=== PATIENT | male | born 1960 | race Caucasian/White ===

== ENCOUNTER → 2017-08-27 13:50 | Outpatient (CLI) | payer BC, SELFPAY ==
[2017-08-27 15:34] LABS: Amphetamine Urine VISTA NEGATIVE (<1000 ng/mL); Barbiturate Urine VISTA NEGATIVE (< 200 ng/mL); Benzodiazepine Urine VISTA NEGATIVE (< 200 ng/mL); Cocaine Urine VISTA NEGATIVE (< 300 ng/mL); Ecstacy Urine VISTA NEGATIVE (< 500 ng/mL); Methadone Urine VISTA NEGATIVE (< 300 ng/mL); PCP Urine VISTA NEGATIVE (< 25 ng/mL); THC Urine VISTA NEGATIVE (< 50 ng/mL); Vista UDS pH Range 6
== END ==
PROVIDERS: Family Provider Family Medicine; PCP Family Medicine; Visit Provider Anesthesiology Pain Medicine
DX: F11.20 Opioid dependence, uncomplicated (principal)
CPT/HCPCS: 80307

== ENCOUNTER → 2018-01-26 14:42 | Outpatient (CLI) | payer BC, SELFPAY ==
[2018-01-26 15:19] LABS: Amphetamine Urine VISTA NEGATIVE (<1000 ng/mL); Barbiturate Urine VISTA NEGATIVE (< 200 ng/mL); Benzodiazepine Urine VISTA NEGATIVE (< 200 ng/mL); Cocaine Urine VISTA NEGATIVE (< 300 ng/mL); Ecstacy Urine VISTA NEGATIVE (< 500 ng/mL); Methadone Urine VISTA NEGATIVE (< 300 ng/mL); PCP Urine VISTA NEGATIVE (< 25 ng/mL); THC Urine VISTA NEGATIVE (< 50 ng/mL); Vista UDS pH Range 6
--- OUTSIDE RECORDS SUMMARY | 2018-03-24 06:33 | XMS RPT_ITS ---
:1960 Author Organization [facility] Care Team Providers Name Role Phone Yonatan Wray Attending Unavailable Yonatan Wray Referring Unavailable Ken Lowe Primary Care Unavailable Basalryley, Yonatan Attending Unavailable Basalryley, Yonatan Referring Unavailable Ken Lowe Primary Care Unavailable PROBLEMS PROBLEMS DATE TYPE CONDITION / CODE ATTENDING STATUS SOURCE 01/26/2018 Unknown F11.20 - Opioid Basalyrley, Rajniman Active [place] dependence, [facility] F11.20(ICD-10) Repository PROCEDURES PROCEDURES No Procedure Records FoundRESULTS RESULTS URINE DRUG SCREEN Collected: 01/26/2018 Status: F Source: [place] (VISTA) 2:53 PM [facility] REPOSITORY Order Comment: Comments: [id number];URINE TOX; RUN LOWEST TEST IN [facility] List of Drugs Taken or Suspected? U TYPE CODE TESTS RESULT OUT OF RANGE REFERENCE UNITS LAB L505.0075 TO BE Normal CONFIRMED Result Comment: CONFIRMATORY TESTING FOR ALL POSITIVE URINE DRUG SCREEN RESULTS WILL ONLY BE SENT OUT UPON PHYSICIAN ORDER. VISTA Urine Drug Screen methods provide only preliminary analytical test results. A more specific alternate chemical method must be used in order to obtain a confirmed analytical result. Gas chromatography/mass spectrometery (GC/MS) is the preferred confirmatory method. Clinical consideration and professional judgement should be applied to any drug of abuse test result, particularly when preliminary positive results are used. URINE TCA TESTING MUST BE ORDERED SEPARATELY. USE TEST MNEMONIC: [facility] LAB L505.5005 VISTA UDS PH 6 Normal LAB L505.5015 <1000 ng/mL AMPHETAMINES Normal NEGATIVE LAB L505.5025 < 200 ng/mL BARBITIURATES Normal NEGATIVE LAB L505.5035 < 200 ng/mL BENZODIAZIPINE Normal NEGATIVE LAB L505.5045 < 300 ng/mL COCAINE Normal NEGATIVE LAB L505.5055 < 500 ng/mL ECSTACY Normal NEGATIVE LAB L505.5065 < 300 ng/mL METHADONE Normal NEGATIVE LAB L505.5075 < 300 High ng/mL OPIATES POSITIVE LAB L505.5085 < 25 ng/mL PCP Normal NEGATIVE LAB L505.5095 < 50 ng/mL THC Normal NEGATIVE Performed By: #### L505.5000 #### [facility] [address] [place], [address] MISCELLANEOUS LAB Collected: 01/26/2018 Status: F Source: [place] PROCEDURE 2:53 PM [facility] REPOSITORY Order Comment: Comments: [id number];URINE TOX; RUN LOWEST TEST IN [facility] Test(s) Ordered: [id number];URINE TOX; RUN LOWEST TEST IN [facility] TYPE CODE TESTS RESULT OUT OF RANGE REFERENCE UNITS LAB L801.1541 Normal [facility] LAB TEST Result Comment: TEST RESULT UNITS REF INTERVAL [id number] 6+Oxycodone-Bund Amphetamines, Urine Negative ng/mL Avbwmu=1136 Amphetamine test includes Amphetamine and Methamphetamine. Barbiturate Negative ng/mL Cprlik=998 Benzodiazepines Negative ng/mL Lyoaea=769 Cannabinoids Negative ng/mL Cutoff=20 Cocaine (Metabolite) Negative ng/mL Euxfte=468 Opiates Positive ng/mL Irlirz=157 Opiate test includes Codeine, Morphine, Hydromorphone, Hydrocodone. Please Note: Confirmation performed by Mass Spectrometry Codeine Negative Whdhbp=722 Morphine Negative Dopvqy=171 Hydromorphone Positive Hydromorphone Confirm 453 ng/mL Xxksrh=380 Hydrocodone Positive Hydrocodone Confirm 522 ng/mL Bppvyt=817 Oxycodone/Oxymorphone, Urine Negative ng/mL Rnrbjd=836 Test includes Oxycodone and Oxymorphone TESTING PERFORMED AT [facility]. ORIGINAL REPORT ON FILE IN LAB CONTAINS ADDITIONAL TEST SITE INFORMATION. Performed By: #### L801.1541 #### [facility] [address] [place], [place], [address] URINE DRUG SCREEN Collected: 08/27/2017 Status: F Source: [place] ([place]) 1:59 PM [facility] REPOSITORY Order Comment: List of Drugs Taken or Suspected? UNK TYPE CODE TESTS RESULT OUT OF RANGE REFERENCE UNITS LAB L505.0075 TO BE Normal CONFIRMED Result Comment: CONFIRMATORY TESTING FOR ALL POSITIVE URINE DRUG SCREEN RESULTS WILL ONLY BE SENT OUT UPON PHYSICIAN ORDER. [facility] Urine Drug Screen methods provide only preliminary analytical test results. A more specific alternate chemical method must be used in order to obtain a confirmed analytical result. Gas chromatography/mass spectrometery (GC/MS) is the preferred confirmatory method. Clinical consideration and professional judgement should be applied to any drug of abuse test result, particularly when preliminary positive results are used. URINE TCA TESTING MUST BE ORDERED SEPARATELY. USE TEST MNEMONIC: [facility] L505.5005 VISTA UDS PH 6 Normal LAB L505.5015 <1000 ng/mL AMPHETAMINES Normal NEGATIVE LAB L505.5025 < 200 ng/mL BARBITIURATES Normal NEGATIVE LAB L505.5035 < 200 ng/mL BENZODIAZIPINE Normal NEGATIVE LAB L505.5045 < 300 ng/mL COCAINE Normal NEGATIVE LAB L505.5055 < 500 ng/mL ECSTACY Normal NEGATIVE LAB L505.5065 < 300 ng/mL METHADONE Normal NEGATIVE LAB L505.5075 < 300 High ng/mL OPIATES POSITIVE LAB L505.5085 < 25 ng/mL PCP Normal NEGATIVE LAB L505.5095 < 50 ng/mL THC Normal NEGATIVE Performed By: #### L505.5000 #### [facility] [address] [place], [address] MISCELLANEOUS LAB Collected: 08/27/2017 Status: F Source: [place] PROCEDURE 1:59 PM [facility] REPOSITORY Order Comment: Test(s) Ordered: [id number] URINE DRUG SCREEN RUN LOWEST TEST TYPE CODE TESTS RESULT OUT OF RANGE REFERENCE UNITS LAB L801.1541 Normal [facility] LAB TEST Result Comment: [id number] 6+OXYCODONE-BUND (ng/mL) DRUG RESULT SCREEN CUTOFF ____ Amphetamines,Urine Negative ng/mL 1000 Amphetamine test includes Amphetamine and Methamphetamine. Barbiturates Negative ng/mL 200 Benzodiazepines Negative ng/mL 200 Cannabinoid Negative ng/mL 20 Cocaine (Metab) Negative ng/mL 300 Opiates Positive ng/mL 300 Opiates test includes Codeine, Morphine, Hydromorphone, Hydrocodone. Please Note: Confirmation performed by Mass Spectrometry Codeine Negative 300 Morphine Negative 300 Hydromorphone Positive Hydromorphone Confirm 821 ng/mL 300 Hydrocodone Positive Hydrocodone Confirm 397 ng/mL 300 Oxycodone/Oxymorphone,Urine Negative ng/mL 300 Test includes Oxydodone and Oxymorphone. TESTING PERFORMED AT [facility]. ORIGINAL REPORT ON FILE IN LAB CONTAINS ADDITIONAL TEST SITE INFORMATION. Performed By: #### L801.1541 #### [facility] [place], [address] ALLERGIES ALLERGIES No Allergies Records FoundENCOUNTERS ENCOUNTERS ADMIT/DISCHARGE ACCOUNT ADMITTING ENCOUNTER LOCATION SOURCE NUMBER CLASS 01/26/2018 [id number] Ambulatory [facility] 3 [facility] ing:LAB Repository 08/27/2017 [id number] Ambulatory [address] ing:LAB Repository PAYERS PAYERS ENCOUNTER GUARANTOR PAYER SUBSCRIBER SOURCE 01/26/2018 JEAN Winston Primary JEAN Winston [place] [id number] [place] Insurance:ANTHEMPolic [place] Number: [id number] Hospital [address]Rqv: 330 [id number] Repository [phone] () Date:[id number] [address] [place] [id number]: 01/26/2018 Secondary NOT GIVENUNK [place] Insurance:SELF PAY [facility] Number: Effective Repository Date:2018-01-26 08/27/2017 JEAN Winston Primary JEAN Winston [place] [id number] [place] Insurance:ANTHEMPolic [place]DOB: [place] Number: [id number] Hospital [id number]: 330 [id number] Repository [phone] () Date:[id number] [address], [place] [address]LW: 08/27/2017 Secondary NOT GIVENUNK [place] Insurance:SELF PAY [facility] Number: Effective Repository Date:2017-08-27
== END ==
PROVIDERS: Family Provider Family Medicine; PCP Family Medicine; Referring Provider Anesthesiology Pain Medicine; Visit Provider Anesthesiology Pain Medicine
DX: F11.20 Opioid dependence, uncomplicated (principal)
CPT/HCPCS: 80307

== ENCOUNTER → 2018-04-15 14:58 | Outpatient (CLI) | payer BC, SELFPAY ==
--- NOTE | 2018-04-15 15:18 | RAD_ITS ---
STUDY: X-RAY - UNILATERAL RIBS ( LEFT ) WITH CHEST REASON FOR EXAM: Male, 57 years old. Left rib pain. Fall. Dyspnea. TECHNIQUE - RIBS: 4 view(s) of the ribs. TECHNIQUE - CHEST: Single frontal view of the chest. COMPARISON: None. FINDINGS - RIBS: Normal visualized ribs without a demonstrated fracture. FINDINGS - CHEST: The lungs are clear and expanded. There is no demonstrated pleural abnormality. Normal size heart. Normal mediastinum and juancarlos. Normal visualized pulmonary arteries. Normal visualized aortic arch and descending thoracic aorta. Normal visualized thoracic spine. Normal visualized ribs, clavicles, and shoulders. There is no demonstrated abnormality of the visualized soft tissue structures of the upper abdomen. RAD/Ribs Uni Min 3V w/PA Chest IMPRESSION: RIBS: Normal x-ray examination of the ribs. CHEST: Normal x-ray examination of the chest. Electronically Signed: Collin Cagle MD at 22:18 EST , Service support ,
== END ==
PROVIDERS: Family Provider Internal Medicine; PCP Internal Medicine; Referring Provider Anesthesiology Pain Medicine; Visit Provider Anesthesiology Pain Medicine
DX: R07.81 Pleurodynia (principal); W19.XXXA Unspecified fall, initial encounter; Y93.9 Activity, unspecified; Y92.9 Unspecified place or not applicable; Y99.9 Unspecified external cause status
CPT/HCPCS: 71101

== ENCOUNTER → 2018-06-15 09:49 | Outpatient (CLI) | payer BC, SELFPAY ==
[2018-04-19 09:25] VITALS: BMI 30.4
[2018-06-15 12:33] LABS: Absolute Lymphocyte Count 2.72 X10^3/ul (0.83-4.51); Absolute Neutrophil Count 3.2 X10^3/uL (2.0-7.7); Basophil# 0.03 X10^3/uL; Basophil% 0.4 % (0-1); Eosinophil# 0.37 X10^3/uL; Eosinophils% 5.4 % (0-5); Hematocrit 42.9 % (40-54); Hemoglobin 14.2 g/dl (13.0-16.5); Lymphocyte # 2.72 X10^3/ul (4.0); Lymphocyte % 39.9 % (19-41); Mean Corp Hgb Conc 33.1 g/gl (32-36); Mean Corpuscular Hgb 32.8 pg (27.0-32.0); Mean Corpuscular Volume 99.1 fL (80-94); Mean Platelet Vol. 10.3 fl (6.2-12.0); Monocyte# 0.45 X10^3/uL; Monocyte% 6.6 % (0-10); Neutrophil # 3.22 X10^3/uL (2.7-7.7); Neutrophil % 47.4 % (47-70); Platelet Count 247 K/mm3 (150-450); RBC Distribution Width CV 12.7 % (11.6-14.6); Red Blood Count 4.33 M/mm3 (4.6-6.2); White Blood Count 6.8 K/mm3 (4.4-11.0)
[2018-06-15 12:37] LABS: POSITIVE COUNT NO; POSITIVE DIFFERENTIAL NO; POSITIVE MORPHOLOGY NO
[2018-06-15 13:08] LABS: AST(SGOT) 28 U/L (15-37); Alanine Aminotransfer ALT/SGPT 29 U/L (16-61); Albumin, Serum 3.7 g/dL (3.2-5.0); Alkaline Phosphatase 60 U/L (45-117); Anion Gap 7 (5-15); BUN 16 mg/dL (7-18); BUN/Creat Ratio 15.8 RATIO (10-20); Calcium,Total 8.7 mg/dL (8.5-10.1); Chloride 103 mmol/L (98-107); Creatinine, Serum 1.01 mg/dL (0.70-1.30); EST Glomerular Filtration Rate 80 mL/min (>60); Est Glom Filt Rate - Afr Amer 97 mL/min (>60); Globulin 3.6 g/dL (2.2-4.2); Glucose 90 mg/dL (74-106); Potassium 3.7 mmol/L (3.5-5.1); Protein, Total 7.3 g/dL (6.4-8.2); Rheumatoid Factor < 10.0 IU/mL (<15); Sodium Level 140 mmol/L (136-145)
[2018-06-17 17:02] LABS: CCP IgG Antibodies 13 units (0-19); HEPATITIS B SURFACE AG Negative (Negative); Hep B Surface Antibodies Non Reactive (.); Hep C Antibodies <0.1 s/co ratio (0.0-0.9)
[2018-06-17 17:07] LABS: ANTINUCLEAR ANTIBODIES DIRECT Negative (Negative)
== END ==
PROVIDERS: Family Provider Internal Medicine; PCP Internal Medicine; Referring Provider Internal Medicine Rheumatology; Visit Provider Internal Medicine Rheumatology
DX: M05.79 Rheumatoid arthritis with rheumatoid factor of multiple sites without organ or systems involvement (principal); I10 Essential (primary) hypertension; E78.5 Hyperlipidemia, unspecified; F32.89 Other specified depressive episodes
CPT/HCPCS: 36415; 80053; 85025; 86038; 86200; 86431; 86706; 86803; 87340

== ENCOUNTER → 2018-06-24 10:14 | Outpatient (CLI) | payer BC, SELFPAY ==
[2018-04-19 09:25] VITALS: BMI 30.4
[2018-06-24 11:57] LABS: Amphetamine Urine VISTA NEGATIVE (<1000 ng/mL); Barbiturate Urine VISTA NEGATIVE (< 200 ng/mL); Benzodiazepine Urine VISTA NEGATIVE (< 200 ng/mL); Cocaine Urine VISTA NEGATIVE (< 300 ng/mL); Ecstacy Urine VISTA NEGATIVE (< 500 ng/mL); Methadone Urine VISTA NEGATIVE (< 300 ng/mL); PCP Urine VISTA NEGATIVE (< 25 ng/mL); THC Urine VISTA NEGATIVE (< 50 ng/mL); Vista UDS pH Range 7
== END ==
PROVIDERS: Family Provider Internal Medicine; PCP Internal Medicine; Referring Provider Anesthesiology Pain Medicine; Visit Provider Anesthesiology Pain Medicine
DX: F11.20 Opioid dependence, uncomplicated (principal)
CPT/HCPCS: 80307

== ENCOUNTER 2018-09-14 15:50 | Outpatient (RCR) | payer BC, SELFPAY ==
[2018-04-19 09:25] VITALS: BMI 30.4
[2018-07-19 08:42] VITALS: BMI 30.4
[2018-09-14 17:28] LABS: Absolute Lymphocyte Count 2.99 X10^3/uL (0.83-4.51); Absolute Neutrophil Count 3.9 X10^3/uL (2.0-7.7); Basophil# 0.08 X10^3/uL; Eosinophil# 0.56 X10^3/uL; Eosinophils% 6.8 % (0-5); Hematocrit 44.3 % (40-54); Hemoglobin 14.6 g/dL (13.0-16.5); Lymphocyte # 2.99 X10^3/ul (4.0); Lymphocyte % 36.3 % (19-41); Mean Corpuscular Hgb 33.1 pg (27.0-32.0); Mean Corpuscular Volume 100.5 fL (80-94); Mean Platelet Vol. 10.6 fl (6.2-12.0); Monocyte# 0.66 X10^3/uL; NRBC Flagged by Analyzer 0 % (0-5); Neutrophil % 47.4 % (47-70); Platelet Count 227 K/mm3 (150-450); RBC Distribution Width CV 13.2 % (11.6-14.6); Red Blood Count 4.41 M/mm3 (4.6-6.2); White Blood Count 8.2 K/mm3 (4.4-11.0)
[2018-09-14 18:07] LABS: ALB/GLOB Ratio 1.1 RATIO (0.9-2.4); AST(SGOT) 18 U/L (15-37); Alanine Aminotransfer ALT/SGPT 24 U/L (16-61); Albumin, Serum 3.8 g/dL (3.2-5.0); Alkaline Phosphatase 67 U/L (45-117); Anion Gap 8 (5-15); BUN 23 mg/dL (7-18); BUN/Creat Ratio 20.2 RATIO (10-20); Calcium,Total 8.9 mg/dL (8.5-10.1); Chloride 103 mmol/L (98-107); Creatinine, Serum 1.14 mg/dL (0.70-1.30); EST Glomerular Filtration Rate 70 mL/min (>60); Est Glom Filt Rate - Afr Amer 84 mL/min (>60); Globulin 3.4 g/dL (2.2-4.2); Glucose 102 mg/dL (74-106); Potassium 3.5 mmol/L (3.5-5.1); Protein, Total 7.2 g/dL (6.4-8.2); Sodium Level 140 mmol/L (136-145)
== END 2018-09-14 16:00 ==
LOC: MTLAB 15:50
PROVIDERS: Family Provider Internal Medicine; PCP Internal Medicine; Referring Provider Internal Medicine Rheumatology; Visit Provider Internal Medicine Rheumatology
DX: M06.09 Rheumatoid arthritis without rheumatoid factor, multiple sites (principal); Z79.899 Other long term (current) drug therapy; I10 Essential (primary) hypertension; E78.5 Hyperlipidemia, unspecified; F32.89 Other specified depressive episodes
CPT/HCPCS: 36415; 80053; 85025

== ENCOUNTER → 2018-09-21 16:40 | Outpatient (CLI) | payer BC, SELFPAY ==
[2018-07-19 08:42] VITALS: BMI 30.4
[2018-09-21 16:52] LABS: Pathologist Comment May follow
[2018-09-21 18:06] LABS: AUTO B FLUID DILUENT BKGD CT WBC <0.1 RBC <0.01 (W<.1,R<.01); Source- Body Fluid SYNOVIAL
[2018-09-21 18:07] LABS: Appearance /Synovial Fluid Hazy (CLEAR); Color / Synovial Fluid Pink (Pale Yellow); Source / Synovial Fluid LEFT KNEE; Viscosity / Synovial Fluid Sl. Viscous (HIGH)
[2018-09-21 18:22] LABS: Synovial Fld Polynuclear WBC # 0.027 10^3/uL
[2018-09-21 18:45] LABS: CRYSTALS, BODY FLUID See PATH REV
[2018-09-21 20:12] LABS: Lymph 32 %; Monocyte /Synovial Fluid 12 %; Neutrophil 40 % (0-25); Other Cell /Synovial Fluid 16 %
[2018-09-22 09:41] LABS: Pathologist Review Reviewed
[2018-09-22 15:19] LABS: RBC /Synovial Fluid 0.018 10^6/uL (0)
== END ==
PROVIDERS: Family Provider Internal Medicine; PCP Internal Medicine; Referring Provider Internal Medicine Rheumatology; Visit Provider Internal Medicine Rheumatology
DX: M06.09 Rheumatoid arthritis without rheumatoid factor, multiple sites (principal); M25.562 Pain in left knee; I10 Essential (primary) hypertension; E78.5 Hyperlipidemia, unspecified; F32.89 Other specified depressive episodes; Z79.899 Other long term (current) drug therapy
CPT/HCPCS: 87070; 87075; 87205; 89050; 89051; 89060

== ENCOUNTER → 2018-10-28 13:15 | Outpatient (CLI) | payer BC, SELFPAY ==
[2018-10-28 13:12] VITALS: BMI 30.4
--- NOTE | 2018-10-28 13:16 | RAD_ITS ---
STUDY: X-RAY - LEFT KNEE REASON FOR EXAM: Chronic knee pain. TECHNIQUE: 4 view(s) of the knee. COMPARISON: None. FINDINGS: Normal visualized distal femur. Normal visualized proximal tibia and fibula. There is a small bone island in the proximal tibial metaphysis. Normal proximal tibiofibular articulation. Normal medial femorotibial compartment. Normal lateral femorotibial compartment. Normal patellofemoral articulation. The soft tissue structures are unremarkable. RAD/Knee 4 or More Views IMPRESSION: Normal x-ray examination of the left knee. Electronically Signed: Harish Erickson MD at 13:54 EDT Tel , Service support ,
== END ==
PROVIDERS: Family Provider Internal Medicine; PCP Internal Medicine; Referring Provider Orthopaedic Surgery; Visit Provider Orthopaedic Surgery
DX: M06.9 Rheumatoid arthritis, unspecified (principal); M25.562 Pain in left knee
CPT/HCPCS: 73564

== ENCOUNTER 2018-11-08 06:57 | Outpatient (RCR) | payer BC, SELFPAY ==
[2018-10-28 13:12] VITALS: BMI 30.4
--- NOTE | 2018-11-08 08:20 | HP.PTEVAL_ITS ---
Patient's Visit Information JEAN SEARS is a 58 year old M referred to Physical Therapy by Rupal Wilson DO with a diagnosis of L knee pain. Date of Evaluation: 11/08/18 Physical Therapist: Lyla Cai DPT - Visit Plan Frequency: 1x/Week Duration: 1 Week Plan: 11/08/18 - Pt. prescribed HEP to focus on hip/core strengthening: SLR, Inchworms BTB, Side-Plank Clams BTB, SLS, Supine bridge w/ northern irish ball, Standing HS str- Will continue HEP Indep and call with questions or concerns. Appropriate to be d/c - Subjective Findings: [facility] started evaluating knee & shoulder 5 years ago - mod. osteoarthritis and gave brace. Pain specialist for RA referred here. Fell last feburary - standing up from chair onto knees, taking care of at home. Feels like something is slipping in & out of place. X-rays within the last couple of weeks. States pain varies & can be on the inside of the knee of on top of the knee. Reports not wearing brace as it gives him more issues, compression garment seems to help pain. Exercise at home tends to irritate him. Worst: 8- 9/10 sharp pain Aggravating factors: squatting, walking, prolonged standing. Pain free in L knee 40-50 ice times. Relief: Rest, heat pack, ice pack. Disrupts sleep when turning in bed. 6-8 sessions of PT for strengthening - 5 years ago. Retail Specialist drained 50 ccs of fluid from L knee - nergative for inflammation. Exercise program: 20-30 minutes aerobic 1-2x/week. 1.1 mile on gazelle at walking pace. Total gym 7 sets of UE/LE/core (squats, rowing, bruneian twists, etc.). Not a lot of heavy resistance training for LE. PMH/Meds: HTN Occupation: On the computer all day, knee gets stuff, tries to get up & move every day. Frequently does yard work around the house, pain is eased w/ compression garment. Has 3 dogs - walks them daily - knee feels ok while wearing sleeve. Compression garment for activites, knee brace if pain is really bad. - Objective Stairs: asc - slight toe-out, weight shifted to toes to propel self to next step. Desc - pt. reported instability. No use of handrails & reciprocal pattern throughout. Gait: no deviations noted. HR/TR walk: WFL. Posture: FH, RS - corrected w/ v/c, not maintained. SLS: R - 10 sec, L 10 seconds- increased sway & ankle muscle activation Left>Right. ROM: Knee WFL, Ankle WFL, Hip WFL - pain at end range with all motions. Strength: Ankle 5/5, Knee 5/5, Hip add. 5/5, flex 4-/5, abd. 4-/5 Core: fair minus. Flexibility: Gastroc mod., hamstring severe. Palpation: TTP at medial meniscus & quad tendon. Special Test: Song: positive - Goals Goal 1:: Patient will be I with HEP and progression - Rehabilitation Potential Physical Therapy Diagnosis: Presents w/ hypomobility, hip/core weakness, decreased flexibility, and pain leading to increased pain with ADL's, Rehabilitation Potential: Good - Anticipated Interventions Patient/Client Instruction: Educate patient on: Condition, Plan of Care, Benefits of Fitness Program For the Purpose of:: To decrease pain Therapeutic Exercise to Include: Strength training, Endurance training, Balance training, Agility training, Body mechanics, Postural training, Flexibilty training, Passive ROM, Active ROM, Dynamic Lumbar Stabilization Cryotherapy (ice pack, ice massage): Yes Thermo therapy (hot pack): Yes For the Purpose of:: To decrease pain Thank you for the opportunity to evaluate your patient. For Medicare and Medicare HMO plans, please review the plan of care and approve it. It will need to be FAXED BACK to us at [phone] for Medicare purposes. For Medicare only, by signing this I certify the plan of care. Please let me know if there are questions or concerns regarding this plan of care. Physician Signature: Date:
--- NOTE | 2018-12-10 09:47 | HP.PTDCSUM_ITS ---
HP - PT D/C Summary It has been my pleasure to treat JEAN SEARS under orders from Rupal Wilson DO, for the diagnosis of L knee pain for a total of 1 visit(s). Discharge Date: Please see the following information for a summary of their discharge status. - Goals Goal 1:: Patient will be I with HEP and progression - Plan Plan: 11/08/18 - Pt. prescribed HEP to focus on hip/core strengthening: SLR, Inchworms BTB, Side-Plank Clams BTB, SLS, Supine bridge w/ uruguayan ball, Standing HS str- Will continue HEP Indep and call with questions or concerns. Appropriate to be d/c - D/C Information If there are questions or concerns regarding this patient's physical therapy, please feel free to call me at [phone]. Thank you for the referral of this patient. Sincerely, JULIANA GarciaT
== END 2018-11-08 19:00 | disposition home or self-care (01) ==
LOC: PT 06:57
PROVIDERS: Family Provider Internal Medicine; PCP Internal Medicine; Referring Provider Orthopaedic Surgery; Visit Provider Orthopaedic Surgery
DX: M25.562 Pain in left knee (principal)
CPT/HCPCS: 97110; 97161

== ENCOUNTER → 2018-11-24 20:51 | Outpatient (CLI) | payer BC, SELFPAY ==
[2018-10-18 08:52] VITALS: BMI 30.4
== END ==
PROVIDERS: Family Provider Internal Medicine; PCP Internal Medicine; Referring Provider Internal Medicine; Visit Provider Internal Medicine
DX: G47.10 Hypersomnia, unspecified (principal)
CPT/HCPCS: 95811

== ENCOUNTER → 2018-12-02 07:02 | Outpatient (CLI) | payer BC, SELFPAY ==
[2018-10-28 13:12] VITALS: BMI 30.4
--- NOTE | 2018-12-02 07:03 | MRI_ITS ---
STUDY: MRI LEFT KNEE REASON FOR EXAM: Chronic pain, mostly lateral, instability, fall in April. TECHNIQUE: Standardized fat and water weighted pulse sequences were obtained in all 3 orthogonal planes. COMPARISON: Radiographs 10/28/2018. FINDINGS: Normal medial meniscus. Normal hyaline cartilage of the medial femorotibial compartment. Normal medial femoral condyle and tibial plateau. Normal medial collateral ligamentous complex (MCL). Normal distal semimembranosus, gracilis and semitendinosus tendons. Normal lateral meniscus. Normal hyaline cartilage of the lateral femorotibial compartment. Normal lateral femoral condyle and tibial plateau. Normal proximal tibiofibular articulation. Normal lateral collateral (fibular) ligament. Normal popliteus tendon. Normal biceps femoris tendon. Normal anterior cruciate ligament (ACL). Normal posterior cruciate ligament (PCL). Normal congruent patellofemoral articulation. There is intermediate grade chondromalacia patellae (T2 sagittal image 16). Normal medial and lateral patellar retinaculum. Normal visualized quadriceps tendon. Normal patellar tendon. Normal Hoffa's fat pad. There is a small joint effusion. There is mild edema in the subcutis adipose space. The otherwise visualized osseous structures are unremarkable. MRI/Lower Ext Joint Only (Routine) IMPRESSION: Chondromalacia patellae. Small joint effusion. No demonstrated meniscal tear. Electronically Signed: Harish Erickson MD at 9:20 EDT Tel , Service support ,
== END ==
PROVIDERS: Family Provider Internal Medicine; PCP Internal Medicine; Referring Provider Orthopaedic Surgery; Visit Provider Orthopaedic Surgery
DX: M23.307 Other meniscus derangements, unspecified meniscus, left knee (principal); G89.29 Other chronic pain
CPT/HCPCS: 73721

== ENCOUNTER 2018-12-10 15:49 | Outpatient (RCR) | payer BC, SELFPAY ==
[2018-07-19 08:42] VITALS: BMI 30.4
[2018-12-08 09:47] VITALS: BMI 30.1
[2018-12-10 17:32] LABS: Absolute Lymphocyte Count 2.49 X10^3/uL (0.83-4.51); Absolute Neutrophil Count 3.1 X10^3/uL (2.0-7.7); Basophil# 0.06 X10^3/uL; Basophil% 0.9 % (0-1); Eosinophil# 0.27 X10^3/uL; Eosinophils% 4.1 % (0-5); Hematocrit 40.6 % (40-54); Hemoglobin 13.5 g/dL (13.0-16.5); Lymphocyte # 2.49 X10^3/ul (4.0); Lymphocyte % 37.8 % (19-41); Mean Corp Hgb Conc 33.3 g/dL (32-36); Mean Corpuscular Hgb 34.4 pg (27.0-32.0); Mean Corpuscular Volume 103.6 fL (80-94); Mean Platelet Vol. 9.9 fl (6.2-12.0); Monocyte# 0.61 X10^3/uL; Monocyte% 9.3 % (0-10); NRBC Flagged by Analyzer 0 % (0-5); Neutrophil # 3.14 X10^3/uL (2.7-7.7); Neutrophil % 47.7 % (47-70); Platelet Count 264 K/mm3 (150-450); RBC Distribution Width CV 13.1 % (11.6-14.6); RBC Distribution Width SD 48.9 fl (35.1-43.9); Red Blood Count 3.92 M/mm3 (4.6-6.2); White Blood Count 6.6 K/mm3 (4.4-11.0)
[2018-12-10 18:08] LABS: ALB/GLOB Ratio 1.2 RATIO (0.9-2.4); AST(SGOT) 19 U/L (15-37); Alanine Aminotransfer ALT/SGPT 26 U/L (16-61); Albumin, Serum 3.9 g/dL (3.2-5.0); Alkaline Phosphatase 50 U/L (45-117); Anion Gap 5 (5-15); BUN 16 mg/dL (7-18); BUN/Creat Ratio 15.4 RATIO (10-20); Calcium,Total 8.6 mg/dL (8.5-10.1); Chloride 106 mmol/L (98-107); Creatinine, Serum 1.04 mg/dL (0.70-1.30); EST Glomerular Filtration Rate 78 mL/min (>60); Est Glom Filt Rate - Afr Amer 94 mL/min (>60); Globulin 3.2 g/dL (2.2-4.2); Glucose 89 mg/dL (74-106); Potassium 3.8 mmol/L (3.5-5.1); Protein, Total 7.1 g/dL (6.4-8.2); Sodium Level 140 mmol/L (136-145)
== END 2018-12-10 18:00 | disposition home or self-care (01) ==
LOC: MTLAB 15:49
PROVIDERS: Family Provider Internal Medicine; PCP Internal Medicine; Referring Provider Internal Medicine Rheumatology; Visit Provider Internal Medicine Rheumatology
DX: M06.09 Rheumatoid arthritis without rheumatoid factor, multiple sites (principal); Z79.899 Other long term (current) drug therapy; I10 Essential (primary) hypertension; E78.5 Hyperlipidemia, unspecified; F32.89 Other specified depressive episodes
CPT/HCPCS: 36415; 80053; 85025

== ENCOUNTER → 2018-12-21 09:00 | Outpatient (CLI) | payer BC, SELFPAY ==
[2018-12-08 09:47] VITALS: BMI 30.1
== END ==
PROVIDERS: Family Provider Internal Medicine; PCP Internal Medicine; Referring Provider Nurse Practitioner Acute Care; Visit Provider Nurse Practitioner Acute Care
DX: G47.10 Hypersomnia, unspecified (principal)

== ENCOUNTER → 2019-03-16 15:29 | Outpatient (CLI) | payer BC, SELFPAY ==
[2019-01-19 07:50] VITALS: BMI 29.9
[2019-03-16 17:30] LABS: Absolute Lymphocyte Count 3.02 X10^3/uL (0.83-4.51); Absolute Neutrophil Count 4.3 X10^3/uL (2.0-7.7); Basophil# 0.06 X10^3/uL; Basophil% 0.7 % (0-1); Eosinophil# 0.26 X10^3/uL; Eosinophils% 3.1 % (0-5); Hematocrit 46.8 % (40-54); Hemoglobin 15.2 g/dL (13.0-16.5); Lymphocyte # 3.02 X10^3/ul (4.0); Lymphocyte % 35.9 % (19-41); Mean Corp Hgb Conc 32.5 g/dL (32-36); Mean Corpuscular Hgb 32.1 pg (27.0-32.0); Mean Corpuscular Volume 98.9 fL (80-94); Mean Platelet Vol. 11.5 fl (6.2-12.0); Monocyte# 0.76 X10^3/uL; NRBC Flagged by Analyzer 0 % (0-5); Neutrophil # 4.29 X10^3/uL (2.7-7.7); Neutrophil % 50.9 % (47-70); Platelet Count 180 K/mm3 (150-450); RBC Distribution Width CV 12.7 % (11.6-14.6); RBC Distribution Width SD 46.3 fl (35.1-43.9); Red Blood Count 4.73 M/mm3 (4.6-6.2); White Blood Count 8.4 K/mm3 (4.4-11.0)
[2019-03-16 17:57] LABS: AST(SGOT) 20 U/L (15-37); Alanine Aminotransfer ALT/SGPT 29 U/L (16-61); Albumin, Serum 3.9 g/dL (3.2-5.0); Alkaline Phosphatase 49 U/L (45-117); Anion Gap 2 (5-15); BUN 17 mg/dL (7-18); BUN/Creat Ratio 15.2 RATIO (10-20); Calcium,Total 9.4 mg/dL (8.5-10.1); Chloride 104 mmol/L (98-107); Creatinine, Serum 1.12 mg/dL (0.70-1.30); EST Glomerular Filtration Rate 71 mL/min (>60); Est Glom Filt Rate - Afr Amer 86 mL/min (>60); Globulin 3.8 g/dL (2.2-4.2); Glucose 89 mg/dL (74-106); Potassium 4.1 mmol/L (3.5-5.1); Protein, Total 7.7 g/dL (6.4-8.2); Sodium Level 137 mmol/L (136-145)
== END ==
PROVIDERS: PCP Internal Medicine; Referring Provider Internal Medicine Rheumatology; Visit Provider Internal Medicine Rheumatology
DX: M06.09 Rheumatoid arthritis without rheumatoid factor, multiple sites (principal); M25.562 Pain in left knee; I10 Essential (primary) hypertension; E78.5 Hyperlipidemia, unspecified; F32.89 Other specified depressive episodes; G47.33 Obstructive sleep apnea (adult) (pediatric); Z79.899 Other long term (current) drug therapy
CPT/HCPCS: 36415; 80053; 85025

== ENCOUNTER → 2019-04-18 08:56 | Outpatient (CLI) | payer BC, SELFPAY ==
[2019-04-18 08:28] VITALS: BMI 29.6
[2019-04-18 12:44] LABS: Cholesterol 190 mg/dL (200); High Density Lipoprotein 60 mg/dL; Triglycerides 112 mg/dL; Very Low Density Lipoprotein 22 mg/dL (5-40)
== END ==
PROVIDERS: PCP Internal Medicine; Referring Provider Internal Medicine; Visit Provider Internal Medicine
DX: I10 Essential (primary) hypertension (principal); E78.5 Hyperlipidemia, unspecified
CPT/HCPCS: 36415; 80061

== ENCOUNTER → 2019-05-18 09:15 | Outpatient (CLI) | payer BC, SELFPAY ==
[2019-05-18 08:49] VITALS: BMI 30.1
[2019-05-18 12:30] LABS: Basophil# 0.09 X10^3/uL; Basophil% 0.6 % (0-1); Eosinophil# 0.45 X10^3/uL; Eosinophils% 3.2 % (0-5); Hemoglobin 14.8 g/dL (13.0-16.5); Lymphocyte % 14.8 % (19-41); Mean Corp Hgb Conc 32.2 g/dL (32-36); Mean Corpuscular Hgb 32.6 pg (27.0-32.0); Mean Corpuscular Volume 101.3 fL (80-94); Mean Platelet Vol. 12.2 fl (6.2-12.0); Monocyte# 1.52 X10^3/uL; Monocyte% 10.7 % (0-10); NRBC Flagged by Analyzer 0 % (0-5); Neutrophil # 9.96 X10^3/uL (2.7-7.7); Neutrophil % 69.9 % (47-70); POSITIVE DIFFERENTIAL YES; Platelet Count 141 K/mm3 (150-450); RBC Distribution Width CV 13.4 % (11.6-14.6); RBC Distribution Width SD 50.2 fl (35.1-43.9); Red Blood Count 4.54 M/mm3 (4.6-6.2); White Blood Count 14.2 K/mm3 (4.4-11.0)
[2019-05-18 12:31] LABS: Differential Indicated SCAN CRITERIA MET
[2019-05-18 12:46] LABS: ALB/GLOB Ratio 0.8 RATIO (0.9-2.4); AST(SGOT) 19 U/L (15-37); Alanine Aminotransfer ALT/SGPT 24 U/L (16-61); Albumin, Serum 3.6 g/dL (3.2-5.0); Alkaline Phosphatase 53 U/L (45-117); Anion Gap 5 (5-15); BUN 11 mg/dL (7-18); BUN/Creat Ratio 10.8 RATIO (10-20); Calcium,Total 9.3 mg/dL (8.5-10.1); Chloride 101 mmol/L (98-107); Creatinine, Serum 1.02 mg/dL (0.70-1.30); EST Glomerular Filtration Rate 79 mL/min (>60); Est Glom Filt Rate - Afr Amer 96 mL/min (>60); Globulin 4.3 g/dL (2.2-4.2); Glucose 88 mg/dL (74-106); Potassium 4.3 mmol/L (3.5-5.1); Protein, Total 7.9 g/dL (6.4-8.2); Sodium Level 135 mmol/L (136-145)
[2019-05-18 12:55] LABS: Platelet Estimate ADEQUATE (ADEQ); Red Cell Morphology NORM C+C NORMAL (NORM C&C)
[2019-05-19 09:30] LABS: Pathologist Review Reviewed
== END ==
PROVIDERS: PCP Internal Medicine; Referring Provider Internal Medicine Rheumatology; Visit Provider Internal Medicine Rheumatology
DX: M06.09 Rheumatoid arthritis without rheumatoid factor, multiple sites (principal); Z79.899 Other long term (current) drug therapy; M25.562 Pain in left knee; I10 Essential (primary) hypertension; E78.5 Hyperlipidemia, unspecified; F32.89 Other specified depressive episodes; G47.33 Obstructive sleep apnea (adult) (pediatric)
CPT/HCPCS: 36415; 80053; 85025

== ENCOUNTER → 2019-08-04 13:10 | Outpatient (CLI) | payer BC, SELFPAY ==
[2019-05-18 08:49] VITALS: BMI 30.1
[2019-07-18 09:00] VITALS: BMI 30.1
[2019-08-04 15:16] LABS: Absolute Lymphocyte Count 2.37 X10^3/uL (0.83-4.51); Absolute Neutrophil Count 4.8 X10^3/uL (2.0-7.7); Basophil# 0.06 X10^3/uL; Basophil% 0.7 % (0-1); Eosinophil# 0.33 X10^3/uL; Hemoglobin 14.9 g/dL (13.0-16.5); Lymphocyte # 2.37 X10^3/ul (4.0); Mean Corp Hgb Conc 32.4 g/dL (32-36); Mean Corpuscular Hgb 32.4 pg (27.0-32.0); Mean Platelet Vol. 11.1 fl (6.2-12.0); Monocyte# 0.62 X10^3/uL; Monocyte% 7.6 % (0-10); NRBC Flagged by Analyzer 0 % (0-5); Neutrophil # 4.76 X10^3/uL (2.7-7.7); Neutrophil % 58.2 % (47-70); Platelet Count 224 K/mm3 (150-450); RBC Distribution Width CV 13.3 % (11.6-14.6); RBC Distribution Width SD 48.1 fl (35.1-43.9); White Blood Count 8.2 K/mm3 (4.4-11.0)
[2019-08-04 15:28] LABS: ALB/GLOB Ratio 0.9 RATIO (0.9-2.4); AST(SGOT) 26 U/L (15-37); Alanine Aminotransfer ALT/SGPT 28 U/L (16-61); Albumin, Serum 3.8 g/dL (3.2-5.0); Alkaline Phosphatase 49 U/L (45-117); Anion Gap 6 (5-15); BUN 19 mg/dL (7-18); BUN/Creat Ratio 17.6 RATIO (10-20); Calcium,Total 9.4 mg/dL (8.5-10.1); Chloride 105 mmol/L (98-107); Creatinine, Serum 1.08 mg/dL (0.70-1.30); EST Glomerular Filtration Rate 74 mL/min (>60); Est Glom Filt Rate - Afr Amer 90 mL/min (>60); Globulin 4.1 g/dL (2.2-4.2); Glucose 93 mg/dL (74-106); Potassium 4.2 mmol/L (3.5-5.1); Protein, Total 7.9 g/dL (6.4-8.2); Sodium Level 140 mmol/L (136-145)
[2019-08-04 15:36] LABS: T4 Free Direct 0.95 ng/dL (0.76-1.46); Thyroid Stim Hormone (TSH) 1.63 uIU/mL (0.358-3.74)
[2019-08-10 12:08] LABS: Testosterone, Free 9.19 ng/dL (5.00-21.00)
[2019-08-10 12:19] LABS: Testosterone, % Free 2.06 % (1.50-4.20); Testosterone, Total 446 ng/dL (264-916)
== END ==
PROVIDERS: PCP Internal Medicine; Referring Provider Internal Medicine Rheumatology; Visit Provider Internal Medicine Rheumatology
DX: M06.00 Rheumatoid arthritis without rheumatoid factor, unspecified site (principal); I10 Essential (primary) hypertension; E78.5 Hyperlipidemia, unspecified; F32.89 Other specified depressive episodes; G47.33 Obstructive sleep apnea (adult) (pediatric); Z79.899 Other long term (current) drug therapy
CPT/HCPCS: 36415; 80053; 84402; 84403; 84439; 84443; 85025

== ENCOUNTER → 2019-11-14 | Outpatient (CLI) | payer BC, SELFPAY ==
[2019-10-24 08:16] VITALS: BMI 30.1
[2019-11-14 12:20] LABS: Absolute Lymphocyte Count 2.52 X10^3/uL (0.83-4.51); Absolute Neutrophil Count 4.5 X10^3/uL (2.0-7.7); Basophil# 0.08 X10^3/uL; Eosinophil# 0.28 X10^3/uL; Eosinophils% 3.5 % (0-5); Hematocrit 44.5 % (40-54); Hemoglobin 14.5 g/dL (13.0-16.5); Lymphocyte # 2.52 X10^3/ul (4.0); Lymphocyte % 31.3 % (19-41); Mean Corp Hgb Conc 32.6 g/dL (32-36); Mean Corpuscular Hgb 33.6 pg (27.0-32.0); Mean Platelet Vol. 11.7 fl (6.2-12.0); Monocyte# 0.62 X10^3/uL; Monocyte% 7.7 % (0-10); NRBC Flagged by Analyzer 0 % (0-5); Neutrophil # 4.52 X10^3/uL (2.7-7.7); Neutrophil % 56.1 % (47-70); Platelet Count 170 K/mm3 (150-450); RBC Distribution Width CV 12.6 % (11.6-14.6); RBC Distribution Width SD 48.2 fl (35.1-43.9); Red Blood Count 4.32 M/mm3 (4.6-6.2); White Blood Count 8.1 K/mm3 (4.4-11.0)
[2019-11-14 12:48] LABS: ALB/GLOB Ratio 0.9 RATIO (0.9-2.4); AST(SGOT) 22 U/L (15-37); Alanine Aminotransfer ALT/SGPT 25 U/L (16-61); Albumin, Serum 3.7 g/dL (3.2-5.0); Alkaline Phosphatase 60 U/L (45-117); Anion Gap 2 (5-15); BUN 18 mg/dL (7-18); BUN/Creat Ratio 19.3 RATIO (10-20); Calcium,Total 9.2 mg/dL (8.5-10.1); Chloride 104 mmol/L (98-107); Creatinine, Serum 0.93 mg/dL (0.70-1.30); EST Glomerular Filtration Rate 88 mL/min (>60); Est Glom Filt Rate - Afr Amer 106 mL/min (>60); Glucose 92 mg/dL (74-106); Potassium 3.9 mmol/L (3.5-5.1); Protein, Total 7.7 g/dL (6.4-8.2); Sodium Level 138 mmol/L (136-145)
== END | disposition home or self-care (01) ==
LOC: LABSPEC 11:20
PROVIDERS: PCP Internal Medicine; Visit Provider Internal Medicine Rheumatology
DX: M06.00 Rheumatoid arthritis without rheumatoid factor, unspecified site (principal); I10 Essential (primary) hypertension; E78.5 Hyperlipidemia, unspecified; F32.89 Other specified depressive episodes; G47.33 Obstructive sleep apnea (adult) (pediatric); Z79.899 Other long term (current) drug therapy
CPT/HCPCS: 36415; 80053; 85025

== ENCOUNTER → 2020-01-19 15:34 | Outpatient (CLI) | payer BC, SELFPAY ==
[2019-10-24 08:16] VITALS: BMI 30.1
--- NOTE | 2020-01-19 15:47 | RAD_ITS ---
STUDY: X-RAY CHEST REASON FOR EXAM: Male, 59 years old. 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 HX OF HBP. TECHNIQUE: PA and lateral views of the chest. COMPARISON: FINDINGS: The lungs are clear and expanded. Slight elevation left hemidiaphragm which is unchanged. Normal size heart. Normal mediastinum and juancarlos. Normal visualized pulmonary arteries. Normal visualized aortic arch and descending thoracic aorta. Normal visualized thoracic spine. Normal visualized ribs, clavicles, and shoulders. There is no demonstrated abnormality of the visualized soft tissue structures of the upper abdomen. RAD/Chest PA and Lateral IMPRESSION: Normal x-ray examination of the chest. Electronically Signed: Dean Cespedes MD at 16:15 EST Tel , Service support ,
[2020-01-23 20:08] LABS: QNTFERON TB Mitogen Value > 10.00 IU/mL (.); QNTFERON TB Nil Value 0.02 IU/mL (.); QNTFERON TB1+ Ag Value 0.03 IU/mL (.); QNTFERON TB2+ Ag Value 0.03 IU/mL (.)
[2020-01-24 01:19] LABS: QNTIFERON TB Positive Criteria Negative (Negative)
== END ==
PROVIDERS: PCP Internal Medicine; Referring Provider Internal Medicine Rheumatology; Visit Provider Internal Medicine Rheumatology
DX: M06.09 Rheumatoid arthritis without rheumatoid factor, multiple sites (principal); I10 Essential (primary) hypertension; E78.5 Hyperlipidemia, unspecified; F32.89 Other specified depressive episodes; G47.33 Obstructive sleep apnea (adult) (pediatric); Z79.899 Other long term (current) drug therapy
CPT/HCPCS: 36415; 71046; 86480

== ENCOUNTER → 2020-02-04 07:14 | Outpatient (CLI) | payer BC, SELFPAY ==
[2019-10-24 08:16] VITALS: BMI 30.1
[2020-01-23 08:06] VITALS: BMI 33.7
[2020-02-04 07:48] LABS: Absolute Lymphocyte Count 4.12 X10^3/uL (0.83-4.51); Absolute Neutrophil Count 4.2 X10^3/uL (2.0-7.7); Basophil# 0.08 X10^3/uL; Basophil% 0.8 % (0-1); Eosinophil# 0.47 X10^3/uL; Eosinophils% 4.9 % (0-5); Hematocrit 44.4 % (40-54); Hemoglobin 14.6 g/dL (13.0-16.5); Lymphocyte # 4.12 X10^3/ul (4.0); Lymphocyte % 42.8 % (19-41); Mean Corp Hgb Conc 32.9 g/dL (32-36); Mean Corpuscular Hgb 33.3 pg (27.0-32.0); Mean Corpuscular Volume 101.4 fL (80-94); Mean Platelet Vol. 10.2 fl (6.2-12.0); Monocyte# 0.72 X10^3/uL; Monocyte% 7.5 % (0-10); NRBC Flagged by Analyzer 0 % (0-5); Neutrophil # 4.16 X10^3/uL (2.7-7.7); Neutrophil % 43.2 % (47-70); Platelet Count 281 K/mm3 (150-450); RBC Distribution Width CV 12.4 % (11.6-14.6); RBC Distribution Width SD 46.5 fl (35.1-43.9); Red Blood Count 4.38 M/mm3 (4.6-6.2); White Blood Count 9.6 K/mm3 (4.4-11.0)
[2020-02-04 08:11] LABS: ALB/GLOB Ratio 0.9 RATIO (0.9-2.4); AST(SGOT) 22 U/L (15-37); Alanine Aminotransfer ALT/SGPT 29 U/L (16-61); Albumin, Serum 3.7 g/dL (3.2-5.0); Alkaline Phosphatase 58 U/L (45-117); Anion Gap 6 (5-15); BUN 18 mg/dL (7-18); BUN/Creat Ratio 18.2 RATIO (10-20); Chloride 101 mmol/L (98-107); Cholesterol 188 mg/dL (200); Creatinine, Serum 0.99 mg/dL (0.70-1.30); EST Glomerular Filtration Rate 82 mL/min (>60); Est Glom Filt Rate - Afr Amer 99 mL/min (>60); Globulin 4.1 g/dL (2.2-4.2); Glucose 99 mg/dL (74-106); High Density Lipoprotein 57 mg/dL; Potassium 3.6 mmol/L (3.5-5.1); Protein, Total 7.8 g/dL (6.4-8.2); Sodium Level 139 mmol/L (136-145); Triglycerides 190 mg/dL; Very Low Density Lipoprotein 38 mg/dL (5-40)
== END ==
PROVIDERS: PCP Internal Medicine; Referring Provider Internal Medicine Rheumatology; Visit Provider Internal Medicine Rheumatology
DX: M06.09 Rheumatoid arthritis without rheumatoid factor, multiple sites (principal); I10 Essential (primary) hypertension; E78.5 Hyperlipidemia, unspecified; F32.89 Other specified depressive episodes; G47.33 Obstructive sleep apnea (adult) (pediatric); Z79.899 Other long term (current) drug therapy
CPT/HCPCS: 36415; 80053; 80061; 85025

== ENCOUNTER → 2020-03-27 07:35 | Outpatient (CLI) | payer BC, SELFPAY ==
[2020-03-08 08:56] VITALS: BMI 34.2
[2020-03-27 10:37] LABS: Absolute Lymphocyte Count 3.75 X10^3/uL (0.83-4.51); Absolute Neutrophil Count 3.9 X10^3/uL (2.0-7.7); Basophil# 0.06 X10^3/uL; Basophil% 0.7 % (0-1); Eosinophil# 0.23 X10^3/uL; Eosinophils% 2.7 % (0-5); Hematocrit 43.1 % (40-54); Lymphocyte # 3.75 X10^3/ul (4.0); Lymphocyte % 43.4 % (19-41); Mean Corp Hgb Conc 32.5 g/dL (32-36); Mean Corpuscular Hgb 33.1 pg (27.0-32.0); Mean Corpuscular Volume 101.9 fL (80-94); Monocyte# 0.62 X10^3/uL; Monocyte% 7.2 % (0-10); NRBC Flagged by Analyzer 0 % (0-5); Neutrophil # 3.94 X10^3/uL (2.7-7.7); Neutrophil % 45.5 % (47-70); Platelet Count 189 K/mm3 (150-450); RBC Distribution Width CV 13.2 % (11.6-14.6); RBC Distribution Width SD 49.7 fl (35.1-43.9); Red Blood Count 4.23 M/mm3 (4.6-6.2); White Blood Count 8.6 K/mm3 (4.4-11.0)
[2020-03-27 10:52] LABS: ALB/GLOB Ratio 1.1 RATIO (0.9-2.4); AST(SGOT) 33 U/L (15-37); Alanine Aminotransfer ALT/SGPT 45 U/L (16-61); Albumin, Serum 3.8 g/dL (3.2-5.0); Alkaline Phosphatase 43 U/L (45-117); Anion Gap 7 (5-15); BUN 16 mg/dL (7-18); BUN/Creat Ratio 14.3 RATIO (10-20); Calcium,Total 8.8 mg/dL (8.5-10.1); Chloride 100 mmol/L (98-107); Cholesterol 217 mg/dL (200); Creatinine, Serum 1.12 mg/dL (0.70-1.30); EST Glomerular Filtration Rate 71 mL/min (>60); Est Glom Filt Rate - Afr Amer 86 mL/min (>60); Globulin 3.6 g/dL (2.2-4.2); Glucose 100 mg/dL (74-106); High Density Lipoprotein 52 mg/dL; Potassium 3.4 mmol/L (3.5-5.1); Protein, Total 7.4 g/dL (6.4-8.2); Sodium Level 135 mmol/L (136-145); Triglycerides 263 mg/dL; Very Low Density Lipoprotein 53 mg/dL (5-40)
== END ==
PROVIDERS: PCP Internal Medicine; Referring Provider Internal Medicine Rheumatology; Visit Provider Internal Medicine Rheumatology
DX: M06.09 Rheumatoid arthritis without rheumatoid factor, multiple sites (principal); I10 Essential (primary) hypertension; E78.5 Hyperlipidemia, unspecified; F32.89 Other specified depressive episodes; G47.33 Obstructive sleep apnea (adult) (pediatric); Z79.899 Other long term (current) drug therapy
CPT/HCPCS: 36415; 80053; 80061; 85025

== ENCOUNTER → 2020-04-23 08:39 | Outpatient (CLI) | payer BC, SELFPAY ==
[2020-03-08 08:56] VITALS: BMI 34.2
[2020-04-23 13:31] LABS: Anion Gap 5 (5-15); BUN 18 mg/dL (7-18); BUN/Creat Ratio 15.5 RATIO (10-20); Calcium,Total 9.3 mg/dL (8.5-10.1); Chloride 103 mmol/L (98-107); Creatinine, Serum 1.16 mg/dL (0.70-1.30); EST Glomerular Filtration Rate 68 mL/min (>60); Est Glom Filt Rate - Afr Amer 82 mL/min (>60); Glucose 102 mg/dL (74-106); PSA,Total - Annual Screen 2.88 ng/mL (0.00-4.00); Sodium Level 138 mmol/L (136-145)
== END ==
PROVIDERS: PCP Internal Medicine; Visit Provider Internal Medicine
DX: Z00.00 Encounter for general adult medical examination without abnormal findings (principal); I10 Essential (primary) hypertension
CPT/HCPCS: 36415; 80048; 84153; G0103

== ENCOUNTER → 2020-06-06 08:25 | Outpatient (CLI) | payer BC, SELFPAY ==
[2020-06-06 08:09] VITALS: BMI 34.9
[2020-06-06 12:21] LABS: Anion Gap 4 (5-15); BUN 18 mg/dL (7-18); BUN/Creat Ratio 15.5 RATIO (10-20); Calcium,Total 9.5 mg/dL (8.5-10.1); Chloride 102 mmol/L (98-107); Creatinine, Serum 1.16 mg/dL (0.70-1.30); EST Glomerular Filtration Rate 68 mL/min (>60); Est Glom Filt Rate - Afr Amer 82 mL/min (>60); Glucose 96 mg/dL (74-106); Potassium 4.4 mmol/L (3.5-5.1); Sodium Level 137 mmol/L (136-145)
== END ==
PROVIDERS: PCP Internal Medicine; Referring Provider Internal Medicine; Visit Provider Internal Medicine
DX: I10 Essential (primary) hypertension (principal)
CPT/HCPCS: 36415; 80048

== ENCOUNTER → 2020-07-02 15:25 | Outpatient (CLI) | payer BC, SELFPAY ==
[2020-06-06 08:09] VITALS: BMI 34.9
[2020-07-02 17:37] LABS: Absolute Lymphocyte Count 2.12 X10^3/uL (0.83-4.51); Absolute Neutrophil Count 3.3 X10^3/uL (2.0-7.7); Basophil# 0.04 X10^3/uL; Basophil% 0.6 % (0-1); Eosinophil# 0.21 X10^3/uL; Eosinophils% 3.4 % (0-5); Hemoglobin 13.8 g/dL (13.0-16.5); Lymphocyte # 2.12 X10^3/ul (0.83-4.51); Lymphocyte % 34.4 % (19-41); Mean Corp Hgb Conc 32.9 g/dL (32-36); Mean Corpuscular Hgb 34.6 pg (27.0-32.0); Mean Corpuscular Volume 105.3 fL (80-94); Mean Platelet Vol. 11.4 fl (6.2-12.0); Monocyte# 0.48 X10^3/uL; Monocyte% 7.8 % (0-10); NRBC Flagged by Analyzer 0 % (0-5); Neutrophil # 3.28 X10^3/uL (2.7-7.7); Neutrophil % 53.3 % (47-70); Platelet Count 187 K/mm3 (150-450); Red Blood Count 3.99 M/mm3 (4.6-6.2); White Blood Count 6.2 K/mm3 (4.4-11.0)
[2020-07-02 18:11] LABS: ALB/GLOB Ratio 1.2 RATIO (0.9-2.4); AST(SGOT) 29 U/L (15-37); Alanine Aminotransfer ALT/SGPT 36 U/L (16-61); Albumin, Serum 4.1 g/dL (3.2-5.0); Alkaline Phosphatase 45 U/L (45-117); Anion Gap 7 (5-15); BUN 23 mg/dL (7-18); BUN/Creat Ratio 19.8 RATIO (10-20); Calcium,Total 8.9 mg/dL (8.5-10.1); Chloride 102 mmol/L (98-107); Creatinine, Serum 1.16 mg/dL (0.70-1.30); EST Glomerular Filtration Rate 68 mL/min (>60); Est Glom Filt Rate - Afr Amer 82 mL/min (>60); Globulin 3.5 g/dL (2.2-4.2); Glucose 89 mg/dL (74-106); Potassium 3.9 mmol/L (3.5-5.1); Protein, Total 7.6 g/dL (6.4-8.2); Sodium Level 138 mmol/L (136-145)
== END ==
PROVIDERS: PCP Internal Medicine; Referring Provider Internal Medicine Rheumatology; Visit Provider Internal Medicine Rheumatology
DX: M06.052 Rheumatoid arthritis without rheumatoid factor, left hip (principal); I10 Essential (primary) hypertension; E78.5 Hyperlipidemia, unspecified; F32.89 Other specified depressive episodes; G47.33 Obstructive sleep apnea (adult) (pediatric); Z79.899 Other long term (current) drug therapy
CPT/HCPCS: 36415; 80053; 85025

== ENCOUNTER → 2020-10-01 13:41 | Outpatient (CLI) | payer BC, SELFPAY ==
[2020-09-12 08:21] VITALS: BMI 34.9
[2020-10-01 15:02] LABS: Absolute Lymphocyte Count 2.22 X10^3/uL (0.83-4.51); Absolute Neutrophil Count 4.1 X10^3/uL (2.0-7.7); Basophil# 0.06 X10^3/uL; Basophil% 0.9 % (0-1); Eosinophil# 0.26 X10^3/uL; Eosinophils% 3.7 % (0-5); Hematocrit 42.5 % (40-54); Hemoglobin 13.9 g/dL (13.0-16.5); Lymphocyte # 2.22 X10^3/ul (0.83-4.51); Lymphocyte % 31.6 % (19-41); Mean Corp Hgb Conc 32.7 g/dL (32-36); Mean Corpuscular Hgb 33.2 pg (27.0-32.0); Mean Corpuscular Volume 101.4 fL (80-94); Mean Platelet Vol. 12.7 fl (6.2-12.0); Monocyte# 0.35 X10^3/uL; NRBC Flagged by Analyzer 0 % (0-5); Neutrophil # 4.09 X10^3/uL (2.7-7.7); Neutrophil % 58.1 % (47-70); Platelet Count 162 K/mm3 (150-450); RBC Distribution Width CV 12.4 % (11.6-14.6); RBC Distribution Width SD 46.5 fl (35.1-43.9); Red Blood Count 4.19 M/mm3 (4.6-6.2)
[2020-10-01 15:41] LABS: ALB/GLOB Ratio 1.1 RATIO (0.9-2.4); AST(SGOT) 24 U/L (15-37); Alanine Aminotransfer ALT/SGPT 36 U/L (16-61); Albumin, Serum 3.9 g/dL (3.2-5.0); Alkaline Phosphatase 59 U/L (45-117); Anion Gap 5 (5-15); BUN 23 mg/dL (7-18); BUN/Creat Ratio 18.1 RATIO (10-20); Calcium,Total 8.8 mg/dL (8.5-10.1); Chloride 104 mmol/L (98-107); Creatinine, Serum 1.27 mg/dL (0.70-1.30); EST Glomerular Filtration Rate 61 mL/min (>60); Est Glom Filt Rate - Afr Amer 74 mL/min (>60); Globulin 3.5 g/dL (2.2-4.2); Glucose 156 mg/dL (74-106); Potassium 3.8 mmol/L (3.5-5.1); Protein, Total 7.4 g/dL (6.4-8.2); Sodium Level 138 mmol/L (136-145)
== END ==
PROVIDERS: PCP Internal Medicine; Referring Provider Internal Medicine Rheumatology; Visit Provider Internal Medicine Rheumatology
DX: M06.00 Rheumatoid arthritis without rheumatoid factor, unspecified site (principal); I10 Essential (primary) hypertension; E78.5 Hyperlipidemia, unspecified; F32.89 Other specified depressive episodes; G47.33 Obstructive sleep apnea (adult) (pediatric); Z79.899 Other long term (current) drug therapy
CPT/HCPCS: 36415; 80053; 85025

== ENCOUNTER → 2020-12-19 08:34 | Outpatient (CLI) | payer BC, SELFPAY ==
[2020-12-19 10:12] LABS: Absolute Lymphocyte Count 2.68 X10^3/uL (0.83-4.51); Absolute Neutrophil Count 4.2 X10^3/uL (2.0-7.7); Basophil# 0.05 X10^3/uL; Basophil% 0.6 % (0-1); Eosinophils% 3.8 % (0-5); Hematocrit 44.8 % (40-54); Hemoglobin 14.6 g/dL (13.0-16.5); Lymphocyte # 2.68 X10^3/ul (0.83-4.51); Lymphocyte % 34.3 % (19-41); Mean Corp Hgb Conc 32.6 g/dL (32-36); Mean Corpuscular Hgb 33.5 pg (27.0-32.0); Mean Corpuscular Volume 102.8 fL (80-94); Mean Platelet Vol. 12.8 fl (6.2-12.0); Monocyte# 0.52 X10^3/uL; Monocyte% 6.7 % (0-10); NRBC Flagged by Analyzer 0 % (0-5); Neutrophil # 4.22 X10^3/uL (2.7-7.7); Neutrophil % 54.1 % (47-70); POSITIVE COUNT YES; Platelet Count 202 K/mm3 (150-450); RBC Distribution Width CV 12.2 % (11.6-14.6); RBC Distribution Width SD 46.5 fl (35.1-43.9); Red Blood Count 4.36 M/mm3 (4.6-6.2); White Blood Count 7.8 K/mm3 (4.4-11.0)
[2020-12-19 10:14] LABS: Differential Indicated SCAN CRITERIA MET
[2020-12-19 10:33] LABS: ALB/GLOB Ratio 0.9 RATIO (0.9-2.4); AST(SGOT) 21 U/L (15-37); Alanine Aminotransfer ALT/SGPT 30 U/L (16-61); Albumin, Serum 3.7 g/dL (3.2-5.0); Alkaline Phosphatase 42 U/L (45-117); Anion Gap 2 (5-15); BUN 20 mg/dL (7-18); BUN/Creat Ratio 17.5 RATIO (10-20); Calcium,Total 9.3 mg/dL (8.5-10.1); Chloride 104 mmol/L (98-107); Creatinine, Serum 1.14 mg/dL (0.70-1.30); EST Glomerular Filtration Rate 69 mL/min (>60); Est Glom Filt Rate - Afr Amer 84 mL/min (>60); Glucose 102 mg/dL (74-106); Potassium 3.7 mmol/L (3.5-5.1); Protein, Total 7.7 g/dL (6.4-8.2); Sodium Level 137 mmol/L (136-145)
== END ==
PROVIDERS: PCP Internal Medicine; Referring Provider Internal Medicine Rheumatology; Visit Provider Internal Medicine Rheumatology
DX: M06.00 Rheumatoid arthritis without rheumatoid factor, unspecified site (principal); I10 Essential (primary) hypertension; E78.5 Hyperlipidemia, unspecified; F32.89 Other specified depressive episodes; G47.33 Obstructive sleep apnea (adult) (pediatric); Z79.899 Other long term (current) drug therapy
CPT/HCPCS: 36415; 80053; 85025

== ENCOUNTER → 2021-02-15 15:10 | Outpatient (CLI) | payer BC, SELFPAY ==
[2021-02-19 16:09] LABS: QNTFERON TB Mitogen Value > 10.00 IU/mL (.); QNTFERON TB Nil Value 0 IU/mL (.); QNTFERON TB1+ Ag Value 0.01 IU/mL (.); QNTFERON TB2+ Ag Value 0 IU/mL (.)
[2021-02-19 16:16] LABS: QNTIFERON TB Positive Criteria Negative (Negative)
== END ==
PROVIDERS: PCP Internal Medicine; Referring Provider Internal Medicine Rheumatology; Visit Provider Internal Medicine Rheumatology
DX: M06.00 Rheumatoid arthritis without rheumatoid factor, unspecified site (principal); I10 Essential (primary) hypertension; E78.5 Hyperlipidemia, unspecified; F32.89 Other specified depressive episodes; G47.33 Obstructive sleep apnea (adult) (pediatric); Z79.899 Other long term (current) drug therapy
CPT/HCPCS: 36415; 86480

== ENCOUNTER 2021-03-21 14:23 | Outpatient (CLI) | payer BC, SELFPAY ==
[2021-03-21 17:58] LABS: Absolute Lymphocyte Count 2.29 X10^3/uL (0.83-4.51); Absolute Neutrophil Count 5.7 X10^3/uL (2.0-7.7); Basophil# 0.06 X10^3/uL; Basophil% 0.7 % (0-1); Eosinophil# 0.16 X10^3/uL; Eosinophils% 1.8 % (0-5); Hematocrit 45.2 % (40-54); Lymphocyte # 2.29 X10^3/ul (0.83-4.51); Lymphocyte % 25.6 % (19-41); Mean Corp Hgb Conc 33.2 g/dL (32-36); Mean Corpuscular Hgb 32.5 pg (27.0-32.0); Mean Corpuscular Volume 97.8 fL (80-94); Monocyte% 7.8 % (0-10); NRBC Flagged by Analyzer 0 % (0-5); Neutrophil % 63.7 % (47-70); Platelet Count 158 K/mm3 (150-450); RBC Distribution Width CV 12.9 % (11.6-14.6); RBC Distribution Width SD 46.1 fl (35.1-43.9); Red Blood Count 4.62 M/mm3 (4.6-6.2)
[2021-03-21 18:17] LABS: AST(SGOT) 25 U/L (15-37); Alanine Aminotransfer ALT/SGPT 36 U/L (16-61); Albumin, Serum 4.1 g/dL (3.2-5.0); Alkaline Phosphatase 48 U/L (45-117); Anion Gap 7 (5-15); BUN 20 mg/dL (7-18); BUN/Creat Ratio 19.4 RATIO (10-20); Calcium,Total 9.3 mg/dL (8.5-10.1); Chloride 104 mmol/L (98-107); Creatinine, Serum 1.03 mg/dL (0.70-1.30); EST Glomerular Filtration Rate 78 mL/min (>60); Est Glom Filt Rate - Afr Amer 94 mL/min (>60); Globulin 4.1 g/dL (2.2-4.2); Glucose 97 mg/dL (74-106); Potassium 3.7 mmol/L (3.5-5.1); Protein, Total 8.2 g/dL (6.4-8.2); Sodium Level 137 mmol/L (136-145)
== END 2021-03-21 23:59 | disposition short-term general hospital (02) ==
LOC: MTLAB 14:24
PROVIDERS: PCP Internal Medicine; Referring Provider Internal Medicine Rheumatology; Visit Provider Internal Medicine Rheumatology
DX: M06.00 Rheumatoid arthritis without rheumatoid factor, unspecified site (principal); I10 Essential (primary) hypertension; E78.5 Hyperlipidemia, unspecified; F32.89 Other specified depressive episodes; G47.33 Obstructive sleep apnea (adult) (pediatric); Z79.899 Other long term (current) drug therapy
CPT/HCPCS: 36415; 80053; 85025

== ENCOUNTER 2021-04-22 08:33 | Outpatient (CLI) | payer BC, SELFPAY ==
[2021-04-22 11:57] LABS: Bacteria 0 SEEN /hpf (None Seen); Mucous, Urine 0 SEEN /hpf (<or=2+); Red Blood Cells-Urine 0 SEEN /hpf (0-5); Squamous Epithelial Cells - UA 0 SEEN /hpf (0-5)
[2021-04-22 12:17] LABS: Color, Urine Yellow (Yellow); Glucose, Dipstick Normal (Normal); Ketone-Dipstick Negative (Negative); Leukocyte Esterase-Dipstick 25 /ul (Negative); Nitrite-Dipstick Negative (Negative); Occult Blood-Urine Negative /ul (Negative); Protein-Dipstick 30 mg/dl (Negative); Specific Gravity, Urine 1.015 (1.002-1.030); Urine Bilirubin Dipstick Negative (Negative); Urine Clarity Clear (Clear); Urine Urobilinogen Normal (Normal); Urine pH 6.5 (5.0 - 8.0)
[2021-04-22 12:22] LABS: White Blood Cells 0-5 SEEN /hpf (0-5)
[2021-04-22 12:30] LABS: Cholesterol 188 mg/dL (200); High Density Lipoprotein 60 mg/dL; Triglycerides 126 mg/dL; Very Low Density Lipoprotein 25 mg/dL (5-40)
== END 2021-04-22 23:59 | disposition home or self-care (01) ==
LOC: BIMLAB 08:34
PROVIDERS: PCP Internal Medicine; Visit Provider Internal Medicine
DX: I10 Essential (primary) hypertension (principal)
CPT/HCPCS: 36415; 80061; 81001

== ENCOUNTER 2021-06-14 14:30 | Outpatient (CLI) | payer BC, SELFPAY ==
[2021-06-14 17:54] LABS: Absolute Lymphocyte Count 2.39 X10^3/uL (0.83-4.51); Basophil# 0.05 X10^3/uL; Basophil% 0.6 % (0-1); Eosinophil# 0.22 X10^3/uL; Eosinophils% 2.5 % (0-5); Hematocrit 41.5 % (40-54); Hemoglobin 13.9 g/dL (13.0-16.5); Lymphocyte # 2.39 X10^3/ul (0.83-4.51); Lymphocyte % 27.6 % (19-41); Mean Corp Hgb Conc 33.5 g/dL (32-36); Mean Corpuscular Hgb 33.9 pg (27.0-32.0); Mean Corpuscular Volume 101.2 fL (80-94); Mean Platelet Vol. 13.4 fl (6.2-12.0); Monocyte# 0.99 X10^3/uL; Monocyte% 11.4 % (0-10); NRBC Flagged by Analyzer 0 % (0-5); Neutrophil # 4.97 X10^3/uL (2.7-7.7); Neutrophil % 57.3 % (47-70); POSITIVE COUNT YES; Platelet Count 231 K/mm3 (150-450); RBC Distribution Width CV 13.1 % (11.6-14.6); RBC Distribution Width SD 48.8 fl (35.1-43.9); White Blood Count 8.7 K/mm3 (4.4-11.0)
[2021-06-14 17:57] LABS: ALB/GLOB Ratio 1.1 RATIO (0.9-2.4); AST(SGOT) 28 U/L (15-37); Alanine Aminotransfer ALT/SGPT 39 U/L (16-61); Albumin, Serum 4.1 g/dL (3.2-5.0); Alkaline Phosphatase 46 U/L (45-117); Anion Gap 7 (5-15); BUN 16 mg/dL (7-18); BUN/Creat Ratio 14.2 RATIO (10-20); Calcium,Total 9.1 mg/dL (8.5-10.1); Chloride 102 mmol/L (98-107); Creatinine, Serum 1.13 mg/dL (0.70-1.30); EST Glomerular Filtration Rate 70 mL/min (>60); Est Glom Filt Rate - Afr Amer 85 mL/min (>60); Globulin 3.6 g/dL (2.2-4.2); Glucose 97 mg/dL (74-106); Potassium 3.8 mmol/L (3.5-5.1); Protein, Total 7.7 g/dL (6.4-8.2); Sodium Level 136 mmol/L (136-145)
[2021-06-14 18:00] LABS: Differential Indicated SCAN CRITERIA MET
[2021-06-14 18:41] LABS: Platelet Estimate ADEQUATE (ADEQ); Red Cell Morphology NORM C+C NORMAL (NORM C&C)
== END 2021-06-14 23:59 | disposition home or self-care (01) ==
LOC: MTLAB 14:31
PROVIDERS: PCP Internal Medicine; Referring Provider Internal Medicine Rheumatology; Visit Provider Internal Medicine Rheumatology
DX: M06.00 Rheumatoid arthritis without rheumatoid factor, unspecified site (principal); I10 Essential (primary) hypertension; E78.5 Hyperlipidemia, unspecified; F32.89 Other specified depressive episodes; G47.33 Obstructive sleep apnea (adult) (pediatric); Z79.899 Other long term (current) drug therapy
CPT/HCPCS: 36415; 80053; 85025

== ENCOUNTER 2021-06-19 09:13 | Outpatient (CLI) | payer BC, SELFPAY | END 2021-06-19 23:59 | disposition home or self-care (01) | LOC: LABSPEC 09:14 | PROVIDERS: PCP Internal Medicine; Referring Provider Physician Assistant; Visit Provider Physician Assistant | DX: R05.9 Cough, unspecified (principal); R50.9 Fever, unspecified; M79.10 Myalgia, unspecified site; Z20.822 Contact with and (suspected) exposure to COVID-19 | CPT/HCPCS: 87635; 87804; U0003; U0005 ==

== ENCOUNTER → 2021-07-22 | Outpatient (CLI) | payer BC, SELFPAY ==
[2021-07-22 12:57] LABS: Vitamin B12 509 pg/mL (211-911)
== END | disposition home or self-care (01) ==
LOC: BIMLAB 08:28
PROVIDERS: PCP Internal Medicine; Referring Provider Internal Medicine; Visit Provider Internal Medicine
DX: G62.9 Polyneuropathy, unspecified (principal)
CPT/HCPCS: 36415; 82607

== ENCOUNTER → 2021-09-20 | Outpatient (CLI) | payer BC, SELFPAY ==
[2021-09-20 14:50] LABS: Absolute Lymphocyte Count 1.78 X10^3/uL (0.83-4.51); Absolute Neutrophil Count 4.1 X10^3/uL (2.0-7.7); Basophil# 0.05 X10^3/uL; Basophil% 0.7 % (0-1); Eosinophil# 0.15 X10^3/uL; Eosinophils% 2.2 % (0-5); Hematocrit 41.8 % (40-54); Hemoglobin 13.5 g/dL (13.0-16.5); Lymphocyte # 1.78 X10^3/ul (0.83-4.51); Lymphocyte % 26.6 % (19-41); Mean Corp Hgb Conc 32.3 g/dL (32-36); Mean Corpuscular Hgb 34.1 pg (27.0-32.0); Mean Corpuscular Volume 105.6 fL (80-94); Mean Platelet Vol. 11.7 fl (6.2-12.0); Monocyte# 0.58 X10^3/uL; Monocyte% 8.7 % (0-10); NRBC Flagged by Analyzer 0 % (0-5); Neutrophil # 4.08 X10^3/uL (2.7-7.7); Neutrophil % 61.1 % (47-70); Platelet Count 185 K/mm3 (150-450); RBC Distribution Width CV 13.4 % (11.6-14.6); RBC Distribution Width SD 51.8 fl (35.1-43.9); Red Blood Count 3.96 M/mm3 (4.6-6.2); White Blood Count 6.7 K/mm3 (4.4-11.0)
[2021-09-20 15:09] LABS: ALB/GLOB Ratio 1.1 RATIO (0.9-2.4); AST(SGOT) 25 U/L (15-37); Alanine Aminotransfer ALT/SGPT 35 U/L (16-61); Albumin, Serum 3.9 g/dL (3.2-5.0); Alkaline Phosphatase 43 U/L (45-117); Anion Gap 2 (5-15); BUN 15 mg/dL (7-18); Calcium,Total 9.4 mg/dL (8.5-10.1); Chloride 105 mmol/L (98-107); Creatinine, Serum 1.15 mg/dL (0.70-1.30); EST Glomerular Filtration Rate 68 mL/min (>60); Est Glom Filt Rate - Afr Amer 83 mL/min (>60); Globulin 3.5 g/dL (2.2-4.2); Glucose 109 mg/dL (74-106); Potassium 4.1 mmol/L (3.5-5.1); Protein, Total 7.4 g/dL (6.4-8.2); Sodium Level 138 mmol/L (136-145)
== END | disposition home or self-care (01) ==
LOC: MTLAB 13:40
PROVIDERS: PCP Internal Medicine; Referring Provider Internal Medicine Rheumatology; Visit Provider Internal Medicine Rheumatology
DX: M06.00 Rheumatoid arthritis without rheumatoid factor, unspecified site (principal); I10 Essential (primary) hypertension; E78.5 Hyperlipidemia, unspecified; F32.89 Other specified depressive episodes; G47.33 Obstructive sleep apnea (adult) (pediatric); Z79.899 Other long term (current) drug therapy
CPT/HCPCS: 36415; 80053; 85025

== ENCOUNTER → 2021-10-23 | Outpatient (CLI) | payer BC, SELFPAY ==
[2021-10-23 15:50] LABS: Troponin-I HS 8 pg/mL (3.0-78.0)
== END | disposition home or self-care (01) ==
LOC: BIMLAB 14:52
PROVIDERS: PCP Internal Medicine; Referring Provider Physician Assistant; Visit Provider Physician Assistant
DX: R07.9 Chest pain, unspecified (principal)
CPT/HCPCS: 36415; 84484

== ENCOUNTER → 2021-12-17 | Outpatient (CLI) | payer BC, SELFPAY ==
[2021-12-17 18:15] LABS: Absolute Lymphocyte Count 1.16 X10^3/uL (0.83-4.51); Basophil# 0.05 X10^3/uL; Basophil% 0.6 % (0-1); Eosinophil# 0.13 X10^3/uL; Eosinophils% 1.6 % (0-5); Hematocrit 43.2 % (40-54); Hemoglobin 14.4 g/dL (13.0-16.5); Lymphocyte # 1.16 X10^3/ul (0.83-4.51); Lymphocyte % 14.7 % (19-41); Mean Corp Hgb Conc 33.3 g/dL (32-36); Mean Corpuscular Hgb 34.5 pg (27.0-32.0); Mean Corpuscular Volume 103.6 fL (80-94); Mean Platelet Vol. 12.8 fl (6.2-12.0); Monocyte% 6.3 % (0-10); NRBC Flagged by Analyzer 0 % (0-5); Neutrophil % 76.2 % (47-70); POSITIVE COUNT YES; Platelet Count 250 K/mm3 (150-450); RBC Distribution Width CV 12.6 % (11.6-14.6); RBC Distribution Width SD 48.1 fl (35.1-43.9); Red Blood Count 4.17 M/mm3 (4.6-6.2); White Blood Count 7.9 K/mm3 (4.4-11.0)
[2021-12-17 18:26] LABS: Differential Indicated SCAN CRITERIA MET
[2021-12-17 18:30] LABS: ALB/GLOB Ratio 1.1 RATIO (0.9-2.4); AST(SGOT) 26 U/L (15-37); Alanine Aminotransfer ALT/SGPT 39 U/L (16-61); Albumin, Serum 4.1 g/dL (3.2-5.0); Alkaline Phosphatase 45 U/L (45-117); Anion Gap 8 (5-15); BUN 17 mg/dL (7-18); BUN/Creat Ratio 14.7 RATIO (10-20); Calcium,Total 9.7 mg/dL (8.5-10.1); Chloride 104 mmol/L (98-107); Creatinine, Serum 1.16 mg/dL (0.70-1.30); EST Glomerular Filtration Rate 68 mL/min (>60); Est Glom Filt Rate - Afr Amer 82 mL/min (>60); Globulin 3.6 g/dL (2.2-4.2); Glucose 128 mg/dL (74-106); Potassium 3.8 mmol/L (3.5-5.1); Protein, Total 7.7 g/dL (6.4-8.2); Sodium Level 138 mmol/L (136-145)
[2021-12-17 18:50] LABS: Anisocytosis 1+; Macrocytosis 1+; Platelet Estimate ADEQUATE (ADEQ); Red Cell Morphology N CHROM NORMAL (NORM C&C)
== END | disposition home or self-care (01) ==
LOC: MTLAB 14:45
PROVIDERS: PCP Internal Medicine; Referring Provider Internal Medicine Rheumatology; Visit Provider Internal Medicine Rheumatology
DX: M06.00 Rheumatoid arthritis without rheumatoid factor, unspecified site (principal); I10 Essential (primary) hypertension; E78.5 Hyperlipidemia, unspecified; F32.89 Other specified depressive episodes; G47.33 Obstructive sleep apnea (adult) (pediatric); Z79.899 Other long term (current) drug therapy
CPT/HCPCS: 36415; 80053; 85025

== ENCOUNTER → 2022-02-07 | Outpatient (CLI) | payer BC, SELFPAY ==
--- NOTE | 2022-02-07 15:16 | RAD_ITS ---
STUDY: X-RAY - LEFT KNEE REASON FOR EXAM: Male, 61 years old. Left Knee Pain TECHNIQUE: 3 view(s) of the knee. COMPARISON: 10/28/2018 FINDINGS: There is demineralization of the visualized distal femur. There is demineralization of the tibia and fibula. Normal proximal tibiofibular articulation. There is mild degenerative arthrosis of the medial femorotibial compartment. There is mild degenerative arthrosis of the lateral femorotibial compartment. There is mild degenerative arthrosis of the patellofemoral articulation. There is a soft tissue prominence in the suprapatellar region suggesting a small volume joint effusion. The soft tissue structures are unremarkable. RAD/Knee 3 Views IMPRESSION: Mild tricompartmental DJD and small suprapatellar knee joint effusion, similar to 10/28/2018. Electronically Signed: Ebenezer Prescott MD at 18:08 EST ,
== END | disposition home or self-care (01) ==
LOC: MTRAD 15:16
PROVIDERS: PCP Internal Medicine; Referring Provider Internal Medicine; Visit Provider Internal Medicine
DX: M25.562 Pain in left knee (principal)
CPT/HCPCS: 73562

== ENCOUNTER → 2022-03-07 | Outpatient (CLI) | payer BC, SELFPAY ==
[2022-03-07 12:27] LABS: Absolute Lymphocyte Count 1.58 X10^3/uL (0.83-4.51); Absolute Neutrophil Count 4.2 X10^3/uL (2.0-7.7); Basophil# 0.06 X10^3/uL; Basophil% 0.9 % (0-1); Eosinophil# 0.13 X10^3/uL; Eosinophils% 1.9 % (0-5); Hematocrit 42.1 % (40-54); Hemoglobin 14.1 g/dL (13.0-16.5); Lymphocyte # 1.58 X10^3/ul (0.83-4.51); Lymphocyte % 23.3 % (19-41); Mean Corp Hgb Conc 33.5 g/dL (32-36); Mean Corpuscular Hgb 35.8 pg (27.0-32.0); Mean Corpuscular Volume 106.9 fL (80-94); Mean Platelet Vol. 11.4 fl (6.2-12.0); Monocyte# 0.74 X10^3/uL; Monocyte% 10.9 % (0-10); NRBC Flagged by Analyzer 0 % (0-5); Platelet Count 187 K/mm3 (150-450); RBC Distribution Width CV 13.1 % (11.6-14.6); RBC Distribution Width SD 51.6 fl (35.1-43.9); Red Blood Count 3.94 M/mm3 (4.6-6.2); White Blood Count 6.8 K/mm3 (4.4-11.0)
[2022-03-07 12:39] LABS: ALB/GLOB Ratio 1.4 RATIO (0.9-2.4); AST(SGOT) 26 U/L (15-37); Alanine Aminotransfer ALT/SGPT 37 U/L (16-61); Albumin, Serum 4.1 g/dL (3.2-5.0); Alkaline Phosphatase 40 U/L (45-117); Anion Gap 5 (5-15); BUN 20 mg/dL (7-18); BUN/Creat Ratio 17.7 RATIO (10-20); Calcium,Total 9.4 mg/dL (8.5-10.1); Chloride 104 mmol/L (98-107); Creatinine, Serum 1.13 mg/dL (0.70-1.30); EST Glomerular Filtration Rate 70 mL/min (>60); Est Glom Filt Rate - Afr Amer 84 mL/min (>60); Glucose 103 mg/dL (74-106); Potassium 4.5 mmol/L (3.5-5.1); Protein, Total 7.1 g/dL (6.4-8.2); Sodium Level 138 mmol/L (136-145)
== END | disposition home or self-care (01) ==
PROVIDERS: PCP Internal Medicine; Referring Provider Internal Medicine Rheumatology; Visit Provider Internal Medicine Rheumatology
DX: M06.00 Rheumatoid arthritis without rheumatoid factor, unspecified site (principal); I10 Essential (primary) hypertension; E78.5 Hyperlipidemia, unspecified; F32.89 Other specified depressive episodes; G47.33 Obstructive sleep apnea (adult) (pediatric); Z79.899 Other long term (current) drug therapy
CPT/HCPCS: 36415; 80053; 85025

== ENCOUNTER → 2022-06-04 | Outpatient (CLI) | payer BC, SELFPAY ==
[2022-06-04 10:29] LABS: Absolute Neutrophil Count 6.7 X10^3/uL (2.0-7.7); Basophil# 0.05 X10^3/uL; Basophil% 0.6 % (0-1); Eosinophil# 0.15 X10^3/uL; Eosinophils% 1.7 % (0-5); Hematocrit 43.2 % (40-54); Hemoglobin 14.6 g/dL (13.0-16.5); Lymphocyte % 13.2 % (19-41); Mean Corp Hgb Conc 33.8 g/dL (32-36); Mean Corpuscular Hgb 34.9 pg (27.0-32.0); Mean Corpuscular Volume 103.3 fL (80-94); Mean Platelet Vol. 12.4 fl (6.2-12.0); Monocyte# 0.81 X10^3/uL; Monocyte% 8.9 % (0-10); NRBC Flagged by Analyzer 0 % (0-5); Neutrophil # 6.73 X10^3/uL (2.7-7.7); Neutrophil % 74.3 % (47-70); Platelet Count 219 K/mm3 (150-450); RBC Distribution Width CV 12.9 % (11.6-14.6); RBC Distribution Width SD 48.5 fl (35.1-43.9); Red Blood Count 4.18 M/mm3 (4.6-6.2); White Blood Count 9.1 K/mm3 (4.4-11.0)
[2022-06-04 10:49] LABS: AST(SGOT) 32 U/L (15-37); Alanine Aminotransfer ALT/SGPT 45 U/L (16-61); Albumin, Serum 3.8 g/dL (3.2-5.0); Alkaline Phosphatase 50 U/L (45-117); Anion Gap 7 (5-15); BUN 20 mg/dL (7-18); BUN/Creat Ratio 20.1 RATIO (10-20); Calcium,Total 9.7 mg/dL (8.5-10.1); Chloride 104 mmol/L (98-107); EST Glomerular Filtration Rate 81 mL/min (>60); Est Glom Filt Rate - Afr Amer 97 mL/min (>60); Globulin 3.9 g/dL (2.2-4.2); Glucose 107 mg/dL (74-106); Potassium 3.9 mmol/L (3.5-5.1); Protein, Total 7.7 g/dL (6.4-8.2); Sodium Level 137 mmol/L (136-145)
== END | disposition home or self-care (01) ==
PROVIDERS: PCP Internal Medicine; Visit Provider Internal Medicine Rheumatology
DX: M06.00 Rheumatoid arthritis without rheumatoid factor, unspecified site (principal); I10 Essential (primary) hypertension; E78.5 Hyperlipidemia, unspecified; Z79.899 Other long term (current) drug therapy
CPT/HCPCS: 36415; 80053; 85025

== ENCOUNTER → 2022-08-26 | Outpatient (CLI) | payer BC, SELFPAY ==
[2022-08-26 10:32] LABS: Absolute Lymphocyte Count 1.76 X10^3/uL (0.83-4.51); Basophil# 0.09 X10^3/uL; Basophil% 0.8 % (0-1); Eosinophil# 0.31 X10^3/uL; Eosinophils% 2.6 % (0-5); Hematocrit 42.9 % (40-54); Hemoglobin 14.8 g/dL (13.0-16.5); Lymphocyte # 1.76 X10^3/ul (0.83-4.51); Lymphocyte % 14.7 % (19-41); Mean Corp Hgb Conc 34.5 g/dL (32-36); Mean Corpuscular Hgb 35.2 pg (27.0-32.0); Mean Corpuscular Volume 101.9 fL (80-94); Mean Platelet Vol. 12.9 fl (6.2-12.0); Monocyte# 0.78 X10^3/uL; Monocyte% 6.5 % (0-10); NRBC Flagged by Analyzer 0 % (0-5); Neutrophil # 8.96 X10^3/uL (2.7-7.7); Neutrophil % 75.1 % (47-70); Platelet Count 291 K/mm3 (150-450); RBC Distribution Width CV 12.6 % (11.6-14.6); RBC Distribution Width SD 47.2 fl (35.1-43.9); Red Blood Count 4.21 M/mm3 (4.6-6.2); White Blood Count 11.9 K/mm3 (4.4-11.0)
[2022-08-26 11:07] LABS: ALB/GLOB Ratio 0.9 RATIO (0.9-2.4); AST(SGOT) 20 U/L (15-37); Alanine Aminotransfer ALT/SGPT 29 U/L (16-61); Albumin, Serum 3.7 g/dL (3.2-5.0); Alkaline Phosphatase 45 U/L (45-117); Anion Gap 6 (5-15); BUN 18 mg/dL (7-18); BUN/Creat Ratio 16.8 RATIO (10-20); Calcium,Total 9.3 mg/dL (8.5-10.1); Chloride 102 mmol/L (98-107); Creatinine, Serum 1.07 mg/dL (0.70-1.30); EST Glomerular Filtration Rate 74 mL/min (>60); Est Glom Filt Rate - Afr Amer 90 mL/min (>60); Glucose 95 mg/dL (74-106); Potassium 3.8 mmol/L (3.5-5.1); Protein, Total 7.7 g/dL (6.4-8.2); Sodium Level 135 mmol/L (136-145)
== END | disposition home or self-care (01) ==
LOC: MTLAB 07:52
PROVIDERS: PCP Internal Medicine; Referring Provider Internal Medicine Rheumatology; Visit Provider Internal Medicine Rheumatology
DX: M06.00 Rheumatoid arthritis without rheumatoid factor, unspecified site (principal); Z79.899 Other long term (current) drug therapy
CPT/HCPCS: 36415; 80053; 85025

== ENCOUNTER → 2022-11-17 | Outpatient (CLI) | payer BC, SELFPAY ==
[2022-11-17 16:00] LABS: Absolute Lymphocyte Count 1.99 X10^3/uL (0.83-4.51); Absolute Neutrophil Count 4.7 X10^3/uL (2.0-7.7); Basophil# 0.05 X10^3/uL; Basophil% 0.7 % (0-1); Eosinophils% 2.6 % (0-5); Hematocrit 42.9 % (40-54); Hemoglobin 14.1 g/dL (13.0-16.5); Lymphocyte # 1.99 X10^3/ul (0.83-4.51); Lymphocyte % 25.9 % (19-41); Mean Corp Hgb Conc 32.9 g/dL (32-36); Mean Corpuscular Hgb 34.5 pg (27.0-32.0); Mean Corpuscular Volume 104.9 fL (80-94); Mean Platelet Vol. 13.4 fl (6.2-12.0); Monocyte# 0.66 X10^3/uL; Monocyte% 8.6 % (0-10); NRBC Flagged by Analyzer 0 % (0-5); Neutrophil # 4.74 X10^3/uL (2.7-7.7); Neutrophil % 61.8 % (47-70); Platelet Count 240 K/mm3 (150-450); RBC Distribution Width CV 13.4 % (11.6-14.6); RBC Distribution Width SD 52.7 fl (35.1-43.9); Red Blood Count 4.09 M/mm3 (4.6-6.2); White Blood Count 7.7 K/mm3 (4.4-11.0)
[2022-11-17 16:14] LABS: ALB/GLOB Ratio 1.1 RATIO (0.9-2.4); AST(SGOT) 28 U/L (15-37); Alanine Aminotransfer ALT/SGPT 43 U/L (16-61); Albumin, Serum 3.9 g/dL (3.2-5.0); Alkaline Phosphatase 67 U/L (45-117); Anion Gap 7 (5-15); BUN 19 mg/dL (7-18); BUN/Creat Ratio 16.2 RATIO (10-20); Calcium,Total 9.6 mg/dL (8.5-10.1); Chloride 104 mmol/L (98-107); Creatinine, Serum 1.17 mg/dL (0.70-1.30); EST Glomerular Filtration Rate 67 mL/min (>60); Est Glom Filt Rate - Afr Amer 81 mL/min (>60); Globulin 3.7 g/dL (2.2-4.2); Glucose 109 mg/dL (74-106); Potassium 3.9 mmol/L (3.5-5.1); Protein, Total 7.6 g/dL (6.4-8.2); Sodium Level 138 mmol/L (136-145)
== END | disposition home or self-care (01) ==
LOC: MTLAB 14:36
PROVIDERS: PCP Internal Medicine; Referring Provider Internal Medicine Rheumatology; Visit Provider Internal Medicine Rheumatology
DX: M06.00 Rheumatoid arthritis without rheumatoid factor, unspecified site (principal); Z79.899 Other long term (current) drug therapy
CPT/HCPCS: 36415; 80053; 85025

== ENCOUNTER → 2022-11-18 | Outpatient (CLI) | payer BC, SELFPAY ==
[2022-11-18 10:50] LABS: Cholesterol 251 mg/dL (200); High Density Lipoprotein 64 mg/dL; Triglycerides 240 mg/dL; Very Low Density Lipoprotein 48 mg/dL (5-40)
== END | disposition home or self-care (01) ==
LOC: MTLAB 07:40
PROVIDERS: PCP Internal Medicine; Referring Provider Internal Medicine; Visit Provider Internal Medicine
DX: E78.5 Hyperlipidemia, unspecified (principal)
CPT/HCPCS: 36415; 80061

== ENCOUNTER → 2023-01-31 | Outpatient (CLI) | payer BC, SELFPAY ==
[2023-01-31 11:41] LABS: Absolute Lymphocyte Count 1.57 X10^3/uL (0.83-4.51); Absolute Neutrophil Count 4.6 X10^3/uL (2.0-7.7); Basophil# 0.05 X10^3/uL; Basophil% 0.7 % (0-1); Eosinophil# 0.16 X10^3/uL; Eosinophils% 2.2 % (0-5); Hematocrit 41.5 % (40-54); Hemoglobin 13.6 g/dL (13.0-16.5); Lymphocyte # 1.57 X10^3/ul (0.83-4.51); Mean Corp Hgb Conc 32.8 g/dL (32-36); Mean Corpuscular Hgb 34.5 pg (27.0-32.0); Mean Corpuscular Volume 105.3 fL (80-94); Mean Platelet Vol. 12.3 fl (6.2-12.0); Monocyte# 0.72 X10^3/uL; Monocyte% 10.1 % (0-10); NRBC Flagged by Analyzer 0 % (0-5); Neutrophil # 4.58 X10^3/uL (2.7-7.7); Platelet Count 198 K/mm3 (150-450); RBC Distribution Width CV 12.9 % (11.6-14.6); RBC Distribution Width SD 50.1 fl (35.1-43.9); Red Blood Count 3.94 M/mm3 (4.6-6.2); White Blood Count 7.2 K/mm3 (4.4-11.0)
[2023-01-31 12:08] LABS: ALB/GLOB Ratio 1.1 RATIO (0.9-2.4); AST(SGOT) 27 U/L (15-37); Alanine Aminotransfer ALT/SGPT 38 U/L (16-61); Albumin, Serum 3.9 g/dL (3.2-5.0); Alkaline Phosphatase 45 U/L (45-117); Anion Gap 7 (5-15); BUN 21 mg/dL (7-18); BUN/Creat Ratio 20.4 RATIO (10-20); Calcium,Total 8.8 mg/dL (8.5-10.1); Chloride 105 mmol/L (98-107); Creatinine, Serum 1.03 mg/dL (0.70-1.30); EST Glomerular Filtration Rate 77 mL/min (>60); Est Glom Filt Rate - Afr Amer 94 mL/min (>60); Globulin 3.7 g/dL (2.2-4.2); Glucose 105 mg/dL (74-106); Potassium 3.8 mmol/L (3.5-5.1); Protein, Total 7.6 g/dL (6.4-8.2); Sodium Level 139 mmol/L (136-145)
== END | disposition home or self-care (01) ==
LOC: LAB 10:11
PROVIDERS: PCP Internal Medicine; Referring Provider Internal Medicine Rheumatology; Visit Provider Internal Medicine Rheumatology
DX: M06.00 Rheumatoid arthritis without rheumatoid factor, unspecified site (principal); Z79.899 Other long term (current) drug therapy
CPT/HCPCS: 36415; 80053; 85025

== ENCOUNTER → 2023-03-06 | Outpatient (CLI) | payer BC, SELFPAY ==
[2023-03-06 08:52] LABS: Bacteria 0 SEEN /hpf (None Seen); Mucous, Urine 0 SEEN /hpf (<or=2+); Red Blood Cells-Urine 0 SEEN /hpf (0-5); White Blood Cells 0 SEEN /hpf (0-5)
[2023-03-06 12:49] LABS: Color, Urine Yellow (Yellow); Glucose, Dipstick Normal (Normal); Ketone-Dipstick Negative (Negative); Leukocyte Esterase-Dipstick Negative /ul (Negative); Nitrite-Dipstick Negative (Negative); Occult Blood-Urine Negative /ul (Negative); Protein-Dipstick 30 mg/dl (Negative); Specific Gravity, Urine 1.015 (1.002-1.030); Urine Bilirubin Dipstick Negative (Negative); Urine Clarity Clear (Clear); Urine Urobilinogen Normal (Normal); Urine pH 6.5 (5.0 - 8.0)
[2023-03-06 13:02] LABS: Squamous Epithelial Cells - UA 0-5 SEEN /hpf (0-5)
[2023-03-06 13:17] LABS: PSA,Total - Annual Screen 3.97 ng/mL (0.00-4.00)
== END | disposition home or self-care (01) ==
LOC: BIMLAB 08:52
PROVIDERS: PCP Internal Medicine; Visit Provider Internal Medicine
DX: N40.0 Benign prostatic hyperplasia without lower urinary tract symptoms (principal)
CPT/HCPCS: 36415; 81001; 84153; G0103

== ENCOUNTER → 2023-03-13 | Outpatient (CLI) | payer BC, SELFPAY ==
--- OUTSIDE RECORDS SUMMARY | 2023-03-16 06:30 | XMS RPT_ITS | CCD ---
Author Name Unknown Address [address] [place] [address] Organization [facility] Care Team Providers Care Educational Manager Name Role Phone Ken Lowe Unavailable Unavailable Problems Active Problems Problem Classification Problem Date Documented Da te Episodic/Chronic Unclassified (1 source) Unknown / UNK(Unknown) Onset: 11-12-2016 Past or Other Problems Problem Classification Problem Date Documented Da te Episodic/Chronic Unclassified (1 source) Z00.00,E78.5,I10 ,D50.9 Onset: 11-12-2016 Results Test Name Value Interpretation Reference Range Facil ity Encounters Encounter Date Encounter Type Care Provider Facility Start: 11-12-2016 Ambulatory Ken Lowe Facilit y:[facility] Payers Date Payer Category Payer Unknown [id number] Summary Purpose Family History No Family History Records Found Advance Directives No Advanced Directives Records Found Additional Source Comments (unrecognized sect ion and content) No Status Records Found INFORMATION SOURCE (unrecogn ized section and content) FOR RECORDS PERTAINING TO PATIENTS WHO ARE OR HAVE BEEN ENROLLED IN A CHEMICAL DEPENDENCY/SUBSTANCEABUSE PROGRAM, SOME INFORMATION MAY BE OMITTED. This clinical summary was aggregated from multiple sources. Caution should be exercised in using it in the provision of clinical care. This summary normalizes information from multiple sources, and as a consequence, information in this document may materially change the coding, format and clinical context of patient data. In addition, data may be omitted in some cases. CLINICAL DECISIONS SHOULD BE BASED ON THE PRIMARY CLINICAL RECORDS. [employer] provides no warranty or guarantee of the accuracy or completeness of information in this document.
== END | disposition home or self-care (01) ==
LOC: SL 03-16 06:28
PROVIDERS: PCP Internal Medicine; Visit Provider Internal Medicine
DX: Z00.00 Encounter for general adult medical examination without abnormal findings (principal)

== ENCOUNTER → 2023-04-27 | Outpatient (CLI) | payer BC, SELFPAY ==
--- OUTSIDE RECORDS SUMMARY | 2023-04-27 08:15 | XMS RPT_ITS | CCD ---
Author Name Unknown Address [address] [place] [address] Organization [facility] Care Team Providers Care Buyer Intern Name Role Phone Ken Lowe Unavailable Unavailable [...] Facility Start: 11-12-2016 Ambulatory Ken Lowe Facilit y:[facility] Payers Date Payer Category Payer Unknown [id number] Summary Purpose Family History No Family History [...] BE BASED ON THE PRIMARY CLINICAL RECORDS. [employer] provides no warranty or guarantee of the accuracy or completeness of information in this document.
[2023-04-27 10:10] LABS: Absolute Lymphocyte Count 2.21 X10^3/uL (0.83-4.51); Absolute Neutrophil Count 3.3 X10^3/uL (2.0-7.7); Basophil# 0.04 X10^3/uL; Basophil% 0.6 % (0-1); Eosinophil# 0.19 X10^3/uL; Eosinophils% 3.1 % (0-5); Hematocrit 41.5 % (40-54); Hemoglobin 13.6 g/dL (13.0-16.5); Lymphocyte # 2.21 X10^3/ul (0.83-4.51); Lymphocyte % 35.6 % (19-41); Mean Corp Hgb Conc 32.8 g/dL (32-36); Mean Corpuscular Hgb 34.3 pg (27.0-32.0); Mean Corpuscular Volume 104.8 fL (80-94); Mean Platelet Vol. 13.6 fl (6.2-12.0); Monocyte# 0.47 X10^3/uL; Monocyte% 7.6 % (0-10); NRBC Flagged by Analyzer 0 % (0-5); Neutrophil # 3.26 X10^3/uL (2.7-7.7); Neutrophil % 52.6 % (47-70); Platelet Count 231 K/mm3 (150-450); RBC Distribution Width CV 13.1 % (11.6-14.6); RBC Distribution Width SD 50.4 fl (35.1-43.9); Red Blood Count 3.96 M/mm3 (4.6-6.2); White Blood Count 6.2 K/mm3 (4.4-11.0)
[2023-04-27 10:31] LABS: ALB/GLOB Ratio 1.1 RATIO (0.9-2.4); AST(SGOT) 33 U/L (15-37); Alanine Aminotransfer ALT/SGPT 42 U/L (16-61); Albumin, Serum 3.8 g/dL (3.2-5.0); Alkaline Phosphatase 47 U/L (45-117); Anion Gap 6 (5-15); BUN 18 mg/dL (7-18); BUN/Creat Ratio 16.4 RATIO (10-20); Calcium,Total 9.1 mg/dL (8.5-10.1); Chloride 104 mmol/L (98-107); EST Glomerular Filtration Rate 72 mL/min (>60); Est Glom Filt Rate - Afr Amer 87 mL/min (>60); Globulin 3.5 g/dL (2.2-4.2); Glucose 112 mg/dL (74-106); Potassium 4.1 mmol/L (3.5-5.1); Protein, Total 7.3 g/dL (6.4-8.2); Sodium Level 138 mmol/L (136-145)
== END | disposition home or self-care (01) ==
PROVIDERS: PCP Internal Medicine; Referring Provider Internal Medicine Rheumatology; Visit Provider Internal Medicine Rheumatology
DX: M06.00 Rheumatoid arthritis without rheumatoid factor, unspecified site (principal); Z79.899 Other long term (current) drug therapy
CPT/HCPCS: 36415; 80053; 85025

== ENCOUNTER → 2023-07-07 | Outpatient (CLI) | payer BC, SELFPAY ==
[2023-07-07 17:24] LABS: Absolute Lymphocyte Count 1.83 X10^3/uL (0.83-4.51); Absolute Neutrophil Count 4.1 X10^3/uL (2.0-7.7); Basophil# 0.04 X10^3/uL; Basophil% 0.6 % (0-1); Eosinophil# 0.19 X10^3/uL; Eosinophils% 2.8 % (0-5); Hematocrit 37.7 % (40-54); Hemoglobin 12.7 g/dL (13.0-16.5); Lymphocyte # 1.83 X10^3/ul (0.83-4.51); Lymphocyte % 26.7 % (19-41); Mean Corp Hgb Conc 33.7 g/dL (32-36); Mean Corpuscular Hgb 34.7 pg (27.0-32.0); Mean Platelet Vol. 11.6 fl (6.2-12.0); Monocyte# 0.68 X10^3/uL; Monocyte% 9.9 % (0-10); NRBC Flagged by Analyzer 0 % (0-5); Neutrophil # 4.07 X10^3/uL (2.7-7.7); Neutrophil % 59.3 % (47-70); Platelet Count 246 K/mm3 (150-450); RBC Distribution Width CV 12.7 % (11.6-14.6); RBC Distribution Width SD 47.5 fl (35.1-43.9); Red Blood Count 3.66 M/mm3 (4.6-6.2); White Blood Count 6.9 K/mm3 (4.4-11.0)
[2023-07-07 17:49] LABS: AST(SGOT) 27 U/L (15-37); Alanine Aminotransfer ALT/SGPT 32 U/L (16-61); Albumin, Serum 3.8 g/dL (3.2-5.0); Alkaline Phosphatase 51 U/L (45-117); Anion Gap 6 (5-15); BUN 20 mg/dL (7-18); BUN/Creat Ratio 15.9 RATIO (10-20); Calcium,Total 9.5 mg/dL (8.5-10.1); Chloride 106 mmol/L (98-107); Creatinine, Serum 1.26 mg/dL (0.70-1.30); EST Glomerular Filtration Rate 61 mL/min (>60); Est Glom Filt Rate - Afr Amer 74 mL/min (>60); Globulin 3.7 g/dL (2.2-4.2); Glucose 119 mg/dL (74-106); Potassium 3.8 mmol/L (3.5-5.1); Protein, Total 7.5 g/dL (6.4-8.2); Sodium Level 139 mmol/L (136-145)
== END | disposition home or self-care (01) ==
LOC: MTLAB 16:30
PROVIDERS: PCP Internal Medicine; Referring Provider Internal Medicine Rheumatology; Visit Provider Internal Medicine Rheumatology
DX: M06.00 Rheumatoid arthritis without rheumatoid factor, unspecified site (principal); Z79.899 Other long term (current) drug therapy
CPT/HCPCS: 36415; 80053; 85025

== ENCOUNTER → 2023-09-02 | Outpatient (CLI) | payer BC, SELFPAY ==
[2023-09-02 13:27] LABS: Cholesterol 195 mg/dL (200); High Density Lipoprotein 67 mg/dL; Triglycerides 221 mg/dL; Very Low Density Lipoprotein 44 mg/dL (5-40)
== END | disposition home or self-care (01) ==
LOC: BIMLAB 08:14
PROVIDERS: PCP Internal Medicine; Referring Provider Internal Medicine; Visit Provider Internal Medicine
DX: E78.5 Hyperlipidemia, unspecified (principal); I10 Essential (primary) hypertension
CPT/HCPCS: 36415; 80061

== ENCOUNTER → 2023-10-01 | Outpatient (CLI) | payer BC, SELFPAY ==
[2023-10-01 17:49] LABS: Absolute Lymphocyte Count 1.86 X10^3/uL (0.83-4.51); Absolute Neutrophil Count 4.5 X10^3/uL (2.0-7.7); Basophil# 0.04 X10^3/uL; Basophil% 0.5 % (0-1); Eosinophil# 0.16 X10^3/uL; Eosinophils% 2.1 % (0-5); Hematocrit 39.2 % (40-54); Hemoglobin 12.9 g/dL (13.0-16.5); Lymphocyte # 1.86 X10^3/ul (0.83-4.51); Lymphocyte % 24.9 % (19-41); Mean Corp Hgb Conc 32.9 g/dL (32-36); Mean Corpuscular Hgb 34.1 pg (27.0-32.0); Mean Corpuscular Volume 103.7 fL (80-94); Mean Platelet Vol. 12.3 fl (6.2-12.0); Monocyte# 0.82 X10^3/uL; NRBC Flagged by Analyzer 0 % (0-5); Neutrophil # 4.52 X10^3/uL (2.7-7.7); Neutrophil % 60.6 % (47-70); Platelet Count 191 K/mm3 (150-450); RBC Distribution Width CV 13.6 % (11.6-14.6); RBC Distribution Width SD 51.6 fl (35.1-43.9); Red Blood Count 3.78 M/mm3 (4.6-6.2); White Blood Count 7.5 K/mm3 (4.4-11.0)
[2023-10-01 18:02] LABS: AST(SGOT) 28 U/L (15-37); Alanine Aminotransfer ALT/SGPT 36 U/L (16-61); Albumin, Serum 3.8 g/dL (3.2-5.0); Alkaline Phosphatase 56 U/L (45-117); Anion Gap 7 (5-15); BUN 34 mg/dL (7-18); BUN/Creat Ratio 19.9 RATIO (10-20); Calcium,Total 9.7 mg/dL (8.5-10.1); Chloride 106 mmol/L (98-107); Creatinine, Serum 1.71 mg/dL (0.70-1.30); EST Glomerular Filtration Rate 43 mL/min (>60); Est Glom Filt Rate - Afr Amer 52 mL/min (>60); Globulin 3.9 g/dL (2.2-4.2); Glucose 121 mg/dL (74-106); Potassium 3.7 mmol/L (3.5-5.1); Protein, Total 7.7 g/dL (6.4-8.2); Sodium Level 140 mmol/L (136-145)
== END | disposition home or self-care (01) ==
LOC: MTLAB 15:55
PROVIDERS: PCP Internal Medicine; Referring Provider Internal Medicine Rheumatology; Visit Provider Internal Medicine Rheumatology
DX: M06.00 Rheumatoid arthritis without rheumatoid factor, unspecified site (principal); Z79.899 Other long term (current) drug therapy
CPT/HCPCS: 36415; 80053; 85025

== ENCOUNTER → 2023-10-13 | Outpatient (CLI) | payer BC, SELFPAY ==
[2023-10-13 17:36] LABS: Anion Gap 5 (5-15); BUN 26 mg/dL (7-18); BUN/Creat Ratio 18.2 RATIO (10-20); Calcium,Total 9.9 mg/dL (8.5-10.1); Chloride 102 mmol/L (98-107); Creatinine, Serum 1.43 mg/dL (0.70-1.30); EST Glomerular Filtration Rate 53 mL/min (>60); Est Glom Filt Rate - Afr Amer 64 mL/min (>60); Glucose 130 mg/dL (74-106); Potassium 4.1 mmol/L (3.5-5.1); Sodium Level 136 mmol/L (136-145)
== END | disposition home or self-care (01) ==
LOC: MTLAB 16:22
PROVIDERS: PCP Internal Medicine; Referring Provider Internal Medicine; Visit Provider Internal Medicine
DX: I10 Essential (primary) hypertension (principal)
CPT/HCPCS: 36415; 80048

== ENCOUNTER → 2023-10-16 | Outpatient (CLI) | payer BC, SELFPAY ==
[2023-10-16 17:54] LABS: ALB/GLOB Ratio 0.9 RATIO (0.9-2.4); AST(SGOT) 29 U/L (15-37); Alanine Aminotransfer ALT/SGPT 27 U/L (16-61); Albumin, Serum 3.7 g/dL (3.2-5.0); Alkaline Phosphatase 47 U/L (45-117); Anion Gap 7 (5-15); BUN 28 mg/dL (7-18); BUN/Creat Ratio 21.1 RATIO (10-20); Calcium,Total 9.5 mg/dL (8.5-10.1); Chloride 101 mmol/L (98-107); Creatinine, Serum 1.33 mg/dL (0.70-1.30); EST Glomerular Filtration Rate 57 mL/min (>60); Est Glom Filt Rate - Afr Amer 70 mL/min (>60); Globulin 4.1 g/dL (2.2-4.2); Glucose 100 mg/dL (74-106); Potassium 3.9 mmol/L (3.5-5.1); Protein, Total 7.8 g/dL (6.4-8.2); Sodium Level 137 mmol/L (136-145)
== END | disposition home or self-care (01) ==
LOC: MTLAB 14:35
PROVIDERS: PCP Internal Medicine; Referring Provider Internal Medicine Rheumatology; Visit Provider Internal Medicine Rheumatology
DX: M06.00 Rheumatoid arthritis without rheumatoid factor, unspecified site (principal); Z79.899 Other long term (current) drug therapy
CPT/HCPCS: 36415; 80053

== ENCOUNTER → 2023-12-02 | Outpatient (CLI) | payer BC, SELFPAY ==
[2023-12-02 12:33] LABS: Anion Gap 6 (5-15); BUN 21 mg/dL (7-18); BUN/Creat Ratio 14.6 RATIO (10-20); Calcium,Total 9.9 mg/dL (8.5-10.1); Chloride 104 mmol/L (98-107); Creatinine, Serum 1.44 mg/dL (0.70-1.30); EST Glomerular Filtration Rate 52 mL/min (>60); Est Glom Filt Rate - Afr Amer 63 mL/min (>60); Glucose 109 mg/dL (74-106); Potassium 4.4 mmol/L (3.5-5.1); Sodium Level 140 mmol/L (136-145)
== END | disposition home or self-care (01) ==
LOC: BIMLAB 09:34
PROVIDERS: PCP Internal Medicine; Referring Provider Internal Medicine; Visit Provider Internal Medicine
DX: I10 Essential (primary) hypertension (principal)
CPT/HCPCS: 36415; 80048

== ENCOUNTER → 2023-12-08 | Outpatient (CLI) | payer BC, SELFPAY | END | disposition home or self-care (01) | LOC: LABSPEC 13:47 | PROVIDERS: PCP Internal Medicine; Referring Provider Internal Medicine; Visit Provider Internal Medicine | DX: R19.7 Diarrhea, unspecified (principal) | CPT/HCPCS: 83630; 87506 ==

== ENCOUNTER → 2023-12-29 | Outpatient (CLI) | payer BC, SELFPAY ==
[2023-12-29 10:19] LABS: Absolute Lymphocyte Count 1.77 X10^3/uL (0.83-4.51); Absolute Neutrophil Count 3.7 X10^3/uL (2.0-7.7); Basophil# 0.03 X10^3/uL; Basophil% 0.5 % (0-1); Eosinophil# 0.23 X10^3/uL; Eosinophils% 3.7 % (0-5); Hematocrit 40.8 % (40-54); Hemoglobin 13.3 g/dL (13.0-16.5); Lymphocyte # 1.77 X10^3/ul (0.83-4.51); Lymphocyte % 28.2 % (19-41); Mean Corp Hgb Conc 32.6 g/dL (32-36); Mean Corpuscular Hgb 33.6 pg (27.0-32.0); Mean Platelet Vol. 12.9 fl (6.2-12.0); Monocyte# 0.52 X10^3/uL; Monocyte% 8.3 % (0-10); NRBC Flagged by Analyzer 0 % (0-5); Neutrophil % 58.8 % (47-70); Platelet Count 184 K/mm3 (150-450); RBC Distribution Width CV 12.9 % (11.6-14.6); RBC Distribution Width SD 49.1 fl (35.1-43.9); Red Blood Count 3.96 M/mm3 (4.6-6.2); White Blood Count 6.3 K/mm3 (4.4-11.0)
[2023-12-29 10:42] LABS: ALB/GLOB Ratio 1.1 RATIO (0.9-2.4); AST(SGOT) 24 U/L (15-37); Alanine Aminotransfer ALT/SGPT 29 U/L (16-61); Albumin, Serum 3.9 g/dL (3.2-5.0); Alkaline Phosphatase 36 U/L (45-117); Anion Gap 5 (5-15); BUN 19 mg/dL (7-18); BUN/Creat Ratio 14.1 RATIO (10-20); Calcium,Total 9.4 mg/dL (8.5-10.1); Chloride 104 mmol/L (98-107); Creatinine, Serum 1.35 mg/dL (0.70-1.30); EST Glomerular Filtration Rate 56 mL/min (>60); Est Glom Filt Rate - Afr Amer 68 mL/min (>60); Globulin 3.6 g/dL (2.2-4.2); Glucose 105 mg/dL (74-106); Potassium 3.9 mmol/L (3.5-5.1); Protein, Total 7.5 g/dL (6.4-8.2); Sodium Level 138 mmol/L (136-145)
== END | disposition home or self-care (01) ==
LOC: MTLAB 07:46
PROVIDERS: PCP Internal Medicine; Referring Provider Internal Medicine Rheumatology; Visit Provider Internal Medicine Rheumatology
DX: M06.00 Rheumatoid arthritis without rheumatoid factor, unspecified site (principal); Z79.899 Other long term (current) drug therapy
CPT/HCPCS: 36415; 80053; 85025

== ENCOUNTER 2024-01-26 08:06 | Day surgery (SDC) | payer BC, SELFPAY ==
[2024-01-26] VITALS (7 sets, daily range): BP systolic 101–137; BP diastolic 68–98; PULSE 67–75; RESP 16; TEMP 36.3–36.6; O2SAT 95–97; BMI 33.3
--- NOTE | 2024-01-26 09:06 | PCM.PRE.AN2 ---
ASA Classification* ASA Classification ASA Classification: 3 Assessment & Plan Anesthesia* Anesthesia Assessment Anesthesia Assessment: Discussed sedation and/or anesthesia options, risks, benefits, and alternatives with patient/parents/legal guardian/POA. Questions invited. The patient/parents/legal guardian/POA seems to understand and agrees to proceed with anesthesia plan. Reviewed the physical assessment, medical history, allergy history and patient home medications list prior to surgery/procedure/anesthetic and documented any changes. Performed airway and anesthesia risk assessments. Anesthesia Type Anesthesia Type: MAC Anesthesia Focused Assessment* Temperature: 97.6 F Pulse Rate: 75 Blood Pressure: 137/98 Respiratory Rate: 16 Pulse Ox: 97 Airway Assessment Mouth opens: >3 cm Mallampati Score: II Focused Labs Anesthesia Preop lab: CBC WBC 6.3 K/mm3 (4.4-11.0) 12/29/23 07:47 RBC 3.96 M/mm3 (4.6-6.2) L 12/29/23 07:47 Hgb 13.3 g/dL (13.0-16.5) 12/29/23 07:47 Hct 40.8 % (40-54) 12/29/23 07:47 Plt Count 184 K/mm3 (150-450) 12/29/23 07:47 CHEMISTRY Potassium 3.9 mmol/L (3.5-5.1) 12/29/23 07:47 Sodium 138 mmol/L (136-145) 12/29/23 07:47 BUN 19 mg/dL (7-18) H 12/29/23 07:47 Creatinine 1.35 mg/dL (0.70-1.30) H 12/29/23 07:47 Glucose 105 mg/dL (74-106) 12/29/23 07:47 TSH 1.63 uIU/mL (0.358-3.74) 08/04/19 13:12 COAG Pre-Assessment Diagnosis/Proposed Procedure Planned Operative Procedure(s): cscope Anesthesia History 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 When Was Last Pacemaker Check QUESTION #4 FULL TEXT: You/Your Family Experience fever (hyperthermia) with Anesthesia Last Oral Intake Last Oral intake: Last Oral Intake NPO since 05:00 01/26/24 08:34 Meds taken in AM with sips of water? Meds patient instructed to take am of surgery PONV PONV - service bar cashier: PONV - service bar cashier Female No 01/22/24 09:17 HX of Motion Sickness No 01/22/24 09:17 HX of N/V After Surgery No 01/22/24 09:17 Non-Smoker Yes 01/22/24 09:17 Duration of Surgery greater No 01/22/24 09:17 than 60 minutes Number of Risk Factors 1 01/22/24 09:17 PONV Score Low Risk 01/22/24 09:17 Height & Weight Height & Weight: Anesthesia: Height & Weight Height 6 ft 01/26/24 08:34 Weight: 111.4 kg 01/26/24 08:34 Body Mass Index (BMI) 33.3 01/26/24 08:34 Respiratory Assessment Respiratory Assessment - service bar cashier: Respiratory Tract Infection Hx - service bar cashier Hx Respiratory Tract Infection No 01/22/24 09:17 STOP Sleep Apnea STOP Sleep Apnea - service bar cashier: STOP Sleep Apnea - service bar cashier Hx Hypertension Yes: WORKING ON CONTROLLING 01/22/24 09:17 WITH MEDS Hx Sleep Apnea Yes 01/22/24 09:17 CPAP Yes 01/22/24 09:17 BIPAP No 01/22/24 09:17 Do you snore loudly (louder than talking or can be heard Do you often feel tired/ fatigued/ sleepy during daytime? Has anyone observed you stop breathing during sleep? STOP Results Positive 01/22/24 09:17 QUESTION #5 FULL TEXT : Do you snore loudly (louder than talking or can be heard through closed doors)? 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 Specify any problems Hx of Preganancy in last 3 N/A 01/22/24 09:17 Months Nurse Filling Out Transfusion NBUCHER 01/22/24 09:17 & Questions: Date: 01/22/24 01/22/24 09:17 Time: 09:18 01/22/24 09:17 Patient unable to answer at this time (ie. confused, unrespo /Reproduction History /Reproductive History - service bar cashier: /Reproductive Hx- service bar cashier Hx Now No 01/22/24 09:17 Gestational Age (in weeks): EDC: Hx Hx Para Hx Section SAB No 01/22/24 09:17 PFSH Medical History Wears glasses Marijuana use History of steroid therapy Prostate disease High cholesterol History of edema CPAP (continuous positive airway pressure) dependence Former smoker Diarrhea Gastroenteritis Colon cancer screening BPH (benign prostatic hyperplasia) Flu vaccine need Wound of left lower extremity Bilateral foot pain Left knee pain Neuropathy Preventative health care Acute bronchitis Obesity (BMI 30-39.9) Sleep apnea Depression Rheumatoid arthritis Myalgia Sicca syndrome Arthritis Hypertension Hyperlipemia Home Medications ?Medication ?Instructions ?Recorded ?Last Taken ?Type gqsdtvae-rvg-gjies acid 0.4 1 tab PO DAILY 04/19/18 01/25/24 History mg-lycopene 300 mcg-lutein 250 mcg tablet (Centrum Silver) leucovorin calcium 5 mg tablet 15 mg PO QWEEK 07/19/18 01/23/24 History methotrexate sodium 2.5 mg tablet 20 mg PO QWEEK 10/18/18 01/16/24 History acetaminophen 500 mg tablet 500 mg PO Q6H PRN pain 01/23/20 Unknown History (Tylenol Extra Strength) medical marijuanas OTHER 12/12/20 Unknown History hydroxychloroquine 200 mg tablet 200 mg PO BID 05/23/21 01/25/24 History tofacitinib 11 mg tablet,extended 11 mg PO DAILY 05/23/21 01/25/24 History release 24 hr folic acid 800 mcg tablet 0.8 mg PO DAILY 10/22/21 01/25/24 History Handicap Placard #1 ea 11/27/21 Unknown Rx foam bandage 5 X 5 (Aquacel Foam) #10 ea 09/17/22 Unknown Rx amlodipine 5 mg tablet 5 mg PO BID 3 months #180 tabs 06/03/23 01/25/24 Rx benazepril 40 mg tablet See Rx Instructions .Route 06/03/23 01/25/24 Rx .COMPLEX #90 tabs duloxetine 60 mg capsule,delayed 60 mg PO DAILY #90 caps 06/03/23 01/25/24 Rx release rosuvastatin 20 mg tablet 20 mg PO DAILY #90 tabs 06/03/23 01/24/24 Rx fenofibric acid (choline) 135 mg See Rx Instructions .Route 09/02/23 01/25/24 Rx capsule,delayed release .COMPLEX #90 caps pregabalin 75 mg capsule 75 mg PO BID #180 caps 12/22/23 01/25/24 Rx Allergy/AdvReac Type Severity Reaction Status Date / Time No Known Allergies Allergy Verified 01/22/24 09:15 Family History Mother Fibromyalgia Brother Lymphoma Father Alzheimer disease Surgical History Hx of colonoscopy history of left shoulder surgery Social History household members: spouse current occupational status: employed current occupation: [employer] Smoking Status: Former smoker quit date: 03/02/87 Tobacco: How many years used: 10 alcohol intake: current alcohol intake frequency: holidays/special occasions only substance use type: does not use what type of physical activity do you participate in: none Review of Systems (Anesthesia) ROS Narrative System reviewed and no additional complaints, except as documented.
--- NOTE | 2024-01-26 09:15 | COLBX_PTH ---
PATIENT: JEAN SEARS LOC: EN U#:[id number] AGE/SX: 63/M ROOM: RE01/26/[address]: Dr. Go Cortes MD : 1960 BED: DIS: 01/26/2024 SPEC #: [id number] RECD: 01/26/24 12:22 STATUS: EVELYN VANNA #: [id number] MAURICE: 01/26/24 09:[address]: Go Cortes DEPT: SURGICAL PATHOLOGY RECD BY: Debora Govea ENTERED: 01/26/24 13:22 SP TYPE: COLON BX OTHR DR: Dr. Rohan Varela MD Tissues: Descending colon Procedures: Surgery Specimen Level IV HEADER OPERATION: Colonoscopy with polypectomy PRE-OP DIAGNOSIS: Colon cancer screening TISSUE SUBMITTED: Descending colon polyp x2 MICROSCOPIC DIAGNOSIS Descending colon polyp, biopsy: Fragments of tubular adenoma. AM.mr 01/27/2024 MICROSCOPIC DESCRIPTION Slides are reviewed. GROSS DESCRIPTION Received in fixative is one container labeled with the patient's name and designated Descending colon polyp x2. The specimen consists of two irregular fragments of light jimeenz soft tissue that in aggregate measure 1.0 x 0.6 x 0.1 cm. The specimen is totally submitted in one cassette. 01/26/2024 TC:5 CPT:07079
--- NOTE | 2024-01-26 09:18 | H&P.OPEN ---
HPI - General HPI Narrative JEAN SEARS, is a 63 M who presents for screening colonoscopy. His last colonoscopy was at age 49. He denies abdominal pain or blood in stool. He has no family history of colon cancer. [facility] Medical History Wears glasses Marijuana use History of steroid therapy Prostate disease High cholesterol History of edema CPAP (continuous positive airway pressure) dependence Former smoker Diarrhea Gastroenteritis Colon cancer screening BPH (benign prostatic hyperplasia) Flu vaccine need Wound of left lower extremity Bilateral foot pain Left knee pain Neuropathy Preventative health care Acute bronchitis Obesity (BMI 30-39.9) Sleep apnea Depression Rheumatoid arthritis Myalgia Sicca syndrome Arthritis Hypertension Hyperlipemia Home Medications ?Medication ?Instructions ?Recorded ?Last Taken ?Type tyrvtfjc-wyy-foksv acid 0.4 1 tab PO DAILY 04/19/18 01/25/24 History mg-lycopene 300 mcg-lutein 250 mcg tablet (Centrum Silver) leucovorin calcium 5 mg tablet 15 mg PO QWEEK 07/19/18 01/23/24 History methotrexate sodium 2.5 mg tablet 20 mg PO QWEEK 10/18/18 01/16/24 History acetaminophen 500 mg tablet 500 mg PO Q6H PRN pain 01/23/20 Unknown History (Tylenol Extra Strength) medical marijuanas OTHER 12/12/20 Unknown History hydroxychloroquine 200 mg tablet 200 mg PO BID 05/23/21 01/25/24 History tofacitinib 11 mg tablet,extended 11 mg PO DAILY 05/23/21 01/25/24 History release 24 hr folic acid 800 mcg tablet 0.8 mg PO DAILY 10/22/21 01/25/24 History Handicap Placard #1 ea 11/27/21 Unknown Rx foam bandage 5 X 5 (Aquacel Foam) #10 ea 09/17/22 Unknown Rx amlodipine 5 mg tablet 5 mg PO BID 3 months #180 tabs 06/03/23 01/25/24 Rx benazepril 40 mg tablet See Rx Instructions .Route 06/03/23 01/25/24 Rx .COMPLEX #90 tabs duloxetine 60 mg capsule,delayed 60 mg PO DAILY #90 caps 06/03/23 01/25/24 Rx release rosuvastatin 20 mg tablet 20 mg PO DAILY #90 tabs 06/03/23 01/24/24 Rx fenofibric acid (choline) 135 mg See Rx Instructions .Route 09/02/23 01/25/24 Rx capsule,delayed release .COMPLEX #90 caps pregabalin 75 mg capsule 75 mg PO BID #180 caps 12/22/23 01/25/24 Rx Allergy/AdvReac Type Severity Reaction Status Date / Time No Known Allergies Allergy Verified 01/22/24 09:15 Family History Mother Fibromyalgia Brother Lymphoma Father Alzheimer disease Surgical History Hx of colonoscopy history of left shoulder surgery Social History household members: spouse current occupational status: employed current occupation: [employer] Smoking Status: Former smoker quit date: 03/02/87 Tobacco: How many years used: 10 alcohol intake: current alcohol intake frequency: holidays/special occasions only substance use type: does not use what type of physical activity do you participate in: none Past Medical/Surgical History Planned Operation Planned Operative Procedure(s): cscope Previous Hospitalizations/Surgeries HX Hospitalizations: No Any Problems With Anesthesia: No You/Your Family Experience Fever (Hyperthermia) With Anes: No Cholinesterase deficiency: No Cardiovascular Hx Hypertension: Yes (WORKING ON CONTROLLING WITH MEDS) Respiratory Hx Sleep Apnea: Yes CPAP: Yes BIPAP: No Hx Respiratory Tract Infection/Cold (presently): No Result (for STOP score): Positive Smoking Status: Former smoker Neurological Does patient have nerve stimulator: No Reproduction : No Miscellaneous Recent Exposure to Contagious Disease: No Allergies No Known Allergies Allergy (Verified 01/22/24 09:15) Discharge Is Pt Admitted From a Residential, or a Snf: No After D/C, Where Do you Plan to Go: Return Home Vital Signs Vital Signs Vital Signs: 01/26/24 08:32 01/26/24 08:34 01/26/24 09:06 Temperature 97.6 F L 97.6 F L Temperature Source Temporal Pulse Rate 75 75 Respiratory Rate 16 16 Respiratory Pattern Normal Blood Pressure 137/98 H 137/98 H Blood Pressure Mean 111 Blood Pressure Source Monitor Blood Pressure Position Semi-Fowlers Blood Pressure Location Left Arm Pulse Ox 97 97 Oxygen Delivery Method Room Air Weight Weight: 245 lb 9.519 oz Body Mass Index (BMI) 33.3 Physical Exam Const alert and oriented x3 HEENT normocephalic Eyes PERRL Resp normal respiratory effort and normal air movement Cardio regular rate and regular rhythm GI soft to palpation, non-tender and non-distended Extremity normal to inspection Assessment & Plan Assessment/Plan (1) Colon cancer screening: PLAN: I explained endoscopy in detail to the patient. I explained the risks including but not limited to stroke or heart attack with anesthesia, perforation of the GI tract, bleeding, infection. I explained that any of these could necessitate further emergency surgery. The patient understands and all questions were answered sufficiently. The patient wishes to proceed with procedure. Go Cortes MD Pager: [facility] [address] [place] [address], [address] [place] [address] Office: Surgery Risks - Colonoscopy Risks Include but are not Limited To: Risks include but are not limited to: Bleeding, perforation requiring further surgery, inability to complete colonoscopy requiring barium enema.
--- NOTE | 2024-01-26 09:57 | OP.CCLET_ITS ---
01/26/2024 Rohan Varela MD [address] [place] [address] [place] [address] Re : Colonoscopy procedure for Ebenezer Jensen Dear Dr. Varela This procedure was performed on Friday, January 26, 2024. My impressions and recommendations are as follows: Impressions : - Two medium polyps in the descending colon, removed with a hot snare. Resected and retrieved. - The examination was otherwise normal on direct and retroflexion views. Recommendations : - Discharge patient to home. - Resume previous diet. - Continue present medications. - Await pathology results. - Repeat colonoscopy in 5 years for surveillance. My findings are described in the full procedure note, which is enclosed. If I can be of further assistance, please feel free to contact me at Doctor phone number(s): , Work: . Sincerely, Go Cortes MD 01/26/2024 9:57:21 AM This report has been signed electronically.
--- NOTE | 2024-01-26 09:57 | OP.COLON_ITS ---
Patient Name: Ebenezer Jensen Procedure Date: 01/26/2024 9:14 AM Date of : 1960 Age: 63 Procedure: Colonoscopy Indications: Screening for colorectal malignant neoplasm Providers: Go Cortes MD Referring MD: Rohan Varela MD Medicines: Propofol per Anesthesia Patient Profile: This is a 63 year old male. Refer to note in patient chart for documentation of history and physical. Last Colonoscopy: 10 years ago. Complications: No immediate complications. Estimated blood loss: Minimal. Procedure: Pre-Anesthesia Assessment: - Prior to the procedure, a History and Physical was performed, and patient medications and allergies were reviewed. The patient's tolerance of previous anesthesia was also reviewed. The risks and benefits of the procedure and the sedation options and risks were discussed with the patient. All questions were answered, and informed consent was obtained. Prior Anticoagulants: The patient has taken no anticoagulant or antiplatelet agents. After reviewing the risks and benefits, the patient was deemed in satisfactory condition to undergo the procedure. After I obtained informed consent, the scope was passed under direct vision. Throughout the procedure, the patient's blood pressure, pulse, and oxygen saturations were monitored continuously. The Colonoscope was introduced through the anus and advanced to the cecum, identified by appendiceal orifice and ileocecal valve. The colonoscopy was performed without difficulty. The patient tolerated the procedure well. The quality of the bowel preparation was good. The ileocecal valve, appendiceal orifice, and rectum were photographed. Scope In: 9:28:46 AM Scope Withdrawal Time 0 hours 6 minutes 30 seconds Scope Out: 9:49:39 AM Total Procedure Duration Time 0 hours 20 minutes 53 seconds Findings: Two pedunculated polyps were found in the descending colon. The polyps were medium in size. These polyps were removed with a hot snare. Resection and retrieval were complete. The exam was otherwise without abnormality on direct and retroflexion views. Impression: - Two medium polyps in the descending colon, removed with a hot snare. Resected and retrieved. - The examination was otherwise normal on direct and retroflexion views. Recommendation: - Discharge patient to home. - Resume previous diet. - Continue present medications. - Await pathology results. - Repeat colonoscopy in 5 years for surveillance. Procedure Code(s): --- Professional --- 06092, 33, Colonoscopy, flexible; with removal of tumor(s), polyp(s), or other lesion(s) by snare technique Diagnosis Code(s): --- Professional --- Z12.11, Encounter for screening for malignant neoplasm of colon D12.4, Benign neoplasm of descending colon CPT copyright 2021 [employer]. All rights reserved. The codes documented in this report are preliminary and upon commercial property manager review may be revised to meet current compliance requirements. Go Cortes MD 01/26/2024 9:57:21 AM This report has been signed electronically. Number of Addenda: 0 Note Initiated On: 01/26/2024 9:14 AM
--- NOTE | 2024-01-26 09:57 | PCM.POST.ANE ---
Anesthesia: Postop Eval I Current Vital Signs Temperature: 97.4 F Pulse Rate: 74 Blood Pressure: 101/70 Respiratory Rate: 16 Pulse Ox: 96 Oxygen Delivery Method: Room Air Assessment Airway patent: Yes Spontaneous unlabored respirations: Yes Mental status: Asleep nausea: No Vomiting: No Anesthesia Complication: No Fluid Hydration Crystalloid volume administer (ml): 40 Total IV fluid infused: 40 Progress Note Anesthesia document: Postop Eval 1 completed: Yes
--- NOTE | 2024-01-26 10:50 | PCM.POSTANE2 ---
Anesthesia Postop Eval I Sum Postop Eval Completion status Anesthesia document: Postop Eval 1 completed: Yes Anesthesia Postop Eval I Summary Anesthesia Postop Eval I Summary: Anesthesia Postop Eval I: Assessment Summary Airway patent Yes 01/26/24 09:58 [email or web address] Spontaneous unlabored Yes 01/26/24 09:58 [email or web address] respirations Mental status Asleep 01/26/24 09:58 [email or web address] nausea No 01/26/24 09:58 [email or web address] Vomiting No 01/26/24 09:58 [email or web address] Anesthesia Postop Eval I: Fluid Summary Crystalloid volume administer 40 01/26/24 09:58 [email or web address] (ml) Colloids volume administered ( ml) Blood Product volume administered (ml) Total IV fluid infused 40 01/26/24 09:58 [email or web address] Anesthesia Postop Eval I: Summary Notes Anesthesia Complication No 01/26/24 09:58 [email or web address] Anesthesia Complication Comment: Post-operative progress note Anesthesia: Postop Eval II Evaluation Mental status: Awake Pain Level: 0 nausea: No Vomiting: No
== END 2024-01-26 10:36 | disposition home or self-care (01) ==
LOC: EN 08:06 → AC 08:07
PROVIDERS: PCP Internal Medicine; Referring Provider Internal Medicine; Visit Provider Surgery
PROC: 0DJD8ZZ Inspection of Lower Intestinal Tract, Via Natural or Artificial Opening Endoscopic (ICD-10-PCS; CPT 45378; principal; 2024-01-26 09:10)
DX: Z12.11 Encounter for screening for malignant neoplasm of colon (principal); D12.4 Benign neoplasm of descending colon; I10 Essential (primary) hypertension; Z87.891 Personal history of nicotine dependence; E78.00 Pure hypercholesterolemia, unspecified; Z79.899 Other long term (current) drug therapy
CPT/HCPCS: 45385; 88305; A4216; J2405

== ENCOUNTER → 2024-03-09 | Outpatient (CLI) | payer BC, SELFPAY ==
[2024-03-09 12:42] LABS: Anion Gap 4 (5-15); BUN 16 mg/dL (7-18); BUN/Creat Ratio 13.2 RATIO (10-20); Calcium,Total 9.5 mg/dL (8.5-10.1); Chloride 105 mmol/L (98-107); Creatinine, Serum 1.21 mg/dL (0.70-1.30); EST Glomerular Filtration Rate 64 mL/min (>60); Est Glom Filt Rate - Afr Amer 77 mL/min (>60); Glucose 107 mg/dL (74-106); PSA,Total - Annual Screen 3.89 ng/mL (0.00-4.00); Sodium Level 139 mmol/L (136-145)
== END | disposition home or self-care (01) ==
LOC: BIMLAB 08:40
PROVIDERS: PCP Internal Medicine; Referring Provider Internal Medicine; Visit Provider Internal Medicine
DX: I10 Essential (primary) hypertension (principal)
CPT/HCPCS: 36415; 80048; 84153; G0103

== ENCOUNTER → 2024-03-22 | Outpatient (CLI) | payer BC, SELFPAY ==
[2024-03-22 17:38] LABS: Absolute Lymphocyte Count 2.28 X10^3/uL (0.83-4.51); Absolute Neutrophil Count 5.7 X10^3/uL (2.0-7.7); Basophil# 0.06 X10^3/uL; Basophil% 0.7 % (0-1); Eosinophils% 3.3 % (0-5); Hematocrit 43.8 % (40-54); Hemoglobin 14.6 g/dL (13.0-16.5); Lymphocyte # 2.28 X10^3/ul (0.83-4.51); Lymphocyte % 25.1 % (19-41); Mean Corp Hgb Conc 33.3 g/dL (32-36); Mean Corpuscular Hgb 33.9 pg (27.0-32.0); Mean Corpuscular Volume 101.6 fL (80-94); Mean Platelet Vol. 11.6 fl (6.2-12.0); Monocyte% 7.7 % (0-10); NRBC Flagged by Analyzer 0 % (0-5); Neutrophil % 62.6 % (47-70); Platelet Count 254 K/mm3 (150-450); RBC Distribution Width CV 13.2 % (11.6-14.6); RBC Distribution Width SD 49.1 fl (35.1-43.9); Red Blood Count 4.31 M/mm3 (4.6-6.2); White Blood Count 9.1 K/mm3 (4.4-11.0)
[2024-03-22 18:59] LABS: ALB/GLOB Ratio 1.1 RATIO (0.9-2.4); AST(SGOT) 24 U/L (15-37); Alanine Aminotransfer ALT/SGPT 38 U/L (16-61); Alkaline Phosphatase 56 U/L (45-117); Anion Gap 6 (5-15); BUN 19 mg/dL (7-18); BUN/Creat Ratio 13.7 RATIO (10-20); Calcium,Total 9.9 mg/dL (8.5-10.1); Chloride 104 mmol/L (98-107); Creatinine, Serum 1.39 mg/dL (0.70-1.30); EST Glomerular Filtration Rate 55 mL/min (>60); Est Glom Filt Rate - Afr Amer 66 mL/min (>60); Globulin 3.6 g/dL (2.2-4.2); Glucose 144 mg/dL (74-106); Potassium 4.1 mmol/L (3.5-5.1); Protein, Total 7.6 g/dL (6.4-8.2); Sodium Level 137 mmol/L (136-145)
== END | disposition home or self-care (01) ==
LOC: MTLAB 15:18
PROVIDERS: PCP Internal Medicine; Referring Provider Internal Medicine Rheumatology; Visit Provider Internal Medicine Rheumatology
DX: M06.00 Rheumatoid arthritis without rheumatoid factor, unspecified site (principal); Z79.899 Other long term (current) drug therapy
CPT/HCPCS: 36415; 80053; 85025

== ENCOUNTER → 2024-05-09 | Outpatient (CLI) | payer MEDICARE, SELFPAY ==
[2024-05-09 13:13] LABS: ALB/GLOB Ratio 1.4 RATIO (0.9-2.4); AST(SGOT) 23 U/L (<=37); Alanine Aminotransfer ALT/SGPT 14 U/L (<=46); Albumin, Serum 4.2 g/dL (3.4-4.8); Alkaline Phosphatase 41 U/L (40-129); Anion Gap 13 (5-15); BUN 20 mg/dL (4-19); BUN/Creat Ratio 17.1 RATIO (10-20); Calcium,Total 9.4 mg/dL (7.6-11.0); Carbon Dioxide 22.8 mmol/L (21.0-32.0); Chloride 102 mmol/L (98-108); Creatinine, Serum 1.19 mg/dL (0.70-1.20); EST Glomerular Filtration Rate 68 (>60); Glucose 101 mg/dL (70-99); Potassium 3.9 mmol/L (3.3-5.1); Protein, Total 7.2 g/dL (5.9-8.4); Sodium Level 139 mmol/L (133-145); Total Bilirubin 0.34 mg/dL (0.00-1.30)
== END | disposition home or self-care (01) ==
PROVIDERS: PCP Internal Medicine; Referring Provider Internal Medicine Rheumatology; Visit Provider Internal Medicine Rheumatology
DX: M06.00 Rheumatoid arthritis without rheumatoid factor, unspecified site (principal); M25.562 Pain in left knee; Z79.899 Other long term (current) drug therapy
CPT/HCPCS: 36415; 80053

== ENCOUNTER → 2024-05-13 | Outpatient (CLI) | payer MEDICARE, SELFPAY ==
[2024-05-16 14:08] LABS: QNTFERON TB Mitogen Value > 10.00 IU/mL (.); QNTFERON TB Nil Value 0.01 IU/mL (.); QNTFERON TB1+ Ag Value 0.01 IU/mL (.); QNTFERON TB2+ Ag Value 0.01 IU/mL (.); QNTIFERON TB Positive Criteria Negative (Negative)
== END | disposition home or self-care (01) ==
PROVIDERS: PCP Internal Medicine; Referring Provider Internal Medicine Rheumatology; Visit Provider Internal Medicine Rheumatology
DX: M06.00 Rheumatoid arthritis without rheumatoid factor, unspecified site (principal); M25.562 Pain in left knee; Z79.899 Other long term (current) drug therapy
CPT/HCPCS: 36415; 86480

== ENCOUNTER → 2024-08-01 | Outpatient (CLI) | payer MEDICARE, SELFPAY ==
[2024-08-01 15:34] LABS: ALB/GLOB Ratio 1.6 RATIO (0.9-2.4); AST(SGOT) 30 U/L (<=37); Alanine Aminotransfer ALT/SGPT 17 U/L (<=46); Albumin, Serum 4.4 g/dL (3.4-4.8); Alkaline Phosphatase 39 U/L (40-129); Anion Gap 13 (5-15); BUN 20 mg/dL (4-19); BUN/Creat Ratio 15.6 RATIO (10-20); Calcium,Total 9.8 mg/dL (7.6-11.0); Carbon Dioxide 23.9 mmol/L (21.0-32.0); Chloride 103 mmol/L (98-108); Creatinine, Serum 1.26 mg/dL (0.70-1.20); EST Glomerular Filtration Rate 63 (>60); Globulin 2.7 g/dL (2.2-4.2); Glucose 99 mg/dL (70-99); Protein, Total 7.1 g/dL (5.9-8.4); Sodium Level 139 mmol/L (133-145); Total Bilirubin 0.41 mg/dL (0.00-1.30)
[2024-08-01 15:35] LABS: Absolute Lymphocyte Count 1.08 X10^3/uL (0.83-4.51); Absolute Neutrophil Count 5.5 X10^3/uL (2.0-7.7); Basophil# 0.02 X10^3/uL; Basophil% 0.3 % (0-1); Eosinophil# 0.03 X10^3/uL; Eosinophils% 0.4 % (0-5); Hematocrit 40.9 % (40-54); Hemoglobin 13.7 g/dL (13.0-16.5); Lymphocyte # 1.08 X10^3/ul (0.83-4.51); Mean Corp Hgb Conc 33.5 g/dL (32-36); Mean Corpuscular Hgb 33.3 pg (27.0-32.0); Mean Corpuscular Volume 99.5 fL (80-94); Mean Platelet Vol. 13.6 fl (6.2-12.0); Monocyte# 0.54 X10^3/uL; Monocyte% 7.5 % (0-10); NRBC Flagged by Analyzer 0 % (0-5); Neutrophil # 5.51 X10^3/uL (2.7-7.7); Neutrophil % 76.5 % (47-70); POSITIVE COUNT YES; Platelet Count 230 K/mm3 (150-450); RBC Distribution Width CV 13.6 % (11.6-14.6); RBC Distribution Width SD 49.2 fl (35.1-43.9); Red Blood Count 4.11 M/mm3 (4.6-6.2); White Blood Count 7.2 K/mm3 (4.4-11.0)
[2024-08-01 15:48] LABS: Differential Indicated SCAN CRITERIA MET
[2024-08-01 19:50] LABS: Platelet Estimate A (ADEQ)
== END | disposition home or self-care (01) ==
LOC: MTLAB 11:41
PROVIDERS: PCP Internal Medicine; Referring Provider Internal Medicine Rheumatology; Visit Provider Internal Medicine Rheumatology
DX: M06.00 Rheumatoid arthritis without rheumatoid factor, unspecified site (principal); M25.562 Pain in left knee; Z79.899 Other long term (current) drug therapy
CPT/HCPCS: 36415; 80053; 85025

== ENCOUNTER → 2024-08-04 | Outpatient (CLI) | payer MEDICARE, SELFPAY | END | disposition home or self-care (01) | LOC: SL 09:24 | PROVIDERS: PCP Internal Medicine; Referring Provider Nurse Practitioner Family; Visit Provider Nurse Practitioner Family | DX: G47.33 Obstructive sleep apnea (adult) (pediatric) (principal) | CPT/HCPCS: 98960; G0463 ==

== ENCOUNTER → 2024-08-18 | Outpatient (CLI) | payer MEDICARE, SELFPAY ==
--- NOTE | 2024-08-18 14:43 | RAD_ITS ---
PROCEDURE: FINGER(S) MIN 2 VIEWS 08/18/2024 REASON FOR EXAM: NAIL ABNORMALITY TECHNIQUE: FINGER(S) MIN 2 VIEWS COMPARISON: None. FINDINGS: Mildly prominent soft tissues overlying the dorsal aspect of the distal interphalangeal joint/distal phalanx. Well-defined benign chronic degenerative in the distal aspect of the middle phalanx. Normal metacarpal head. Normal metacarpophalangeal joint. Normal proximal phalanx. Normal distal phalanx. Normal proximal interphalangeal joint. Normal distal interphalangeal joint. RAD/Finger(s) Min 2 Views IMPRESSION: Mildly prominent soft tissues overlying the dorsal aspect of the distal interph alangeal joint/distal phalanx. No associated bone abnormality is noted. Well-defined benign chronic degenerative in the distal aspect of the middle pha lanx. Reading Location[facility]
== END | disposition home or self-care (01) ==
LOC: SL 14:42
PROVIDERS: PCP Internal Medicine; Referring Provider Nurse Practitioner Family; Visit Provider Nurse Practitioner Family
DX: L60.9 Nail disorder, unspecified (principal)
CPT/HCPCS: 73140

== ENCOUNTER 2024-08-20 08:30 | Emergency (ER) | payer MEDICARE, SELFPAY ==
[2024-08-20] VITALS (8 sets, daily range): BP systolic 140–154; BP diastolic 70–98; PULSE 72–91; RESP 13–18; TEMP 36.6–36.8; O2SAT 96–100; BMI 30.4
--- OUTSIDE RECORDS SUMMARY | 2024-08-20 08:51 | XMS RPT_ITS | CCD ---
Author Organization [facility] Care Team Providers Care Wet Wheeler Name Role Phone MynoreKn Unavailable Dr. Rohan Arteaga Primary Care Provider [phone] Dr. Rohan Varela Attending Provider [phone] Dr. Rohan Varela Referring Provider [phone] Dr. Gage Adams Attending Provider OBED Nguyen Attending Provider UnavailDr. Rohan Armstrong Primary Care Provider [phone]) Dr. Rohan Varela Referring Provider [phone] Dr. Rohan Varela Attending Provider [phone] Dr. Rohan Varela Primary Care Provider 1(33 0) Dr. Rohan Varela Referring Provider [phone] OBED Nguyen Attending Provider Dr. Rohan Cole Primary Care Provider [phone] 0) Dr. Rohan Varela Attending Provider [phone] Dr. Rohan Varela Referring Provider [phone])2 Dr. Rohan Varela Primary Care Provider 1(33 0) Dr. Rohan Varela Attending Provider [phone] Dr. Rohan Varela Referring Provider [phone] OBED Nguyen Attending Provider Dr. Rohan Cole Primary Care Provider 1(33 0) Dr. Rohan Varela Attending Provider [phone] Dr. Rohan Varela Referring Provider [phone] Dr. Sanchez Oconnor Attending Provider [phone]) Chele, Dr. Morgan Attending Provider [phone] Dr. Rohan Varela Primary Care Provider 1(33 0) Dr. Rohan Varela Referring Provider [phone] Dr. Sanchez Oconnor Attending Provider [phone] Dr. Eddie Elaine Attending Provider [phone] Dr. Rohan Varela Attending Provider [phone] OBED Guerra Attending Provider Cheli ARCHIVIST MILITARY HISTORY, ARCHIVIST MILITARY HISTORY-C Lyla Attending Provider Dr. Rohan Varela Primary Care Provider [phone]) Nichole, Dr. Madrigal Referring Provider [phone] Dr. Rohan Varela Primary Care Provider 1(33 0) Nichole, Dr. Madrigal Referring Provider [phone] Cheli ARCHIVIST MILITARY HISTORY, ARCHIVIST MILITARY HISTORY-C Lyla Attending Provider OBED Guerra Attending Provider Dr. Rohan Varela Attending Provider [phone] Dr. Gage Adams Attending Provider Dr. Rohan Varela Primary Care Provider [phone] 0) Dr. Rohan Varela Referring Provider [phone] Dr. Gage Adams Attending Provider Dr. Rohan Varela Attending Provider [phone])2 Dr. Rohan Varela Primary Care Provider 1(33 0) Dr. Rohan Varela Referring Provider [phone])2 Dr. Rohan Varela Primary Care Provider [phone] Dr. Rohan Varela Attending Provider [phone] Dr. Rohan Varela Referring Provider [phone] OBED Guerra Attending Provider Aakash ARCHIVIST MILITARY HISTORY, ARCHIVIST MILITARY HISTORY-C Marianna Attending Provider Nichole ALVAREZ, Dr. Madrigal Primary Care Provider Nichole ALVAREZ, Dr. Madrigal Referring Provider [phone] Sophia ALVAREZ, Dr. Stiles Attending Provider Sophia ALVAREZ, Dr. Stiles Other Provider Nichole ALVAREZ, Dr. Madrigal Attending Provider [phone] Ana ALVAREZ, Dr. Kat Attending Provider Ana ALVAREZ, Dr. Kat Referring Provider Nichole ALVAREZ, Dr. Madrigal Primary Care Provider Ana ALVAREZ, Dr. Kat Attending Provider Ana ALVAREZ, Dr. Kat Referring Provider Nichole ALVAREZ, Dr. Madrigal Attending Provider [phone] Nichole ALVAREZ, Dr. Madrigal Referring Provider [phone] Edith LAIRD-Mary Velasquez Attending Provider Edith LAIRD-CMary Referring Provider Oleghe, Efewongbe Referring Unavailable Oleghe, Efewongbe Attending Unavailable Oleghe, Efewongbe Primary Care Unavailable Shey Perez Referring Unavailable Oleghe, Efewongbe Primary Care Unavailable Shey Perez Attending Unavailable Oleghe, Efewongbe Referring Unavailable Oleghe, Efewongbe Primary Care Unavailable Go Cortes Attending Unavailable Go Cortes Consulting Unavailable Oleghe, Efewongbe Referring Unavailable Oleghe, Efewongbe Primary Care Unavailable Go Cortes Attending Unavailable Vellanki, Shey Referring Unavailable Oleghe, Efewongbe Primary Care Unavailable Vellanki, Shey Attending Unavailable Oleghe, Efewongbe Attending Unavailable Oleghe, Efewongbe Referring Unavailable Oleghe, Efewongbe Primary Care Unavailable Vellanki, Shey Referring Unavailable Oleghe, Efewongbe Primary Care Unavailable Vellanki, Shey Attending Unavailable Vellanki, Shey Referring Unavailable Oleghe, Efewongbe Primary Care Unavailable Vellanki, Shey Attending Unavailable Oleghe, Efewongbe Referring Unavailable Oleghe, Efewongbe Attending Unavailable Oleghe, Efewongbe Primary Care Unavailable Mary Sharma Attending Unavailable Oleghe, Efewongbe Primary Care Unavailable Oleghe, Efewongbe Referring Unavailable Oleghe, Efewongbe Attending Unavailable Oleghe, Efewongbe Referring Unavailable Oleghe, Efewongbe Primary Care Unavailable Oleghe, Efewongbe Attending Unavailable Oleghe, Efewongbe Referring Unavailable Oleghe, Efewongbe Primary Care Unavailable Oleghe, Efewongbe Referring Unavailable Oleghe, Efewongbe Attending Unavailable Oleghe, Efewongbe Primary Care Unavailable Oleghe, Efewongbe Attending Unavailable Oleghe, Efewongbe Referring Unavailable Oleghe, Efewongbe Primary Care Unavailable Oleghe, Efewongbe Attending Unavailable Oleghe, Efewongbe Referring Unavailable Oleghe, Efewongbe Primary Care Unavailable Chantel Amor Attending Unavailable Oleghe, Efewongbe Primary Care Unavailable Oleghe, Efewongbe Referring Unavailable Oleghe, Efewongbe Attending Unavailable Oleghe, Efewongbe Primary Care Unavailable Mary Sharma Referring Unavailable Mary Sharma Attending Unavailable Oleghe, Efewongbe Primary Care Unavailable Vellanki, Shey Attending Unavailable Vellanki, Shey Referring Unavailable Oleghe, Efewongbe Primary Care Unavailable Vellanki, Shey Referring Unavailable Oleghe, Efewongbe Primary Care Unavailable Vellanki, Shey Attending Unavailable Vellanki, Shey Referring Unavailable Vellanki, Shey Attending Unavailable Oleghe, Efewongbe Primary Care Unavailable Care Physician, No Primary Referring Provider Un available Pat ALVAREZ, Dr. Zamora Attending Provider [phone] Medications Current Medications Medication Drug Class(es) Dates Sig (Normalized) Sig (Original) acetaminophen 500 mg oral tablet (20 sources) Start: 01-23-2020 take 1 tablet by mouth every six hours as needed for pain Acetaminophen (Tylenol Extra Strength) 500 mg tablet Active 500 mg PO EVERY 6 HOURS as needed for pain January 23, 2020 1:00am Foam Bandage (Aquacel Foam) 5 X 5 bandage (11 sources) Start: 09-17-2022 Foam Bandage (Aquacel Foam) 5 X 5 bandage Active 0 .Route September 16, 2022 11:00pm As directed Start: 09-17-2022 Foam Bandage ( Aquacel Foam) 5 X 5 bandage Active 0 .Route September 17, 2022 12:00am As directed Handicap Placard (20 sources) Start: 11-27-[address] Active 0 .ROUTE .MEDSUPPLY November 27, 2021 9:26am As directed, length of time 3 years Start: 11-27-[address] Active 0 .ROUTE .MEDSUPPLY 1 November 27, 2021 10:26am As directed, length of time 3 years Start: 11-27-2021 End: 11-27-2021 Handicap Placard Discontinue d 0 .ROUTE .MEDSUPPLY November 26, 2021 11:00pm November 27, 2021 9:26am As directed, length of time 3 years Start: 11-27-2021 End: 11-27-2021 Handicap Placard Discontinue d 0 .ROUTE .MEDSUPPLY November 27, 2021 12:00am November 27, 2021 10:26am As directed, length of time 3 years hydroxychloroquine sulfate 200 mg oral tablet (20 sources) Antimalarial, Antirheumatic Agent Start: 05-23-2021 take 1 tablet by mouth twice daily Hydroxychloroquine 200 mg tablet Active 200 mg PO TWICE A DAY May 23, 2021 12:00am leucovorin 5 mg oral tablet (20 sources) Folate Analog Start: 07-19-2018 take 3 tablets by mouth every week Leucovorin Calcium 5 mg tablet Active 15 mg PO EVERY WEEK July 19, 2018 8:39am Start: 07-19-2018 take 15 mg by mouth every week Leucovorin Calcium Active 15 MG PO EVERY WEEK July 19, 2018 7:39am Start: 04-19-2018 End: 07-19-2018 take 1 tablet by mouth every week Leucovorin Calcium 5 mg tablet Discontinued 5 mg PO EVERY WEEK April 19, 2018 1:00am July 19, 2018 8:41am medical marijuanas (20 sources) Start: 12-12-2020 medical mariju anas Active OTHER December 12, 2020 9:21am Start: 12-12-2020 medical mariju anas Active OTHER December 11, 2020 11:00pm Start: 12-12-2020 medical mariju anas Active OTHER December 12, 2020 12:00am methotrexate 2.5 mg oral tablet (20 sources) Folate Analog Metabolic Inhibitor Start: 10-18-2018 Methotrexate Sodium 2.5 mg tablet Active 20 mg PO EVERY WEEK October 18, 2018 8:23am Start: 10-18-2018 take 20 mg by mouth every week Methotrexate Sodium Active 20 MG PO EVERY WEEK October 18, 2018 7:23am Start: 07-19-2018 End: 10-18-2018 Methotrexate Sodium 2.5 mg t ablet Discontinued 17.5 mg PO EVERY WEEK July 19, 2018 8:38am October 18, 2018 8:24am Start: 07-19-2018 End: 10-18-2018 take 17.5 mg by mouth every week Methotrexate Sodium Discontinued 17.5 MG PO EVERY WEEK July 19, 2018 7:38am October 18, 2018 7:24am Start: 04-19-2018 End: 07-19-2018 Methotrexate Sodium 2.5 mg t ablet Discontinued 13.5 mg PO EVERY WEEK April 19, 2018 1:00am July 19, 2018 8:41am Start: 04-19-2018 End: 07-19-2018 take 13.5 mg by mouth every week Methotrexate Sodium Discontinued 13.5 MG PO EVERY WEEK April 19, 2018 12:00am July 19, 2018 7:41am Cgbnxxur-Ydq-Hx-Lycopen-Lute in (Centrum Silver) 0.4-300-250 mg-mcg-mcg tablet (20 sources) Start: 04-19-2018 take 1 tablet by mouth once daily Kmezcomf-Tnu-Vn-Lycopen-Lutein (Centrum Silver) 0.4-300-250 mg-mcg-mcg tablet Active 1 TABLET PO DAILY April 19, 2018 10:31am Start: 04-19-2018 Igfvqzju-Tpu-O j-Usgvkbe-Uvpbsv (Centrum Silver) 0.4-300-250 mg-mcg-mcg tablet Active 1 {tbl} PO DAILY April 19, 2018 1:00am Start: 04-19-2018 take 1 tablet by susy th once daily Tqtcrxir-Bgi-Gj-Lycopen-Lutein (Centrum Silver) 0.4-300-250 mg-mcg-mcg tablet Active 1 TABLET PO DAILY April 19, 2018 12:00am Start: 04-19-2018 take 1 tablet by susy th once daily Nveyhylo-Ceh-Lj-Lycopen-Lutein (Centrum Silver) 0.4-300-250 mg-mcg-mcg tablet Active 1 TABLET PO DAILY April 19, 2018 1:00am 24 hr tofacitinib 11 mg extended release oral tablet (20 sources) Start: 05-23-2021 take 1 tablet by mouth once daily Tofacitinib 11 mg tablet extended release 24 hr Active 11 mg PO DAILY May 23, 2021 7:07am Start: 01-03-2021 End: 05-23-2021 Tofacitinib (Xeljanz Xr) 11 mg tablet extended release 24 hr Discontinued NMA PO January 03, 2021 12:00am May 23, 2021 7:08am Completed/Discontinued Medications Medication Drug Class(es) Dates Sig (Normalized) Sig (Original) 0.8 ml adalimumab 50 mg/ml prefilled syringe (20 sources) Tumor Necrosis Factor Tobias Start: 04-19-2018 End: 01-23-2020 Adalimumab (Humira) 40 mg/0.8 mL syringe kit Discontinued 40 mg SC every 2 weeks April 19, 2018 1:00am January 23, 2020 9:11am amLODIPine 10 mg oral tablet (20 sources) Dihydropyridine Calcium Channel Tobias Start: 02-17-2024 End: 06-09-2024 take 1 tablet by mouth once daily Amlodipine 10 mg tablet Discontinued 10 mg PO daily April 08, 2024 5:14pm June 08, 2024 10:44am Start: 12-01-2022 End: 02-17-2024 take 1 tablet by mouth twice daily Amlodipine 5 mg tablet Discontinued 5 mg PO TWICE A DAY 180 June 03, 2023 12:30pm February 17, 2024 1:37pm Start: 12-12-2020 End: 12-01-2022 take 1 tablet by mouth once daily Amlodipine 5 mg tablet Discontinued 5 mg PO DAILY August 21, 2022 1:47pm December 01, 2022 8:38am avanafil 100 mg oral tablet (20 sources) Phosphodiesterase 5 Inhibitor Start: 08-03-2019 End: 08-04-2019 take 1 tablet by mouth every twenty-four hours Avanafil 100 mg tablet Discontinued 100 mg PO DAILY as needed for sexual activity August 03, 2019 12:00am August 04, 2019 2:59pm administer approximately 30min before sexual activity; do not use more than 1 dose per 24hrs azithromycin 250 mg oral tablet (20 sources) Macrolide Antimicrobial Start: 05-18-2019 End: 10-24-2019 Azithromycin 250 mg tablet Discontinued 0 PO .COMPLEX May 18, 2019 12:00am October 24, 2019 8:12am Take two tablets by mouth on day one then one tablet by mouth on days 2-5 benazepril hydrochloride 40 mg oral tablet (20 sources) Angiotensin Converting Enzyme Inhibitor Start: 04-23-2020 End: 06-09-2024 take 1 tablet by mouth once daily Benazepril 40 mg tablet Discontinued 0 .ROUTE .COMPLEX March 07, 2024 2:58pm June 08, 2024 10:44am TAKE 1 TABLET BY MOUTH EVERY DAY benazepril hydrochloride 20 mg / hydroCHLOROthiazide 25 mg oral tablet (20 sources) Thiazide Diuretic, Angiotensin Converting Enzyme Inhibitor Start: 03-08-2020 End: 04-23-2020 Benazepril-[place] chlorothiazide 20-25 mg tablet Discontinued 1 {tbl} PO DAILY March 08, 2020 1:00am April 23, 2020 1:17pm Start: 03-08-2020 End: 04-23-2020 take 1 tablet by mouth once daily Benazepril-Hydrochlorothiazide Discontin ued 1 TABLET PO DAILY March 08, 2020 12:00am April 23, 2020 12:17pm Start: 04-19-2018 End: 03-08-2020 take 1 tablet by mouth once daily Benazepril-Hydrochlorothiazide 10-12.5 m g tablet Discontinued 0 .ROUTE .COMPLEX 90 July 08, 2019 11:50am March 08, 2020 10:26am TAKE 1 TABLET BY MOUTH EVERY DAY Start: 04-19-2018 End: 03-08-2020 take 1 tablet by mouth once daily Benazepril-Hydrochlorothiazide Discontin ued 0 .ROUTE .COMPLEX 90 July 08, 2019 10:50am March 08, 2020 9:26am TAKE 1 TABLET BY MOUTH EVERY DAY benzonatate 100 mg oral capsule (20 sources) Non-narcotic Antitussive Start: 08-07-2022 End: 09-17-2022 take 2 capsules by mouth three times daily as needed for cough Benzonatate 100 mg capsule Discontinued 200 mg PO THREE TIMES A DAY as needed for cough August 07, 2022 12:00am September 17, 2022 5:43pm Start: 08-07-2022 End: 09-17-2022 take 200 mg by mouth three times daily Benzonatate Discontinued 200 MG PO THREE TIMES A DAY August 06, 2022 11:00pm September 17, 2022 4:43pm Start: 06-08-2022 End: 08-02-2022 take 1 capsule by mouth three times daily as needed for cough Benzonatate 200 mg capsule Discontinued 200 mg PO THREE TIMES A DAY as needed for cough June 08, 2022 12:00am August 02, 2022 1:50pm Start: 06-19-2021 End: 07-22-2021 take 1 capsule by mouth three times daily as needed for cough Benzonatate 200 mg capsule Discontinued 200 mg PO THREE TIMES A DAY as needed for cough June 19, 2021 12:00am July 22, 2021 8:07am Start: 01-03-2021 End: 01-15-2021 take 1 capsule by mouth three times daily as needed for cough Benzonatate 100 mg capsule Discontinued 100 mg PO THREE TIMES A DAY as needed for cough January 03, 2021 12:00am January 15, 2021 9:18am chlorthalidone 25 mg oral tablet (6 sources) Thiazide-like Diuretic Start: 09-02-2023 End: 12-02-2023 take 1 tablet by mouth once daily Chlorthalidone 25 mg tablet Discontinued 25 mg PO DAILY September 02, 2023 12:00am December 02, 2023 9:07am codeine phosphate 2 mg/ml / guaiFENesin 20 mg/ml oral solution (20 sources) Opioid Agonist Start: 06-19-2021 End: 07-22-2021 take 1 mL by mouth every six hours as needed for cough Codeine-Guaifenesin 10-100 mg/5 mL liquid Discontinued 5 mL PO EVERY 6 HOURS as needed for cough 120 June 19, 2021 12:00am July 22, 2021 8:07am Start: 06-19-2021 End: 07-22-2021 take 1 mL by mouth every six hours Codeine-Guaifenesin Discontinued 5 ML PO EVERY 6 HOURS 120 June 18, 2021 11:00pm July 22, 2021 7:07am dexamethasone 6 mg oral tablet (13 sources) Corticosteroid Start: 05-21-2022 End: 08-02-2022 take 1 tablet by mouth once daily Dexamethasone 6 mg tablet Discontinued 6 mg PO DAILY May 21, 2022 12:00am August 02, 2022 1:50pm DULoxetine 60 mg delayed release oral capsule (20 sources) Serotonin and Norepinephrine Reuptake Inhibitor Start: 04-13-2023 End: 03-07-2024 take 1 capsule by mouth once daily Duloxetine 60 mg capsule,delayed release(DR/EC) Discontinued 60 mg PO DAILY June 03, 2023 12:30pm March 07, 2024 2:58pm Start: 04-13-2023 take 1 mg by mouth once daily Duloxetine Active MG PO DAILY April 13, 2023 12:00am Start: 01-17-2019 End: 12-12-2020 take 1 capsule by mouth once daily Duloxetine (Cymbalta) 60 mg capsule,delayed release(DR/EC) Discontinued 60 mg PO DAILY January 17, 2019 1:00am December 12, 2020 9:22am Start: 10-18-2018 End: 12-08-2018 take 1 capsule by mouth once daily Duloxetine (Cymbalta) 60 mg capsule,delayed release(DR/EC) Discontinued 60 mg PO DAILY October 18, 2018 8:52am December 08, 2018 10:36am Start: 04-19-2018 End: 10-18-2018 take 1 capsule by mouth twice daily Duloxetine (Cymbalta) 60 mg capsule,delayed release(DR/EC) Discontinued 60 mg PO TWICE A DAY April 19, 2018 1:00am October 18, 2018 8:52am fenofibric acid 135 mg delayed release oral capsule (20 sources) Peroxisome Proliferator Receptor alpha Agonist Start: 04-19-2018 End: 06-09-2024 take 1 capsule by mouth once daily Fenofibric Acid (Choline) 135 mg capsule,delayed release(DR/EC) Discontinued 0 .ROUTE .COMPLEX 90 March 07, 2024 2:58pm June 08, 2024 10:44am TAKE 1 CAPSULE BY MOUTH EVERY DAY ferrous sulfate 325 mg oral tablet (20 sources) Start: 04-19-2018 End: 01-17-2019 take 1 tablet by mouth once daily Ferrous Sulfate (Feosol) 325 mg (65 mg iron) tablet Discontinued 325 mg PO DAILY April 19, 2018 1:00am January 17, 2019 9:09am Flucelvax Quad (PF) (flu vac qs 2020(2 yr up)CD(PF)) 60 mcg (15 mcg x (3 sources) Start: 11-21-2020 End: 11-21-2020 inject 15 ug by intramuscular injection once Flucelvax Quad (PF) (flu vac qs 2020(2 yr up)CD(PF)) 60 mcg (15 mcg x Discontinued 0.5 ML IM ONCE 0.5 November 21, 2020 7:32am November 21, 2020 8:42am folic acid 0.8 mg oral tablet (17 sources) Start: 10-22-2021 End: 08-18-2024 take 0.8 mg by mouth once daily Folic Acid 800 mcg tablet Discontinued 0.8 mg PO DAILY October 22, 2021 12:00am August 18, 2024 2:06pm Start: 10-22-2021 take 0.8 mg by mouth once cliff y Folic Acid Active 0.8 MG PO DAILY October 21, 2021 11:00pm gabapentin 100 mg oral capsule (20 sources) Anti-epileptic Agent Start: 03-08-2020 End: 12-12-2020 take 1 capsule by mouth twice daily Gabapentin 100 mg capsule Discontinued 100 mg PO TWICE A DAY 180 September 17, 2020 10:21am December 12, 2020 9:22am hydroCHLOROthiazide 25 mg oral tablet (20 sources) Thiazide Diuretic Start: 04-23-2020 End: 09-17-2022 take 1 tablet by mouth once daily Hydrochlorothiazide 25 mg tablet Discontinued 25 mg PO DAILY 90 April 23, 2020 1:00am September 17, 2022 5:45pm Hydrocodone Bitartrate (20 sources) Opioid Agonist Start: 04-19-2018 End: 12-08-2018 take 1 capsule by mouth every twelve hours, then take 1 capsule by mouth every twelve hours Hydrocodone Bitartrate (Zohydro Er) 10 mg capsule, oral only, ER 12hr Discontinued 10 MG PO Q12H April 19, 2018 10:37am December 08, 2018 10:37am Start: 04-19-2018 End: 12-08-2018 take 1 capsule by mouth every twelve hours, then take 1 capsule by mouth every twelve hours Hydrocodone Bitartrate (Zohydro Er) 10 mg capsule, oral only, ER 12hr Discontinued 10 mg PO Q12H April 19, 2018 1:00am December 08, 2018 10:37am Start: 04-19-2018 End: 12-08-2018 take 1 capsule by mouth every twelve hours, then take 1 capsule by mouth every twelve hours Hydrocodone Bitartrate (Zohydro Er) 10 mg capsule, oral only, ER 12hr Discontinued 10 MG PO Q12H April 19, 2018 12:00am December 08, 2018 9:37am Start: 04-19-2018 End: 12-08-2018 take 1 capsule by mouth every twelve hours, then take 1 capsule by mouth every twelve hours Hydrocodone Bitartrate (Zohydro Er) 10 mg capsule, oral only, ER 12hr Discontinued 10 MG PO Q12H April 19, 2018 1:00am December 08, 2018 10:37am meloxicam 7.5 mg oral tablet (20 sources) Nonsteroidal Anti-inflammatory Drug Start: 04-19-2018 End: 01-17-2019 take 1 tablet by mouth once daily Meloxicam 7.5 mg tablet Discontinued 7.5 mg PO DAILY April 19, 2018 1:00am January 17, 2019 9:10am methylPREDNISolone 4 mg oral tablet (20 sources) Corticosteroid Start: 06-21-2021 End: 07-22-2021 take 1 tablet by mouth once Methylprednisolone (Medrol (Jay)) 4 mg tablets,dose pack Discontinued 0 PO per package directions June 21, 2021 12:00am July 22, 2021 8:07am PO PER PKG DIR Start: 01-03-2021 End: 01-15-2021 take 1 tablet by mouth once Methylprednisolone (Medrol (Jay)) 4 mg tablets,dose pack Discontinued 0 PO per package directions January 03, 2021 12:00am January 15, 2021 9:19am PO PER PKG DIR [place]-3 Fatty Acids (Fish Oil Concentrate) 1,000 mg capsule (20 sources) Start: 04-19-2018 End: 05-18-2019 take 1 capsule by mouth once daily [place]-3 Fatty Acids (Fish Oil Concentrate) 1,000 mg capsule Discontinued 1000 MG PO DAILY April 19, 2018 10:32am May 18, 2019 8:49am Start: 04-19-2018 End: 05-18-2019 take 1 capsule by mouth once daily [place]-3 Fatty Acids (Fish Oil Concentrate) 1,000 mg capsule Discontinued 1000 mg PO DAILY April 19, 2018 1:00am May 18, 2019 8:49am Start: 04-19-2018 End: 05-18-2019 take 1 capsule by mouth once daily [place]-3 Fatty Acids (Fish Oil Concentrate) 1,000 mg capsule Discontinued 1000 MG PO DAILY April 19, 2018 12:00am May 18, 2019 7:49am Start: 04-19-2018 End: 05-18-2019 take 1 capsule by mouth once daily [place]-3 Fatty Acids (Fish Oil Concentrate) 1,000 mg capsule Discontinued 1000 MG PO DAILY April 19, 2018 1:00am May 18, 2019 8:49am pregabalin 75 mg oral capsule (20 sources) Start: 05-23-2022 End: 05-09-2024 take 1 capsule by mouth twice daily Pregabalin 75 mg capsule Discontinued 75 mg PO TWICE A DAY 180 May 09, 2024 12:23pm May 09, 2024 1:09pm Start: 04-30-2022 End: 05-23-2022 take 1 capsule by mouth once daily Pregabalin (Lyrica) 75 mg capsule Discontinued 75 mg PO DAILY April 30, 2022 9:59am May 23, 2022 7:59am Start: 07-22-2021 End: 04-30-2022 take 1 capsule by mouth twice daily Pregabalin (Lyrica) 75 mg capsule Discontinued 75 mg PO TWICE A DAY October 22, 2021 8:30am April 30, 2022 9:59am rosuvastatin calcium 20 mg oral tablet (20 sources) HMG-CoA Reductase Inhibitor Start: 12-01-2022 End: 05-24-2024 take 1 tablet by mouth once daily Rosuvastatin 20 mg tablet Discontinued 20 mg PO DAILY May 24, 2024 2:00pm May 24, 2024 2:00pm saccharomyces boulardii 250 mg oral capsule (20 sources) Start: 10-24-2019 End: 01-23-2020 take 1 capsule by mouth twice daily Saccharomyces Boulardii (Daily Probiotic (S. Boulardii)) 250 mg capsule Discontinued 250 mg PO TWICE A DAY October 24, 2019 12:00am January 23, 2020 9:12am swallow whole sildenafil 100 mg oral tablet (20 sources) Phosphodiesterase 5 Inhibitor Start: 06-30-2019 End: 10-24-2019 Sildenafil 100 mg tablet Discontinued 50 mg PO DAILY as needed for sexual activity June 30, 2019 12:00am October 24, 2019 8:13am administer 1/2 tablet 30 minutes to 4 hours before activity Start: 06-30-2019 End: 10-24-2019 Sildenafil Discontinued 50 M G PO DAILY June 29, 2019 11:00pm October 24, 2019 7:13am administer 1/2 tablet 30 minutes to 4 hours before activity Start: 06-16-2019 End: 08-03-2019 Sildenafil (Pulm.Hypertensio n) 20 mg tablet Discontinued 20 mg PO .COMPLEX as needed for sexual activity June 16, 2019 12:00am August 03, 2019 9:22am 20 mg PO PRN; administer 30 - 60 minutes prior to sexual intercourse simvastatin 20 mg oral tablet (20 sources) HMG-CoA Reductase Inhibitor Start: 07-08-2019 End: 08-07-2020 take 1 tablet by mouth at bedtime Simvastatin Discontinued 0 .ROUTE .COMPLEX July 08, 2019 10:50am August 07, 2020 7:45am TAKE 1 TABLET BY MOUTH AT BEDTIME Start: 04-19-2018 End: 03-06-2023 take 1 tablet by mouth at bedtime Simvastatin 20 mg tablet Discontinued 20 mg PO AT BEDTIME August 07, 2020 8:45am October 22, 2021 8:31am tadalafil 20 mg oral tablet (20 sources) Phosphodiesterase 5 Inhibitor Start: 08-04-2019 End: 10-24-2019 take 1 tablet by mouth every twenty-four hours Tadalafil 20 mg tablet Discontinued 20 mg PO DAILY as needed for sexual activity August 04, 2019 12:00am October 24, 2019 8:13am administer approximately 30min before sexual activity; do not use more than 1 dose per 24hrs Vitamin B Complex (8 sources) Start: 03-07-2022 End: 12-01-2022 take 1 tablet by mouth once daily Vitamin B Complex Discontinued 1 TABLET PO DAILY March 07, 2022 12:00am December 01, 2022 7:15am Start: 03-07-2022 take 1 tablet by mouth once da sravani Vitamin B Complex Active 1 TABLET PO DAILY March 07, 2022 1:00am Start: 03-07-2022 take 1 tablet by mouth once da sravani Vitamin B Complex Active 1 TABLET PO DAILY March 07, 2022 12:00am Vitamin B Complex tablet (6 sources) Start: 03-07-2022 End: 12-01-2022 Vitamin B Complex tablet Dis continued 1 {tbl} PO DAILY March 07, 2022 1:00am December 01, 2022 8:15am Problems Active Problems Problem Classification Problem Date Documented Da te Episodic/Chronic Acute bronchitis (20 sources) Acute bronchitis; Translations: [Acute bronchitis, unspecified] Episodic Disorders of lipid metabolism (20 sources) Hyperlipidemia; Translations: [Hyperlipidemia, unspecified] Onset: 06-08-2024 Chronic Essential hypertension (20 sources) Hypertensive disorder; Translations: [Essential (primary) hypertension] Onset: 03-29-2024 Chronic Hyperplasia of prostate (13 sources) Benign prostatic hyperplasia; Translations: [Benign prostatic hyperplasia without lower urinary tract symptoms] Onset: 12-02-2023 03-06-2023 Chronic Immunizations and screening for infectious disease (20 sources) Needs influenza immunization; Translations: [Encounter for immunization] Onset: 12-02-2023 12-01-2022 Episodic Mood disorders (20 sources) Depressive disorder; Translations: [Depression] 12-08-2018 Chronic Noninfectious gastroenteritis (7 sources) Gastroenteritis; Translations: [Noninfective gastroenteritis and colitis, unspecified] Onset: 12-02-2023 12-02-2023 Episodic Nonspecific chest pain (3 sources) Chest pain, unspecified; Translations: [Chest pain, unspecified] Episodic Open wounds of extremities (12 sources) Disorder of lower extremity; Translations: [Unspecified open wound, left lower leg, initial encounter] 09-17-2022 Episodic Osteoarthritis (20 sources) Arthritis; Translations: [Unspecified osteoarthritis, unspecified site] 04-19-2018 Chronic Other connective tissue disease (20 sources) Muscle pain; Translations: [Myalgia, unspecified site] 04-19-2018 Episodic Other connective tissue disease (15 sources) Foot pain; Translations: [Pain in right foot] 01-22-2022 Episodic Other connective tissue disease (2 sources) Pain in right foot; Translations: [Pain in limb] Episodic Other gastrointestinal disorders (6 sources) Diarrhea; Translations: [Diarrhea, unspecified] 12-07-2023 Episodic Other lower respiratory disease (20 sources) Cough; Translations: [Cough] 12-28-2020 Episodic Other lower respiratory disease (15 sources) Postviral cough; Translations: [Post-viral cough syndrome] 06-08-2022 Episodic Other nervous system disorders (20 sources) Neuropathy; Translations: [Polyneuropathy, unspecified] 07-22-2021 Chronic Other nervous system disorders (8 sources) Polyneuropathy, unspecified; Translations: [Mononeuritis of unspecified site] Chronic Other non-traumatic joint disorders (20 sources) Pain in left knee; Translations: [Left knee pain] Episodic Other nutritional; endocrine; and metabolic disorders (20 sources) Body mass index 30+ - obesity; Translations: [Body mass index (BMI) 30.0-30.9, adult] 12-08-2018 Chronic Other nutritional; endocrine; and metabolic disorders (14 sources) Obesity, unspecified; Translations: [Obesity, unspecified] Onset: 07-26-2024 Chronic Other screening for suspected conditions (not mental disorders or infectious disease) (13 sources) Patient encounter status; Translations: [Encounter for screening for malignant neoplasm of colon] Onset: 02-08-2024 03-06-2023 Episodic Other skin disorders (4 sources) Disorder of nail; Translations: [Nail disorder, unspecified] 07-12-2024 Episodic Other upper respiratory infections (20 sources) Acute upper respiratory infection; Translations: [Acute upper respiratory infection, unspecified] 12-28-2020 Episodic Residual codes; unclassified (20 sources) Obstructive sleep apnea syndrome; Translations: [Obstructive sleep apnea (adult) (pediatric)] 04-22-2021 Chronic Residual codes; unclassified (20 sources) Sleep apnea; Translations: [Sleep apnea, unspecified] 05-23-2021 Chronic Residual codes; unclassified (6 sources) Obstructive sleep apnea (adult) (pediatric); Translations: [Obstructive sleep apnea (adult)(pediatric)] Onset: 08-11-2024 Chronic Residual codes; unclassified (9 sources) Sleep apnea, unspecified; Translations: [Unspecified sleep apnea] Chronic Rheumatoid arthritis and related disease (20 sources) Rheumatoid arthritis; Translations: [Rheumatoid arthritis, unspecified] Onset: 08-05-2024 Chronic Systemic lupus erythematosus and connective tissue disorders (20 sources) Mucous membrane dryness; Translations: [Sicca syndrome, unspecified] 04-19-2018 Chronic Unclassified (1 source) Unknown / UNK(Unknown) Onset: 11-12-2016 Viral infection (15 sources) Disease caused by 2019-nCoV; Translations: [COVID-19] 05-21-2022 Episodic Past or Other Problems Problem Classification Problem Date Documented Da te Episodic/Chronic Other gastrointestinal disorders (1 source) Diarrhea, unspecified; Translations: [Diarrhea, unspecified] Onset: 01-04-2024 Episodic Unclassified (1 source) Z00.00,E78.5,I10 ,D50.9 Onset: 11-12-2016 Unclassified (20 sources) history of left shoulder surgery 05-12-2019 Results Test Name Value Interpretation Reference Range Facility Absolute lymphocyte countOrd ered By: Shey Perez on 08-01-2024 Lymphocytes Auto (Unsp spec) [#/Vol] 1.08 10*3/uL 0.83-4.51 [facility] Absolute neutrophil countOrd ered By: Shey Perez on 08-01-2024 Neutrophils (Bld) [#/Vol] 5.5 10*3/uL 2.0-7.7 [facility] Anion gap in Serum or Plasma Ordered By: Shey Perez on 08-01-2024 Anion gap [Moles/Vol] 13 mmol/L 5-15 [facility] Automated lymphocyte count a s percentage of total leukocytesOrdered By: Shey Perez on 08-01-2024 Lymphocytes/100 WBC Auto (Unsp spec) 15.0 % Low 19-41 [facility] BUN/creatinine ratioOrdered By: Shey Perez on 08-01-2024 Urea nitrogen/Creatinine [Mass ratio] 15.6 mg/mg 10-20 [facility] Basophil percentageOrdered B y: Shey Perez on 08-01-2024 Basophils/100 WBC (Bld) 0.3 % 0-1 [facility] Bilirubin, totalOrdered By: Shey Perez on 08-01-2024 Bilirubin [Mass/Vol] 0.41 mg/dL 0.00-1.30 [facility] CBC W/Diff, Automatedon PLT EST A Normal ADEQ [facility] Comment on above: Performed By: #### L 100.0100, L500.4050 #### [facility] [address] [place], [address] Carbon dioxide, total [Moles /volume] in Central venous bloodOrdered By: Shey Perez on 08-01-2024 CO2 [Moles/Vol] 23.9 mmol/L 21.0-32.0 [facility] Chloride assayOrdered By: Obed Perez on 08-01-2024 Chloride [Moles/Vol] 103 mmol/L 98-108 [facility] Comprehensive Metabolic Prof ilon 08-01-2024 Albumin [Mass/Vol] 4.4 g/dL Normal 3.4-4.8 [facility] Comment on above: Performed By: #### L 100.0100, L500.4050 #### [facility] [address] [place], [address] Albumin/Globulin [Mass ratio] 1.6 {ratio} Normal 0.9-2.4 [facility] Comment on above: Performed By: #### L 100.0100, [id number] #### [facility] [address] [place], [address] ALK PHOS 39 U/L Low 40-129 [facility] Comment on above: Performed By: #### L 100.0100, [id number] #### [facility] [address] [place], [address] ALT [Catalytic activity/Vol] 17 U/L Normal <=46 [facility] Comment on above: Performed By: #### L 100.0100, [id number] #### [facility] [address] [place], [address] AST [Catalytic activity/Vol] 30 U/L Normal <=37 [facility] Comment on above: Performed By: #### L 100.0100, [id number] #### [facility] [address] [place], [address] Bilirubin [Mass/Vol] 0.41 mg/dL Normal 0.00-1.30 [facility] Comment on above: Performed By: #### L 100.0100, [id number] #### [facility] [address] [place], [address] BUN/CRE 15.6 RATIO Normal 10-20 [facility] Comment on above: Performed By: #### L 100.0100, [id number] #### [facility] [address] [place], [address] Calcium [Mass/Vol] 9.8 mg/dL Normal 7.6-11.0 [facility] Comment on above: Performed By: #### L 100.0100, [id number] #### [facility] [address] [place], [address] Chloride [Moles/Vol] 103 mmol/L Normal 98-108 [facility] Comment on above: Performed By: #### L 100.0100, [id number] #### [facility] [address] [place], [address] CO2 [Moles/Vol] 23.9 mmol/L Normal 21.0-32.0 [facility] Comment on above: Performed By: #### L 100.0100, [id number] #### [facility] [address] [place], [address] Creatinine [Mass/Vol] 1.26 mg/dL High 0.70-1.20 [facility] Comment on above: Performed By: #### L 100.0100, [id number] #### [facility] [address] [place], [address] GAP 13 Normal 5-15 [facility] Comment on above: Performed By: #### L 100.0100, L500.4050 #### [facility] [address] [place], [address] GFR/1.73 sq M.predicted among non-blacks MDRD (S/P/Bld) [Vol rate/Area] 63 mL/min/{1.73_m2} Normal >60 [facility] Comment on above: Result Comment: mL/m in/1.73m2 CKD-EPI Creatinine Equation (2020) Performed By: #### L 100.0100, L500.4050 #### [facility] [address] [place], [address] Globulin (S) [Mass/Vol] 2.7 g/dL Normal 2.2-4.2 [facility] Comment on above: Performed By: #### L 100.0100, [id number] #### [facility] [address] [place], [address] Glucose [Mass/Vol] 99 mg/dL Normal 70-99 [facility] Comment on above: Performed By: #### L 100.0100, [id number] #### [facility] [address] [place], [address] Potassium [Moles/Vol] 4.0 mmol/L Normal 3.3-5.1 [facility] Comment on above: Performed By: #### L 100.0100, [id number] #### [facility] [address] [place], [address] Sodium [Moles/Vol] 139 mmol/L Normal 133-145 [facility] Comment on above: Performed By: #### L 100.0100, [id number] #### [facility] [address] [place], [address] T PROT 7.1 g/dL Normal 5.9-8.4 [facility] Comment on above: Performed By: #### L 100.0100, [id number] #### [facility] [address] [place], [address] Urea nitrogen [Mass/Vol] 20 mg/dL High 4-19 [facility] Comment on above: Performed By: #### L 100.0100, [id number] #### [facility] [address] [place], [address] Eosinophil percentageOrdered By: Shey Perez on 08-01-2024 Eosinophils/100 WBC (Bld) 0.4 % 0-5 [facility] Erythrocyte distribution wid th ratioOrdered By: Shey Perez on 08-01-2024 Erythrocyte distribution width (RBC) [Ratio] 13.6 % 11.6-14.6 [facility] Erythrocyte distribution wid th standard deviationOrdered By: Shey Perez on 08-01-2024 Erythrocyte distribution width (RBC) [Ratio] 49.2 fl High 35.1-43.9 [facility] Glomerular filtration rate ( GFR) estimation/1.73 sq m using serum, plasma, or whole bOrdered By: Shey Perez on 08-01-2024 GFR/1.73 sq M.predicted among non-blacks MDRD (S/P/Bld) [Vol rate/Area] 63 mL/min/{1.73_m2} >60 [facility] Comment on above: mL/min/1.73m2 CKD-EP I Creatinine Equation (2020) Hematocrit Auto (Bld) [Volum e fraction]Ordered By: Shey Perez on 08-01-2024 Hematocrit (Bld) [Volume fraction] 40.9 % 40-54 [facility] Hemoglobin measurementOrdere d By: Shey Perez on 08-01-2024 Hemoglobin (Bld) [Mass/Vol] 13.7 g/dL 13.0-16.5 [facility] Immature granulocytes/100 WB C Auto (Bld)Ordered By: Shey Perez on 08-01-2024 Immature granulocytes/100 WBC (Bld) 0.300 % 0.0-0.9 [facility] Comment on above: IG% - Immature Granu locytes (promyelocytes, myelocytes and metamyelocytes) > 1% indicates that a LEFT SHIFT is Present. Laboratory - Chemistry and C hemistry - challengeOrdered By: Shey Perez on 08-01-2024 AST [Catalytic activity/Vol] 30 U/L <38 [facility] MCV (mean corpuscular volume ) determinationOrdered By: Shey Perez on 08-01-2024 MCV (RBC) [Entitic vol] 99.5 fL High 80-94 [facility] Mean corpuscular hemoglobin (MCH) determinationOrdered By: Shey Perez on 08-01-2024 MCH (RBC) [Entitic mass] 33.3 pg High 27.0-32.0 [facility] Mean corpuscular hemoglobin concentration (MCHC) determinationOrdered By: Shey Perez on 08-01-2024 MCHC (RBC) [Mass/Vol] 33.5 g/dL 32-36 [facility] Mean platelet volume determi nationOrdered By: Shey Perez on 08-01-2024 Platelet mean volume (Bld) [Entitic vol] 13.6 fL High 6.2-12.0 [facility] Monocyte percentageOrdered B y: Shey Perez on 08-01-2024 Monocytes/100 WBC (Bld) 7.5 % 0-10 [facility] Neutrophil percentageOrdered By: Shey Perez on 08-01-2024 Neutrophils/100 WBC (Bld) 76.5 % High 47-70 [facility] Nucleated red blood cell per centageOrdered By: Shey Perez on 08-01-2024 Nucleated RBC/100 WBC (Bld) [Ratio] 0 % 0-5 [facility] Platelet countOrdered By: Obed Perez on 08-01-2024 Platelets (Bld) [#/Vol] 230 10*3/uL 150-450 [facility] Platelet estimateOrdered By: Shey Perez on 08-01-2024 Platelets LM Ql (Bld) A ADEQ [facility] Potassium measurement (mass/ volume)Ordered By: Shey Perez on 08-01-2024 Potassium (Unsp spec) [Mass/Vol] 4.0 mmol/L 3.3-5.1 [facility] RBC Auto (Bld) [#/Vol]Ordere d By: Shey Perez on 08-01-2024 RBC (Bld) [#/Vol] 4.11 10*6/uL Low 4.6-6.2 [facility] Serum creatinine measurement (mass/volume)Ordered By: Shey Perez on 08-01-2024 Creatinine [Mass/Vol] 1.26 mg/dL High 0.70-1.20 [facility] Serum globulin measurementOr dered By: Shey Perez on 08-01-2024 Globulin (S) [Mass/Vol] 2.7 g/dL 2.2-4.2 [facility] Serum glucose measurement (m ass/volume)Ordered By: Shey Perez on 08-01-2024 Glucose [Mass/Vol] 99 mg/dL 70-99 [facility] Serum or plasma alanine sena otransferase (ALT) measurementOrdered By: Shey Perez on 08-01-2024 ALT [Catalytic activity/Vol] 17 U/L <47 [facility] Serum or plasma albumin carlyn urement (mass/volume)Ordered By: Shey Perez on 08-01-2024 Albumin [Mass/Vol] 4.4 g/dL 3.4-4.8 [facility] Serum or plasma albumin/glob ulin mass ratioOrdered By: Shey Perez on 08-01-2024 Albumin/Globulin [Mass ratio] 1.6 {ratio} 0.9-2.4 [facility] Serum or plasma alkaline elmira sphatase measurementOrdered By: Shey Perez on 08-01-2024 ALP [Catalytic activity/Vol] 39 U/L Low 40-129 [facility] Serum or plasma calcium carlyn urement (mass/volume)Ordered By: Shey Perez on 08-01-2024 Calcium [Mass/Vol] 9.8 mg/dL 7.6-11.0 [facility] Serum or plasma urea nitroge n measurement (mass/volume)Ordered By: Shey Perez on 08-01-2024 Urea nitrogen [Mass/Vol] 20 mg/dL High 4-19 [facility] Sodium levelOrdered By: Marta Perez on 08-01-2024 Sodium [Moles/Vol] 139 mmol/L 133-145 [facility] Total proteinOrdered By: Sue Perez on 08-01-2024 Protein [Mass/Vol] 7.1 g/dL 5.9-8.4 [facility] White blood cell (WBC) count Ordered By: Shey Perez on 08-01-2024 WBC (Bld) [#/Vol] 7.2 10*3/uL 4.4-11.0 [facility] Pulmonary Visit Reporton Pulmonary Visit Report [facility] [place] [address] [place] [address] [address] [place] [address] OFFICE VISIT Date of Service: 07/26/24 MR#: [id number] Acct: [id number] Name: JEAN JENSEN Rep #: [id number] : 1960 Provider: Mary Sharma NP Age/Sex: 64/M Location: [facility] Status: Signed Assessment and Plan Assessment and Plan (1) Sleep apnea: Status: Chronic Qualifiers: Sleep apnea type: obstructive Qualified Code(s): G47.33 - Obstructive sleep apnea (adult) (pediatric) Plan: Patient is struggling with mask fit. Despite the mask fitting poorly his apnea is still controlled. I have recommended however that he work with RT for PAP education and mask fit. I have discussed the importance of cleaning his face prior to placing mask on for the night. I have also discussed the importance of regularly changing out supplies and washing mask each morning. Follow up in 6 months with compliance download. Contact the office with any new or worsening symptoms in the meantime. (2) Obesity (BMI 30-39.9): Status: Chronic Plan: I have asked him to increase his cardiovascular exercise from 2 twice weekly to 4 times weekly for exercise. Prudent diet is also warranted. Orders: Orders Self Mgmnt Educ Training 08/04/24 G47.33 - Obstructive sleep apnea (adult) (pediatric) Plan Details Follow Up: 6 Months (LMR) HPI HPI Comments Details: Patient is a 64-year-old male who presents to the office today for follow-up of his obstructive sleep apnea. He is ambulatory and currently on room air. He has not recently been seen in the ED or urgent care for any respiratory illness. He has not required any antibiotics or prednisone for any breathing problems. He denies shortness of breath. He denies cough, sputum production or hemoptysis. He denies wheezing, chest tightness, chest pain or palpitations. He is also denying any fever, chills or body aches. He has had difficulty with the mask leaking. He denies morning headache. He reports some dry mouth is present. He does feel rested. He naps on occasion without the machine. He reports that he has started to exercise now. The patient reports that if he is able to sleep with his PAP device on all night he is waking up feeling rested. He does report occasional mask leak and dry mouth. He is not having excessive nocturia. He does not typically require naps or find himself nodding off to sleep unintentionally. His original mask was leaking and then he tried a different mask and made his nose raw. He was going to switch back. He is using gazelle for cardio work up. ESS 2. He naps due to pain. Compliance report for the past 30 days shows 67% compliance, using the device 5 hours and 45 minutes nightly average. AHI is 4.7 and there is a large air leak. The patient is using CPAP 13 cm. This is reviewed with patient today. 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: [employer] Accompanied by: Self Is patient in pain?: No Allergies No Known Allergies Allergy (Verified 07/26/24 08:44) Medications ???Medication ???Instructions ???Recorded ???Confirmed ???Type duqujvqa-wxj-gxzqv acid 0.4 1 tab PO DAILY 04/19/18 07/26/24 H istory mg-lycopene 300 mcg-lutein 250 mcg tablet (Centrum Silver) leucovorin calcium 5 mg tablet 15 mg PO QWEEK 07/19/18 07/26/24 H istory methotrexate sodium 2.5 mg tablet 20 mg PO QWEEK 10/18/18 07/26/24 History acetaminophen 500 mg tablet 500 mg PO Q6H PRN pain 01/23/20 History (Tylenol Extra Strength) medical marijuanas OTHER 12/12/20 07/26/24 History hydroxychloroquine 200 mg tablet 200 mg PO BID 05/23/21 07/26/24 Hi story tofacitinib 11 mg tablet,extended 11 mg PO DAILY 05/23/21 07/26/24 History release 24 hr folic acid 800 mcg tablet 0.8 mg PO DAILY 10/22/21 07/26/24 History Handicap Placard #1 ea 11/27/21 07/26/24 Rx foam bandage 5 X 5 (Aquacel Foam) #10 ea 09/17/22 07/26/24 Rx duloxetine 60 mg capsule,delayed 60 mg PO DAILY #90 caps 03/07/24 0 07/26/24 Rx release pregabalin 75 mg capsule 75 mg PO BID #180 caps 05/09/24 Rx rosuvastatin 20 mg tablet 20 mg PO DAILY #90 tabs 05/24/24 0 07/26/24 Rx amlodipine 10 mg tablet 10 mg PO QDAY #90 tabs 06/09/24 Rx benazepril 40 mg tablet See Rx Instructions .Route 5 07/26/24 Rx .COMPLEX #90 tabs fenofibric acid (choline) 135 mg See Rx Instructions .Route 5 07/26/24 Rx capsul (more content not included)... Normal [facility] Internal Medicine Office Vis ivan 06-08-2024 Internal Medicine Office Visit [facility] [address] [place], [place] [address] OFFICE VISIT Date of Service: 06/08/24 MR#: [id number] Acct: [id number] Name: JEAN JENSEN Rep #: [id number] : 1960 Provider: Dr. 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 Accompanied by: Self Is patient in pain?: No Allergies No Known Allergies Allergy (Verified 06/08/24 10:00) Medications ???Medication ???Instructions ???Recorded ???Confirmed ???Type yyfmhszt-scf-cqwbt acid 0.4 1 tab PO DAILY 04/19/18 06/08/24 H istory mg-lycopene 300 mcg-lutein 250 mcg tablet (Centrum Silver) leucovorin calcium 5 mg tablet 15 mg PO QWEEK 07/19/18 06/08/24 H istory methotrexate sodium 2.5 mg tablet 20 mg PO QWEEK 10/18/18 06/08/24 History acetaminophen 500 mg tablet 500 mg PO Q6H PRN pain 01/23/20 History (Tylenol Extra Strength) medical marijuanas OTHER 12/12/20 06/08/24 History hydroxychloroquine 200 mg tablet 200 mg PO BID 05/23/21 06/08/24 Hi story tofacitinib 11 mg tablet,extended 11 mg PO DAILY 05/23/21 06/08/24 History release 24 hr folic acid 800 mcg tablet 0.8 mg PO DAILY 10/22/21 06/08/24 History Handicap Placard #1 ea 11/27/21 06/08/24 Rx foam bandage 5 X 5 (Aquacel Foam) #10 ea 09/17/22 06/08/24 Rx duloxetine 60 mg capsule,delayed 60 mg PO DAILY #90 caps 03/07/24 0 06/08/24 Rx release pregabalin 75 mg capsule 75 mg PO BID #180 caps 05/09/24 Rx rosuvastatin 20 mg tablet 20 mg PO DAILY #90 tabs 05/24/24 0 06/08/24 Rx amlodipine 10 mg tablet 10 mg PO QDAY #90 tabs 06/08/24 Rx benazepril 40 mg tablet See Rx Instructions .Route 5 06/08/24 Rx .COMPLEX #90 tabs fenofibric acid (choline) 135 mg See Rx Instructions .Route 5 06/08/24 Rx capsule,delayed release .COMPLEX #90 caps Have you fallen in the past year?: No PFSH Medical History Wears glasses Marijuana use History of steroid therapy Prostate disease High cholesterol History of edema CPAP (continuous positive airway pressure) dependence Former smoker Diarrhea Gastroenteritis Colon cancer screening BPH (benign prostatic hyperplasia) Flu vaccine need Wound of left lower extremity Bilateral foot pain Left knee pain Neuropathy Preventative health care Acute bronchitis Obesity (BMI 30-39.9) Sleep apnea Depression Rheumatoid arthritis Myalgia Sicca syndrome Arthritis Hypertension Hyperlipemia Surgical History Hx of colonoscopy history of left shoulder surgery Family History Mother Fibromyalgia Brother Lymphoma Father Alzheimer disease Social History household members: spouse current occupational status: employed current occupation: [employer] Smoking Status: Former smoker quit date: 03/02/87 Tobacco: How many years used: 10 alcohol intake: current alcohol intake frequency: holidays/special occasions only substance use type: does not use what type of physical activity do you participate in: none HPI HPI Chief Complaint: 3m f/u Details: JEAN JENSEN, is a 64 M who presents to the office today for follow-up of his chronic conditions. Chronic history of neuropathy. On initial diagnosis, was started on duloxetine which he found helpful and then subsequently, Lyrica was added on. Lately, does not find these medications as helpful. Has been evaluated by podiatry for bilateral foot pain and measures were not helpful either. Pain is present all the time but worse after activity. He describes a prickly pain in both feet, does not extend above the ankle. History of hypertension, blood pressure today at 120/80 mmHg. No chest pain, palpitation or shortness of breath. Continues to follow-up closely with rheumatology. No new concerns reported in that regard. Other chronic medical conditions are stable. ROS Const Constitutional: No body ache, excessive sweating, fatigue, fever(s), frequent falls, headache(s), snoring, weakness, weight change, sleep problems or change in appetite Eyes Eyes: No blurry vision, change in vision, bulging eyes, floaters, visual disturbances, eye pain or Light sensitivity ENT ENT: No abnormal hearing, ear (more content not included)... Normal [facility] Quantiferon TB-Gold+on 05-16 QFT MITOGEN RAUL > 10.00 Normal . [facility] Comment on above: Performed By: #### L 500.2500 #### [facility] [address] [place], [place], [address] QFT NIL VALUE 0.01 IU/mL Normal . [facility] Comment on above: Performed By: #### L 500.2500 #### [facility] [address] [place], [place], [address] QFT TB GOLD+ Comment Normal . [facility] Comment on above: Result Comment: Diaz tiFERON-TB Gold Plus is a qualitative indirect test for M tuberculosis infection (including disease) and is intended for use in conjunction with risk assessment, radiography, and other medical and diagnostic evaluations. The QuantiFERON-TB Gold Plus result is determined by subtracting the Nil value from either TB antigen (Ag) value. The Mitogen tube serves as a control for the test. Performed By: #### L 500.2500 #### [facility] [address] [place], [place], [id number] QFT TB POS CRIT Negative Normal Negative [facility] Comment on above: Result Comment: No r esponse to M tuberculosis antigens detected. Infection with M tuberculosis is unlikely, but high risk individuals should be considered for additional testing (ATS/IDSA/CDC Clinical Practice Guidelines, 2017). The reference range is an Antigen minus Nil result of <0.35 IU/mL. The specimen received for QuantiFERON testing was incubated by the ordering institution. Specific procedures outlined in our Directory of Services and in the package insert for the QuantiFERON Gold (In Tube) test must be followed to enable for proper stimulation of cells for the production of interferon gamma. Chemiluminescence immunoassay methodology Performed at: [facility] [id number] Deputy Register Of Deeds: Masood Arshad PhD, Phone: [phone] Performed By: #### L 500.2500 #### [facility] [address] [place], [place], [id number] QFT TB1+ AG RAUL 0.01 IU/mL Normal . [facility] Comment on above: Performed By: #### L 500.2500 #### [facility] [address] [place], [place], [id number] QFT TB2+ AG RAUL 0.01 IU/mL Normal . [facility] Comment on above: Performed By: #### L 500.2500 #### [facility] [address] [place], [place], [id number] M. tuberculosis tuberculin s becca IFN-g Ql (Bld)Ordered By: Shey Perez on 05-13-2024 TB Test (QFT) Antigen 1 0.01 IU/mL . [facility] Qualitative QuantiFERON-TB g old in tube testOrdered By: Shey Perez on 05-13-2024 M. tuberculosis tuberculin stim IFN-g Ql (Bld) 0.01 IU/mL . [facility] Quantiferon-TB Gold Plus courtney tOrdered By: Shey Perez on 05-13-2024 TB Test (QFT) Comment . [facility] Comment on above: QuantiFERON-TB Gold Plus is a qualitative indirect test forM tuberculosis infection (including disease) and isintended for use in conjunction with risk assessment,radiography, and other medical and diagnostic evaluations.The QuantiFERON-TB Gold Plus result is determined bysubtracting the Nil value from either TB antigen (Ag)value. The Mitogen tube serves as a control for the test. TB Test (QFT) Antigen 2 0.01 IU/mL . [facility] TB Test (QFT) Mitogen > 10.00 IU/mL . [facility] TB Test (QFT) Nil 0.01 IU/mL . [facility] TB Test (QFT) Positive Criteria Negative Negative [facility] Comment on above: No response to M tub erculosis antigens detected.Infection with M tuberculosis is unlikely, but high riskindividuals should be considered for additional testing(ATS/IDSA/CDC Clinical Practice Guidelines, 2017). Thereference range is an Antigen minus Nil result of <0.35IU/mL.The specimen received for QuantiFERON testing was incubatedby the ordering institution. Specific procedures outlinedin our Directory of Services and in the package insert forthe QuantiFERON Gold (In Tube) test must be followed toenable for proper stimulation of cells for the productionof interferon gamma. Chemiluminescence immunoassaymethodologyPerformed at: [facility] [id number] Director: Masood Arshad PhD, Phone: [phone] Anion gap in Serum or Plasma Ordered By: Shey Perez on 05-09-2024 Anion gap [Moles/Vol] 13 mmol/L 07-14 [facility] BUN/creatinine ratioOrdered By: Shey Perez on 05-09-2024 Urea nitrogen/Creatinine [Mass ratio] 17.1 mg/mg 12-19 [facility] Bilirubin, totalOrdered By: Shey Perez on 05-09-2024 Bilirubin [Mass/Vol] 0.34 mg/dL 0.00-1.30 [facility] Carbon dioxide, total [Moles /volume] in Central venous bloodOrdered By: Shey Perez on 05-09-2024 CO2 [Moles/Vol] 22.8 mmol/L 21.0-32.0 [facility] Chloride assayOrdered By: Obed Perez on 05-09-2024 Chloride [Moles/Vol] 102 mmol/L 98-108 [facility] Comprehensive Metabolic Prof ilon 05-09-2024 Albumin [Mass/Vol] 4.2 g/dL Normal 3.4-4.8 [facility] Comment on above: Performed By: #### L 500.4050 #### [facility] [address] [place], [address] Albumin/Globulin [Mass ratio] 1.4 {ratio} Normal 0.9-2.4 [facility] Comment on above: Performed By: #### L 500.4050 #### [facility] [address] [place], [address] ALK PHOS 41 U/L Normal 40-129 [facility] Comment on above: Performed By: #### L 500.4050 #### [facility] [address] [place], [address] ALT [Catalytic activity/Vol] 14 U/L Normal <=46 [facility] Comment on above: Performed By: #### L 500.4050 #### [facility] [address] [place], [address] AST [Catalytic activity/Vol] 23 U/L Normal <=37 [facility] Comment on above: Performed By: #### L 500.4050 #### [facility] [address] [place], [address] Bilirubin [Mass/Vol] 0.34 mg/dL Normal 0.00-1.30 [facility] Comment on above: Performed By: #### L 500.4050 #### [facility] [address] [place], [address] BUN/CRE 17.1 RATIO Normal 10-20 [facility] Comment on above: Performed By: #### L 500.4050 #### [facility] [address] [place], [address] Calcium [Mass/Vol] 9.4 mg/dL Normal 7.6-11.0 [facility] Comment on above: Performed By: #### L 500.4050 #### [facility] [address] [place], [address] Chloride [Moles/Vol] 102 mmol/L Normal 98-108 [facility] Comment on above: Performed By: #### L 500.4050 #### [facility] [address] [place], [address] CO2 [Moles/Vol] 22.8 mmol/L Normal 21.0-32.0 [facility] Comment on above: Performed By: #### L 500.4050 #### [facility] [address] [place], [address] Creatinine [Mass/Vol] 1.19 mg/dL Normal 0.70-1.20 [facility] Comment on above: Performed By: #### L 500.4050 #### [facility] [address] [place], [address] GAP 13 Normal 5-15 [facility] Comment on above: Performed By: #### L 500.4050 #### [facility] [address] [place], [address] GFR/1.73 sq M.predicted among non-blacks MDRD (S/P/Bld) [Vol rate/Area] 68 mL/min/{1.73_m2} Normal >60 [facility] Comment on above: Result Comment: mL/m in/1.73m2 CKD-EPI Creatinine Equation (2020) Performed By: #### L 500.4050 #### [facility] [address] [place], [address] Globulin (S) [Mass/Vol] 3.0 g/dL Normal 2.2-4.2 [facility] Comment on above: Performed By: #### L 500.4050 #### [facility] [address] [place], [address] Glucose [Mass/Vol] 101 mg/dL High 70-99 [facility] Comment on above: Performed By: #### L 500.4050 #### [facility] [address] [place], [address] Potassium [Moles/Vol] 3.9 mmol/L Normal 3.3-5.1 [facility] Comment on above: Performed By: #### L 500.4050 #### [facility] [address] [place], [address] Sodium [Moles/Vol] 139 mmol/L Normal 133-145 [facility] Comment on above: Performed By: #### L 500.4050 #### [facility] [address] [place], [address] T PROT 7.2 g/dL Normal 5.9-8.4 [facility] Comment on above: Performed By: #### L 500.4050 #### [facility] [address] [place], [address] Urea nitrogen [Mass/Vol] 20 mg/dL High 4-19 [facility] Comment on above: Performed By: #### L 500.4050 #### [facility] [address] [place], [address] GFR/1.73 sq M.predicted yuko g non-blacks MDRD (S/P/Bld) [Vol rate/Area]Ordered By: Shey Perez on 05-09-2024 Estimated GFR (MDRD) Non-Af Amer 68 >60 [facility] Comment on above: mL/min/1.73m2 CKD-EP I Creatinine Equation (2020) Glomerular filtration rate ( GFR) estimation/1.73 sq m using serum, plasma, or whole bOrdered By: Shey Perez on 05-09-2024 GFR/1.73 sq M.predicted among non-blacks MDRD (S/P/Bld) [Vol rate/Area] 68 mL/min/{1.73_m2} >60 [facility] Comment on above: mL/min/1.73m2 CKD-EP I Creatinine Equation (2020) Laboratory - Chemistry and C hemistry - challengeOrdered By: Shey Perez on 05-09-2024 AST [Catalytic activity/Vol] 23 U/L <38 [facility] Potassium (Unsp spec) [Mass/ Vol]Ordered By: Shey Perez on 05-09-2024 Potassium [Moles/Vol] 3.9 mmol/L 3.3-5.1 [facility] Potassium measurement (mass/ volume)Ordered By: Shey Perez on 05-09-2024 Potassium (Unsp spec) [Mass/Vol] 3.9 mmol/L 3.3-5.1 [facility] Serum creatinine measurement (mass/volume)Ordered By: Shey Perez on 05-09-2024 Creatinine [Mass/Vol] 1.19 mg/dL 0.70-1.20 [facility] Serum globulin measurementOr dered By: Shey Perez on 05-09-2024 Globulin (S) [Mass/Vol] 3.0 g/dL 2.2-4.2 [facility] Serum glucose measurement (m ass/volume)Ordered By: Shey Perez on 05-09-2024 Glucose [Mass/Vol] 101 mg/dL High 70-99 [facility] Serum or plasma alanine sena otransferase (ALT) measurementOrdered By: Shey Perez on 05-09-2024 ALT [Catalytic activity/Vol] 14 U/L <47 [facility] Serum or plasma albumin carlyn urement (mass/volume)Ordered By: Shey Perez on 05-09-2024 Albumin [Mass/Vol] 4.2 g/dL 3.4-4.8 [facility] Serum or plasma albumin/glob ulin mass ratioOrdered By: Shey Perez on 05-09-2024 Albumin/Globulin [Mass ratio] 1.4 {ratio} 0.9-2.4 [facility] Serum or plasma alkaline elmira sphatase measurementOrdered By: Shey Perez on 05-09-2024 ALP [Catalytic activity/Vol] 41 U/L 40-129 [facility] Serum or plasma calcium carlyn urement (mass/volume)Ordered By: Shey Perez on 05-09-2024 Calcium [Mass/Vol] 9.4 mg/dL 7.6-11.0 [facility] Serum or plasma urea nitroge n measurement (mass/volume)Ordered By: Shey Perez on 05-09-2024 Urea nitrogen [Mass/Vol] 20 mg/dL High 4-19 [facility] Sodium levelOrdered By: Marta Perez on 05-09-2024 Sodium [Moles/Vol] 139 mmol/L 133-145 [facility] Total proteinOrdered By: Sue Perez on 05-09-2024 Protein [Mass/Vol] 7.2 g/dL 5.9-8.4 [facility] Absolute neutrophil countOrd ered By: Shey Perez on 03-22-2024 Neutrophils (Bld) [#/Vol] 5.7 10*3/uL 2.0-7.7 [facility] Albumin to globulin ratioOrd ered By: Shey Perez on 03-22-2024 Albumin/Globulin [Mass ratio] 1.1 {ratio} 0.9-2.4 [facility] Basophil percentageOrdered B y: Shey Perez on 03-22-2024 Basophils/100 WBC (Bld) 0.7 % 0-1 [facility] Bilirubin, totalOrdered By: Shey Perez on 03-22-2024 Bilirubin [Mass/Vol] 0.30 mg/dL 0.20-1.00 [facility] Comment on above: For patients on eltr ombopag therapy, use of Dimension [place] TBIL is not recommended. Blood urea nitrogen (BUN)/cr eatinine ratioOrdered By: Shey Perez on 03-22-2024 Urea nitrogen/Creatinine [Mass ratio] 13.7 mg/mg 10-20 [facility] CBC W/Diff, Automatedon 01-2 Absolute Lymph 2.28 X10 3/uL Normal 0.83-4.51 [facility] Comment on above: Performed By: #### L 100.0100, L500.4050 #### [facility] [address] [place], [address] Absolute Neut 5.7 X10 3/uL Normal 2.0-7.7 [facility] Comment on above: Performed By: #### L 100.0100, L500.4050 #### [facility] [address] [place], [address] Basophils/100 WBC (Bld) 0.7 % Normal 0-1 [facility] Comment on above: Performed By: #### L 100.0100, L500.4050 #### [facility] [address] [place], [address] Eosinophils/100 WBC (Bld) 3.3 % Normal 0-5 [facility] Comment on above: Performed By: #### L 100.0100, L500.4050 #### [facility] [address] [place], [address] Erythrocyte distribution width (RBC) [Ratio] 13.2 % Normal 11.6-14.6 [facility] Comment on above: Performed By: #### L 100.0100, L500.4050 #### [facility] [address] [place], [address] Hematocrit (Bld) [Volume fraction] 43.8 % Normal 40-54 [facility] Comment on above: Performed By: #### L 100.0100, L500.4050 #### [facility] [address] [place], [address] Hemoglobin (Bld) [Mass/Vol] 14.6 g/dL Normal 13.0-16.5 [facility] Comment on above: Performed By: #### L 100.0100, L500.4050 #### [facility] [address] [place], [address] IG% 0.600 Normal 0.0-0.9 [facility] Comment on above: Result Comment: IG% - Immature Granulocytes (promyelocytes, myelocytes and metamyelocytes) > 1% indicates that a LEFT SHIFT is Present. Performed By: #### L 100.0100, L500.4050 #### [facility] [address] [place], [address] Lymphocytes/100 WBC (Bld) 25.1 % Normal 19-41 [facility] Comment on above: Performed By: #### L 100.0100, L500.4050 #### [facility] [address] [place], [address] MCH (RBC) [Entitic mass] 33.9 pg High 27.0-32.0 [facility] Comment on above: Performed By: #### L 100.0100, L500.4050 #### [facility] [address] [place], [address] MCHC (RBC) [Mass/Vol] 33.3 g/dL Normal 32-36 [facility] Comment on above: Performed By: #### L 100.0100, L500.4050 #### [facility] [address] [place], [address] MCV (RBC) [Entitic vol] 101.6 fL High 80-94 [facility] Comment on above: Performed By: #### L 100.0100, L500.4050 #### [facility] [address] [place], [address] Monocytes/100 WBC (Bld) 7.7 % Normal 0-10 [facility] Comment on above: Performed By: #### L 100.0100, L500.4050 #### [facility] [address] [place], [address] Neutrophils/100 WBC (Bld) 62.6 % Normal 47-70 [facility] Comment on above: Performed By: #### L 100.0100, L500.4050 #### [facility] [address] [place], [address] Nucleated RBC (Bld) [#/Vol] 0 10*3/uL Normal 0-5 [facility] Comment on above: Performed By: #### L 100.0100, L500.4050 #### [facility] [address] [place], [address] Platelet mean volume (Bld) [Entitic vol] 11.6 fL Normal 6.2-12.0 [facility] Comment on above: Performed By: #### L 100.0100, L500.4050 #### [facility] [address] [place], [address] Platelets (Bld) [#/Vol] 254 10*3/uL Normal 150-450 [facility] Comment on above: Performed By: #### L 100.0100, L500.4050 #### [facility] [address] [place], [address] RBC (Bld) [#/Vol] 4.31 10*6/uL Low 4.6-6.2 [facility] Comment on above: Performed By: #### L 100.0100, L500.4050 #### [facility] [address] [place], [address] RDW SD 49.1 fl High 35.1-43.9 [facility] Comment on above: Performed By: #### L 100.0100, L500.4050 #### [facility] [address] [place], [address] WBC (Bld) [#/Vol] 9.1 10*3/uL Normal 4.4-11.0 [facility] Comment on above: Performed By: #### L 100.0100, L500.4050 #### [facility] [address] [place], [address] Carbon dioxide measurementOr dered By: Shey Perez on 03-22-2024 CO2 [Moles/Vol] 27.0 mmol/L 21.0-32.0 [facility] Chloride measurementOrdered By: Shey Perez on 03-22-2024 Chloride [Moles/Vol] 104 mmol/L 98-107 [facility] Comprehensive Metabolic Prof ilon 03-22-2024 Albumin [Mass/Vol] 4.0 g/dL Normal 3.2-5.0 [facility] Comment on above: Performed By: #### L 100.0100, L500.4050 #### [facility] [address] [place], [address] Albumin/Globulin [Mass ratio] 1.1 {ratio} Normal 0.9-2.4 [facility] Comment on above: Performed By: #### L 100.0100, L500.4050 #### [facility] [address] [place], [address] ALK P 56 U/L Normal 45-117 [facility] Comment on above: Performed By: #### L 100.0100, L500.4050 #### [facility] [address] [place], [address] ALT [Catalytic activity/Vol] 38 U/L Normal 16-61 [facility] Comment on above: Performed By: #### L 100.0100, L500.4050 #### [facility] [address] [place], [address] AST [Catalytic activity/Vol] 24 U/L Normal 15-37 [facility] Comment on above: Performed By: #### L 100.0100, L500.4050 #### [facility] [address] [place], [address] Bilirubin [Mass/Vol] 0.30 mg/dL Normal 0.20-1.00 [facility] Comment on above: Result Comment: For patients on eltrombopag therapy, use of Dimension [place] TBIL is not recommended. Performed By: #### L 100.0100, L500.4050 #### [facility] [address] [place], [address] BUN/CRE 13.7 RATIO Normal 10-20 [facility] Comment on above: Performed By: #### L 100.0100, L500.4050 #### [facility] [address] [place], [address] CA,Total 9.9 mg/dL Normal 8.5-10.1 [facility] Comment on above: Performed By: #### L 100.0100, L500.4050 #### [facility] [address] [place], [address] Chloride [Moles/Vol] 104 mmol/L Normal 98-107 [facility] Comment on above: Performed By: #### L 100.0100, L500.4050 #### [facility] [address] [place], [address] CO2 [Moles/Vol] 27.0 mmol/L Normal 21.0-32.0 [facility] Comment on above: Performed By: #### L 100.0100, L500.4050 #### [facility] [address] [place], [address] Creatinine [Mass/Vol] 1.39 mg/dL High 0.70-1.30 [facility] Comment on above: Result Comment: The validity of the calculated GFR GFRAA in patients over 70 years has not been determined. Clinical correlation is essential. Performed By: #### L 100.0100, L500.4050 #### [facility] [address] [place], [address] EST GFR - AA 66 mL/min Normal >60 [facility] Comment on above: Result Comment: Afri can Thai GFR Calc Performed By: #### L 100.0100, L500.4050 #### [facility] [address] [place], [address] GAP 6 Normal 5-15 [facility] Comment on above: Performed By: #### L 100.0100, L500.4050 #### [facility] [address] [place], [address] GFR/1.73 sq M.predicted among non-blacks MDRD (S/P/Bld) [Vol rate/Area] 55 mL/min/{1.73_m2} Low >60 [facility] Comment on above: Result Comment: Non- GFR Calc Performed By: #### L 100.0100, L500.4050 #### [facility] [address] [place], [address] Globulin (S) [Mass/Vol] 3.6 g/dL Normal 2.2-4.2 [facility] Comment on above: Performed By: #### L 100.0100, L500.4050 #### [facility] [address] [place], [address] Glucose [Mass/Vol] 144 mg/dL High 74-106 [facility] Comment on above: Result Comment: Fast ing Glucose result greater than or equal to 126 mg/dL suggests DIABETES MELLITUS per A.D.A. criteria. Performed By: #### L 100.0100, L500.4050 #### [facility] [address] [place], [address] Potassium [Moles/Vol] 4.1 mmol/L Normal 3.5-5.1 [facility] Comment on above: Performed By: #### L 100.0100, L500.4050 #### [facility] [address] [place], [address] Sodium [Moles/Vol] 137 mmol/L Normal 136-145 [facility] Comment on above: Performed By: #### L 100.0100, L500.4050 #### [facility] [address] [place], [address] T PROT 7.6 g/dL Normal 6.4-8.2 [facility] Comment on above: Performed By: #### L 100.0100, L500.4050 #### [facility] [address] [place], [address] Urea nitrogen [Mass/Vol] 19 mg/dL High 7-18 [facility] Comment on above: Performed By: #### L 100.0100, L500.4050 #### [facility] [address] [place], [address] Eosinophil percentageOrdered By: Shey Perez on 03-22-2024 Eosinophils/100 WBC (Bld) 3.3 % 0-5 [facility] Erythrocyte distribution wid th ratioOrdered By: Shey Perez on 03-22-2024 Erythrocyte distribution width (RBC) [Ratio] 13.2 % 11.6-14.6 [facility] Erythrocyte distribution wid th standard deviationOrdered By: Shey Perez on 03-22-2024 Erythrocyte distribution width (RBC) [Entitic vol] 49.1 fL High 35.1-43.9 [facility] Estimated glomerular filtrat ion rate (GFR) AmericanOrdered By: Shey Perez on 03-22-2024 Estimated GFR (MDRD) Amer 66 mL/min >60 [facility] Comment on above: GFR Calc Glomerular filtration rate ( GFR) estimationOrdered By: Shey Perez on 03-22-2024 Estimated GFR (MDRD) Non-Af Amer 55 mL/min Low >60 [facility] Comment on above: Non- GFR Calc Glucose measurementOrdered B y: Shey Perez on 03-22-2024 Glucose [Mass/Vol] 144 mg/dL High 74-106 [facility] Comment on above: Fasting Glucose resu lt greater than or equal to 126 mg/dL suggests DIABETES MELLITUS per A.D.A. criteria. Hematocrit Auto (Bld) [Volum e fraction]Ordered By: Shey Perez on 03-22-2024 Hematocrit (Bld) [Volume fraction] 43.8 % 40-54 [facility] Hemoglobin measurementOrdere d By: Shey Perez on 03-22-2024 Hemoglobin (Bld) [Mass/Vol] 14.6 g/dL 13.0-16.5 [facility] Immature granulocytes/100 WB C Auto (Bld)Ordered By: Shey Perez on 03-22-2024 Immature granulocytes/100 WBC (Bld) 0.600 % 0.0-0.9 [facility] Comment on above: IG% - Immature Granu locytes (promyelocytes, myelocytes and metamyelocytes) > 1% indicates that a LEFT SHIFT is Present. Laboratory - Chemistry and C hemistry - challengeOrdered By: Shey Perez on 03-22-2024 AST [Catalytic activity/Vol] 24 U/L 15-37 [facility] Lymphocytes Auto (Unsp spec) [#/Vol]Ordered By: Shey Perez on 03-22-2024 Lymphocytes (Bld) [#/Vol] 2.28 10*3/uL 0.83-4.51 [facility] Lymphocytes/100 WBC Auto (Un sp spec)Ordered By: Shey Perez on 03-22-2024 Lymphocytes/100 WBC (Bld) 25.1 % 19-41 [facility] MCV (mean corpuscular volume ) determinationOrdered By: Shey Perez on 03-22-2024 MCV (RBC) [Entitic vol] 101.6 fL High 80-94 [facility] Mean corpuscular hemoglobin (MCH) determinationOrdered By: Shey Perez on 03-22-2024 MCH (RBC) [Entitic mass] 33.9 pg High 27.0-32.0 [facility] Mean corpuscular hemoglobin concentration (MCHC) determinationOrdered By: Shey Perez on 03-22-2024 MCHC (RBC) [Mass/Vol] 33.3 g/dL 32-36 [facility] Mean platelet volume determi nationOrdered By: Shey Perez on 03-22-2024 Platelet mean volume (Bld) [Entitic vol] 11.6 fL 6.2-12.0 [facility] Monocyte percentageOrdered B y: Shey Perez on 03-22-2024 Monocytes/100 WBC (Bld) 7.7 % 0-10 [facility] Neutrophil percentageOrdered By: Shey Perez on 03-22-2024 Neutrophils/100 WBC (Bld) 62.6 % 47-70 [facility] Nucleated red blood cell per centageOrdered By: Shey Perez on 03-22-2024 Nucleated RBC/100 WBC (Bld) [Ratio] 0 % 0-5 [facility] Platelet countOrdered By: Obed Perez on 03-22-2024 Platelets (Bld) [#/Vol] 254 10*3/uL 150-450 [facility] Potassium measurementOrdered By: Shey Perez on 03-22-2024 Potassium [Moles/Vol] 4.1 mmol/L 3.5-5.1 [facility] RBC Auto (Bld) [#/Vol]Ordere d By: Shey Perez on 03-22-2024 RBC (Bld) [#/Vol] 4.31 10*6/uL Low 4.6-6.2 [facility] Serum anion gap measurementO rdered By: Shey Perez on 03-22-2024 Anion gap [Moles/Vol] 6 mmol/L 5-15 [facility] Serum globulin measurementOr dered By: Shey Perez on 03-22-2024 Globulin (S) [Mass/Vol] 3.6 g/dL 2.2-4.2 [facility] Serum or plasma alanine sena otransferase (ALT) measurementOrdered By: Shey Perez on 03-22-2024 ALT [Catalytic activity/Vol] 38 U/L 16-61 [facility] Serum or plasma albumin carlyn urement (mass/volume)Ordered By: Shey Perez on 03-22-2024 Albumin [Mass/Vol] 4.0 g/dL 3.2-5.0 [facility] Serum or plasma alkaline elmira sphatase measurementOrdered By: Shey Perez on 03-22-2024 ALP [Catalytic activity/Vol] 56 U/L 45-117 [facility] Serum or plasma calcium carlyn urement (mass/volume)Ordered By: Shey Perez on 03-22-2024 Calcium [Mass/Vol] 9.9 mg/dL 8.5-10.1 [facility] Serum or plasma creatinine m easurement (mass/volume)Ordered By: Shey Perez on 03-22-2024 Creatinine [Mass/Vol] 1.39 mg/dL High 0.70-1.30 [facility] Comment on above: The validity of the calculated GFR & GFRAA in patients over 70 years has not been determined. Clinical correlation is essential. Serum or plasma urea nitroge n measurement (mass/volume)Ordered By: Shey Perez on 03-22-2024 Urea nitrogen [Mass/Vol] 19 mg/dL High 7-18 [facility] Sodium levelOrdered By: Marta Perez on 03-22-2024 Sodium [Moles/Vol] 137 mmol/L 136-145 [facility] Total proteinOrdered By: Sue Perez on 03-22-2024 Protein [Mass/Vol] 7.6 g/dL 6.4-8.2 [facility] White blood cell (WBC) count Ordered By: Shey Perez on 03-22-2024 WBC (Bld) [#/Vol] 9.1 10*3/uL 4.4-11.0 [facility] Basic Metabolic Profile (BMP )on 03-09-2024 BUN/CRE 13.2 RATIO Normal 10-20 [facility] Comment on above: Performed By: #### L 501.9910, L500.2500 #### [facility] [address] [place], [address] CA,Total 9.5 mg/dL Normal 8.5-10.1 [facility] Comment on above: Performed By: #### L 501.9910, L500.2500 #### [facility] [address] [place], [address] Chloride [Moles/Vol] 105 mmol/L Normal 98-107 [facility] Comment on above: Performed By: #### L 501.9910, L500.2500 #### [facility] [address] [place], [address] CO2 [Moles/Vol] 31.0 mmol/L Normal 21.0-32.0 [facility] Comment on above: Performed By: #### L 501.9910, L500.2500 #### [facility] [address] [place], [address] Creatinine [Mass/Vol] 1.21 mg/dL Normal 0.70-1.30 [facility] Comment on above: Result Comment: The validity of the calculated GFR GFRAA in patients over 70 years has not been determined. Clinical correlation is essential. Performed By: #### L 501.9910, L500.2500 #### [facility] [address] [place], [address] EST GFR - AA 77 mL/min Normal >60 [facility] Comment on above: Result Comment: Afri can Thai GFR Calc Performed By: #### L 501.9910, L500.2500 #### [facility] [address] [place], [address] GAP 4 Low 5-15 [facility] Comment on above: Performed By: #### L 501.9910, L500.2500 #### [facility] [address] [place], [address] GFR/1.73 sq M.predicted among non-blacks MDRD (S/P/Bld) [Vol rate/Area] 64 mL/min/{1.73_m2} Normal >60 [facility] Comment on above: Result Comment: Non- GFR Calc Performed By: #### L 501.9910, L500.2500 #### [facility] [address] [place], [address] Glucose [Mass/Vol] 107 mg/dL High 74-106 [facility] Comment on above: Result Comment: Fast ing Glucose result from 100 to 125 mg/dL suggests IMPAIRED HOMEOSTASIS per A.D.A. criteria. Performed By: #### L 501.9910, L500.2500 #### [facility] [address] [place], [address] Potassium [Moles/Vol] 4.0 mmol/L Normal 3.5-5.1 [facility] Comment on above: Performed By: #### L 501.9910, L500.2500 #### [facility] [address] [place], [address] Sodium [Moles/Vol] 139 mmol/L Normal 136-145 [facility] Comment on above: Performed By: #### L 501.9910, L500.2500 #### [facility] [address] [place], [address] Urea nitrogen [Mass/Vol] 16 mg/dL Normal 7-18 [facility] Comment on above: Performed By: #### L 501.9910, L500.2500 #### [facility] [address] [place], [address] Blood urea nitrogen (BUN)/cr eatinine ratioOrdered By: Rohan Varela on 03-09-2024 Urea nitrogen/Creatinine [Mass ratio] 13.2 mg/mg 10-20 [facility] Carbon dioxide measurementOr dered By: Rohan Varela on 03-09-2024 CO2 [Moles/Vol] 31.0 mmol/L 21.0-32.0 [facility] Chloride measurementOrdered By: Rhoan Varela on 03-09-2024 Chloride [Moles/Vol] 105 mmol/L 98-107 [facility] Estimated glomerular filtrat ion rate (GFR) AmericanOrdered By: Rohan Varela on 03-09-2024 Estimated GFR (MDRD) Amer 77 mL/min >60 [facility] Comment on above: GFR Calc Glomerular filtration rate ( GFR) estimationOrdered By: Rohan Varela on 03-09-2024 Estimated GFR (MDRD) Non-Af Amer 64 mL/min >60 [facility] Comment on above: Non- GFR Calc Glucose measurementOrdered B y: Rohan Varela on 03-09-2024 Glucose [Mass/Vol] 107 mg/dL High 74-106 [facility] Comment on above: Fasting Glucose resu lt from 100 to 125 mg/dL suggests IMPAIRED HOMEOSTASIS per A.D.A. criteria. Internal Medicine Office Vis iton 03-09-2024 Internal Medicine Office Visit [facility] [address] [place] [address] [place] [address] OFFICE VISIT Date of Service: 03/09/24 MR#: [id number] Acct: [id number] Name: JEAN JENSEN A Rep #: [id number] : 1960 Provider: Dr. 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: No Accompanied by: Self Is patient in pain?: No Allergies No Known Allergies Allergy (Verified 03/09/24 08:14) Medications ???Medication ???Instructions ???Recorded ???Confirmed ???Type rejpdywb-guy-uyvgc acid 0.4 1 tab PO DAILY 04/19/18 03/09/24 History mg-lycopene 300 mcg-lutein 250 mcg tablet (Centrum Silver) leucovorin calcium 5 mg tablet 15 mg PO QWEEK 07/19/18 03/09/24 History methotrexate sodium 2.5 mg tablet 20 mg PO QWEEK 10/18/18 03/09/24 History acetaminophen 500 mg tablet 500 mg PO Q6H PRN pain 01/23/20 03/09/24 History (Tylenol Extra Strength) medical marijuanas OTHER 12/12/20 03/09/24 History hydroxychloroquine 200 mg tablet 200 mg PO BID 05/23/21 03/09/24 History tofacitinib 11 mg tablet,extended 11 mg PO DAILY 05/23/21 03/09/24 History release 24 hr folic acid 800 mcg tablet 0.8 mg PO DAILY 10/22/21 03/09/24 History Handicap Placard #1 ea 11/27/21 03/09/24 Rx foam bandage 5 X 5 (Aquacel Foam) #10 ea 09/17/22 03/09/24 Rx pregabalin 75 mg capsule 75 mg PO BID #180 caps 12/22/23 03/09/24 Rx rosuvastatin 20 mg tablet 20 mg PO DAILY #90 tabs 01/26/24 03/09/24 Rx amlodipine 10 mg tablet 10 mg PO QDAY 3 months #90 tabs 02/17/24 03/09/24 Rx benazepril 40 mg tablet See Rx Instructions .Route 03/07/24 03/09/24 Rx .COMPLEX #90 tabs duloxetine 60 mg capsule,delayed 60 mg PO DAILY #90 caps 03/07/24 03/09/24 Rx release fenofibric acid (choline) 135 mg See Rx Instructions .Route 03/07/24 03/09/24 Rx capsule,delayed release .COMPLEX #90 caps Have you fallen in the past year?: No PFSH Medical History Wears glasses Marijuana use History of steroid therapy Prostate disease High cholesterol History of edema CPAP (continuous positive airway pressure) dependence Former smoker Diarrhea Gastroenteritis Colon cancer screening BPH (benign prostatic hyperplasia) Flu vaccine need Wound of left lower extremity Bilateral foot pain Left knee pain Neuropathy Preventative health care Acute bronchitis Obesity (BMI 30-39.9) Sleep apnea Depression Rheumatoid arthritis Myalgia Sicca syndrome Arthritis Hypertension Hyperlipemia Surgical History Hx of colonoscopy history of left shoulder surgery Family History Mother Fibromyalgia Brother Lymphoma Father Alzheimer disease Social History household members: spouse current occupational status: employed current occupation: [employer] Smoking Status: Former smoker quit date: 03/02/87 Tobacco: How many years used: 10 alcohol intake: current alcohol intake frequency: holidays/special occasions only substance use type: does not use what type of physical activity do you participate in: none HPI HPI Chief Complaint: 3m f/u Details: JEAN JENSEN, is a 63 M who presents to the office today for follow-up of his chronic medical conditions. No acute concerns at this time. History of hypertension, blood pressure today is at 122/68 mmHg. He states that his readings at home have been better as well. Has made some dietary changes but still not as active. Retires on the 02 of April, he is hoping that he is more active. Other chronic medical conditions are largely stable. Continues to follow-up with rheumatology for his history of rheumatoid arthritis. Also history of neuropathy on Lyrica. Still has some neuropathic pain even on Lyrica but is hoping that this should improve. ROS Const Constitutional: No body ache, excessive sweating, fatigue, fever(s), frequent falls, headache(s), snoring, weakness, weight change, sleep problems or change in appetite Eyes Eyes: No blurry vision, change in vision, floaters, visual disturbances, eye pain or Light sensitivity ENT ENT: No abnormal hearing, ear or mastoid pain, tinnitus, balance problems, nosebleed/epistaxis, nasal congestion, headache(s), neck pain or sore throat Resp Respirat (more content not included)... Normal [facility] PSA,Total - Annual Screenon 03-09-2024 PSA,TOT SCREEN 3.89 ng/mL Normal 0.00-4.00 [facility] Comment on above: Result Comment: This test was performed using the TPSA assay method for the [employer] chemistry system. Values obtained with different assay methods cannot be used interchangably. When changing PSA assays in the course of monitoring a patient, additional sequential testing should be carried out to confirm baseline values. Performed By: #### L 501.9910, L500.2500 #### [facility] [address] [place], [address] Potassium measurementOrdered By: Riddhijcarlosarabellatram Beachpriscillajanessa on 03-09-2024 Potassium [Moles/Vol] 4.0 mmol/L 3.5-5.1 [facility] Screening prostate specific antigen (PSA) measurementOrdered By: natashatram Beachaimee on 03-09-2024 Prostate Specific Antigen Screen 3.89 ng/mL 0.00-4.00 [facility] Comment on above: This test was perfor med using the TPSA assay method for [employer] chemistry system. Values obtained with differentassay methods cannot be used interchangably.When changing PSA assays in the course of monitoring apatient, additional sequential testing should be carriedout to confirm baseline values. Serum anion gap measurementO rdered By: Viviennetram Beachpriscillajanessa on 03-09-2024 Anion gap [Moles/Vol] 4 mmol/L Low 5-15 [facility] Serum or plasma calcium carlyn urement (mass/volume)Ordered By: Riddhijcarlosarabellatram Beachpriscillajanessa on 03-09-2024 Calcium [Mass/Vol] 9.5 mg/dL 8.5-10.1 [facility] Serum or plasma creatinine m easurement (mass/volume)Ordered By: natashatram Beachpriscillajanessa on 03-09-2024 Creatinine [Mass/Vol] 1.21 mg/dL 0.70-1.30 [facility] Comment on above: The validity of the calculated GFR & GFRAA in patients over 70 years has not been determined. Clinical correlation is essential. Serum or plasma urea nitroge n measurement (mass/volume)Ordered By: torsten Varela on 03-09-2024 Urea nitrogen [Mass/Vol] 16 mg/dL 7-18 [facility] Sodium levelOrdered By: [facility] karl Yongaimee on 03-09-2024 Sodium [Moles/Vol] 139 mmol/L 136-145 [facility] Colonoscopy Reporton 024 Colonoscopy Report [facility] Medical Records Department [address] [place] [address] Colonoscopy Report MR#: [id number] Acct: [id number] Name: JEAN JENSEN Rep #: [id number] : 1960 63 From: Go Cortes MD PCP: Dr. Rohan Varela MD [place] [facility] [place] Name: Jean Jensen Procedure Date: 01/26/2024 9:14 AM Date of : 1960 Age: 63 Procedure: Colonoscopy Indications: Screening for colorectal malignant neoplasm Providers: Go Cortes MD Referring MD: Rohan Varela MD Medicines: Propofol per Anesthesia Patient Profile: This is a 63 year old male. Refer to note in patient chart for documentation of history and physical. Last Colonoscopy: 10 years ago. Complications: No immediate complications. Estimated blood loss: Minimal. Procedure: Pre-Anesthesia Assessment: - Prior to the procedure, a History and Physical was performed, and patient medications and allergies were reviewed. The patient's tolerance of previous anesthesia was also reviewed. The risks and benefits of the procedure and the sedation options and risks were discussed with the patient. All questions were answered, and informed consent was obtained. Prior Anticoagulants: The patient has taken no anticoagulant or antiplatelet agents. After reviewing the risks and benefits, the patient was deemed in satisfactory condition to undergo the procedure. After I obtained informed consent, the scope was passed under direct vision. Throughout the procedure, the patient's blood pressure, pulse, and oxygen saturations were monitored continuously. The Colonoscope was introduced through the anus and advanced to the cecum, identified by appendiceal orifice and ileocecal valve. The colonoscopy was performed without difficulty. The patient tolerated the procedure well. The quality of the bowel preparation was good. The ileocecal valve, appendiceal orifice, and rectum were photographed. Scope In: 9:28:46 AM Scope Withdrawal Time 0 hours 6 minutes 30 seconds Scope Out: 9:49:39 AM Total Procedure Duration Time 0 hours 20 minutes 53 seconds Findings: Two pedunculated polyps were found in the descending colon. The polyps were medium in size. These polyps were removed with a hot snare. Resection and retrieval were complete. The exam was otherwise without abnormality on direct and retroflexion views. Impression: - Two medium polyps in the descending colon, removed with a hot snare. Resected and retrieved. - The examination was otherwise normal on direct and retroflexion views. Recommendation: - Discharge patient to home. - Resume previous diet. - Continue present medications. - Await pathology results. - Repeat colonoscopy in 5 years for surveillance. Procedure Code(s): --- Professional --- 56662, 33, Colonoscopy, flexible; with removal of tumor(s), polyp(s), or other lesion(s) by snare technique Diagnosis Code(s): --- Professional --- Z12.11, Encounter for screening for malignant neoplasm of colon D12.4, Benign neoplasm of descending colon CPT copyright 2021 [employer]. All rights reserved. The codes documented in this report are preliminary and upon cable dispatcher review may be revised to meet current compliance requirements. Go Cortes MD 01/26/2024 9:57:21 AM This report has been signed electronically. Number of Addenda: 0 Note Initiated On: 01/26/2024 9:14 AM 01/26/24956 Date Go Cortes MD Cosigner Signature: Date (if indicated) CC: Dr. Go Cortes MD; Dr. Rohan Varela MD Date Dictated: 01/26/24913 Date Transcribed: Watch Crystal Edge Grinder: KVNG Signed [facility] MR/POSTOP.[facility] 01-26-2024 MR/POSTOP.[facility] Medical Records Department [address] [place] [address] Anesthesia Postop Eval I 01/26/24956 MR#: [id number] Acct: [id number] Name: RENUTETO Rep #: [id number] : 1960 63 From: Navi Crespo PCP: Dr. Rohan Varela MD Status:REG SDC Y Race: C Location: [place] [address]- Anesthesia: Postop Eval I Current Vital Signs Temperature: 97.4 F Pulse Rate: 74 Blood Pressure: 101/70 Respiratory Rate: 16 Pulse Ox: 96 Oxygen Delivery Method: Room Air Assessment Airway patent: Yes Spontaneous unlabored respirations: Yes Mental status: Asleep nausea: No Vomiting: No Anesthesia Complication: No Fluid Hydration Crystalloid volume administer (ml): 40 Total IV fluid infused: 40 Progress Note Anesthesia document: Postop Eval 1 completed: Yes 01/26/24 0958 Date Navi Babinyarelyyudi Signature: Date CC: Signed Normal [facility] MR/[id number] 01-26-2024 [facility] Medical Records Department [address] [place] [address] Anesthesia Postop Eval II 01/26/24 1050 MR#: [id number] Acct: [id number] Name: JEAN JENSEN Rep #: [id number] : 1960 63 From: Lester Carson MD PCP: Dr. Rohan Varela MD Status:[facility] Y Race: C Location: [place] Anesthesia Postop Eval I Sum Postop Eval Completion status Anesthesia document: Postop Eval 1 completed: Yes Anesthesia Postop Eval I Summary Anesthesia Postop Eval I Summary: Anesthesia Postop Eval I: Assessment Summary Airway patent Yes 01/26/24 09:58 [email or web address] Spontaneous unlabored Yes 01/26/24 09:58 [email or web address] respirations Mental status Asleep 01/26/24 09:58 [email or web address] nausea No 01/26/24 09:58 [email or web address] Vomiting No 01/26/24 09:58 [email or web address] Anesthesia Postop Eval I: Fluid Summary Crystalloid volume administer 40 01/26/24 09:58 [email or web address] (ml) Colloids volume administered ( ml) Blood Product volume administered (ml) Total IV fluid infused 40 01/26/24 09:58 [email or web address] Anesthesia Postop Eval I: Summary Notes Anesthesia Complication No 01/26/24 09:58 [email or web address] Anesthesia Complication Comment: Post-operative progress note Anesthesia: Postop Eval II Evaluation Mental status: Awake Pain Level: 0 nausea: No Vomiting: No 01/26/24 1050 Date Lester Burton Signature: Date CC: Signed Normal [facility] Surgery Specimen Level Mis 01-26-2024 Surgery Specimen Level IV ----- Patient Age/Sex Location Account Attending Physician ----- JEAN JENSEN 63/M EN [id number] Dr. Go Cortes MD ----- Specimen: [id number] Received: 01/26/24 Status: EVELYN Gupta Num: [id number] Spec Type: COLON BX Subm Dr: Dr. Go Cortes MD HEADER OPERATION: Colonoscopy with polypectomy PRE-OP DIAGNOSIS: Colon cancer screening TISSUE SUBMITTED: Descending colon polyp x2 ----- MICROSCOPIC DIAGNOSIS Descending colon polyp, biopsy: Fragments of tubular adenoma. AM. 01/27/2024 MICROSCOPIC DESCRIPTION Slides are reviewed. GROSS DESCRIPTION Received in fixative is one container labeled with the patient's name and designated Descending colon polyp x2. The specimen consists of two irregular fragments of light jimenez soft tissue that in aggregate measure 1.0 x 0.6 x 0.1 cm. The specimen is totally submitted in one cassette. AM. 01/26/2024 TC:5 CPT:95885 ----- Patient Age/Sex Location Account Attending Physician ----- JEAN JENSEN 63/M EN [id number] Dr. Go Cortes MD ----- Signed (signature on file) Dr. Deshawn Guzman DO 01/27/24 1435 ----- Normal [facility] Comment on above: Performed By: #### L 500.2500 #### [facility] [address] [place], [address] CBC W/Diff, Automatedon 10-2 Absolute Lymph 1.77 X10 3/uL Normal 0.83-4.51 [facility] Comment on above: Performed By: #### L 100.0100, L500.4050 #### [facility] [address] [place], [address] Absolute Neut 3.7 X10 3/uL Normal 2.0-7.7 [facility] Comment on above: Performed By: #### L 100.0100, L500.4050 #### [facility] [address] [place], [address] Basophils/100 WBC (Bld) 0.5 % Normal 0-1 [facility] Comment on above: Performed By: #### L 100.0100, L500.4050 #### [facility] [address] [place], [address] Eosinophils/100 WBC (Bld) 3.7 % Normal 0-5 [facility] Comment on above: Performed By: #### L 100.0100, L500.4050 #### [facility] [address] [place], [address] Erythrocyte distribution width (RBC) [Ratio] 12.9 % Normal 11.6-14.6 [facility] Comment on above: Performed By: #### L 100.0100, L500.4050 #### [facility] [address] [place], [address] Hematocrit (Bld) [Volume fraction] 40.8 % Normal 40-54 [facility] Comment on above: Performed By: #### L 100.0100, L500.4050 #### [facility] [address] [place], [address] Hemoglobin (Bld) [Mass/Vol] 13.3 g/dL Normal 13.0-16.5 [facility] Comment on above: Performed By: #### L 100.0100, L500.4050 #### [facility] [address] [place], [address] IG% 0.500 Normal 0.0-0.9 [facility] Comment on above: Result Comment: IG% - Immature Granulocytes (promyelocytes, myelocytes and metamyelocytes) > 1% indicates that a LEFT SHIFT is Present. Performed By: #### L 100.0100, L500.4050 #### [facility] [address] [place], [address] Lymphocytes/100 WBC (Bld) 28.2 % Normal 19-41 [facility] Comment on above: Performed By: #### L 100.0100, L500.4050 #### [facility] [address] [place], [address] MCH (RBC) [Entitic mass] 33.6 pg High 27.0-32.0 [facility] Comment on above: Performed By: #### L 100.0100, L500.4050 #### [facility] [address] [place], [address] MCHC (RBC) [Mass/Vol] 32.6 g/dL Normal 32-36 [facility] Comment on above: Performed By: #### L 100.0100, L500.4050 #### [facility] [address] [place], [address] MCV (RBC) [Entitic vol] 103.0 fL High 80-94 [facility] Comment on above: Performed By: #### L 100.0100, L500.4050 #### [facility] [address] [place], [address] Monocytes/100 WBC (Bld) 8.3 % Normal 0-10 [facility] Comment on above: Performed By: #### L 100.0100, L500.4050 #### [facility] [address] [place], [address] Neutrophils/100 WBC (Bld) 58.8 % Normal 47-70 [facility] Comment on above: Performed By: #### L 100.0100, L500.4050 #### [facility] [address] [place], [address] Nucleated RBC (Bld) [#/Vol] 0 10*3/uL Normal 0-5 [facility] Comment on above: Performed By: #### L 100.0100, L500.4050 #### [facility] [address] [place], [address] Platelet mean volume (Bld) [Entitic vol] 12.9 fL High 6.2-12.0 [facility] Comment on above: Performed By: #### L 100.0100, L500.4050 #### [facility] [address] [place], [address] Platelets (Bld) [#/Vol] 184 10*3/uL Normal 150-450 [facility] Comment on above: Performed By: #### L 100.0100, L500.4050 #### [facility] [address] [place], [address] RBC (Bld) [#/Vol] 3.96 10*6/uL Low 4.6-6.2 [facility] Comment on above: Performed By: #### L 100.0100, L500.4050 #### [facility] [address] [place], [address] RDW SD 49.1 fl High 35.1-43.9 [facility] Comment on above: Performed By: #### L 100.0100, L500.4050 #### [facility] [address] [place], [address] WBC (Bld) [#/Vol] 6.3 10*3/uL Normal 4.4-11.0 [facility] Comment on above: Performed By: #### L 100.0100, L500.4050 #### [facility] [address] [place], [address] Comprehensive Metabolic Prof ilon 12-29-2023 Albumin [Mass/Vol] 3.9 g/dL Normal 3.2-5.0 [facility] Comment on above: Performed By: #### L 500.2500 #### [facility] [address] [place], [address] Albumin/Globulin [Mass ratio] 1.1 {ratio} Normal 0.9-2.4 [facility] Comment on above: Performed By: #### L 500.2500 #### [facility] [address] [place], [address] ALK P 36 U/L Low 45-117 [facility] Comment on above: Performed By: #### L 500.2500 #### [facility] [address] [place], [address] ALT [Catalytic activity/Vol] 29 U/L Normal 16-61 [facility] Comment on above: Performed By: #### L 500.2500 #### [facility] [address] [place], [address] AST [Catalytic activity/Vol] 24 U/L Normal 15-37 [facility] Comment on above: Performed By: #### L 500.2500 #### [facility] [address] [place], [address] Bilirubin [Mass/Vol] 0.50 mg/dL Normal 0.20-1.00 [facility] Comment on above: Result Comment: For patients on eltrombopag therapy, use of Dimension [place] TBIL is not recommended. Performed By: #### L 500.2500 #### [facility] [address] [place], [address] BUN/CRE 14.1 RATIO Normal 10-20 [facility] Comment on above: Performed By: #### L 500.2500 #### [facility] [address] [place], [address] CA,Total 9.4 mg/dL Normal 8.5-10.1 [facility] Comment on above: Performed By: #### L 500.2500 #### [facility] [address] [place], [address] Chloride [Moles/Vol] 104 mmol/L Normal 98-107 [facility] Comment on above: Performed By: #### L 500.2500 #### [facility] [address] [place], [address] CO2 [Moles/Vol] 29.0 mmol/L Normal 21.0-32.0 [facility] Comment on above: Performed By: #### L 500.2500 #### [facility] [address] [place], [address] Creatinine [Mass/Vol] 1.35 mg/dL High 0.70-1.30 [facility] Comment on above: Result Comment: The validity of the calculated GFR GFRAA in patients over 70 years has not been determined. Clinical correlation is essential. Performed By: #### L 500.2500 #### [facility] [address] [place], [address] EST GFR - AA 68 mL/min Normal >60 [facility] Comment on above: Result Comment: Afri can Thai GFR Calc Performed By: #### L 500.2500 #### [facility] [address] [place], [address] GAP 5 Normal 5-15 [facility] Comment on above: Performed By: #### L 500.2500 #### [facility] [address] [place], [address] GFR/1.73 sq M.predicted among non-blacks MDRD (S/P/Bld) [Vol rate/Area] 56 mL/min/{1.73_m2} Low >60 [facility] Comment on above: Result Comment: Non- GFR Calc Performed By: #### L 500.2500 #### [facility] [address] [place], [address] Globulin (S) [Mass/Vol] 3.6 g/dL Normal 2.2-4.2 [facility] Comment on above: Performed By: #### L 500.2500 #### [facility] [address] [place], [address] Glucose [Mass/Vol] 105 mg/dL Normal 74-106 [facility] Comment on above: Result Comment: Fast ing Glucose result from 100 to 125 mg/dL suggests IMPAIRED HOMEOSTASIS per A.D.A. criteria. Performed By: #### L 500.2500 #### [facility] [address] [place], [address] Potassium [Moles/Vol] 3.9 mmol/L Normal 3.5-5.1 [facility] Comment on above: Performed By: #### L 500.2500 #### [facility] [address] [place], [address] Sodium [Moles/Vol] 138 mmol/L Normal 136-145 [facility] Comment on above: Performed By: #### L 500.2500 #### [facility] [address] [place], [address] T PROT 7.5 g/dL Normal 6.4-8.2 [facility] Comment on above: Performed By: #### L 500.2500 #### [facility] [address] [place], [address] Urea nitrogen [Mass/Vol] 19 mg/dL High 7-18 [facility] Comment on above: Performed By: #### L 500.2500 #### [facility] [address] [place], [address] ENTERIC PATHOGEN PANEL STOOL on 12-08-2023 EP PANEL CAMPYLOBACTER Not Detected Norovirus Not Detected Rotavirus Not Detected Salmonella Not Detected Shiga Toxin Not Detected Shigella sp. Not Detected VIBRIO Not Detected Yersinia Not Detected Normal [facility] Comment on above: Performed By: #### L 500.2500 #### [facility] [address] [place], [address] Stool Lactoferrin/WBCon 10-0 WBCST Normal Reference Ran ge = Negative Fecal WBC Lactoferrin A Positive: Fecal WBC Lactoferrin present A Normal [facility] Comment on above: Performed By: #### L 500.2500 #### [facility] [address] [place], [address] Basic Metabolic Profile (BMP )on 12-02-2023 BUN/CRE 14.6 RATIO Normal 10-20 [facility] Comment on above: Performed By: #### L 500.2500 #### [facility] [address] [place], [address] CA,Total 9.9 mg/dL Normal 8.5-10.1 [facility] Comment on above: Performed By: #### L 500.2500 #### [facility] [address] [place], [address] Chloride [Moles/Vol] 104 mmol/L Normal 98-107 [facility] Comment on above: Performed By: #### L 500.2500 #### [facility] [address] [place], [address] CO2 [Moles/Vol] 29.0 mmol/L Normal 21.0-32.0 [facility] Comment on above: Performed By: #### L 500.2500 #### [facility] [address] [place], [address] Creatinine [Mass/Vol] 1.44 mg/dL High 0.70-1.30 [facility] Comment on above: Result Comment: The validity of the calculated GFR GFRAA in patients over 70 years has not been determined. Clinical correlation is essential. Performed By: #### L 500.2500 #### [facility] [address] [place], [address] EST GFR - AA 63 mL/min Normal >60 [facility] Comment on above: Result Comment: Afri can Thai GFR Calc Performed By: #### L 500.2500 #### [facility] [address] [place], [address] GAP 6 Normal 5-15 [facility] Comment on above: Performed By: #### L 500.2500 #### [facility] [address] [place], [address] GFR/1.73 sq M.predicted among non-blacks MDRD (S/P/Bld) [Vol rate/Area] 52 mL/min/{1.73_m2} Low >60 [facility] Comment on above: Result Comment: Non- GFR Calc Performed By: #### L 500.2500 #### [facility] [address] [place], [address] Glucose [Mass/Vol] 109 mg/dL High 74-106 [facility] Comment on above: Result Comment: Fast ing Glucose result from 100 to 125 mg/dL suggests IMPAIRED HOMEOSTASIS per A.D.A. criteria. Performed By: #### L 500.2500 #### [facility] [address] [place], [address] Potassium [Moles/Vol] 4.4 mmol/L Normal 3.5-5.1 [facility] Comment on above: Performed By: #### L 500.2500 #### [facility] [address] [place], [address] Sodium [Moles/Vol] 140 mmol/L Normal 136-145 [facility] Comment on above: Performed By: #### L 500.2500 #### [facility] [address] [place], [address] Urea nitrogen [Mass/Vol] 21 mg/dL High 7-18 [facility] Comment on above: Performed By: #### L 500.2500 #### [facility] [address] [place], [address] Internal Medicine Office Vis itosilas 12-02-2023 Internal Medicine Office Visit [facility] [address] [place] [address] OFFICE VISIT Date of Service: 12/02/23 MR#: [id number] Acct: [id number] Name: JEAN JENSEN A Rep #: [id number] : 1960 Provider: Dr. Rohan byers MD Age/Sex: 63/M Location: [facility] Status: Signed Intake Vital Signs 09/02/23 08:45 12/01/23 13:22 12/02/23 09:08 Height 6 ft 6 ft 6 ft Weight: 258 lb BMI 34.9 BP 130/82 H Blood Pressure Location Lt brachial Position Sitting Respiration 18 Pulse 111 H Pulse Source Monitor Temp 98.8 F Temp Source Temporal Pulse Oximetry (%) 96 Oxygen Delivery Method room air Intake Visit Reasons: 3 M FU Chief Complaint: 3m f/u Circuit Design Engineer Required: No Is patient in pain?: No Allergies No Known Allergies Allergy (Verified 12/02/23 09:02) Medications ???Medication ???Instructions ???Recorded ???Confirmed ???Type ryayxuut-qmf-jatgf acid 0.4 1 tab PO DAILY 04/19/18 12/02/23 History mg-lycopene 300 mcg-lutein 250 mcg tablet (Centrum Silver) leucovorin calcium 5 mg tablet 15 mg PO QWEEK 07/19/18 12/02/23 History methotrexate sodium 2.5 mg tablet 20 mg PO QWEEK 10/18/18 12/02/23 History acetaminophen 500 mg tablet 500 mg PO Q6H PRN 01/23/20 12/02/23 History (Tylenol Extra Strength) medical marijuanas OTHER 12/12/20 12/02/23 History hydroxychloroquine 200 mg tablet 200 mg PO BID 05/23/21 12/02/23 History tofacitinib 11 mg tablet,extended 11 mg PO DAILY 05/23/21 12/02/23 History release 24 hr folic acid 800 mcg tablet 0.8 mg PO DAILY 10/22/21 12/02/23 History Handicap Placard #1 ea 11/27/21 12/02/23 Rx foam bandage 5 X 5 (Aquacel Foam) #10 ea 09/17/22 12/02/23 Rx amlodipine 5 mg tablet 5 mg PO BID 3 months #180 tabs 06/03/23 12/02/23 Rx benazepril 40 mg tablet See Rx Instructions .Route 06/03/23 12/02/23 Rx .COMPLEX #90 tabs duloxetine 60 mg capsule,delayed 60 mg PO DAILY #90 caps 06/03/23 12/02/23 Rx release pregabalin 75 mg capsule 75 mg PO BID #180 caps 06/03/23 12/02/23 Rx rosuvastatin 20 mg tablet 20 mg PO DAILY #90 tabs 06/03/23 12/02/23 Rx fenofibric acid (choline) 135 mg See Rx Instructions .Route 09/02/23 12/02/23 Rx capsule,delayed release .COMPLEX #90 caps [facility] Medical History (Updated 12/02/23 @ 09:[address] Rohan Varela MD) Gastroenteritis Colon cancer screening BPH (benign prostatic hyperplasia) Flu vaccine need Wound of left lower extremity Bilateral foot pain Left knee pain Neuropathy Preventative health care Acute bronchitis Obesity (BMI 30-39.9) Sleep apnea Depression Rheumatoid arthritis Myalgia Sicca syndrome Arthritis Hypertension Hyperlipemia Surgical History Hx of colonoscopy history of left shoulder surgery Family History Mother Fibromyalgia Brother Lymphoma Father Alzheimer disease Social History household members: spouse current occupational status: employed current occupation: [employer] Smoking Status: Former smoker quit date: 03/02/87 Tobacco: How many years used: 10 alcohol intake: current alcohol intake frequency: holidays/special occasions only substance use type: marijuana what type of physical activity do you participate in: none HPI HPI Chief Complaint: 3m f/u Details: JEAN JENSEN, is a 63 M who presents to the office today for follow-up of his chronic medical conditions. Last night, had 4-5 watery bowel movements. Started after a meal of oatmeal prior. No chills, fever or otherwise feeling of unwell. No other sick contacts. Blood pressure today at 130/82 mmHg. At his last visit, he was started on chlorthalidone due to suboptimal control however, had significant worsening of his renal function so this was discontinued. Renal function has improved for the most part. Home log reviewed and he states that he has continued to make dietary and lifestyle changes. Looking into retiring in April and hopes that he can be more active, his job is sedentary. Other chronic medical conditions are stable. ROS Const Constitutional: No body ache, chills, excessive sweating, fatigue, fever(s), frequent falls, headache(s), snoring, weakness, sleep problems or change in appetite Eyes Eyes: No blurry vision, change in vision, bulging eyes, floaters, visual disturbances, eye pain or Light sensitivity ENT ENT: No abnormal hearing, ear or mastoid pain, tinnitus, balance problems, nosebleed/epistaxis, nasal congestion, headache(s), neck pain or sore throat Resp Respiratory: No cough, excessive phlegm production, pain on inspiration, shortness of breath, snoring or wheezing Cardio Cardiology: No chest p (more content not included)... Normal [facility] Comprehensive Metabolic Prof ilon 10-16-2023 Albumin [Mass/Vol] 3.7 g/dL Normal 3.2-5.0 [facility] Comment on above: Performed By: #### L 500.4050 #### [facility] [address] [place], [address] Albumin/Globulin [Mass ratio] 0.9 {ratio} Normal 0.9-2.4 [facility] Comment on above: Performed By: #### L 500.4050 #### [facility] [address] [place], [address] ALK P 47 U/L Normal 45-117 [facility] Comment on above: Performed By: #### L 500.4050 #### [facility] [address] [place], [address] ALT [Catalytic activity/Vol] 27 U/L Normal 16-61 [facility] Comment on above: Performed By: #### L 500.4050 #### [facility] [address] [place], [address] AST [Catalytic activity/Vol] 29 U/L Normal 15-37 [facility] Comment on above: Performed By: #### L 500.4050 #### [facility] [address] [place], [address] Bilirubin [Mass/Vol] 0.30 mg/dL Normal 0.20-1.00 [facility] Comment on above: Result Comment: For patients on eltrombopag therapy, use of Dimension [place] TBIL is not recommended. Performed By: #### L 500.4050 #### [facility] [address] [place], [address] BUN/CRE 21.1 RATIO High 10-20 [facility] Comment on above: Performed By: #### L 500.4050 #### [facility] [address] [place], [address] CA,Total 9.5 mg/dL Normal 8.5-10.1 [facility] Comment on above: Performed By: #### L 500.4050 #### [facility] [address] [place], [address] Chloride [Moles/Vol] 101 mmol/L Normal 98-107 [facility] Comment on above: Performed By: #### L 500.4050 #### [facility] [address] [place], [address] CO2 [Moles/Vol] 29.0 mmol/L Normal 21.0-32.0 [facility] Comment on above: Performed By: #### L 500.4050 #### [facility] [address] [place], [address] Creatinine [Mass/Vol] 1.33 mg/dL High 0.70-1.30 [facility] Comment on above: Result Comment: The validity of the calculated GFR GFRAA in patients over 70 years has not been determined. Clinical correlation is essential. Performed By: #### L 500.4050 #### [facility] [address] [place], [address] EST GFR - AA 70 mL/min Normal >60 [facility] Comment on above: Result Comment: Afri can Thai GFR Calc Performed By: #### L 500.4050 #### [facility] [address] [place], [address] GAP 7 Normal 5-15 [facility] Comment on above: Performed By: #### L 500.4050 #### [facility] [address] [place], [address] GFR/1.73 sq M.predicted among non-blacks MDRD (S/P/Bld) [Vol rate/Area] 57 mL/min/{1.73_m2} Low >60 [facility] Comment on above: Result Comment: Non- GFR Calc Performed By: #### L 500.4050 #### [facility] [address] [place], [address] Globulin (S) [Mass/Vol] 4.1 g/dL Normal 2.2-4.2 [facility] Comment on above: Performed By: #### L 500.4050 #### [facility] [address] [place], [address] Glucose [Mass/Vol] 100 mg/dL Normal 74-106 [facility] Comment on above: Result Comment: Fast ing Glucose result from 100 to 125 mg/dL suggests IMPAIRED HOMEOSTASIS per A.D.A. criteria. Performed By: #### L 500.4050 #### [facility] [address] [place], [address] Potassium [Moles/Vol] 3.9 mmol/L Normal 3.5-5.1 [facility] Comment on above: Performed By: #### L 500.4050 #### [facility] [address] [place], [address] Sodium [Moles/Vol] 137 mmol/L Normal 136-145 [facility] Comment on above: Performed By: #### L 500.4050 #### [facility] [address] [place], [address] T PROT 7.8 g/dL Normal 6.4-8.2 [facility] Comment on above: Performed By: #### L 500.4050 #### [facility] [address] [place], [address] Urea nitrogen [Mass/Vol] 28 mg/dL High 7-18 [facility] Comment on above: Performed By: #### L 500.4050 #### [facility] [address] [place], [address] Basic Metabolic Profile (BMP )on 10-13-2023 BUN/CRE 18.2 RATIO Normal 10-20 [facility] Comment on above: Performed By: #### L 500.2500 #### [facility] [address] [place], [address] CA,Total 9.9 mg/dL Normal 8.5-10.1 [facility] Comment on above: Performed By: #### L 500.2500 #### [facility] [address] [place], [address] Chloride [Moles/Vol] 102 mmol/L Normal 98-107 [facility] Comment on above: Performed By: #### L 500.2500 #### [facility] [address] [place], [address] CO2 [Moles/Vol] 29.0 mmol/L Normal 21.0-32.0 [facility] Comment on above: Performed By: #### L 500.2500 #### [facility] [address] [place], [address] Creatinine [Mass/Vol] 1.43 mg/dL High 0.70-1.30 [facility] Comment on above: Result Comment: The validity of the calculated GFR GFRAA in patients over 70 years has not been determined. Clinical correlation is essential. Performed By: #### L 500.2500 #### [facility] [address] [place], [address] EST GFR - AA 64 mL/min Normal >60 [facility] Comment on above: Result Comment: Afri can Thai GFR Calc Performed By: #### L 500.2500 #### [facility] [address] [place], [address] GAP 5 Normal 5-15 [facility] Comment on above: Performed By: #### L 500.2500 #### [facility] [address] [place], [address] GFR/1.73 sq M.predicted among non-blacks MDRD (S/P/Bld) [Vol rate/Area] 53 mL/min/{1.73_m2} Low >60 [facility] Comment on above: Result Comment: Non- GFR Calc Performed By: #### L 500.2500 #### [facility] [address] [place], [address] Glucose [Mass/Vol] 130 mg/dL High 74-106 [facility] Comment on above: Result Comment: Fast ing Glucose result greater than or equal to 126 mg/dL suggests DIABETES MELLITUS per A.D.A. criteria. Performed By: #### L 500.2500 #### [facility] [address] [place], [address] Potassium [Moles/Vol] 4.1 mmol/L Normal 3.5-5.1 [facility] Comment on above: Performed By: #### L 500.2500 #### [facility] [address] [place], [address] Sodium [Moles/Vol] 136 mmol/L Normal 136-145 [facility] Comment on above: Performed By: #### L 500.2500 #### [facility] [address] [place], [address] Urea nitrogen [Mass/Vol] 26 mg/dL High 7-18 [facility] Comment on above: Performed By: #### L 500.2500 #### [facility] [address] [place], [address] CBC W/Diff, Automatedon 08-0 Absolute Lymph 1.86 X10 3/uL Normal 0.83-4.51 [facility] Comment on above: Performed By: #### L 500.2500 #### [facility] [address] [place], [address] Absolute Neut 4.5 X10 3/uL Normal 2.0-7.7 [facility] Comment on above: Performed By: #### L 500.2500 #### [facility] [address] [place], [address] Basophils/100 WBC (Bld) 0.5 % Normal 0-1 [facility] Comment on above: Performed By: #### L 500.2500 #### [facility] [place], [address] Eosinophils/100 WBC (Bld) 2.1 % Normal 0-5 [facility] Comment on above: Performed By: #### L 500.2500 #### [facility] [address] [place], [address] Erythrocyte distribution width (RBC) [Ratio] 13.6 % Normal 11.6-14.6 [facility] Comment on above: Performed By: #### L 500.2500 #### [facility] [address] [place], [address] Hematocrit (Bld) [Volume fraction] 39.2 % Low 40-54 [facility] Comment on above: Performed By: #### L 500.2500 #### [facility] [address] [place], [address] Hemoglobin (Bld) [Mass/Vol] 12.9 g/dL Low 13.0-16.5 [facility] Comment on above: Performed By: #### L 500.2500 #### [facility] [address] [place], [address] IG% 0.900 Normal 0.0-0.9 [facility] Comment on above: Result Comment: IG% - Immature Granulocytes (promyelocytes, myelocytes and metamyelocytes) > 1% indicates that a LEFT SHIFT is Present. Performed By: #### L 500.2500 #### [facility] [address] [place], [address] Lymphocytes/100 WBC (Bld) 24.9 % Normal 19-41 [facility] Comment on above: Performed By: #### L 500.2500 #### [facility] [address] [place], [address] MCH (RBC) [Entitic mass] 34.1 pg High 27.0-32.0 [facility] Comment on above: Performed By: #### L 500.2500 #### [facility] [address] [place], [address] MCHC (RBC) [Mass/Vol] 32.9 g/dL Normal 32-36 [facility] Comment on above: Performed By: #### L 500.2500 #### [facility] [address] [place], [address] MCV (RBC) [Entitic vol] 103.7 fL High 80-94 [facility] Comment on above: Performed By: #### L 500.2500 #### [facility] [address] [place], [address] Monocytes/100 WBC (Bld) 11.0 % High 0-10 [facility] Comment on above: Performed By: #### L 500.2500 #### [facility] [address] [place], [address] Neutrophils/100 WBC (Bld) 60.6 % Normal 47-70 [facility] Comment on above: Performed By: #### L 500.2500 #### [facility] [address] [place], [address] Nucleated RBC (Bld) [#/Vol] 0 10*3/uL Normal 0-5 [facility] Comment on above: Performed By: #### L 500.2500 #### [facility] [address] [place], [address] Platelet mean volume (Bld) [Entitic vol] 12.3 fL High 6.2-12.0 [facility] Comment on above: Performed By: #### L 500.2500 #### [facility] [address] [place], [address] Platelets (Bld) [#/Vol] 191 10*3/uL Normal 150-450 [facility] Comment on above: Performed By: #### L 500.2500 #### [facility] [address] [place], [address] RBC (Bld) [#/Vol] 3.78 10*6/uL Low 4.6-6.2 [facility] Comment on above: Performed By: #### L 500.2500 #### [facility] [address] [place], [address] RDW SD 51.6 fl High 35.1-43.9 [facility] Comment on above: Performed By: #### L 500.2500 #### [facility] [address] [place], [address] WBC (Bld) [#/Vol] 7.5 10*3/uL Normal 4.4-11.0 [facility] Comment on above: Performed By: #### L 500.2500 #### [facility] [address] [place], [address] Comprehensive Metabolic Prof [facility] 10-01-2023 Albumin [Mass/Vol] 3.8 g/dL Normal 3.2-5.0 [facility] Comment on above: Performed By: #### L 500.2500 #### [facility] [address] [place], [address] Albumin/Globulin [Mass ratio] 1.0 {ratio} Normal 0.9-2.4 [facility] Comment on above: Performed By: #### L 500.2500 #### [facility] [address] [place], [address] ALK P 56 U/L Normal 45-117 [facility] Comment on above: Performed By: #### L 500.2500 #### [facility] [address] [place], [address] ALT [Catalytic activity/Vol] 36 U/L Normal 16-61 [facility] Comment on above: Performed By: #### L 500.2500 #### [facility] [address] [place], [address] AST [Catalytic activity/Vol] 28 U/L Normal 15-37 [facility] Comment on above: Performed By: #### L 500.2500 #### [facility] [address] [place], [address] Bilirubin [Mass/Vol] 0.30 mg/dL Normal 0.20-1.00 [facility] Comment on above: Result Comment: For patients on eltrombopag therapy, use of Dimension [place] TBIL is not recommended. Performed By: #### L 500.2500 #### [facility] [address] [place], [address] BUN/CRE 19.9 RATIO Normal 10-20 [facility] Comment on above: Performed By: #### L 500.2500 #### [facility] [address] [place], [address] CA,Total 9.7 mg/dL Normal 8.5-10.1 [facility] Comment on above: Performed By: #### L 500.2500 #### [facility] [address] [place], [address] Chloride [Moles/Vol] 106 mmol/L Normal 98-107 [facility] Comment on above: Performed By: #### L 500.2500 #### [facility] [address] [place], [address] CO2 [Moles/Vol] 27.0 mmol/L Normal 21.0-32.0 [facility] Comment on above: Performed By: #### L 500.2500 #### [facility] [address] [place], [address] Creatinine [Mass/Vol] 1.71 mg/dL High 0.70-1.30 [facility] Comment on above: Result Comment: The validity of the calculated GFR GFRAA in patients over 70 years has not been determined. Clinical correlation is essential. Performed By: #### L 500.2500 #### [facility] [address] [place], [address] EST GFR - AA 52 mL/min Low >60 [facility] Comment on above: Result Comment: Afri can Thai GFR Calc Performed By: #### L 500.2500 #### [facility] [address] [place], [address] GAP 7 Normal 5-15 [facility] Comment on above: Performed By: #### L 500.2500 #### [facility] [address] [place], [address] GFR/1.73 sq M.predicted among non-blacks MDRD (S/P/Bld) [Vol rate/Area] 43 mL/min/{1.73_m2} Low >60 [facility] Comment on above: Result Comment: Non- GFR Calc Performed By: #### L 500.2500 #### [facility] [address] [place], [address] Globulin (S) [Mass/Vol] 3.9 g/dL Normal 2.2-4.2 [facility] Comment on above: Performed By: #### L 500.2500 #### [facility] [address] [place], [address] Glucose [Mass/Vol] 121 mg/dL High 74-106 [facility] Comment on above: Result Comment: Fast ing Glucose result from 100 to 125 mg/dL suggests IMPAIRED HOMEOSTASIS per A.D.A. criteria. Performed By: #### L 500.2500 #### [facility] [address] [place], [address] Potassium [Moles/Vol] 3.7 mmol/L Normal 3.5-5.1 [facility] Comment on above: Performed By: #### L 500.2500 #### [facility] [address] [place], [address] Sodium [Moles/Vol] 140 mmol/L Normal 136-145 [facility] Comment on above: Performed By: #### L 500.2500 #### [facility] [address] [place], [address] T PROT 7.7 g/dL Normal 6.4-8.2 [facility] Comment on above: Performed By: #### L 500.2500 #### [facility] [address] [place], [address] Urea nitrogen [Mass/Vol] 34 mg/dL High 7-18 [facility] Comment on above: Performed By: #### L 500.2500 #### [facility] [address] [place], [address] Internal Medicine Office Vis iton 09-02-2023 Internal Medicine Office Visit [facility] [address] [place], [place] [address] OFFICE VISIT Date of Service: 09/02/23 MR#: [id number] Acct: [id number] Name: JEAN JENSEN Rep #: [id number] : 1960 Provider: Dr. 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 Is patient in pain?: No Allergies No Known Allergies Allergy (Verified 09/02/23 08:40) Medications ???Medication ???Instructions ???Recorded ???Confirmed ???Type bbruzgbq-[id number] acid 0.4 1 tab PO DAILY 04/19/18 09/02/23 History mg-lycopene 300 mcg-lutein 250 mcg tablet (Centrum Silver) leucovorin calcium 5 mg tablet 15 mg PO QWEEK 07/19/18 09/02/23 History methotrexate sodium 2.5 mg tablet 20 mg PO QWEEK 10/18/18 09/02/23 History acetaminophen 500 mg tablet 500 mg PO Q6H PRN 01/23/20 09/02/23 History (Tylenol Extra Strength) medical marijuanas OTHER 12/12/20 09/02/23 History hydroxychloroquine 200 mg tablet 200 mg PO BID 05/23/21 09/02/23 History tofacitinib 11 mg tablet,extended 11 mg PO DAILY 05/23/21 09/02/23 History release 24 hr folic acid 800 mcg tablet 0.8 mg PO DAILY 10/22/21 09/02/23 History Handicap Placard #1 ea 11/27/21 09/02/23 Rx fenofibric acid (choline) 135 mg See Rx Instructions .Route 08/18/22 09/02/23 Rx capsule,delayed release .COMPLEX #90 caps foam bandage 5 X 5 (Aquacel Foam) #10 ea 09/17/22 09/02/23 Rx amlodipine 5 mg tablet 5 mg PO BID 3 months #180 tabs 06/03/23 09/02/23 Rx benazepril 40 mg tablet See Rx Instructions .Route 06/03/23 09/02/23 Rx .COMPLEX #90 tabs duloxetine 60 mg capsule,delayed 60 mg PO DAILY #90 caps 06/03/23 09/02/23 Rx release pregabalin 75 mg capsule 75 mg PO BID #180 caps 06/03/23 09/02/23 Rx rosuvastatin 20 mg tablet 20 mg PO DAILY #90 tabs 06/03/23 09/02/23 Rx chlorthalidone 25 mg tablet 25 mg PO DAILY #30 tabs 09/02/23 09/02/23 Rx PFSH Medical History Colon cancer screening BPH (benign prostatic hyperplasia) Flu vaccine need Wound of left lower extremity Bilateral foot pain Left knee pain Neuropathy Preventative health care Acute bronchitis Obesity (BMI 30-39.9) Sleep apnea Depression Rheumatoid arthritis Myalgia Sicca syndrome Arthritis Hypertension Hyperlipemia Surgical History history of left shoulder surgery Family History Mother Fibromyalgia Brother Lymphoma Father Alzheimer disease Social History Smoking Status: Former smoker quit date: 03/02/87 Tobacco: How many years used: 10 alcohol intake: current alcohol intake frequency: holidays/special occasions only substance use type: does not use what type of physical activity do you participate in: none HPI HPI Chief Complaint: 3m f/u Details: JEAN JENSEN, is a 63 M who presents to the office today for follow-up of his chronic medical conditions. No acute concerns at this time. History of hypertension, blood pressure today at 150/86 mmHg. Still largely sedentary. Also not using his CPAP consistently. Currently at a BMI of 35.6. On amlodipine and benazepril which he is taking as prescribed. Chronic history of rheumatoid arthritis, follows up with rheumatology. He states that overall his symptoms are not very well-controlled. Main concern is his feet. Was referred to general surgery for colon cancer screening however he states that he did not hear from them. Yet to get this done. ROS Const Constitutional: No body ache, chills, excessive sweating, fatigue, fever(s), frequent falls, headache(s), snoring, weakness, sleep problems or change in appetite Eyes Eyes: No blurry vision, change in vision, floaters, visual disturbances, eye pain or Light sensitivity ENT ENT: No abnormal hearing, ear or mastoid pain, tinnitus, balance problems, nosebleed/epistaxis, nasal congestion, headache(s), neck pain or sore throat Resp Respiratory: No cough, hemoptysis, pain on inspiration, shortness of breath, snoring or wheezing Cardio Cardiology: No chest pain at rest, chest pain with exertion, excessive sweating, shortness of breath, dyspnea on exertion, lightheadedness, orthopnea or palpitations Gastro GI: No abdominal pain (more content not included)... Normal [facility] Lipid Profileon 09-02-2023 Cholesterol [Mass/Vol] 195 mg/dL Normal 200 [facility] Comment on above: Result Comment: <200 mg/dL Desirable 200-240 mg/dL Borderline >240 mg/dL High Risk Performed By: #### L 500.2500 #### [facility] [address] [facility] [address] Cholesterol in HDL [Mass/Vol] 67 mg/dL Normal [facility] Comment on above: Result Comment: The drugs N-Acetylcysteine and Metamizole may falsely depress this assay. Reference Range HDL <40 mg/dL Low HDL Cholesterol HDL >or= 60 mg/dL High HDL Cholesterol Performed By: #### L 500.2500 #### [facility] [address] [facility] [address] Cholesterol in LDL [Mass/Vol] 84 mg/dL Normal 0-130 [facility] Comment on above: Performed By: #### L 500.2500 #### [facility] [address] [facility] [address] Cholesterol in VLDL [Mass/Vol] 44 mg/dL High 5-40 [facility] Comment on above: Performed By: #### L 500.2500 #### [facility] [address] [facility] [address] Triglyceride [Mass/Vol] 221 mg/dL High [facility] Comment on above: Result Comment: The drugs N-Acetylcysteine and Metamizole may falsely depress this assay. Serum Triglycerides Reference Interval Normal <150 mg/dL Borderline high 150 - 199 mg/dL High 200 - 499 mg/dL Very High > or = 500 mg/dL Performed By: #### L 500.2500 #### [facility] [address] [place], [address] Absolute lymphocyte countOrd ered By: Shey Perez on 04-27-2023 Lymphocytes Auto (Unsp spec) [#/Vol] 2.21 10*3/uL 0.83-4.51 [facility] Automated lymphocyte count a s percentage of total leukocytesOrdered By: Shey Perez on 04-27-2023 Lymphocytes/100 WBC Auto (Unsp spec) 35.6 % 19-41 [facility] Basophil percentageOrdered B y: Shey Perez on 04-27-2023 Basophils/100 WBC (Bld) 0.6 % 0-1 [facility] Bilirubin [Mass/Vol] 0.60 mg/dL 0.20-1.00 [facility] Comment on above: For patients on eltr ombopag therapy, use of Dimension [place] TBIL is not recommended. Chloride [Moles/Vol] 104 mmol/L 98-107 [facility] Eosinophils/100 WBC (Bld) 3.1 % 0-5 [facility] Glucose [Mass/Vol] 112 mg/dL 74-106 [facility] Comment on above: Fasting Glucose resu lt from 100 to 125 mg/dL suggests IMPAIRED HOMEOSTASIS per A.D.A. criteria. Hemoglobin (Bld) [Mass/Vol] 13.6 g/dL 13.0-16.5 [facility] Monocytes/100 WBC (Bld) 7.6 % 0-10 [facility] Neutrophils (Bld) [#/Vol] 3.3 10*3/uL 2.0-7.7 [facility] Neutrophils/100 WBC (Bld) 52.6 % 47-70 [facility] Potassium [Moles/Vol] 4.1 mmol/L 3.5-5.1 [facility] Protein [Mass/Vol] 7.3 g/dL 6.4-8.2 [facility] Sodium [Moles/Vol] 138 mmol/L 136-145 [facility] WBC (Bld) [#/Vol] 6.2 10*3/uL 4.4-11.0 [facility] Determination of erythrocyte mean corpuscular volume (MCV)Ordered By: Shey Perez on 04-27-2023 MCV (RBC) [Entitic vol] 104.8 fL 80-94 [facility] Erythrocyte distribution wid th ratioOrdered By: Shey Perez on 04-27-2023 Erythrocyte distribution width (RBC) [Ratio] 13.1 % 11.6-14.6 [facility] Erythrocyte distribution wid th standard deviationOrdered By: [facility] Ana on 04-27-2023 Erythrocyte distribution width (RBC) [Entitic vol] 50.4 fL 35.1-43.9 [facility] Hematocrit Auto (Bld) [Volum e fraction]Ordered By: Shey Perez on 04-27-2023 Hematocrit (Bld) [Volume fraction] 41.5 % 40-54 [facility] Immature granulocytes/100 WB C Auto (Bld)Ordered By: Shey Perez on 04-27-2023 Immature granulocytes/100 WBC (Bld) 0.500 % 0.0-0.9 [facility] Comment on above: IG% - Immature Granu locytes (promyelocytes, myelocytes and metamyelocytes) > 1% indicates that a LEFT SHIFT is Present. Laboratory - Chemistry and C hemistry - challengeOrdered By: Shey Perez on 04-27-2023 Albumin/Globulin [Mass ratio] 1.1 {ratio} 0.9-2.4 [facility] ALP [Catalytic activity/Vol] 47 U/L 45-117 [facility] ALT [Catalytic activity/Vol] 42 U/L 16-61 [facility] CO2 [Moles/Vol] 28.0 mmol/L 21.0-32.0 [facility] Globulin (S) [Mass/Vol] 3.5 g/dL 2.2-4.2 [facility] Urea nitrogen/Creatinine [Mass ratio] 16.4 mg/mg 10-20 [facility] - Hematology and Cell countsOrdered By: Shey Perez on 04-27-2023 MCH (RBC) [Entitic mass] 34.3 pg 27.0-32.0 [facility] MCHC (RBC) [Mass/Vol] 32.8 g/dL 32-36 [facility] Nucleated RBC/100 WBC (Bld) [Ratio] 0 % 0-5 [facility] Platelet mean volume (Bld) [Entitic vol] 13.6 fL 6.2-12.0 [facility] Platelets (Bld) [#/Vol] 231 10*3/uL 150-450 [facility] No Panel InformationOrdered By: Shey Perez on 04-27-2023 Estimated GFR (MDRD) Amer 87 mL/min >60 [facility] Comment on above: GFR Calc Estimated GFR (MDRD) Non-Af Amer 72 mL/min >60 [facility] Comment on above: Non- GFR Calc RBC Auto (Bld) [#/Vol]Ordere d By: Shey Perez on 04-27-2023 RBC (Bld) [#/Vol] 3.96 10*6/uL 4.6-6.2 [facility] Serum or plasma calcium carlyn urement (mass/volume)Ordered By: Shey Perez on 04-27-2023 Calcium [Mass/Vol] 9.1 mg/dL 8.5-10.1 [facility] Serum or plasma creatinine m easurement (mass/volume)Ordered By: Shey Perez on 04-27-2023 Creatinine [Mass/Vol] 1.10 mg/dL 0.70-1.30 [facility] Comment on above: The validity of the calculated GFR & GFRAA in patients over 70 years has not been determined. Clinical correlation is essential. Serum or plasma urea nitroge n measurement (mass/volume)Ordered By: Shey Perez on 04-27-2023 Urea nitrogen [Mass/Vol] 18 mg/dL 7-18 [facility] Thin prep Papanicolaou smear with manual screeningOrdered By: Shey Perez on 04-27-2023 Thin prep Papanicolaou smear with manual screening 3.8 g/dL 3.2-5.0 [facility] Thin prep Papanicolaou smear with manual screening 33 U/L 15-37 [facility] Thin prep Papanicolaou smear with manual screening 6 5-15 [facility] - Microbiology an d Antimicrobial susceptibilityon 04-03-2023 SARS-CoV-2 (COVID-19) RNA SEN+probe Ql (Unsp spec) Not detected [facility] No Panel Informationon 04-03 Influenza Types A,B Rapid (Clinic) Not detected [facility] Basophil percentageOrdered B y: Rohan Varela on 03-06-2023 Basophil percentage 0 SEEN /hpf 0-5 [facility] Bilirubin Test strip Ql (U)O rdered By: Rohan Varela on 03-06-2023 Bilirubin Ql (U) Negative Negative [facility] Ketones Test strip Ql (U)Ord ered By: Rohan Varela on 03-06-2023 Ketones Ql (U) Negative Negative [facility] Mucus LM Ql (Urine sed)Order ed By: Rohan Varela on 03-06-2023 Mucus Ql (Urine sed) 0 SEEN /hpf [facility] Nitrite Test strip Ql (U)Ord ered By: Rohan Varela on 03-06-2023 Nitrite Ql (U) Negative Negative [facility] No Panel InformationOrdered By: Rohan aVrela on 03-06-2023 Prostate Specific Antigen Screen 3.97 ng/mL 0.00-4.00 [facility] Comment on above: This test was perfor med using the TPSA assay method for the[facility] chemistry system. Values obtained with differentassay methods cannot be used interchangably.When changing PSA assays in the course of monitoring apatient, additional sequential testing should be carriedout to confirm baseline values. Protein Test strip Ql (U)Ord ered By: Rohan Varela on 03-06-2023 Protein Ql (U) 30 mg/dl Negative [facility] Squamous epithelial cells de tection in urine sediment by light microscopyOrdered By: Rohan Varela on 03-06-2023 Epithelial cells.squamous LM Ql (Urine sed) 0-5 SEEN /hpf 0-5 [facility] Urine blood detectionOrdered By: Rohan Varela on 03-06-2023 RBC Ql (U) Negative Negative [facility] RBC Ql (U) 0 SEEN /hpf 0-5 [facility] Urine clarityOrdered By: Red Varela on 03-06-2023 Clarity (U) Clear Clear [facility] Urine color determinationOrd ered By: Rohan Varela on 03-06-2023 Color (U) Yellow Yellow [facility] Urine glucose detectionOrder ed By: Rohan Varela on 03-06-2023 Glucose Ql (U) Normal mg/dl Normal [facility] Urine leukocyte esterase det ection by dipstickOrdered By: Rohan Varela on 03-06-2023 Leukocyte esterase Test strip Ql (U) Negative Negative [facility] Urine pHOrdered By: Glenn Varela on 03-06-2023 pH (U) 6.5 [pH] 5.0 - 8.0 [facility] Urine sediment bacteria coun t by microscopy (number/high power field)Ordered By: Rohan Varela on 03-06-2023 Bacteria LM.HPF (Urine sed) [#/Area] 0 /[HPF] None Seen [facility] Urine specific gravity measu rementOrdered By: Rohan Varela on 03-06-2023 Specific gravity (U) [Rel density] 1.015 1.002-1.03 0 [facility] Urobilinogen Auto test strip Ql (U)Ordered By: Rohan Varela on 03-06-2023 Urobilinogen Ql (U) Normal mg/dl Normal [facility] Absolute lymphocyte countOrd ered By: Shey Perez on 01-31-2023 Lymphocytes Auto (Unsp spec) [#/Vol] 1.57 10*3/uL 0.83-4.51 [facility] Basophil percentageOrdered B y: Shey Perez on 01-31-2023 Basophils/100 WBC (Bld) 0.7 % 0-1 [facility] Bilirubin [Mass/Vol] 0.40 mg/dL 0.20-1.00 [facility] Comment on above: For patients on eltr ombopag therapy, use of Dimension [place] TBIL is not recommended. Chloride [Moles/Vol] 105 mmol/L 98-107 [facility] Eosinophils/100 WBC (Bld) 2.2 % 0-5 [facility] Glucose [Mass/Vol] 105 mg/dL 74-106 [facility] Comment on above: Fasting Glucose resu lt from 100 to 125 mg/dL suggests IMPAIRED HOMEOSTASIS per A.D.A. criteria. Neutrophils (Bld) [#/Vol] 4.6 10*3/uL 2.0-7.7 [facility] Neutrophils/100 WBC (Bld) 64.0 % 47-70 [facility] [facility] Potassium [Moles/Vol] 3.8 mmol/L 3.5-5.1 [facility] Protein [Mass/Vol] 7.6 g/dL 6.4-8.2 [facility] Sodium [Moles/Vol] 139 mmol/L 136-145 [facility] WBC (Bld) [#/Vol] 7.2 10*3/uL 4.4-11.0 [facility] Blood erythrocytes count (nu mber/volume)Ordered By: Shey Perez on 01-31-2023 RBC (Bld) [#/Vol] 3.94 10*6/uL 4.6-6.2 [facility] Blood hemoglobin measurement (mass/volume)Ordered By: Shey Perez on 01-31-2023 Hemoglobin (Bld) [Mass/Vol] 13.6 g/dL 13.0-16.5 [facility] Blood lymphocytes/100 leukoc ytesOrdered By: Shey Perez on 01-31-2023 Lymphocytes/100 WBC (Bld) 22.0 % 19-41 [facility] Blood monocytes/100 leukocyt esOrdered By: Shey Perez on 01-31-2023 Monocytes/100 WBC (Bld) 10.1 % 0-10 [facility] Blood platelet mean volumeOr dered By: Shey Perez on 01-31-2023 Platelet mean volume (Bld) [Entitic vol] 12.3 fL 6.2-12.0 [facility] Determination of erythrocyte mean corpuscular volume (MCV)Ordered By: Shey Perez on 01-31-2023 MCV (RBC) [Entitic vol] 105.3 fL 80-94 [facility] Hematocrit Auto (Bld) [Volum e fraction]Ordered By: Shey Perez on 01-31-2023 Hematocrit (Bld) [Volume fraction] 41.5 % 40-54 [facility] Laboratory - Chemistry and C hemistry - challengeOrdered By: Shey Perez on 01-31-2023 ALP [Catalytic activity/Vol] 45 U/L 45-117 [facility] ALT [Catalytic activity/Vol] 38 U/L 16-61 [facility] CO2 [Moles/Vol] 27.0 mmol/L 21.0-32.0 [facility] Globulin (S) [Mass/Vol] 3.7 g/dL 2.2-4.2 [facility] Urea nitrogen/Creatinine [Mass ratio] 20.4 mg/mg 10-20 [facility] Laboratory - Hematology and Cell countsOrdered By: Shey Perez on 01-31-2023 Erythrocyte distribution width (RBC) [Entitic vol] 50.1 fL 35.1-43.9 [facility] Erythrocyte distribution width (RBC) [Ratio] 12.9 % 11.6-14.6 [facility] Immature granulocytes/100 WBC (Bld) 1.000 % 0.0-0.9 [facility] Comment on above: IG% - Immature Granu locytes (promyelocytes, myelocytes and metamyelocytes) > 1% indicates that a LEFT SHIFT is Present. MCH (RBC) [Entitic mass] 34.5 pg 27.0-32.0 [facility] Nucleated RBC/100 WBC (Bld) [Ratio] 0 % 0-5 [facility] MCHC Auto (RBC) [Mass/Vol]Or dered By: Shey Perez on 01-31-2023 MCHC (RBC) [Mass/Vol] 32.8 g/dL 32-36 [facility] No Panel InformationOrdered By: Shey Perez on 01-31-2023 Estimated GFR (MDRD) Amer 94 mL/min >60 [facility] Comment on above: GFR Calc Estimated GFR (MDRD) Non-Af Amer 77 mL/min >60 [facility] Comment on above: Non- GFR Calc Platelets bldOrdered By: Sue Perez on 01-31-2023 Platelets (Bld) [#/Vol] 198 10*3/uL 150-450 [facility] Serum or plasma albumin carlyn urement (mass/volume)Ordered By: Shey Perez on 01-31-2023 Albumin [Mass/Vol] 3.9 g/dL 3.2-5.0 [facility] Serum or plasma albumin/glob ulin mass ratioOrdered By: Shey Perez on 01-31-2023 Albumin/Globulin [Mass ratio] 1.1 {ratio} 0.9-2.4 [facility] Serum or plasma calcium carlyn urement (mass/volume)Ordered By: Shey Perez on 01-31-2023 Calcium [Mass/Vol] 8.8 mg/dL 8.5-10.1 [facility] Serum or plasma creatinine m easurement (mass/volume)Ordered By: Sheydayna Perez on 01-31-2023 Creatinine [Mass/Vol] 1.03 mg/dL 0.70-1.30 [facility] Comment on above: The validity of the calculated GFR & GFRAA in patients over 70 years has not been determined. Clinical correlation is essential. Serum or plasma urea nitroge n measurement (mass/volume)Ordered By: Shey Perez on 01-31-2023 Urea nitrogen [Mass/Vol] 21 mg/dL 7-18 [facility] Thin prep Papanicolaou smear with manual screeningOrdered By: Shey Perez on 01-31-2023 Thin prep Papanicolaou smear with manual screening 27 U/L 15-37 [facility] Thin prep Papanicolaou smear with manual screening 7 5-15 [facility] Basophil percentageOrdered B y: Rohan Varela on 11-18-2022 Cholesterol [Mass/Vol] 251 mg/dL <200 [facility] Comment on above: <200 mg/dL Desirable 200-240 mg/dL Borderline >240 mg/dL High Risk Triglyceride [Mass/Vol] 240 mg/dL <199 [facility] Comment on above: The drugs N-Acetylcy steine and Metamizole may falsely depress this assay.Serum Triglycerides Reference Interval Normal <150 mg/dL Borderline high 150 - 199 mg/dL High 200 - 499 mg/dL Very High > or = 500 mg/dL Serum or plasma cholesterol in HDL measurement (mass/volume)Ordered By: Rohan Varela on 11-18-2022 Cholesterol in HDL [Mass/Vol] 64 mg/dL >40 [facility] Comment on above: The drugs N-Acetylcy steine and Metamizole may falsely depress this assay. Reference Range HDL <40 mg/dL Low HDL Cholesterol HDL >or= 60 mg/dL High HDL Cholesterol Serum or plasma cholesterol in VLDL measurement (mass/volume)Ordered By: Rohan Varela on 11-18-2022 Cholesterol in VLDL [Mass/Vol] 48 mg/dL 5-40 [facility] Serum or plasma low density lipoprotein (LDL) cholesterol measurement (mass/volume)Ordered By: Rohan Varela on 11-18-2022 Cholesterol in LDL [Mass/Vol] 139 mg/dL 0-130 [facility] Absolute lymphocyte countOrd ered By: Shey Perez on 11-17-2022 Lymphocytes Auto (Unsp spec) [#/Vol] 1.99 10*3/uL 0.83-4.51 [facility] Basophil percentageOrdered B y: Shey Perez on 11-17-2022 Basophils/100 WBC (Bld) 0.7 % 0-1 [facility] Bilirubin [Mass/Vol] 0.40 mg/dL 0.20-1.00 [facility] Comment on above: For patients on eltr ombopag therapy, use of Dimension [place] TBIL is not recommended. Chloride [Moles/Vol] 104 mmol/L 98-107 [facility] Eosinophils/100 WBC (Bld) 2.6 % 0-5 [facility] Glucose [Mass/Vol] 109 mg/dL 74-106 [facility] Comment on above: Fasting Glucose resu lt from 100 to 125 mg/dL suggests IMPAIRED HOMEOSTASIS per A.D.A. criteria. Neutrophils (Bld) [#/Vol] 4.7 10*3/uL 2.0-7.7 [facility] Neutrophils/100 WBC (Bld) 61.8 % 47-70 [facility] Potassium [Moles/Vol] 3.9 mmol/L 3.5-5.1 [facility] Protein [Mass/Vol] 7.6 g/dL 6.4-8.2 [facility] Sodium [Moles/Vol] 138 mmol/L 136-145 [facility] WBC (Bld) [#/Vol] 7.7 10*3/uL 4.4-11.0 [facility] Blood erythrocytes count (nu mber/volume)Ordered By: Shey Perez on 11-17-2022 RBC (Bld) [#/Vol] 4.09 10*6/uL 4.6-6.2 [facility] Blood hemoglobin measurement (mass/volume)Ordered By: Shey Perez on 11-17-2022 Hemoglobin (Bld) [Mass/Vol] 14.1 g/dL 13.0-16.5 [facility] Blood lymphocytes/100 leukoc ytesOrdered By: Shey Perez on 11-17-2022 Lymphocytes/100 WBC (Bld) 25.9 % 19-41 [facility] Blood monocytes/100 leukocyt esOrdered By: [facility] Ana on 11-17-2022 Monocytes/100 WBC (Bld) 8.6 % 0-10 [facility] Blood platelet mean volumeOr dered By: Shey Perez on 11-17-2022 Platelet mean volume (Bld) [Entitic vol] 13.4 fL 6.2-12.0 [facility] Determination of erythrocyte mean corpuscular volume (MCV)Ordered By: Sheydayna Perez on 11-17-2022 MCV (RBC) [Entitic vol] 104.9 fL 80-94 [facility] Hematocrit Auto (Bld) [Volum e fraction]Ordered By: Shey Perez on 11-17-2022 Hematocrit (Bld) [Volume fraction] 42.9 % 40-54 [facility] Laboratory - Chemistry and C hemistry - challengeOrdered By: [facility] Ana on 11-17-2022 ALP [Catalytic activity/Vol] 67 U/L 45-117 [facility] ALT [Catalytic activity/Vol] 43 U/L 16-61 [facility] CO2 [Moles/Vol] 27.0 mmol/L 21.0-32.0 [facility] Globulin (S) [Mass/Vol] 3.7 g/dL 2.2-4.2 [facility] Urea nitrogen/Creatinine [Mass ratio] 16.2 mg/mg 10-20 [facility] Laboratory - Hematology and Cell countsOrdered By: Shey Perez on 11-17-2022 Erythrocyte distribution width (RBC) [Entitic vol] 52.7 fL 35.1-43.9 [facility] Erythrocyte distribution width (RBC) [Ratio] 13.4 % 11.6-14.6 [facility] Immature granulocytes/100 WBC (Bld) 0.400 % 0.0-0.9 [facility] Comment on above: IG% - Immature Granu locytes (promyelocytes, myelocytes and metamyelocytes) > 1% indicates that a LEFT SHIFT is Present. MCH (RBC) [Entitic mass] 34.5 pg 27.0-32.0 [facility] Nucleated RBC/100 WBC (Bld) [Ratio] 0 % 0-5 [facility] MCHC Auto (RBC) [Mass/Vol]Or dered By: Shey Perez on 11-17-2022 MCHC (RBC) [Mass/Vol] 32.9 g/dL 32-36 [facility] No Panel InformationOrdered By: Shey Perez on 11-17-2022 Estimated GFR (MDRD) Amer 81 mL/min >60 [facility] Comment on above: GFR Calc Estimated GFR (MDRD) Non-Af Amer 67 mL/min >60 [facility] Comment on above: Non- GFR Calc Platelets bldOrdered By: Sue Perez on 11-17-2022 Platelets (Bld) [#/Vol] 240 10*3/uL 150-450 [facility] Serum or plasma albumin carlyn urement (mass/volume)Ordered By: Shey Perez on 11-17-2022 Albumin [Mass/Vol] 3.9 g/dL 3.2-5.0 [facility] Serum or plasma albumin/glob ulin mass ratioOrdered By: Shey Perez on 11-17-2022 Albumin/Globulin [Mass ratio] 1.1 {ratio} 0.9-2.4 [facility] Serum or plasma calcium carlyn urement (mass/volume)Ordered By: Shey Perez on 11-17-2022 Calcium [Mass/Vol] 9.6 mg/dL 8.5-10.1 [facility] Serum or plasma creatinine m easurement (mass/volume)Ordered By: Shey Perez on 11-17-2022 Creatinine [Mass/Vol] 1.17 mg/dL 0.70-1.30 [facility] Comment on above: The validity of the calculated GFR & GFRAA in patients over 70 years has not been determined. Clinical correlation is essential. Serum or plasma urea nitroge n measurement (mass/volume)Ordered By: Shey Perez on 11-17-2022 Urea nitrogen [Mass/Vol] 19 mg/dL - [facility] Thin prep Papanicolaou smear with manual screeningOrdered By: Shey Perez on 11-17-2022 Thin prep Papanicolaou smear with manual screening 28 U/L 15-37 [facility] Thin prep Papanicolaou smear with manual screening 7 5-15 [facility] Absolute lymphocyte countOrd ered By: Shey Perez on 08-26-2022 Lymphocytes Auto (Unsp spec) [#/Vol] 1.76 10*3/uL 0.83-4.51 [facility] Basophil percentageOrdered B y: Shey Perez on 08-26-2022 Basophils/100 WBC (Bld) 0.8 % 0-1 [facility] Bilirubin [Mass/Vol] 0.70 mg/dL 0.20-1.00 [facility] Comment on above: For patients on eltr ombopag therapy, use of Dimension [place] TBIL is not recommended. Chloride [Moles/Vol] 102 mmol/L 98-107 [facility] Eosinophils/100 WBC (Bld) 2.6 % 0-5 [facility] Glucose [Mass/Vol] 95 mg/dL 74-106 [facility] Neutrophils (Bld) [#/Vol] 9.0 10*3/uL 2.0-7.7 [facility] Neutrophils/100 WBC (Bld) 75.1 % 47-70 [facility] Potassium [Moles/Vol] 3.8 mmol/L 3.5-5.1 [facility] Protein [Mass/Vol] 7.7 g/dL 6.4-8.2 [facility] Sodium [Moles/Vol] 135 mmol/L 136-145 [facility] WBC (Bld) [#/Vol] 11.9 10*3/uL 4.4-11.0 [facility] Blood erythrocytes count (nu mber/volume)Ordered By: Shey Perez on 08-26-2022 RBC (Bld) [#/Vol] 4.21 10*6/uL 4.6-6.2 [facility] Blood hemoglobin measurement (mass/volume)Ordered By: Shey Perez on 08-26-2022 Hemoglobin (Bld) [Mass/Vol] 14.8 g/dL 13.0-16.5 [facility] Blood lymphocytes/100 leukoc ytesOrdered By: Shey Perez on 08-26-2022 Lymphocytes/100 WBC (Bld) 14.7 % 19-41 [facility] Blood monocytes/100 leukocyt esOrdered By: Shey Perez on 08-26-2022 Monocytes/100 WBC (Bld) 6.5 % 0-10 [facility] Blood platelet mean volumeOr dered By: Shey Perez on 08-26-2022 Platelet mean volume (Bld) [Entitic vol] 12.9 fL 6.2-12.0 [facility] Determination of erythrocyte mean corpuscular volume (MCV)Ordered By: Shey Perez on 08-26-2022 MCV (RBC) [Entitic vol] 101.9 fL 80-94 [facility] Hematocrit Auto (Bld) [Volum e fraction]Ordered By: Shey Perez on 08-26-2022 Hematocrit (Bld) [Volume fraction] 42.9 % 40-54 [facility] Laboratory - Chemistry and C hemistry - challengeOrdered By: Shey Perez on 08-26-2022 ALP [Catalytic activity/Vol] 45 U/L 45-117 [facility] ALT [Catalytic activity/Vol] 29 U/L 16-61 [facility] CO2 [Moles/Vol] 27.0 mmol/L 21.0-32.0 [facility] Globulin (S) [Mass/Vol] 4.0 g/dL 2.2-4.2 [facility] Urea nitrogen/Creatinine [Mass ratio] 16.8 mg/mg 10-20 [facility] Laboratory - Hematology and Cell countsOrdered By: Shey Perez on 08-26-2022 Erythrocyte distribution width (RBC) [Entitic vol] 47.2 fL 35.1-43.9 [facility] Erythrocyte distribution width (RBC) [Ratio] 12.6 % 11.6-14.6 [facility] Immature granulocytes/100 WBC (Bld) 0.300 % 0.0-0.9 [facility] Comment on above: IG% - Immature Granu locytes (promyelocytes, myelocytes and metamyelocytes) > 1% indicates that a LEFT SHIFT is Present. MCH (RBC) [Entitic mass] 35.2 pg 27.0-32.0 [facility] Nucleated RBC/100 WBC (Bld) [Ratio] 0 % 0-5 [facility] MCHC Auto (RBC) [Mass/Vol]Or dered By: Shey Perez on 08-26-2022 MCHC (RBC) [Mass/Vol] 34.5 g/dL 32-36 [facility] No Panel InformationOrdered By: Shey Perez on 08-26-2022 Estimated GFR (MDRD) Amer 90 mL/min >60 [facility] Comment on above: GFR Calc Estimated GFR (MDRD) Non-Af Amer 74 mL/min >60 [facility] Comment on above: Non- GFR Calc Platelets bldOrdered By: Sue Perez on 08-26-2022 Platelets (Bld) [#/Vol] 291 10*3/uL 150-450 [facility] Serum or plasma albumin carlyn urement (mass/volume)Ordered By: Shey Perez on 08-26-2022 Albumin [Mass/Vol] 3.7 g/dL 3.2-5.0 [facility] Serum or plasma albumin/glob ulin mass ratioOrdered By: Shey Perez on 08-26-2022 Albumin/Globulin [Mass ratio] 0.9 {ratio} 0.9-2.4 [facility] Serum or plasma calcium carlyn urement (mass/volume)Ordered By: Shey Perez on 08-26-2022 Calcium [Mass/Vol] 9.3 mg/dL 8.5-10.1 [facility] Serum or plasma creatinine m easurement (mass/volume)Ordered By: Shey Perez on 08-26-2022 Creatinine [Mass/Vol] 1.07 mg/dL 0.70-1.30 [facility] Comment on above: The validity of the calculated GFR & GFRAA in patients over 70 years has not been determined. Clinical correlation is essential. Serum or plasma urea nitroge n measurement (mass/volume)Ordered By: Shey Perez on 08-26-2022 Urea nitrogen [Mass/Vol] 18 mg/dL 7-18 [facility] Thin prep Papanicolaou smear with manual screeningOrdered By: Shey Perez on 08-26-2022 Thin prep Papanicolaou smear with manual screening 20 U/L 15-37 [facility] Thin prep Papanicolaou smear with manual screening 6 5-15 [facility] Absolute lymphocyte countOrd ered By: Dr. Perez on 06-04-2022 Lymphocytes Auto (Unsp spec) [#/Vol] 1.20 10*3/uL 0.83-4.51 [facility] Basophil percentageOrdered B y: Dr. Perez on 06-04-2022 Basophils/100 WBC (Bld) 0.6 % 0-1 [facility] Bilirubin [Mass/Vol] 0.30 mg/dL 0.20-1.00 [facility] Comment on above: For patients on eltr ombopag therapy, use of Dimension [place] TBIL is not recommended. Chloride [Moles/Vol] 104 mmol/L 98-107 [facility] Eosinophils/100 WBC (Bld) 1.7 % 0-5 [facility] Glucose [Mass/Vol] 107 mg/dL 74-106 [facility] Comment on above: Fasting Glucose resu lt from 100 to 125 mg/dL suggests IMPAIRED HOMEOSTASIS per A.D.A. criteria. Neutrophils (Bld) [#/Vol] 6.7 10*3/uL 2.0-7.7 [facility] Neutrophils/100 WBC (Bld) 74.3 % 47-70 [facility] Potassium [Moles/Vol] 3.9 mmol/L 3.5-5.1 [facility] Protein [Mass/Vol] 7.7 g/dL 6.4-8.2 [facility] Sodium [Moles/Vol] 137 mmol/L 136-145 [facility] WBC (Bld) [#/Vol] 9.1 10*3/uL 4.4-11.0 [facility] Blood erythrocytes count (nu mber/volume)Ordered By: Dr. Perez on 06-04-2022 RBC (Bld) [#/Vol] 4.18 10*6/uL 4.6-6.2 [facility] Blood hemoglobin measurement (mass/volume)Ordered By: Dr. Perez on 06-04-2022 Hemoglobin (Bld) [Mass/Vol] 14.6 g/dL 13.0-16.5 [facility] Blood lymphocytes/100 leukoc ytesOrdered By: Dr. Perez on 06-04-2022 Lymphocytes/100 WBC (Bld) 13.2 % 19-41 [facility] Blood monocytes/100 leukocyt esOrdered By: Dr. Perez on 06-04-2022 Monocytes/100 WBC (Bld) 8.9 % 0-10 [facility] Blood platelet mean volumeOr dered By: Dr. Perez on 06-04-2022 Platelet mean volume (Bld) [Entitic vol] 12.4 fL 6.2-12.0 [facility] Determination of erythrocyte mean corpuscular volume (MCV)Ordered By: Dr. Perez on 06-04-2022 MCV (RBC) [Entitic vol] 103.3 fL 80-94 [facility] Hematocrit Auto (Bld) [Volum e fraction]Ordered By: Dr. Perez on 06-04-2022 Hematocrit (Bld) [Volume fraction] 43.2 % 40-54 [facility] Laboratory - Chemistry and C hemistry - challengeOrdered By: Dr. Perez on 06-04-2022 ALP [Catalytic activity/Vol] 50 U/L 45-117 [facility] ALT [Catalytic activity/Vol] 45 U/L 16-61 [facility] CO2 [Moles/Vol] 26.0 mmol/L 21.0-32.0 [facility] Globulin (S) [Mass/Vol] 3.9 g/dL 2.2-4.2 [facility] Urea nitrogen/Creatinine [Mass ratio] 20.1 mg/mg 10-20 [facility] Laboratory - Hematology and Cell countsOrdered By: Dr. Perez on 06-04-2022 Erythrocyte distribution width (RBC) [Entitic vol] 48.5 fL 35.1-43.9 [facility] Erythrocyte distribution width (RBC) [Ratio] 12.9 % 11.6-14.6 [facility] Immature granulocytes/100 WBC (Bld) 1.300 % 0.0-0.9 [facility] Comment on above: IG% - Immature Granu locytes (promyelocytes, myelocytes and metamyelocytes) > 1% indicates that a LEFT SHIFT is Present. MCH (RBC) [Entitic mass] 34.9 pg 27.0-32.0 [facility] Nucleated RBC/100 WBC (Bld) [Ratio] 0 % 0-5 [facility] MCHC Auto (RBC) [Mass/Vol]Or dered By: Dr. Perez on 06-04-2022 MCHC (RBC) [Mass/Vol] 33.8 g/dL 32-36 [facility] No Panel InformationOrdered By: Dr. Perez on 06-04-2022 Estimated GFR (MDRD) Amer 97 mL/min >60 [facility] Comment on above: GFR Calc Estimated GFR (MDRD) Non-Af Amer 81 mL/min >60 [facility] Comment on above: Non- GFR Calc Platelets bldOrdered By: Dr. Perez on 06-04-2022 Platelets (Bld) [#/Vol] 219 10*3/uL 150-450 [facility] Serum or plasma albumin carlyn urement (mass/volume)Ordered By: Dr. Perez on 06-04-2022 Albumin [Mass/Vol] 3.8 g/dL 3.2-5.0 [facility] Serum or plasma albumin/glob ulin mass ratioOrdered By: Dr. Perez on 06-04-2022 Albumin/Globulin [Mass ratio] 1.0 {ratio} 0.9-2.4 [facility] Serum or plasma calcium carlyn urement (mass/volume)Ordered By: Dr. Perez on 06-04-2022 Calcium [Mass/Vol] 9.7 mg/dL 8.5-10.1 [facility] Serum or plasma creatinine m easurement (mass/volume)Ordered By: Dr. Preez on 06-04-2022 Creatinine [Mass/Vol] 1.00 mg/dL 0.70-1.30 [facility] Comment on above: The validity of the calculated GFR & GFRAA in patients over 70 years has not been determined. Clinical correlation is essential. Serum or plasma urea nitroge n measurement (mass/volume)Ordered By: Dr. Perez on 06-04-2022 Urea nitrogen [Mass/Vol] 20 mg/dL 7-18 [facility] Thin prep Papanicolaou smear with manual screeningOrdered By: Dr. Perez on 06-04-2022 Thin prep Papanicolaou smear with manual screening 32 U/L 15-37 [facility] Thin prep Papanicolaou smear with manual screening 7 5-15 [facility] Laboratory - Microbiology an d Antimicrobial susceptibilityon 05-21-2022 SARS-CoV-2 (COVID-19) RNA SEN+probe Ql (Unsp spec) Detected [facility] No Panel Informationon 05-21 Influenza Types A,B Rapid (Clinic) Not detected [facility] Absolute lymphocyte countOrd ered By: Dr. Perez on 03-07-2022 Lymphocytes Auto (Unsp spec) [#/Vol] 1.58 10*3/uL 0.83-4.51 [facility] Basophil percentageOrdered B y: Dr. Perez on 03-07-2022 Basophils/100 WBC (Bld) 0.9 % 0-1 [facility] Bilirubin [Mass/Vol] 0.50 mg/dL 0.20-1.00 [facility] Comment on above: For patients on eltr ombopag therapy, use of Dimension [place] TBIL is not recommended. Chloride [Moles/Vol] 104 mmol/L 98-107 [facility] Eosinophils/100 WBC (Bld) 1.9 % 0-5 [facility] Glucose [Mass/Vol] 103 mg/dL 74-106 [facility] Comment on above: Fasting Glucose resu lt from 100 to 125 mg/dL suggests IMPAIRED HOMEOSTASIS per A.D.A. criteria. Neutrophils (Bld) [#/Vol] 4.2 10*3/uL 2.0-7.7 [facility] Neutrophils/100 WBC (Bld) 62.0 % 47-70 [facility] Potassium [Moles/Vol] 4.5 mmol/L 3.5-5.1 [facility] Protein [Mass/Vol] 7.1 g/dL 6.4-8.2 [facility] Sodium [Moles/Vol] 138 mmol/L 136-145 [facility] WBC (Bld) [#/Vol] 6.8 10*3/uL 4.4-11.0 [facility] Blood erythrocytes count (nu mber/volume)Ordered By: Dr. Perez on 03-07-2022 RBC (Bld) [#/Vol] 3.94 10*6/uL 4.6-6.2 [facility] Blood hemoglobin measurement (mass/volume)Ordered By: Dr. Perez on 03-07-2022 Hemoglobin (Bld) [Mass/Vol] 14.1 g/dL 13.0-16.5 [facility] Blood lymphocytes/100 leukoc ytesOrdered By: Dr. Perez on 03-07-2022 Lymphocytes/100 WBC (Bld) 23.3 % 19-41 [facility] Blood monocytes/100 leukocyt esOrdered By: Dr. Perez on 03-07-2022 Monocytes/100 WBC (Bld) 10.9 % 0-10 [facility] Blood platelet mean volumeOr dered By: Dr. Perez on 03-07-2022 Platelet mean volume (Bld) [Entitic vol] 11.4 fL 6.2-12.0 [facility] Determination of erythrocyte mean corpuscular volume (MCV)Ordered By: Dr. Perez on 03-07-2022 MCV (RBC) [Entitic vol] 106.9 fL 80-94 [facility] Hematocrit Auto (Bld) [Volum e fraction]Ordered By: Dr. Perez on 03-07-2022 Hematocrit (Bld) [Volume fraction] 42.1 % 40-54 [facility] Laboratory - Chemistry and C hemistry - challengeOrdered By: Dr. Perez on 03-07-2022 ALP [Catalytic activity/Vol] 40 U/L 45-117 [facility] ALT [Catalytic activity/Vol] 37 U/L 16-61 [facility] CO2 [Moles/Vol] 29.0 mmol/L 21.0-32.0 [facility] Globulin (S) [Mass/Vol] 3.0 g/dL 2.2-4.2 [facility] Urea nitrogen/Creatinine [Mass ratio] 17.7 mg/mg 10-20 [facility] - Hematology and Cell countsOrdered By: Dr. Perez on 03-07-2022 Erythrocyte distribution width (RBC) [Entitic vol] 51.6 fL 35.1-43.9 [facility] Erythrocyte distribution width (RBC) [Ratio] 13.1 % 11.6-14.6 [facility] [facility] Immature granulocytes/100 WBC (Bld) 1.000 % 0.0-0.9 [facility] Comment on above: IG% - Immature Granu locytes (promyelocytes, myelocytes and metamyelocytes) > 1% indicates that a LEFT SHIFT is Present. MCH (RBC) [Entitic mass] 35.8 pg 27.0-32.0 [facility] Nucleated RBC/100 WBC (Bld) [Ratio] 0 % 0-5 [facility] MCHC Auto (RBC) [Mass/Vol]Or dered By: Dr. Perez on 03-07-2022 MCHC (RBC) [Mass/Vol] 33.5 g/dL 32-36 [facility] No Panel InformationOrdered By: Dr. Perez on 03-07-2022 Estimated GFR (MDRD) Amer 84 mL/min >60 [facility] Comment on above: GFR Calc Estimated GFR (MDRD) Non-Af Amer 70 mL/min >60 [facility] Comment on above: Non- GFR Calc Platelets bldOrdered By: Dr. Perez on 03-07-2022 Platelets (Bld) [#/Vol] 187 10*3/uL 150-450 [facility] Serum or plasma albumin carlyn urement (mass/volume)Ordered By: Dr. Perez on 03-07-2022 Albumin [Mass/Vol] 4.1 g/dL 3.2-5.0 [facility] Serum or plasma albumin/glob ulin mass ratioOrdered By: Dr. Perez on 03-07-2022 Albumin/Globulin [Mass ratio] 1.4 {ratio} 0.9-2.4 [facility] Serum or plasma calcium carlyn urement (mass/volume)Ordered By: Dr. Perez on 03-07-2022 Calcium [Mass/Vol] 9.4 mg/dL 8.5-10.1 [facility] Serum or plasma creatinine m easurement (mass/volume)Ordered By: Dr. Perez on 03-07-2022 Creatinine [Mass/Vol] 1.13 mg/dL 0.70-1.30 [facility] Comment on above: The validity of the calculated GFR & GFRAA in patients over 70 years has not been determined. Clinical correlation is essential. Serum or plasma urea nitroge n measurement (mass/volume)Ordered By: Dr. Perez on 03-07-2022 Urea nitrogen [Mass/Vol] 20 mg/dL 7-18 [facility] Thin prep Papanicolaou smear with manual screeningOrdered By: Dr. Perez on 03-07-2022 Thin prep Papanicolaou smear with manual screening 26 U/L 15-37 [facility] Thin prep Papanicolaou smear with manual screening 5 5-15 [facility] Absolute lymphocyte countOrd ered By: Dr. Perez on 12-17-2021 Lymphocytes Auto (Unsp spec) [#/Vol] 1.16 10*3/uL 0.83-4.51 [facility] Basophil percentageOrdered B y: Dr. Perez on 12-17-2021 Basophils/100 WBC (Bld) 0.6 % 0-1 [facility] Bilirubin [Mass/Vol] 0.50 mg/dL 0.20-1.00 [facility] Comment on above: For patients on eltr ombopag therapy, use of Dimension [place] TBIL is not recommended. Chloride [Moles/Vol] 104 mmol/L 98-107 [facility] Eosinophils/100 WBC (Bld) 1.6 % 0-5 [facility] Glucose [Mass/Vol] 128 mg/dL 74-106 [facility] Comment on above: Fasting Glucose resu lt greater than or equal to 126 mg/dL suggests DIABETES MELLITUS per A.D.A. criteria. Neutrophils (Bld) [#/Vol] 6.0 10*3/uL 2.0-7.7 [facility] Neutrophils/100 WBC (Bld) 76.2 % 47-70 [facility] Potassium [Moles/Vol] 3.8 mmol/L 3.5-5.1 [facility] Protein [Mass/Vol] 7.7 g/dL 6.4-8.2 [facility] Sodium [Moles/Vol] 138 mmol/L 136-145 [facility] WBC (Bld) [#/Vol] 7.9 10*3/uL 4.4-11.0 [facility] Blood erythrocytes count (nu mber/volume)Ordered By: Dr. Perez on 12-17-2021 RBC (Bld) [#/Vol] 4.17 10*6/uL 4.6-6.2 [facility] Blood hemoglobin measurement (mass/volume)Ordered By: Dr. Perez on 12-17-2021 Hemoglobin (Bld) [Mass/Vol] 14.4 g/dL 13.0-16.5 [facility] Blood lymphocytes/100 leukoc ytesOrdered By: Dr. Perez on 12-17-2021 Lymphocytes/100 WBC (Bld) 14.7 % 19-41 [facility] Blood monocytes/100 leukocyt esOrdered By: Dr. Perez on 12-17-2021 Monocytes/100 WBC (Bld) 6.3 % 0-10 [facility] Blood platelet adequacy dete ction by light microscopyOrdered By: Dr. Perez on 12-17-2021 Platelets LM Ql (Bld) ADEQUATE ADEQ [facility] Blood platelet mean volumeOr dered By: Dr. Perez on 12-17-2021 Platelet mean volume (Bld) [Entitic vol] 12.8 fL 6.2-12.0 [facility] Determination of erythrocyte mean corpuscular volume (MCV)Ordered By: Dr. Perez on 12-17-2021 MCV (RBC) [Entitic vol] 103.6 fL 80-94 [facility] Hematocrit Auto (Bld) [Volum e fraction]Ordered By: Dr. Perez on 12-17-2021 Hematocrit (Bld) [Volume fraction] 43.2 % 40-54 [facility] Laboratory - Chemistry and C hemistry - challengeOrdered By: Dr. Perez on 12-17-2021 ALP [Catalytic activity/Vol] 45 U/L 45-117 [facility] ALT [Catalytic activity/Vol] 39 U/L 16-61 [facility] CO2 [Moles/Vol] 26.0 mmol/L 21.0-32.0 [facility] Globulin (S) [Mass/Vol] 3.6 g/dL 2.2-4.2 [facility] Urea nitrogen/Creatinine [Mass ratio] 14.7 mg/mg 10-20 [facility] Laboratory - Hematology and Cell countsOrdered By: Dr. Perez on 12-17-2021 Anisocytosis Ql (Bld) 1+ [facility] Erythrocyte distribution width (RBC) [Entitic vol] 48.1 fL 35.1-43.9 [facility] Erythrocyte distribution width (RBC) [Ratio] 12.6 % 11.6-14.6 [facility] Immature granulocytes/100 WBC (Bld) 0.600 % 0.0-0.9 [facility] Comment on above: IG% - Immature Granu locytes (promyelocytes, myelocytes and metamyelocytes) > 1% indicates that a LEFT SHIFT is Present. MCH (RBC) [Entitic mass] 34.5 pg 27.0-32.0 [facility] Nucleated RBC/100 WBC (Bld) [Ratio] 0 % 0-5 [facility] MCHC Auto (RBC) [Mass/Vol]Or dered By: Dr. Perez on 12-17-2021 MCHC (RBC) [Mass/Vol] 33.3 g/dL 32-36 [facility] Macrocytes detectionOrdered By: Dr. Perez on 12-17-2021 Macrocytes Ql (Bld) 1+ [facility] No Panel InformationOrdered By: Dr. Perez on 12-17-2021 Estimated GFR (MDRD) Amer 82 mL/min >60 [facility] Comment on above: GFR Calc Estimated GFR (MDRD) Non-Af Amer 68 mL/min >60 [facility] Comment on above: Non- GFR Calc Platelets bldOrdered By: Dr. Perez on 12-17-2021 Platelets (Bld) [#/Vol] 250 10*3/uL 150-450 [facility] RBC morphologyOrdered By: Dr Arvin Perez on 12-17-2021 RBC morphology finding Nom (Bld) N CHROM NORMAL NORM C&C [facility] Serum or plasma albumin carlyn urement (mass/volume)Ordered By: Dr. Perez on 12-17-2021 Albumin [Mass/Vol] 4.1 g/dL 3.2-5.0 [facility] Serum or plasma albumin/glob ulin mass ratioOrdered By: Dr. Perez on 12-17-2021 Albumin/Globulin [Mass ratio] 1.1 {ratio} 0.9-2.4 [facility] Serum or plasma calcium carlyn urement (mass/volume)Ordered By: Dr. Perez on 12-17-2021 Calcium [Mass/Vol] 9.7 mg/dL 8.5-10.1 [facility] Serum or plasma creatinine m easurement (mass/volume)Ordered By: Dr. Perez on 12-17-2021 Creatinine [Mass/Vol] 1.16 mg/dL 0.70-1.30 [facility] Comment on above: The validity of the calculated GFR & GFRAA in patients over 70 years has not been determined. Clinical correlation is essential. Serum or plasma urea nitroge n measurement (mass/volume)Ordered By: Dr. Perez on 12-17-2021 Urea nitrogen [Mass/Vol] 17 mg/dL -18 [facility] Thin prep Papanicolaou smear with manual screeningOrdered By: Dr. Perez on 12-17-2021 Thin prep Papanicolaou smear with manual screening 26 U/L 15-37 [facility] Thin prep Papanicolaou smear with manual screening 8 5-15 [facility] No Panel Informationon 10-23 Troponin I High Sensitivity 8 pg/mL 3.0-78.0 [facility] Work Phone: Comment on above: Please Note: New Courtney t Units and Gender Specific Reference Ranges. For more information see Policy Stat Procedure [place] High Sensitivity Troponin (TNIH) and attachments. Absolute lymphocyte counton 09-20-2021 Lymphocytes Auto (Unsp spec) [#/Vol] 1.78 10*3/uL 0.83-4.51 [facility] Work Phone: [phone] Basophil percentageon 2021 Basophils/100 WBC (Bld) 0.7 % 0-1 [facility] Work Phone: Bilirubin [Mass/Vol] 0.50 mg/dL 0.20-1.00 [facility] Work Phone: [phone] Comment on above: For patients on eltr ombopag therapy, use of Dimension [place] TBIL is not recommended. Chloride [Moles/Vol] 105 mmol/L 98-107 [facility] Work Phone: Eosinophils/100 WBC (Bld) 2.2 % 0-5 [facility] Work Phone: Glucose [Mass/Vol] 109 mg/dL 74-106 [facility] Work Phone: [phone] Comment on above: Fasting Glucose resu lt from 100 to 125 mg/dL suggests IMPAIRED HOMEOSTASIS per A.D.A. criteria. Neutrophils (Bld) [#/Vol] 4.1 10*3/uL 2.0-7.7 [facility] Work Phone: Neutrophils/100 WBC (Bld) 61.1 % 47-70 [facility] Work Phone: Potassium [Moles/Vol] 4.1 mmol/L 3.5-5.1 [facility] Work Phone: Protein [Mass/Vol] 7.4 g/dL 6.4-8.2 [facility] Work Phone: Sodium [Moles/Vol] 138 mmol/L 136-145 [facility] Work Phone: WBC (Bld) [#/Vol] 6.7 10*3/uL 4.4-11.0 [facility] Work Phone: Blood erythrocytes count (nu mber/volume)on 09-20-2021 RBC (Bld) [#/Vol] 3.96 10*6/uL 4.6-6.2 [facility] Work Phone: Blood hemoglobin measurement (mass/volume)on 09-20-2021 Hemoglobin (Bld) [Mass/Vol] 13.5 g/dL 13.0-16.5 [facility] Work Phone: Blood lymphocytes/100 leukoc yteson 09-20-2021 Lymphocytes/100 WBC (Bld) 26.6 % 19-41 [facility] Work Phone: Blood monocytes/100 leukocyt eson 09-20-2021 Monocytes/100 WBC (Bld) 8.7 % 0-10 [facility] Work Phone: Blood platelet mean volumeon 09-20-2021 Platelet mean volume (Bld) [Entitic vol] 11.7 fL 6.2-12.0 [facility] Work Phone: Determination of erythrocyte mean corpuscular volume (MCV)on 09-20-2021 MCV (RBC) [Entitic vol] 105.6 fL 80-94 [facility] Work Phone: Hematocrit Auto (Bld) [Volum e fraction]on 09-20-2021 Hematocrit (Bld) [Volume fraction] 41.8 % 40-54 [facility] Work Phone: [phone] Laboratory - Chemistry and C hemistry - challengeon 09-20-2021 ALP [Catalytic activity/Vol] 43 U/L 45-117 [facility] Work Phone: ALT [Catalytic activity/Vol] 35 U/L 16-61 [facility] Work Phone: CO2 [Moles/Vol] 31.0 mmol/L 21.0-32.0 [facility] Work Phone: [phone] Globulin (S) [Mass/Vol] 3.5 g/dL 2.2-4.2 [facility] Work Phone: Urea nitrogen/Creatinine [Mass ratio] 13.0 mg/mg 10-20 [facility] Work Phone: Laboratory - Hematology and Cell countson 09-20-2021 Erythrocyte distribution width (RBC) [Entitic vol] 51.8 fL 35.1-43.9 [facility] Work Phone: Erythrocyte distribution width (RBC) [Ratio] 13.4 % 11.6-14.6 [facility] Work Phone: Immature granulocytes/100 WBC (Bld) 0.700 % 0.0-0.9 [facility] Work Phone: Comment on above: IG% - Immature Granu locytes (promyelocytes, myelocytes and metamyelocytes) > 1% indicates that a LEFT SHIFT is Present. MCH (RBC) [Entitic mass] 34.1 pg 27.0-32.0 [facility] Work Phone: Nucleated RBC/100 WBC (Bld) [Ratio] 0 % 0-5 [facility] Work Phone: MCHC Auto (RBC) [Mass/Vol]on 09-20-2021 MCHC (RBC) [Mass/Vol] 32.3 g/dL 32-36 [facility] Work Phone: No Panel Informationon 09-20 Estimated GFR (MDRD) Amer 83 mL/min >60 [facility] Work Phone: Comment on above: GFR Calc Estimated GFR (MDRD) Non-Af Amer 68 mL/min >60 [facility] Work Phone: Comment on above: Non- GFR Calc Platelets bldon 09-20-2021 Platelets (Bld) [#/Vol] 185 10*3/uL 150-450 [facility] Work Phone: Serum or plasma albumin carlyn urement (mass/volume)on 09-20-2021 Albumin [Mass/Vol] 3.9 g/dL 3.2-5.0 [facility] Work Phone: Serum or plasma albumin/glob ulin mass ratioon 09-20-2021 Albumin/Globulin [Mass ratio] 1.1 {ratio} 0.9-2.4 [facility] Work Phone: Serum or plasma calcium carlyn urement (mass/volume)on 09-20-2021 Calcium [Mass/Vol] 9.4 mg/dL 8.5-10.1 [facility] Work Phone: Serum or plasma creatinine m easurement (mass/volume)on 09-20-2021 Creatinine [Mass/Vol] 1.15 mg/dL 0.70-1.30 [facility] Work Phone: Comment on above: The validity of the calculated GFR & GFRAA in patients over 70 years has not been determined. Clinical correlation is essential. Serum or plasma urea nitroge n measurement (mass/volume)on 09-20-2021 Urea nitrogen [Mass/Vol] 15 mg/dL 7-18 [facility] Work Phone: Thin prep Papanicolaou smear with manual screeningon 09-20-2021 Thin prep Papanicolaou smear with manual screening 25 U/L 15-37 [facility] Work Phone: Thin prep Papanicolaou smear with manual screening 2 5-15 [facility] Work Phone: Laboratory - Chemistry and C hemistry - challengeon 07-22-2021 Cobalamin (Vitamin B12) [Mass/Vol] 509 pg/mL 211-911 [facility] Work Phone: Laboratory - Microbiology an d Antimicrobial susceptibilityon 06-19-2021 SARS-CoV-2 (COVID-19) RNA SEN+probe Ql (Unsp spec) Not detected Not Detect [facility] Work Phone: Comment on above: Normal Reference Ran ge: Not DetectedMethod:(RT-PCR) real-time reverse transcriptase PCRLuminex AMIE Instrument*The Food and Drug Administration (FDA) has issued an Emergency Use Authorization (EAU) for the AMIE SARS-CoV-2 Assay for the rapid detection of the virus that causes COVID-19. This test has been validated, but the [facility] independent review of this validation is pending.*Negative results do not preclude infection and should not be used as the sole basis for treatment or patient management. Optimum specimen types and timing for peak viral levels during infections caused by SARS-CoV-2 have not been determined. Collection of multiple specimens from the same patient may be necessary to detect the virus. The possibility of a false negative result should be considered if the patient has clinical presentation or has had recent exposure. No Panel Informationon 06-19 Influenza Types A,B Rapid (Clinic) Negative [facility] Work Phone: [phone] Influenza Types A,B Direct FA ([facility]) [facility] Work Phone: [phone] Absolute lymphocyte counton 06-14-2021 Lymphocytes Auto (Unsp spec) [#/Vol] 2.39 10*3/uL 0.83-4.51 [facility] Work Phone: [phone] Basophil percentageon 2021 Basophils/100 WBC (Bld) 0.6 % 0-1 [facility] Work Phone: [phone] Bilirubin [Mass/Vol] 0.30 mg/dL 0.20-1.00 [facility] Work Phone: [phone] Comment on above: For patients on eltr ombopag therapy, use of Dimension [place] TBIL is not recommended. Chloride [Moles/Vol] 102 mmol/L 98-107 [facility] Work Phone: Eosinophils/100 WBC (Bld) 2.5 % 0-5 [facility] Work Phone: Glucose [Mass/Vol] 97 mg/dL 74-106 [facility] Work Phone: Neutrophils (Bld) [#/Vol] 5.0 10*3/uL 2.0-7.7 [facility] Work Phone: Neutrophils/100 WBC (Bld) 57.3 % 47-70 [facility] Work Phone: [phone] Potassium [Moles/Vol] 3.8 mmol/L 3.5-5.1 [facility] Work Phone: Protein [Mass/Vol] 7.7 g/dL 6.4-8.2 [facility] Work [facility]: Sodium [Moles/Vol] 136 mmol/L 136-145 [facility] Work Phone: WBC (Bld) [#/Vol] 8.7 10*3/uL 4.4-11.0 [facility] Work Phone: Blood erythrocytes count (nu mber/volume)on 06-14-2021 RBC (Bld) [#/Vol] 4.10 10*6/uL 4.6-6.2 [facility] Work Phone: [phone] Blood hemoglobin measurement (mass/volume)on 06-14-2021 Hemoglobin (Bld) [Mass/Vol] 13.9 g/dL 13.0-16.5 [facility] Work Phone: Blood lymphocytes/100 leukoc yteson 06-14-2021 Lymphocytes/100 WBC (Bld) 27.6 % 19-41 [facility] Work Phone: Blood monocytes/100 leukocyt eson 06-14-2021 Monocytes/100 WBC (Bld) 11.4 % 0-10 [facility] Work Phone: Blood platelet adequacy dete ction by light microscopyon 06-14-2021 Platelets LM Ql (Bld) [facility]Q [facility] Work Phone: Blood platelet mean volumeon 06-14-2021 Platelet mean volume (Bld) [Entitic vol] 13.4 fL 6.2-12.0 [facility] Work Phone: Determination of erythrocyte mean corpuscular volume (MCV)on 06-14-2021 MCV (RBC) [Entitic vol] 101.2 fL 80-94 [facility] Work Phone: Hematocrit Auto (Bld) [Volum e fraction]on 06-14-2021 Hematocrit (Bld) [Volume fraction] 41.5 % 40-54 [facility] Work Phone: Laboratory - Chemistry and C hemistry - challengeon 06-14-2021 ALP [Catalytic activity/Vol] 46 U/L 45-117 [facility] Work Phone: ALT [Catalytic activity/Vol] 39 U/L 16-61 [facility] Work Phone: CO2 [Moles/Vol] 27.0 mmol/L 21.0-32.0 [facility] Work Phone: Globulin (S) [Mass/Vol] 3.6 g/dL 2.2-4.2 [facility] Work Phone: Urea nitrogen/Creatinine [Mass ratio] 14.2 mg/mg 10-20 [facility] Work Phone: Laboratory - Hematology and Cell countson 06-14-2021 Erythrocyte distribution width (RBC) [Entitic vol] 48.8 fL 35.1-43.9 [facility] Work Phone: Erythrocyte distribution width (RBC) [Ratio] 13.1 % 11.6-14.6 [facility] Work Phone: Immature granulocytes/100 WBC (Bld) 0.600 % 0.0-0.9 [facility] Work Phone: Comment on above: IG% - Immature Granu locytes (promyelocytes, myelocytes and metamyelocytes) > 1% indicates that a LEFT SHIFT is Present. MCH (RBC) [Entitic mass] 33.9 pg 27.0-32.0 [facility] Work Phone: Nucleated RBC/100 WBC (Bld) [Ratio] 0 % 0-5 [facility] Work Phone: MCHC Auto (RBC) [Mass/Vol]on 06-14-2021 MCHC (RBC) [Mass/Vol] 33.5 g/dL 32-36 [facility] Work Phone: No Panel Informationon 06-14 Estimated GFR (MDRD) Amer 85 mL/min >60 [facility] Work Phone: Comment on above: GFR Calc Estimated GFR (MDRD) Non-Af Amer 70 mL/min >60 [facility] Work Phone: Comment on above: Non- GFR Calc Platelets bldon 06-14-2021 Platelets (Bld) [#/Vol] 231 10*3/uL 150-450 [facility] Work Phone: RBC morphologyon 06-14-2021 RBC morphology finding Nom (Bld) NORM C+C NORMAL NORM C&C [facility] Work Phone: Serum or plasma albumin carlyn urement (mass/volume)on 06-14-2021 Albumin [Mass/Vol] 4.1 g/dL 3.2-5.0 [facility] Work Phone: Serum or plasma albumin/glob ulin mass ratioon 06-14-2021 Albumin/Globulin [Mass ratio] 1.1 {ratio} 0.9-2.4 [facility] Work Phone: Serum or plasma calcium carlyn urement (mass/volume)on 06-14-2021 Calcium [Mass/Vol] 9.1 mg/dL 8.5-10.1 [facility] Work Phone: Serum or plasma creatinine m easurement (mass/volume)on 06-14-2021 Creatinine [Mass/Vol] 1.13 mg/dL 0.70-1.30 [facility] Work Phone: Comment on above: The validity of the calculated GFR & GFRAA in patients over 70 years has not been determined. Clinical correlation is essential. Serum or plasma urea nitroge n measurement (mass/volume)on 06-14-2021 Urea nitrogen [Mass/Vol] 16 mg/dL 7-18 [facility] Work Phone: Thin prep Papanicolaou smear with manual screeningon 06-14-2021 Thin prep Papanicolaou smear with manual screening 28 U/L 15-37 [facility] Work Phone: Thin prep Papanicolaou smear with manual screening 7 5-15 [facility] Work Phone: Basophil percentageon 2021 Basophil percentage 0-5 SEEN /hpf [facility] Work Phone: Cholesterol [Mass/Vol] 188 mg/dL <200 [facility] Work Phone: Comment on above: <200 mg/dL Desirable 200-240 mg/dL Borderline >240 mg/dL High Risk Triglyceride [Mass/Vol] 126 mg/dL [facility] Work Phone: Comment on above: The drugs N-Acetylcy steine and Metamizole may falsely depress this assay.Serum Triglycerides Reference Interval Normal <150 mg/dL Borderline high 150 - 199 mg/dL High 200 - 499 mg/dL Very High > or = 500 mg/dL Bilirubin Test strip Ql (U)o n 04-22-2021 Bilirubin Ql (U) Negative Negative [facility] Work Phone: Ketones Test strip Ql (U)on 04-22-2021 Ketones Ql (U) Negative Negative [facility] Work Phone: Mucus LM Ql (Urine sed)on Mucus Ql (Urine sed) 0 SEEN /hpf [facility] Work Phone: Nitrite Test strip Ql (U)on 04-22-2021 Nitrite Ql (U) Negative Negative [facility] Work Phone: Protein Test strip Ql (U)on 04-22-2021 Protein Ql (U) 30 mg/dl Negative [facility] Work Phone: Serum or plasma cholesterol in HDL measurement (mass/volume)on 04-22-2021 Cholesterol in HDL [Mass/Vol] 60 mg/dL [facility] Work Phone: Comment on above: The drugs N-Acetylcy steine and Metamizole may falsely depress this assay. Reference Range HDL <40 mg/dL Low HDL Cholesterol HDL >or= 60 mg/dL High HDL Cholesterol Serum or plasma cholesterol in VLDL measurement (mass/volume)on 04-22-2021 Cholesterol in VLDL [Mass/Vol] 25 mg/dL 5-40 [facility] Work Phone: Serum or plasma low density lipoprotein (LDL) cholesterol measurement (mass/volume)on 04-22-2021 Cholesterol in LDL [Mass/Vol] 103 mg/dL 0-130 [facility] Work Phone: Squamous epithelial cells de tection in urine sediment by light microscopyon 04-22-2021 Epithelial cells.squamous LM Ql (Urine sed) 0 SEEN /hpf [facility] Work Phone: [phone] Urine blood detectionon - RBC Ql (U) Negative Negative [facility] Work Phone: [phone] RBC Ql (U) 0 SEEN /hpf [facility] Work Phone: [phone] Urine clarityon 04-22-2021 Clarity (U) Clear Clear [facility] Work Phone: [phone] Urine color determinationon 04-22-2021 Color (U) Yellow Yellow [facility] Work Phone: Urine glucose detectionon Glucose Ql (U) Normal mg/dl Normal [facility] Work Phone: [phone] Urine leukocyte esterase det ection by dipstickon 04-22-2021 Leukocyte esterase Test strip Ql (U) 25 /ul Negative [facility] Work Phone: [phone] Urine pHon 04-22-2021 pH (U) 6.5 [pH] [facility] Work Phone: [phone] Urine sediment bacteria coun t by microscopy (number/high power field)on 04-22-2021 Bacteria LM.HPF (Urine sed) [#/Area] 0 /[HPF] None Seen [facility] Work Phone: [phone] Urine specific gravity measu rementon 04-22-2021 Specific gravity (U) [Rel density] 1.015 [facility] Work Phone: [phone] Urobilinogen Auto test strip Ql (U)on 04-22-2021 Urobilinogen Ql (U) Normal mg/dl Normal [facility] Work Phone: [phone] Absolute lymphocyte counton 03-21-2021 Lymphocytes Auto (Unsp spec) [#/Vol] 2.29 10*3/uL 0.83-4.51 [facility] Work Phone: Basophil percentageon 2021 Basophils/100 WBC (Bld) 0.7 % 0-1 [facility] Work Phone: Bilirubin [Mass/Vol] 0.40 mg/dL 0.20-1.00 [facility] Work Phone: Comment on above: For patients on eltr ombopag therapy, use of Dimension [place] TBIL is not recommended. Chloride [Moles/Vol] 104 mmol/L 98-107 [facility] Work Phone: Eosinophils/100 WBC (Bld) 1.8 % 0-5 [facility] Work Phone: Glucose [Mass/Vol] 97 mg/dL 74-106 [facility] Work Phone: Neutrophils (Bld) [#/Vol] 5.7 10*3/uL 2.0-7.7 [facility] Work Phone: Neutrophils/100 WBC (Bld) 63.7 % 47-70 [facility] Work Phone: Potassium [Moles/Vol] 3.7 mmol/L 3.5-5.1 [facility] Work Phone: Protein [Mass/Vol] 8.2 g/dL 6.4-8.2 [facility] Work Phone: Sodium [Moles/Vol] 137 mmol/L 136-145 [facility] Work Phone: WBC (Bld) [#/Vol] 9.0 10*3/uL 4.4-11.0 [facility] Work Phone: Blood erythrocytes count (nu mber/volume)on 03-21-2021 RBC (Bld) [#/Vol] 4.62 10*6/uL 4.6-6.2 [facility] Work Phone: Blood hemoglobin measurement (mass/volume)on 03-21-2021 Hemoglobin (Bld) [Mass/Vol] 15.0 g/dL 13.0-16.5 [facility] Work Phone: Blood lymphocytes/100 leukoc yteson 03-21-2021 Lymphocytes/100 WBC (Bld) 25.6 % 19-41 [facility] Work Phone: Blood monocytes/100 leukocyt eson 03-21-2021 Monocytes/100 WBC (Bld) 7.8 % 0-10 [facility] Work Phone: Blood platelet mean volumeon 03-21-2021 Platelet mean volume (Bld) [Entitic vol] 12.0 fL 6.2-12.0 [facility] Work Phone: Determination of erythrocyte mean corpuscular volume (MCV)on 03-21-2021 MCV (RBC) [Entitic vol] 97.8 fL 80-94 [facility] Work Phone: Hematocrit Auto (Bld) [Volum e fraction]on 03-21-2021 Hematocrit (Bld) [Volume fraction] 45.2 % 40-54 [facility] Work Phone: [phone] Laboratory - Chemistry and C hemistry - challengeon 03-21-2021 ALP [Catalytic activity/Vol] 48 U/L 45-117 [facility] Work Phone: ALT [Catalytic activity/Vol] 36 U/L 16-61 [facility] Work Phone: CO2 [Moles/Vol] 26.0 mmol/L 21.0-32.0 [facility] Work Phone: Globulin (S) [Mass/Vol] 4.1 g/dL 2.2-4.2 [facility] Work Phone: Urea nitrogen/Creatinine [Mass ratio] 19.4 mg/mg -20 [facility] Work Phone: Laboratory - Hematology and Cell countson 03-21-2021 Erythrocyte distribution width (RBC) [Entitic vol] 46.1 fL 35.1-43.9 [facility] Work Phone: Erythrocyte distribution width (RBC) [Ratio] 12.9 % 11.6-14.6 [facility] Work Phone: Immature granulocytes/100 WBC (Bld) 0.400 % 0.0-0.9 [facility] Work Phone: Comment on above: IG% - Immature Granu locytes (promyelocytes, myelocytes and metamyelocytes) > 1% indicates that a LEFT SHIFT is Present. MCH (RBC) [Entitic mass] 32.5 pg 27.0-32.0 [facility] Work Phone: Nucleated RBC/100 WBC (Bld) [Ratio] 0 % 0-5 [facility] Work Phone: MCHC Auto (RBC) [Mass/Vol]on 03-21-2021 MCHC (RBC) [Mass/Vol] 33.2 g/dL 32-36 [facility] Work Phone: No Panel Informationon 03-21 Estimated GFR (MDRD) Amer 94 mL/min >60 [facility] Work Phone: Comment on above: GFR Calc Estimated GFR (MDRD) Non-Af Amer 78 mL/min >60 [facility] Work Phone: Comment on above: Non- GFR Calc Platelets bldon 03-21-2021 Platelets (Bld) [#/Vol] 158 10*3/uL 150-450 [facility] Work Phone: Serum or plasma albumin carlyn urement (mass/volume)on 03-21-2021 Albumin [Mass/Vol] 4.1 g/dL 3.2-5.0 [facility] Work Phone: [phone] Serum or plasma albumin/glob ulin mass ratioon 03-21-2021 Albumin/Globulin [Mass ratio] 1.0 {ratio} 0.9-2.4 [facility] Work Phone: Serum or plasma calcium carlyn urement (mass/volume)on 03-21-2021 Calcium [Mass/Vol] 9.3 mg/dL 8.5-10.1 [facility] Work Phone: Serum or plasma creatinine m easurement (mass/volume)on 03-21-2021 Creatinine [Mass/Vol] 1.03 mg/dL 0.70-1.30 [facility] Work Phone: Comment on above: The validity of the calculated GFR & GFRAA in patients over 70 years has not been determined. Clinical correlation is essential. Serum or plasma urea nitroge n measurement (mass/volume)on 03-21-2021 Urea nitrogen [Mass/Vol] 20 mg/dL 7-18 [facility] Work Phone: Thin prep Papanicolaou smear with manual screeningon 03-21-2021 Thin prep Papanicolaou smear with manual screening 25 U/L 15-37 [facility] Work Phone: Thin prep Papanicolaou smear with manual screening 7 5-15 [facility] Work Phone: CBC W/DIFFon 11-12-2016 BASO ABS 0.10 K/CU MM Normal 0-0.2 [facility] Comment on above: Performed By: #### L 200.18344 ####[facility] [id number] [place], [place] [address]Fp# [phone] Basophils/100 WBC Auto (Bld) 1.3 % Normal 0-2 [facility] Comment on above: Performed By: #### L 200.18562 ####[facility] [id number] [place], [place] [address]Eo# [phone] EOS ABS 0.40 K/CU MM Normal 0-0.5 [facility] Comment on above: Performed By: #### L 200.86278 ####[facility] BPDPMTNPLY2552 [place], [place] [address]Fa# [phone] Eosinophils/100 leukocytes 5.0 % Normal 0-5 [facility] Comment on above: Performed By: #### L 200.94663 ####[facility] ITGPCJPKWU3211 [place], [place] [address]Hy# [phone] Erythrocyte distribution width Auto Ratio (RBC) 12.4 % Normal 11-14.5 [facility] Comment on above: Performed By: #### L 200.72675 ####[facility] [id number] [place], [place] [address]Fr# [phone] Erythrocytes (RBC) 4.36 M/CU MM Low 4.50-6.00 [facility] [place] Comment on above: Performed By: #### L 200.88710 ####[facility] [id number] [place] [address]Kr# [phone] Erythrocytes (RBC) 0.0 % Normal Less than 1 [facility] Comment on above: Performed By: #### L 200.98939 ####[facility] [id number] [place] [address]Mz# [phone] Hematocrit (HCT) 43.3 % Normal 41.0-53.0 [facility] Comment on above: Performed By: #### L 200.05909 ####[facility] [id number] [place] [address]Ih# [phone] Hemoglobin mass conc (Bld) 14.9 g/dL Normal 13.5-17.5 [facility] Comment on above: Performed By: #### L 200.82998 ####[facility] [id number] [place] [address]Gr# [phone] IMMATR GRAN ABS 0.10 K/CU MM Normal Less than 2 [facility] Comment on above: Performed By: #### L 200.30636 ####[facility] [id number] [place] [address]Qj# [phone] IMMATURE GRAN % 0.7 % Normal Less than 2 [facility] Comment on above: Performed By: #### L 200.11346 ####[facility] [id number] [place] [address]Rp# [phone] Lymphocytes 2.90 K/CU MM Normal 0.9-4.4 [facility] Comment on above: Performed By: #### L 200.52327 ####[facility] SDCDKIITJU8758 [place], [place] [address]Vi# [phone] Lymphocytes/100 leukocytes 35.6 % Normal 20-40 [facility] Comment on above: Performed By: #### L 200.77631 ####[facility] KYLBSXKPUP6452 [place], [place] [address]Ys# [phone] MCHC mass conc (RBC) 34.4 g/dL Normal 32.0-36.0 [facility] Comment on above: Performed By: #### L 200.61921 ####[facility] NHTBVDDVTF1945 [place], [place] [address]Cj# [phone] MCV 99.3 fL High 80.0-99.0 [facility] Comment on above: Performed By: #### L 200.84836 ####[facility] [id number] [place] [address]Uu# [phone] MONO ABS 0.70 K/CU MM Normal 0.1-1.1 [facility] Comment on above: Performed By: #### L 200.47702 ####[facility] PEPUMKLVAM2158 [place], [place] [address]Ce# [phone] Monocytes/100 leukocytes 8.6 % Normal 2-10 [facility] Comment on above: Performed By: #### L 200.37423 ####[facility] [id number] [place] [address]Iw# [phone] Neutrophils 4.00 K/CU MM Normal 2.0-8.3 [facility] Comment on above: Performed By: #### L 200.58940 ####[facility] RZSSJSEKUT8688 [place], [place] [address]Gx# [phone] Neutrophils/100 WBC Auto (Bld) 48.8 % Normal 45-75 [facility] Comment on above: Performed By: #### L 200.19925 ####[facility] UIDHVSPQHF8198 [place], [place] [address]Lb# [phone] Platelet mean volume (PMV) 11.6 fL Normal 9.4-12.4 [facility] Comment on above: Performed By: #### L 200.32103 ####[facility] VBLJCWNDBL2511 [place], [place] [address]Xy# [phone] Platelets 185 K/CU MM Normal 150-450 [facility] Comment on above: Performed By: #### L 200.66736 ####[facility] NRKOTLLKXQ8816 [place], [place] [address]Js# [phone] WBC (Leukocytes) 8.2 K/CU MM Normal 4.5-11.0 [facility] Comment on above: Performed By: #### L 200.59655 ####[facility] NNBLJIHKFK2836 [place], [place] [address]Zv# [phone] CMPon 11-12-2016 Alanine aminotransferase (ALT) 46 U/L Normal 13-61 [facility] Comment on above: Performed By: #### L 500.24312, L500.56778, L500.35062, L500.60373 ####[facility] VBFJTWTEFH3031 [place], [place] [address]Mj# [phone] Albumin 4.2 g/dL Normal 3.2-5.0 [facility] Comment on above: Performed By: #### L 500.32530, L500.67853, L500.51446, L500.84186 ####[facility] JAYZSNBAGT4352 [place], [place] [address]Pz# [phone] Albumin/Globulin Ratio 1.3 {ratio} Normal 0.8-2.0 [facility] Comment on above: Performed By: #### L 500.82914, L500.92458, L500.71157, L500.46579 ####[facility] MSDFWGWDAI8365 [place], [place] [address]Nc# [phone] ALK PHOS 56 U/L Normal 45-117 [facility] Comment on above: Performed By: #### L 500.42121, L500.82569, L500.43942, L500.00669 ####[facility] YRPTDHTMZL1508 [place] [address]Ph# [phone] Anion gap 8 mmol/L Normal 5-16 [facility] Comment on above: Performed By: #### L 500.60835, L500.19709, L500.35177, L500.83566 ####[facility] CLFKHSVTKX0466 [place] [address]Ph# [phone] BILI TOTAL 0.4 MG/DL Normal 0.2-1.0 [facility] Comment on above: Performed By: #### L 500.65938, L500.97006, L500.34536, L500.26673 ####[facility] ZSYQXIKJOJ1140 [place], [place] [address]Jx# [phone] BUN/Creatinine Ratio 18 mg/mg Normal 15-24 [facility] Comment on above: Performed By: #### L 500.36136, L500.07631, L500.64276, L500.91590 ####[facility] SZQFZSDVBC9297 [place] [address]Ph# [phone] Calcium 9.4 mg/dL Normal 8.5-10.1 [facility] Comment on above: Performed By: #### L 500.97076, L500.50972, L500.59159, L500.15847 ####[facility] NEOWAMCKEM7996 [place] [address]Ph# [phone] Chloride 102 mmol/L Normal 98-107 [facility] Comment on above: Performed By: #### L 500.15709, L500.46247, L500.77804, L500.98607 ####[facility] VYOGIJMTAC5966 [place], [place] [address]Da# [phone] CO2 29 mmol/L Normal 21-32 [facility] Comment on above: Performed By: #### L 500.56159, L500.89554, L500.60539, L500.54150 ####[facility] CRFZPFXAMZ4613 [place], [place] [address]Yq# [phone] Creatinine 0.933 mg/dL Normal 0.670-1.17 0 [facility] Comment on above: Result Comment: Yandy ents receiving either N-Acetylcysteine (NAC) orMetamizole prior to venipuncture, may have falsely depressedresults. Performed By: #### L 500.79923, L500.11069, L500.36049, L500.24092 ####[facility] EUSPJHQGVX5349 [place], [place] [address]Ex# [phone] Globulin 3.2 g/dL Normal 2.2-4.2 [facility] Comment on above: Performed By: #### L 500.44266, L500.73521, L500.17119, L500.37487 ####[facility] SEESEJMRGQ2468 [place], [place] [address]Ny# [phone] Glucose mass conc 92 mg/dL Normal 70-100 [facility] Comment on above: Result Comment: 70-1 00-Normal Fasting; 329-045-Sitrwtnm Fasting; greaterthan 126 on more than one result-Diabetes. ADA guidelines Performed By: #### L 500.58571, L500.26696, L500.46227, L500.31964 ####[facility] EFKHESKNJW6944 [place], [place] [address]Xo# [phone] Potassium molar conc 4.3 mmol/L Normal 3.5-5.1 [facility] [place] Comment on above: Performed By: #### L 500.68899, L500.55344, L500.64617, L500.95335 ####[facility] TKFSNWWUWQ8889 [place], [place] [address]Hm# [phone] Protein 7.4 g/dL Normal 6.0-8.5 [facility] Comment on above: Performed By: #### L 500.29167, L500.98770, L500.95292, L500.51080 ####[facility] UCZDHVHTXJ2071 [place], [place] [address]Hp# [phone] SGOT (AST) 29 U/L Normal 8-34 [facility] Comment on above: Performed By: #### L 500.72351, L500.63610, L500.85458, L500.25767 ####[facility] VRHZFSCISO3585 [place], [place] [address]Kj# [phone] Sodium 139 mmol/L Normal 136-145 [facility] Comment on above: Performed By: #### L 500.16294, L500.20504, L500.73801, L500.78101 ####[facility] SCWFZSEMUM8737 [place], [place] [address]Ue# [phone] Urea nitrogen 17 mg/dL Normal 7- [facility] Comment on above: Performed By: #### L 500.18028, L500.81275, L500.62745, L500.53266 ####[facility] GRSCWFMACN8215 [place], [place] [address]Zf# [phone] GFR ESTon 11-12-2016 IF AMER Greater than 60 Normal [facility] [place] Comment on above: Performed By: #### L 500.12143, L500.38833, L500.50943, L500.34511 ####[facility] GARVILWIBZ4556 [place], [place] [address]Ba# [phone] IF non-AFR AMER Greater than 60 Normal [facility] [place] Comment on above: Performed By: #### L 500.82952, L500.98062, L500.88275, L500.70055 ####[facility] PRFUKXBRRP4402 [place], [place] [address]Oe# [phone] LIPIDon 11-12-2016 Cholesterol 201 mg/dL High 0-199 [facility] Comment on above: Performed By: #### L 500.74499, L500.59363, L500.58698, L500.69317 ####[facility] SOELZYRGQO0324 [place], [place] [address]Oc# [phone] HDL Cholesterol 48 mg/dL Normal [place]ATER [place] 40 [facility] Comment on above: Result Comment: Yandy ents receiving Metamizole prior to venipuncture, mayhave falsely depressed results. Performed By: #### L 500.34605, L500.15124, L500.62534, L500.21697 ####[facility] KNSZLAVJLY7563 [place], [place] [address]It# [phone] LDL Cholesterol 109 MG/DL Normal 0-129 [facility] Comment on above: Result Comment: ___C HOLESTEROL/HDL RATIO RISK___ CHD RISK = Total CHOL LDL HDL (CHOL/HDL) ------Recommended <200 <130 >35 <3.4 Borderline 200-239 130-159 3.4-4.99 ----High >240 >160 >5.0 Performed By: #### L 500.16853, L500.81332, L500.05348, L500.88935 ####[facility] BMDJKRRQFQ7937 [place], [place] [address]Ql# [phone] Triglyceride 221 mg/dL High 30-149 [facility] Comment on above: Result Comment: Yandy ents receiving either N-Acetylcysteine (NAC) orMetamizole prior to venipuncture, may have falsely depressedresults. Performed By: #### L 500.39860, L500.05208, L500.55315, L500.33279 ####[facility] RRTBGGNFJZ6824 [place], [place] [address]Ll# [phone] PSAon 11-12-2016 PSA 2.36 NG/ML Normal 0.0-4.0 [facility] Comment on above: Performed By: #### L 500.58415, L500.97992, L500.78380, L500.16174 ####[facility] BNUPTVLNTN1167 [place], [place] [address]Kd# [phone] UA COMPLETEon 11-12-2016 UA APPEARANCE HAZY Normal CLEAR [facility] Comment on above: Performed By: #### L 600.66372 ####[facility] RDGYKCUWAL3543 [place], [place] [address]Rx# [phone] UA BILIRUBIN Negative Normal NEGATIVE [facility] Comment on above: Performed By: #### L 600.27321 ####[facility] LXAKNYCJZY4560 [place], [place] [address]Cp# [phone] UA BLOOD Negative Normal NEGATIVE [facility] Comment on above: Performed By: #### L 600.96948 ####[facility] JJUZZZWZUW7131 [place], [place] [address]Tu# [phone] UA COMMENT * Normal N [facility] Comment on above: Result Comment: *KRZYSZTOF ROSCOPIC NOT PERFORMED BASED ON CHEMICAL DETERMINATIONS. Performed By: #### L 600.41955 ####[facility] KRHOGOZKGK6752 [place], [place] [address]Ve# [phone] UA KETONE Negative Normal NEGATIVE [facility] Comment on above: Performed By: #### L 600.61379 ####[facility] MGUKVGTIQZ1489 [place], [place] [address]Kj# [phone] UA LK ESTERASE Negative Normal NEGATIVE [facility] Comment on above: Performed By: #### L 600.99214 ####[facility] FQVHEZSZVP[address] [place] [address]Ev# [phone] UA NITRITE Negative Normal NEGATIVE [facility] Comment on above: Performed By: #### L 600.04154 ####[facility] [id number] [place] [address]Dv# [phone] UA PH 6.5 Normal 5-6 [facility] Comment on above: Performed By: #### L 600.29966 ####[facility] [id number] [place] [address]Wu# [phone] UA PROTEIN Negative Normal NEGATIVE [facility] Comment on above: Performed By: #### L 600.48459 ####[facility] ZXZNBYMVFP[address] [place] [address]Ee# [phone] UA SPEC GRAV 1.020 Normal 1.005-1.03 0 [facility] Comment on above: Performed By: #### L 600.99815 ####[facility] [id number] [place] [address]Mh# [phone] UA UROBILINOGEN NORMAL Normal NORMAL [facility] Comment on above: Performed By: #### L 600.17313 ####[facility] [id number] [place] [address]Re# [phone] Urine, color YELLOW Normal [facility] [place] Comment on above: Performed By: #### L 600.48464 ####[facility] [id number] [place] [address]Dq# [phone] Urine, glucose NORMAL Normal NORMAL [facility] Comment on above: Performed By: #### L 600.09506 ####[facility] [id number] [place] [address]Dh# [phone] No Panel Information Influenza Types A,B Direct FA ([facility]) [facility] Work Phone: Vital Signs Date Time Vital Sign Value Performing Clinician Maverick uribe 08-18-2024 14:20-0400 Body weight 102.[address] Rohan Varela MD Work Phone: [facility] 08-18-2024 14:20-0400 Diastolic blood pressure 86 mm[Hg] Dr. Rohan Varela MD Work Phone: [facility] 08-18-2024 14:20-0400 Heart rate 87 /min Dr. Rohan Varela MD Work Phone: [facility] 08-18-2024 14:20-0400 Respiratory rate 18 /min Dr. Rohan Varela MD Work Phone: [facility] 08-18-2024 14:20-0400 SaO2% (BldA) [Mass fraction] 94 % Dr. Rohan Varela MD Work Phone: [facility] 08-18-2024 14:20-0400 Systolic blood pressure 144 mm[Hg] Dr. Rohan Varela MD Work Phone: [facility] 07-26-2024 07:23-0400 Body mass index (BMI) [Ratio] 31.6 kg/m2 Dr. Rohan Varela MD Work Phone: [facility] 07-26-2024 07:23-0400 Body temperature 97.5 [degF] Dr. Rohan Varela MD Work Phone: [facility] 07-26-2024 07:23-0400 Body weight 105.[address] Rohan Varela MD Work Phone: [facility] 07-26-2024 07:23-0400 Diastolic blood pressure 81 mm[Hg] Dr. Rohan Varela MD Work Phone: [facility] 07-26-2024 07:23-0400 Heart rate 71 /min Dr. Rohan Varela MD Work Phone: [facility] 07-26-2024 07:23-0400 Respiratory rate 20 /min Dr. Rohan Varela MD Work Phone: [facility] 07-26-2024 07:23-0400 SaO2% (BldA) [Mass fraction] 98 % Dr. Rohan Varela MD Work Phone: [facility] 07-26-2024 07:23-0400 Systolic blood pressure 137 mm[Hg] Dr. Rohan Varela MD Work Phone: [facility] 06-08-2024 10:01-0400 Body height 182.[address] Rohan Varela MD Work Phone: [facility] 06-08-2024 10:01-0400 Body mass index (BMI) [Ratio] 31.9 kg/m2 Dr. Rohan Varela MD Work Phone: [facility] 06-08-2024 10:01-0400 Body temperature 97.4 [degF] Dr. Rohan Varela MD Work Phone: [facility] 06-08-2024 10:01-0400 Body weight 106.[address] Rohan Varela MD Work Phone: [facility] 06-08-2024 10:01-0400 Diastolic blood pressure 80 mm[Hg] Dr. Rohan Varela MD Work Phone: [facility] 06-08-2024 10:01-0400 Heart rate 78 /min Dr. Rohan Varela MD Work Phone: [facility] 06-08-2024 10:01-0400 Respiratory rate 16 /min Dr. Rohan Varela MD Work Phone: [facility] 06-08-2024 10:01-0400 SaO2% (BldA) [Mass fraction] 96 % Dr. Rohan Varela MD Work Phone: [facility] 06-08-2024 10:01-0400 Systolic blood pressure 124 mm[Hg] Dr. Rohan Varela MD Work Phone: [facility] 03-09-2024 08:17-0500 Body height 182.[address] Rohan Varela MD Work Phone: 7(709)465-7127[address] [place] [address] 03-09-2024 08:17-0500 Body mass index (BMI) [Ratio] 33.9 kg/m2 Dr. Rohan Varela MD Work Phone: 4(358)909-890741 [place] [address] 03-09-2024 08:17-0500 Body temperature 97.8 [degF] Dr. Rohan Varela MD Work Phone: 3(017)147-160141 [place] [address] 03-09-2024 08:17-0500 Body weight 113.[address] Rohan Varela MD Work Phone: 1(040)158-135041 [place] [address] 03-09-2024 08:17-0500 Diastolic blood pressure 68 mm[Hg] Dr. Rohan Varela MD Work Phone: 4(465)427-763941 [place] [address] 03-09-2024 08:17-0500 Heart rate 86 /min Dr. Rohan Varela MD Work Phone: 0(396)918-872941 [place] [address] 03-09-2024 08:17-0500 Respiratory rate 16 /min Dr. Rohan Varela MD Work Phone: 5(420)510-465841 [place] [address] 03-09-2024 08:17-0500 SaO2% (BldA) [Mass fraction] 98 % Dr. Rohan Varela MD Work Phone: 8(268)053-637971 [place] [address] 03-09-2024 08:17-0500 Systolic blood pressure 122 mm[Hg] Dr. Rohan Varela MD Work Phone: 1(534)451-336441 [place] [address] 01-26-2024 10:05-0500 Body temperature 97.8 [degF] Dr. Rohan Varela MD Work Phone: [facility] 01-26-2024 10:05-0500 Diastolic blood pressure 74 mm[Hg] Dr. Rohan Varela MD Work Phone: [facility] 01-26-2024 10:05-0500 Heart rate 67 /min Dr. Rohan Varela MD Work Phone: [facility] 01-26-2024 10:05-0500 Respiratory rate 16 /min Dr. Rohan Varela MD Work Phone: [facility] 01-26-2024 10:05-0500 SaO2% (BldA) [Mass fraction] 96 % Dr. Rohan Varela MD Work Phone: [facility] 01-26-2024 10:05-0500 Systolic blood pressure 115 mm[Hg] Dr. Rohan Varela MD Work Phone: [facility] 01-26-2024 08:34-0500 Body mass index (BMI) [Ratio] 33.3 kg/m2 Dr. Rohan Varela MD Work Phone: [facility] [facility] 01-26-2024 08:34-0500 Body weight 111.[address] Rohan Varela MD Work Phone: [facility] 04-13-2023 07:39-0500 Body mass index (BMI) [Ratio] 35.4 kg/m2 Dr. Rohan Varela Work Phone: [facility] 04-13-2023 07:39-0500 Body temperature 98.4 [degF] Dr. Rohan Varela Work Phone: [facility] 04-13-2023 07:39-0500 Body weight 118.[address] Rohan Varela Work Phone: [facility] 04-13-2023 07:39-0500 Diastolic blood pressure 87 mm[Hg] Dr. Rohan Varela Work Phone: [facility] 04-13-2023 07:39-0500 Heart rate 91 /min Dr. Rohan Varela Work Phone: [facility] 04-13-2023 07:39-0500 Respiratory rate 18 /min Dr. Rohan Varela Work Phone: [facility] 04-13-2023 07:39-0500 SaO2% (BldA) [Mass fraction] 96 % Dr. Rohan Varela Work Phone: [facility] 04-13-2023 07:39-0500 Systolic blood pressure 147 mm[Hg] Dr. Rohan Varela Work Phone: [facility] 04-03-2023 11:43-0500 Body temperature 98.7 [degF] Dr. Rohan Varela Work Phone: [facility] 04-03-2023 11:43-0500 Diastolic blood pressure 88 mm[Hg] Dr. Rohan Varela Work Phone: [facility] 04-03-2023 11:43-0500 Heart rate 123 /min Dr. Rohan Varela Work Phone: [facility] 04-03-2023 11:43-0500 Respiratory rate 17 /min Dr. Rohan Varela Work Phone: [facility] 04-03-2023 11:43-0500 SaO2% (BldA) [Mass fraction] 95 % Dr. Rohan Varela Work Phone: [facility] 04-03-2023 11:43-0500 Systolic blood pressure 164 mm[Hg] Dr. Rohan Varela Work Phone: [facility] 03-06-2023 08:14-0500 Body height 182.[address] Rohan Varela Work Phone: [facility] 03-06-2023 08:14-0500 Body mass index (BMI) [Ratio] 35.9 kg/m2 Dr. Rohan Varela Work Phone: [facility] 03-06-2023 08:14-0500 Body temperature 97.4 [degF] Dr. Rohan Varela Work Phone: [facility] 03-06-2023 08:14-0500 Body weight 120.[address] Rohan Varela Work Phone: [facility] 03-06-2023 08:14-0500 Diastolic blood pressure 80 mm[Hg] Dr. Rohan Varela Work Phone: [facility] 03-06-2023 08:14-0500 Heart rate 83 /min Dr. Rohan Varela Work Phone: [facility] 03-06-2023 08:14-0500 Respiratory rate 16 /min Dr. Rohan Varela Work Phone: [facility] 03-06-2023 08:14-0500 SaO2% (BldA) [Mass fraction] 97 % Dr. Rohan Varela Work Phone: [facility] 03-06-2023 08:14-0500 Systolic blood pressure 130 mm[Hg] Dr. Rohan Varela Work Phone: [facility] 12-01-2022 08:15-0400 Body height 182.[address] Rohan Varela Work Phone: [facility] 12-01-2022 08:15-0400 Body mass index (BMI) [Ratio] 34.6 kg/m2 Dr. Rohan Varela Work Phone: [facility] 12-01-2022 08:15-0400 Body temperature 96.7 [degF] Dr. Rohan Varela Work Phone: [facility] 12-01-2022 08:15-0400 Body weight 115.[address] Rohan Varela Work Phone: [facility] 12-01-2022 08:15-0400 Diastolic blood pressure 104 mm[Hg] Dr. Rohan Varela Work Phone: [facility] 12-01-2022 08:15-0400 Heart rate 104 /min Dr. Rohan Varela Work Phone: [facility] 12-01-2022 08:15-0400 Respiratory rate 18 /min Dr. Rohan Varela Work Phone: [facility] 12-01-2022 08:15-0400 SaO2% (BldA) [Mass fraction] 97 % Dr. Rohan Varela Work Phone: [facility] 12-01-2022 08:15-0400 Systolic blood pressure 148 mm[Hg] Dr. Rohan Varela Work Phone: [facility] 10-08-2022 05:34-0400 Body height 182.[address] Rohan Varela Work Phone: [facility] 10-08-2022 05:34-0400 Body mass index (BMI) [Ratio] 33.9 kg/m2 Dr. Rohan Varela Work Phone: [facility] 10-08-2022 05:34-0400 Body temperature 96.8 [degF] Dr. Rohan Varela Work Phone: [facility] 10-08-2022 05:34-0400 Body weight 113.[address] Rohan Varela Work Phone: [facility] 10-08-2022 05:34-0400 Diastolic blood pressure 90 mm[Hg] Dr. Rohan Varela Work Phone: [facility] 10-08-2022 05:34-0400 Heart rate 90 /min Dr. Rohan Varela Work Phone: [facility] 10-08-2022 05:34-0400 Respiratory rate 16 /min Dr. Rohan Varela Work Phone: [facility] 10-08-2022 05:34-0400 SaO2% (BldA) [Mass fraction] 95 % Dr. Rohan Varela Work Phone: [facility] 10-08-2022 05:34-0400 Systolic blood pressure 130 mm[Hg] Dr. Rohan Varela Work Phone: [facility] 09-17-2022 17:48-0400 Body mass index (BMI) [Ratio] 34.2 kg/m2 Dr. Rohan Varela Work Phone: [facility] 09-17-2022 17:48-0400 Body temperature 98.1 [degF] Dr. Rohan Varela Work Phone: [facility] 09-17-2022 17:48-0400 Body weight 114.[address] Rohan Varela Work Phone: [facility] 09-17-2022 17:48-0400 Diastolic blood pressure 82 mm[Hg] Dr. Rohan Varela Work Phone: [facility] 09-17-2022 17:48-0400 Heart rate 81 /min Dr. Rohan Varela Work Phone: [facility] 09-17-2022 17:48-0400 Respiratory rate 14 /min Dr. Rohan Varela Work Phone: [facility] 09-17-2022 17:48-0400 SaO2% (BldA) [Mass fraction] 95 % Dr. Rohan Varela Work Phone: [facility] 09-17-2022 17:48-0400 Systolic blood pressure 124 mm[Hg] Dr. Rohan Varela Work Phone: [facility] 08-07-2022 10:29-0400 Body height 182.[address] Rohan Varela Work Phone: [facility] 08-07-2022 10:29-0400 Body mass index (BMI) [Ratio] 34.3 kg/m2 Dr. Rohan Varela Work Phone: [facility] 08-07-2022 10:29-0400 Body temperature 97.8 [degF] Dr. Rohan Varela Work Phone: [facility] 08-07-2022 10:29-0400 Body weight 114.[address] Rohan Varela Work Phone: [facility] 08-07-2022 10:29-0400 Diastolic blood pressure 82 mm[Hg] Dr. Rohan Varela Work Phone: [facility] 08-07-2022 10:29-0400 Heart rate 102 /min Dr. Rohan Varela Work Phone: [facility] 08-07-2022 10:29-0400 Respiratory rate 18 /min Dr. Rohan Varela Work Phone: [facility] 08-07-2022 10:29-0400 SaO2% (BldA) [Mass fraction] 96 % Dr. Rohan Varela Work Phone: [facility] 08-07-2022 10:29-0400 Systolic blood pressure 146 mm[Hg] Dr. Rohan Varela Work Phone: [facility] 08-02-2022 13:49-0400 Body temperature 97.4 [degF] Dr. Rohan Varela Work Phone: [facility] 08-02-2022 13:49-0400 Diastolic blood pressure 92 mm[Hg] Dr. Rohan Varela Work Phone: [facility] 08-02-2022 13:49-0400 Heart rate 96 /min Dr. Rohan Varela Work Phone: [facility] 08-02-2022 13:49-0400 Respiratory rate 15 /min Dr. Rohan Varela Work Phone: [facility] 08-02-2022 13:49-0400 SaO2% (BldA) [Mass fraction] 98 % Dr. Rohan Varela Work Phone: [facility] 08-02-2022 13:49-0400 Systolic blood pressure 182 mm[Hg] Dr. Rohan Varela Work Phone: [facility] 06-08-2022 12:06-0400 Body height 182.[address] Rohan Varela Work Phone: [facility] 06-08-2022 12:06-0400 Body mass index (BMI) [Ratio] 34.8 kg/m2 Dr. Rohan Varela Work Phone: [facility] 06-08-2022 12:06-0400 Body temperature 97.7 [degF] Dr. Rohan Varela Work Phone: [facility] 06-08-2022 12:06-0400 Body weight 116.[address] Rohan Varela Work Phone: [facility] 06-08-2022 12:06-0400 Diastolic blood pressure 98 mm[Hg] Dr. Rohan Varela Work Phone: [facility] 06-08-2022 12:06-0400 Heart rate 96 /min Dr. Rohan Varela Work Phone: [facility] 06-08-2022 12:06-0400 Respiratory rate 16 /min Dr. Rohan Varela Work Phone: [facility] 06-08-2022 12:06-0400 SaO2% (BldA) [Mass fraction] 95 % Dr. Rohan Varela Work Phone: [facility] 06-08-2022 12:06-0400 Systolic blood pressure 152 mm[Hg] Dr. Rohan Varela Work Phone: [facility] 05-21-2022 10:17-0400 Body temperature 102 [degF] Dr. Rohan Varela Work Phone: [facility] 05-21-2022 10:17-0400 Diastolic blood pressure 92 mm[Hg] Dr. Rohan Varela Work Phone: [facility] 05-21-2022 10:17-0400 Heart rate 110 /min Dr. Rohan Varela Work Phone: [facility] 05-21-2022 10:17-0400 Respiratory rate 20 /min Dr. Rohan Varela Work Phone: [facility] 05-21-2022 10:17-0400 SaO2% (BldA) [Mass fraction] 97 % Dr. Rohan Varela Work Phone: [facility] 05-21-2022 10:17-0400 Systolic blood pressure 166 mm[Hg] Dr. Rohan Varela Work Phone: [facility] 04-30-2022 09:02-0500 Body mass index (BMI) [Ratio] 34.6 kg/m2 Dr. Rohan Varela Work Phone: [facility] 04-30-2022 09:02-0500 Body temperature 95.3 [degF] Dr. Rohan Varela Work Phone: [facility] 04-30-2022 09:02-0500 Body weight 115.[address] Rohan Varela Work Phone: [facility] 04-30-2022 09:02-0500 Diastolic blood pressure 98 mm[Hg] Dr. Rohan Varela Work Phone: [facility] 04-30-2022 09:02-0500 Heart rate 84 /min Dr. Rohan Varela Work Phone: [facility] 04-30-2022 09:02-0500 Respiratory rate 18 /min Dr. Rohan Varela Work Phone: [facility] 04-30-2022 09:02-0500 SaO2% (BldA) [Mass fraction] 98 % Dr. Rohan Varela Work Phone: [facility] 04-30-2022 09:02-0500 Systolic blood pressure 136 mm[Hg] Dr. Rohan Varela Work Phone: [facility] 03-07-2022 08:26-0500 Body height 182.[address] Rohan Varela Work Phone: [facility] 03-07-2022 08:26-0500 Body mass index (BMI) [Ratio] 33.9 kg/m2 Dr. Rohan Varela Work Phone: [facility] 03-07-2022 08:26-0500 Body weight 113.[address] Rohan Varela Work Phone: [facility] 01-22-2022 09:16-0500 Body height 182.[address] Rohan Varela Work Phone: [facility] Work Phone: 01-22-2022 09:16-0500 Body mass index (BMI) [Ratio] 34.2 kg/m2 Dr. Rohan Varela Work Phone: [facility] 01-22-2022 09:16-0500 Body temperature 97.5 [degF] Dr. Rohan Varela Work Phone: [facility] 01-22-2022 09:16-0500 Body weight 114.[address] oRhan Varela Work Phone: [facility] 01-22-2022 09:16-0500 Diastolic blood pressure 76 mm[Hg] Dr. Rohan Varela Work Phone: [facility] 01-22-2022 09:16-0500 Heart rate 86 /min Dr. Rohan Varela Work Phone: [facility] 01-22-2022 09:16-0500 Respiratory rate 14 /min Dr. Rohan Varela Work Phone: [facility] 01-22-2022 09:16-0500 SaO2% (BldA) [Mass fraction] 97 % Dr. Rohan Varela Work Phone: [facility] 01-22-2022 09:16-0500 Systolic blood pressure 128 mm[Hg] Dr. Rohan Varela Work Phone: [facility] 10-23-2021 14:26-0400 Body height 182.[address] Rohan Varela Work Phone: [facility] Work Phone: 10-23-2021 14:26-0400 Body mass index (BMI) [Ratio] 33.9 kg/m2 Dr. Rohan Varela Work Phone: [facility] Work Phone: 10-23-2021 14:26-0400 Body temperature 98 [degF] Dr. Rohan Varela Work Phone: [facility] Work Phone: 10-23-2021 14:26-0400 Body weight 113.[address] Rohan Varela Work Phone: [facility] Work Phone: 10-23-2021 14:26-0400 Diastolic blood pressure 86 mm[Hg] Dr. Rohan Varela Work Phone: [facility] Work Phone: 10-23-2021 14:26-0400 Heart rate 98 /min Dr. Rohan Varela Work Phone: [facility] Work Phone: 10-23-2021 14:26-0400 Respiratory rate 14 /min Dr. Rohan Varela Work Phone: [facility] Work Phone: 10-23-2021 14:26-0400 SaO2% (BldA) [Mass fraction] 98 % Dr. Rohan Varela Work Phone: [facility] Work Phone: 10-23-2021 14:26-0400 Systolic blood pressure 148 mm[Hg] Dr. Rohan Varela Work Phone: [facility] Work Phone: 10-22-2021 08:05-0400 Body mass index (BMI) [Ratio] 34.3 kg/m2 Dr. Rohan Varela Work Phone: [facility] Work Phone: 10-22-2021 08:05-0400 Body temperature 98 [degF] Dr. Rohan Varela Work Phone: [facility] Work Phone: 10-22-2021 08:05-0400 Body weight 114.[address] Rohan Varela Work Phone: [facility] Work Phone: 10-22-2021 08:05-0400 Diastolic blood pressure 84 mm[Hg] Dr. Rohan Varela Work Phone: [facility] Work Phone: 10-22-2021 08:05-0400 Heart rate 87 /min Dr. Rohan Varela Work Phone: [facility] Work Phone: 10-22-2021 08:05-0400 Respiratory rate 14 /min Dr. Rohan Varela Work Phone: [facility] Work Phone: 10-22-2021 08:05-0400 SaO2% (BldA) [Mass fraction] 99 % Dr. Rohan Varela Work Phone: [facility] Work Phone: 10-22-2021 08:05-0400 Systolic blood pressure 142 mm[Hg] Dr. Rohan Varela Work Phone: [facility] Work Phone: 07-22-2021 08:09-0400 Body height 182.[address] Rohan Varela Work Phone: [facility] Work Phone: 07-22-2021 08:09-0400 Body mass index (BMI) [Ratio] 33.7 kg/m2 Dr. Rohan Varela Work Phone: [facility] Work Phone: 07-22-2021 08:09-0400 Body temperature 97.9 [degF] Dr. Rohan Varela Work Phone: [facility] Work Phone: 07-22-2021 08:09-0400 Body weight 112.[address] Rohan Varela Work Phone: [facility] Work Phone: 07-22-2021 08:09-0400 Diastolic blood pressure 84 mm[Hg] Dr. Rohan Varela Work Phone: [facility] Work Phone: 07-22-2021 08:09-0400 Heart rate 85 /min Dr. Rohan Varela Work Phone: [facility] Work Phone: 07-22-2021 08:09-0400 Respiratory rate 14 /min Dr. Rohan Varela Work Phone: [facility] Work Phone: 07-22-2021 08:09-0400 SaO2% (BldA) [Mass fraction] 98 % Dr. Rohan Varela Work Phone: [facility] Work Phone: 07-22-2021 08:09-0400 Systolic blood pressure 136 mm[Hg] Dr. Rohan Varela Work Phone: [facility] Work Phone: 07-22-2021 08:09-0400 Body height 182.[address] Rohan Varela Work Phone: [facility] Work Phone: 07-22-2021 08:09-0400 Body mass index (BMI) [Ratio] 33.7 kg/m2 Dr. Rohan Varela Work Phone: [facility] Work Phone: 07-22-2021 08:09-0400 Body temperature 97.9 [degF] Dr. Rohan Varela Work Phone: [facility] Work Phone: 07-22-2021 08:09-0400 Body weight 112.[address] Rohan Varela Work Phone: [facility] Work Phone: 07-22-2021 08:09-0400 Diastolic blood pressure 84 mm[Hg] Dr. Rohan Varela Work Phone: [facility] Work Phone: 07-22-2021 08:09-0400 Heart rate 85 /min Dr. Rohan Varela Work Phone: [facility] Work Phone: 07-22-2021 08:09-0400 Respiratory rate 14 /min Dr. Rohan Varela Work Phone: [facility] Work Phone: 07-22-2021 08:09-0400 SaO2% (BldA) [Mass fraction] 98 % Dr. Rohan Varela Work Phone: [facility] Work Phone: 07-22-2021 08:09-0400 Systolic blood pressure 136 mm[Hg] Dr. Rohan Varela Work Phone: [facility] Work Phone: 06-19-2021 08:45-0400 Body mass index (BMI) [Ratio] 34 kg/m2 Dr. Rohan Varela Work Phone: [facility] Work Phone: 06-19-2021 08:45-0400 Body temperature 99 [degF] Dr. Rohan Varela Work Phone: [facility] Work Phone: 06-19-2021 08:45-0400 Body weight 113.[address] Rohan Varela Work Phone: [facility] Work Phone: 06-19-2021 08:45-0400 Diastolic blood pressure 84 mm[Hg] Dr. Rohan Varela Work Phone: [facility] Work Phone: 06-19-2021 08:45-0400 Heart rate 89 /min Dr. Rohan Varela Work Phone: [facility] Work Phone: 06-19-2021 08:45-0400 Respiratory rate 14 /min Dr. Rohan Varela Work Phone: [facility] Work Phone: 06-19-2021 08:45-0400 SaO2% (BldA) [Mass fraction] 99 % Dr. Rohan Varela Work Phone: [facility] Work Phone: 06-19-2021 08:45-0400 Systolic blood pressure 138 mm[Hg] Dr. Rohan Varela Work Phone: [facility] Work Phone: 06-19-2021 08:45-0400 Body height 182.[address] Rohan Varela Work Phone: [facility] Work Phone: 06-19-2021 08:45-0400 Body mass index (BMI) [Ratio] 34 kg/m2 Dr. Rohan Varela Work Phone: [facility] Work Phone: 06-19-2021 08:45-0400 Body temperature 99 [degF] Dr. Rohan Varela Work Phone: [facility] Work Phone: 06-19-2021 08:45-0400 Body weight 113.[address] Rohan Varela Work Phone: [facility] Work Phone: 06-19-2021 08:45-0400 Diastolic blood pressure 84 mm[Hg] Dr. Rohan Varela Work Phone: [facility] Work Phone: 06-19-2021 08:45-0400 Heart rate 89 /min Dr. Rohan Varela Work Phone: [facility] Work Phone: 06-19-2021 08:45-0400 Respiratory rate 14 /min Dr. Rohan Varela Work Phone: [facility] Work Phone: 06-19-2021 08:45-0400 SaO2% (BldA) [Mass fraction] 99 % Dr. Rohan Varela Work Phone: [facility] Work Phone: 06-19-2021 08:45-0400 Systolic blood pressure 138 mm[Hg] Dr. Rohan Varela Work Phone: [facility] Work Phone: 05-23-2021 07:03-0400 Body mass index (BMI) [Ratio] 34 kg/m2 Dr. Rohan Varela Work Phone: [facility] Work Phone: 05-23-2021 07:03-0400 Body temperature 98.5 [degF] Dr. Rohan Varela Work Phone: [facility] Work Phone: 05-23-2021 07:03-0400 Body weight 113.[address] Rohan Varela Work Phone: [facility] Work Phone: 05-23-2021 07:03-0400 Diastolic blood pressure 91 mm[Hg] Dr. Rohan Varela Work Phone: [facility] Work Phone: 05-23-2021 07:03-0400 Heart rate 78 /min Dr. Rohan Varela Work Phone: [facility] Work Phone: 05-23-2021 07:03-0400 Respiratory rate 17 /min Dr. Rohan Varela Work Phone: [facility] Work Phone: 05-23-2021 07:03-0400 SaO2% (BldA) [Mass fraction] 98 % Dr. Rohan Varela Work Phone: [facility] Work Phone: 05-23-2021 07:03-0400 Systolic blood pressure 143 mm[Hg] Dr. Rohan Varela Work Phone: [facility] Work Phone: 04-22-2021 07:18-0500 Body mass index (BMI) [Ratio] 34 kg/m2 Dr. Rohan Varela Work Phone: [facility] Work Phone: 04-22-2021 07:18-0500 Body temperature 95.4 [degF] Dr. Rohan Varela Work Phone: [facility] Work Phone: 04-22-2021 07:18-0500 Body weight 113.[address] Rohan Varela Work Phone: [facility] Work Phone: 04-22-2021 07:18-0500 Diastolic blood pressure 88 mm[Hg] Dr. Rohan Varela Work Phone: [facility] Work Phone: 04-22-2021 07:18-0500 Heart rate 78 /min Dr. Rohan Varela Work Phone: [facility] Work Phone: 04-22-2021 07:18-0500 Respiratory rate 16 /min Dr. Rohan Varela Work Phone: [facility] Work Phone: 04-22-2021 07:18-0500 SaO2% (BldA) [Mass fraction] 98 % Dr. Rohan Varela Work Phone: [facility] Work Phone: 04-22-2021 07:18-0500 Systolic blood pressure 140 mm[Hg] Dr. Rohan Varela Work Phone: [facility] Work Phone: Encounters Encounter Date Encounter Type Care Provider Facility Start: 08-18-2024 End: 08-18-[address] Rohan Varela MD Work Phone: [facility] Work Phone: Start: 08-18-2024 End: 08-18-[address] Noah Stewart MD -[facility] Work Phone: Start: 08-04-2024 End: 08-04-[address] Rohan Varela MD Work Phone: [facility] Work Phone: Start: 08-04-2024 End: 08-04-2024 Patient encounter procedure [employer] Mary Sharma -[facility] Work Phone: Start: 08-04-2024 End: 08-04-2024 ambulatory Mary Sharma Facility:[facility] Start: 08-01-2024 End: 08-01-[address] Rohan Varela MD Work Phone: [facility] Work Phone: Start: 08-01-2024 End: 08-01-[address] Shey Perez MD -[facility] Work Phone: Start: 08-01-2024 End: 08-01-2024 ambulatory Shey Perez Facility:[facility] Start: 07-26-2024 End: 07-26-2024 Patient encounter procedure [employer] Mary Sharma -[facility] Work Phone: Start: 07-26-2024 End: 07-26-[address] Rohan Varela MD Work Phone: [facility] Work Phone: Start: 06-08-2024 End: 06-08-[address] Rohan Varela MD -[facility] Work Phone: Start: 06-08-2024 End: 06-08-2024 [facility] Start: 05-13-2024 End: 05-13-[address] Rohan Varela MD Work Phone: [facility] Work Phone: Start: 05-13-2024 End: 05-13-[address] Shey Perez MD -Laboratory, [place] Work Phone: Start: 05-13-2024 End: 05-13-2024 ambulatory [facility] Facility:[facility] Start: 05-09-2024 End: 05-09-[address] Rohan Varela MD Work Phone: [facility] Work Phone: Start: 05-09-2024 End: 05-09-[address] Shey Perez MD -Laboratory, [place] Start: 05-09-2024 End: 05-09-2024 ambulatory [facility] Facility:[facility] Start: 03-22-2024 End: 03-22-[address] Shey Perez MD -Labor[facility], [place] Work Phone: Start: 03-22-2024 End: 03-22-2024 ambulatory [facility] Facility:[facility] Start: 03-09-2024 End: 03-09-[address] Rohan Varela MD -[facility] Work Phone: Start: 03-09-2024 End: 03-09-2024 [facility] Start: 03-09-2024 End: 03-09-2024 [facility] Start: 01-26-2024 ambulatory [facility] Dul[facility]ram Varela Facili ty:[facility] Start: 01-26-2024 Non-patient / Non-visit Dr. Gayathri Cortes MD -[facility] Start: 01-26-2024 End: 01-26-2024 Admission to same day surgery center Dr. Go Cortes MD -Endoscopy Work Phone: Start: 01-26-2024 End: 01-26-2024 ambulatory Efewongbe Oleghe Facility:[facility] Start: 12-29-2023 End: 12-29-[facility] Start: 12-08-2023 End: 12-08-2023 ambulatory Efewboca ratonbe Oleghe Facility:[facility] Start: 12-02-2023 End: 12-02-2023 ambulatory Efewongbe Oleghe Facility:[facility] Start: 12-01-2023 End: 12-02-2023 ambulatory Efewongbe Oleghe Facility:[facility] Start: 10-16-2023 End: 10-16-2023 ambulatory [facility] Facility:[facility] Start: 10-13-2023 End: 10-13-2023 [facility] Start: 10-01-2023 End: 10-01-2023 ambulatory [facility] Facility:[facility] Start: 09-02-2023 End: 09-02-2023 ambulatory Efewongbe Oleghe Facility:[facility] Start: 09-02-2023 End: 09-02-2023 ambulatory Efewongbe Oleghe Facility:[facility] Start: 04-27-2023 End: 04-27-[address] Rohan Varela Work Phone: [facility] Work Phone: Start: 04-27-2023 End: 04-27-[address] Rohan Varela Work Phone: [facility] Work Phone: Start: 04-13-2023 End: 04-13-[address] Rohan Varela Work Phone: [facility] [place] Work Phone: Start: 04-03-2023 End: 04-03-[address] Rohan Varela Work Phone: [facility] Work Phone: Start: 03-13-2023 End: 03-13-[address] Rohan Varela Work Phone: [facility] Work Phone: Start: 03-13-2023 End: 03-13-[address] Rohan Varela Work Phone: [facility]-Sleep Lab Work Phone: Start: 03-06-2023 End: 03-06-[address] Rohan Varela Work Phone: [facility] Work Phone: Start: 03-06-2023 End: 03-06-[address] Rohan Varela Work Phone: [facility] Medicine Work Phone: Start: 01-31-2023 End: 01-31-[address] Rohan Varela Work Phone: [facility] Work Phone: Start: 01-31-2023 End: 01-31-[address] Rohan Varela Work Phone: [facility]-Laboratory Work Phone: Start: 12-01-2022 End: 12-01-[address] Rohan Varela Work Phone: [facility] Medicine Work Phone: Start: 11-18-2022 End: 11-18-[address] Rohan Varela Work Phone: [facility] Work Phone: Start: 11-17-2022 End: 11-17-[address] Rohan Varela Work Phone: [facility] Work Phone: Start: 11-17-2022 End: 11-17-[address] Rohan Varela Work Phone: [facility] Work Phone: Start: 10-08-2022 End: 10-08-[address] [facility] Work Phone: Start: 09-17-2022 End: 09-17-[address] Rohan Varela Work Phone: [facility] Internal Medicine Work Phone: Start: 08-26-2022 End: 08-26-[address] Rohan Varela Work Phone: [facility] Work Phone: Start: 08-26-2022 End: 08-26-[address] Rohan Varela Work Phone: [facility] Work Phone: Start: 08-07-2022 End: 08-07-[address] Rohan Varela Work Phone: [facility] Work Phone: Start: 08-02-2022 End: 08-02-[address] Rohan Varela Work Phone: [facility] Work Phone: Start: 06-08-2022 End: 06-08-[address] Rohan Varela Work Phone: [facility] Start: 06-04-2022 End: 06-04-[address] Rohan Varela Work Phone: [facility] Work Phone: Start: 06-04-2022 End: 06-04-[address] Rohan Varela Work Phone: [facility] Start: 05-21-2022 End: 05-21-[address] Rohan Varela Work Phone: [facility] Start: 04-30-2022 End: 04-30-[address] Rohan Varela Work Phone: [facility] Internal Medicine Start: 03-07-2022 End: 03-07-[address] Rohan Varela Work Phone: [facility] Work Phone: Start: 03-07-2022 End: 03-07-[address] Rohan Varela Work Phone: [facility] Radiology Start: 02-07-2022 End: 02-07-[address] Rohan Varela Work Phone: [facility] Work Phone: Start: 02-07-2022 End: 02-07-[address] Rohan Varela Work Phone: [facility] Start: 01-22-2022 End: 01-22-[address] Rohan Varela Work Phone: [facility] Internal Medicine Start: 12-17-2021 End: 12-17-[address] Rohan Varela Work Phone: [facility] Work Phone: Start: 12-17-2021 End: 12-17-[address] Rohan Varela Work Phone: [facility] Start: 10-23-2021 End: 10-23-[address] Rohan Varela Work Phone: [facility] Work Phone: Start: 10-23-2021 End: 10-23-[address] Rohan Varela Work Phone: [facility] Internal [facility] Start: 10-22-2021 End: 10-22-[address] Rohan Varela Work Phone: [facility] Internal [facility] Start: 09-20-2021 End: 09-20-[address] Rohan Varela Work Phone: [facility] Start: 07-22-2021 End: 07-22-[address] Rohan Varela Work Phone: [facility] Internal [facility] Start: 06-19-2021 End: 06-19-[address] Rohan Varela Work Phone: [facility] Internal Medicine Start: 06-14-2021 End: 06-14-[address] Rohan Varela Work Phone: [facility] Start: 05-23-2021 End: 05-23-[address] Rohan Varela Work Phone: [facility] Start: 04-22-[address] Rohan Varela Work Phone: [facility] Start: 04-22-2021 End: 04-22-2021 Encounter for general adult medical examination without abnormal findings Dr. Rohan Varela Work Phone: [facility] Internal Medicine Start: 04-22-2021 End: 04-22-[address] Rohan Varela Work Phone: [facility]-Laboratory, [place] Start: 03-21-2021 End: 03-21-[address] Rohan Varela Work Phone: [facility] [place] Start: 11-12-2016 Ambulatory Ken Lowe Facilit y:[facility] Procedures Date Procedure Procedure Detail Performing Clinician Start: 05-13-2024 In-vitro immunologic test Dr. Rohan Varela MD Work Phone: Comment on above: QuantiFERON-TB Gold Plus is a qualitativ e indirect test forM tuberculosis infection (including disease) and isintended for use in conjunction with risk assessment,radiography, and other medical and diagnostic evaluations.The QuantiFERON-TB Gold Plus result is determined bysubtracting the Nil value from either TB antigen (Ag)value. The Mitogen tube serves as a control for the test. No response to M tub erculosis antigens detected.Infection with M tuberculosis is unlikely, but high riskindividuals should be considered for additional testing(ATS/IDSA/CDC Clinical Practice Guidelines, 2017). Thereference range is an Antigen minus Nil result of <0.35IU/mL.The specimen received for QuantiFERON testing was incubatedby the ordering institution. Specific procedures outlinedin our Directory of Services and in the package insert forthe QuantiFERON Gold (In Tube) test must be followed toenable for proper stimulation of cells for the productionof interferon gamma. Chemiluminescence immunoassaymethodologyPerformed at: [facility] [id number] Director: Masood Arshad PhD, Phone: [phone] Start: 03-07-2022 Radiologic examination of knee Dr. Shady Varela Work Phone: Start: 02-07-2022 Radiologic examination of knee Dr. Shady Varela Work Phone: Start: 06-19-2021 Influenza Types A,B Direct FA ([facility]) Dr. Rohan Varela Work Phone: Influenza Types A,B Direct FA ([facility]) Dr. Rohan Varela Work Phone: Plan of Treatment Date Care Activity Detail Author Start: 01-26-2024 Colsc flx w/rmvl of tumor polyp lesion snare tq COLONOSCOPY W/LESION REMOVAL [facility] Start: 01-26-2024 Patient discharge [facility] Start: 03-06-2023 Patient referral [facility] Work Phone: Start: 01-22-2022 Patient referral [facility] Work Phone: Start: 04-22-2021 Patient referral [facility] Work Phone: Lipid 1996 panel - S rashad or Plasma [facility] Patient referral [facility] Work Phone: Troponin I measurement [facility] Work Phone: [facility] Immunizations Immunization Date Immunization Notes Care Provider Fa [facility] 12-02-2023 influenza, injectabl e, madin belgica canine kidney, preservative free Dr. Rohan Varela MD Work Phone: [facility] 12-01-2022 influenza, injectabl e, quadrivalent, preservative free Dr. Rohan Varela Work Phone: [facility] 01-23-2020 Shingrix (PF) 50 mcg/0.5 mL intramuscular suspension, kit (varicella-zoster Dr. Rohan Varela Work Phone: [facility] Work Phone: Payers Date Payer Category Payer Medicare [id number] 188 [id number] 2024 Self-pay [id number] 2023 Self-pay [id number] 2016 Unknown [id number] Unknown [id number] 2.16.8 [id number] Unknown [id number] 2.16.8 [id number] Unknown [id number] 2.16.8 [id number] Unknown [id number] 2.16.8 [id number] Unknown [id number] 2.16.8 [id number] Unknown [id number] 2.16.8 40.1.718898.3.579.2.462 Unknown [id number] 2.16.8 40.1.704986.3.579.2.462 Unknown [id number] 2.16.8 40.1.014358.3.579.2.462 Unknown [id number] 2.16.8 40.1.811210.3.579.2.462 Unknown [id number] 2.16.8 40.1.288876.3.579.2.462 Unknown [id number] 2.16.8 40.1.255255.3.579.2.462 Unknown [id number] 2.16.8 40.1.549609.3.579.2.462 Unknown [id number] 2.16.8 40.1.323879.3.579.2.462 Unknown [id number] 2.16.8 40.1.611562.3.579.2.462 Unknown [id number] 2.16.8 40.1.074957.3.579.2.462 Unknown [id number] 2.16.8 40.1.041136.3.579.2.462 Unknown [id number] 2.16.8 40.1.332298.3.579.2.462 Unknown [id number] 2.16.8 40.1.807907.3.579.2.462 Unknown [id number] 2.16.8 40.1.134904.3.579.2.462 Unknown [id number] 2.16.8 40.1.207374.3.579.2.462 Unknown [id number] 2.16.8 [id number] Social History Date Type Detail Facility Start: 06-19-2021 End: 04-03-2023 Tobacco smoking status SCIS Unknown if ever smoked [facility] Start: 1960 Sex Assigned At Male [facility] Start: 01-26-2024 [facility] Start: 05-17-2024 End: 05-23-2024 Sex Male (finding) [facility] Goals Date Patient Goal Desired Activity /State Mental Status Date Assessment Result Facility 01-26-2024 Cognitive function Voice/Name [facility] Work Phone: Clinical Notes 01-26-2024 to 06-08-2024 Note Date & Type Note Facility 06-08-2024 Evaluation note Diagnosis Onset Date Resolution Hyperlipemia chronic June 08, 2 025 9:40am Hypertension chronic June 08, 025 9:40am Neuropathy chronic June 08 9:40am Rheumatoid arthritis chronic Apri l 2024 9:40am Obesity (BMI 30-39.9) chronic July 26, 2024 8:38am Sleep apnea chronic July 26 8:38am [facility] Work Phone: 1(147) 973-299211-26-2024 Evaluation note* Diagnosis Onset Date Resolution Status Admit Date Colon cancer screening acute No vember 2023 8:06am Hyperlipemia chronic March 09, 2024 8:11am Hypertension chronic March 09, 2024 8:11am Neuropathy chronic March 09 025 8:11am NAHOMI (obstructive sleep apnea) chroni c March 09, 2024 8:11am Rheumatoid arthritis chronic Vernon dominga 2024 8:11am [facility] Work Phone: 1(861) 592-103311-26-2024 [facility] Medical Records Department [address] [place] [address] History Physical Exam 01/26/24917 MR#: [id number] Acct: [id number] Name: JEAN JENSEN Rep #: [id number] : 1960 63 From: Go Cortes MD PCP: Dr. Rohan Varela MD [place] [place] [address] HPI - General HPI Narrative JEAN JENSEN, is a 63 M who presents for screening colonoscopy. His last colonoscopy was at age 49. He denies abdominal pain or blood in stool. He has no family history of colon cancer. [facility] Medical History Wears glasses Marijuana use History of steroid therapy Prostate disease High cholesterol History of edema CPAP (continuous positive airway pressure) dependence Former smoker Diarrhea Gastroenteritis Colon cancer screening BPH (benign prostatic hyperplasia) Flu vaccine need Wound of left lower extremity Bilateral foot pain Left knee pain Neuropathy Preventative health care Acute bronchitis Obesity (BMI 30-39.9) Sleep apnea Depression Rheumatoid arthritis Myalgia Sicca syndrome Arthritis Hypertension Hyperlipemia Home Medications ???Medication ???Instructions ???Recorded ???Last Taken ???Type akfljmzd-[id number] acid 0.4 1 tab PO DAILY 04/19/18 01/25/24 History mg-lycopene 300 mcg-lutein 250 mcg tablet (Centrum Silver) leucovorin calcium 5 mg tablet 15 mg PO QWEEK 07/19/18 01/23/24 History methotrexate sodium 2.5 mg tablet 20 mg PO QWEEK 10/18/18 01/16/24 History acetaminophen 500 mg tablet 500 mg PO Q6H PRN pain 01/23/20 Unknown History (Tylenol Extra Strength) medical marijuanas OTHER 12/12/20 Unknown History hydroxychloroquine 200 mg tablet 200 mg PO BID 05/23/21 01/25/24 History tofacitinib 11 mg tablet,extended 11 mg PO DAILY 05/23/21 01/25/24 History release 24 hr folic acid 800 mcg tablet 0.8 mg PO DAILY 10/22/21 01/25/24 History Handicap Placard #1 ea 11/27/21 Unknown Rx foam bandage 5 X 5 (Aquacel Foam) #10 ea 09/17/22 Unknown Rx amlodipine 5 mg tablet 5 mg PO BID 3 months #180 tabs 06/03/23 01/25/24 Rx benazepril 40 mg tablet See Rx Instructions .Route 06/03/23 01/25/24 Rx .COMPLEX #90 tabs duloxetine 60 mg capsule,delayed 60 mg PO DAILY #90 caps 06/03/23 01/25/24 Rx release rosuvastatin 20 mg tablet 20 mg PO DAILY #90 tabs 06/03/23 01/24/24 Rx fenofibric acid (choline) 135 mg See Rx Instructions .Route 09/02/23 01/25/24 Rx capsule,delayed release .COMPLEX #90 caps pregabalin 75 mg capsule 75 mg PO BID #180 caps 12/22/23 01/25/24 Rx Allergy/AdvReac Type Severity Reaction Status Date / Time No Known Allergies Allergy Verified 01/22/24 09:15 Family History Mother Fibromyalgia Brother Lymphoma Father Alzheimer disease Surgical History Hx of colonoscopy history of left shoulder surgery Social History household members: spouse current occupational status: employed current occupation: [employer] Smoking Status: Former smoker quit date: 03/02/87 Tobacco: How many years used: 10 alcohol intake: current alcohol intake frequency: holidays/special occasions only substance use type: does not use what type of physical activity do you participate in: none Past Medical/Surgical History Planned Operation Planned Operative Procedure(s): cscope Previous Hospitalizations/Surgeries HX Hospitalizations: No Any Problems With Anesthesia: No You/Your Family Experience Fever (Hyperthermia) With Anes: No Cholinesterase deficiency: No Cardiovascular Hx Hypertension: Yes (WORKING ON CONTROLLING WITH [employer]) Respiratory Hx Sleep Apnea: Yes CPAP: Yes BIPAP: No Hx Respiratory Tract Infection/Cold (presently): No Result (for STOP score): Positive Smoking Status: Former smoker Neurological Does patient have nerve stimulator: No Reproduction : No Miscellaneous Recent Exposure to Contagious Disease: No Allergies No Known Allergies Allergy (Verified 01/22/24 09:15) Discharge Is Pt Admitted From a Fci, or a Halfway: No After D/C, Where Do you Plan to Go: Return Home Vital Signs Vital Signs Vital Signs: 01/26/24 08:32 01/26/24 08:34 01/26/24 09:06 Temperature 97.6 F L 97.6 F L Temperature Source Temporal Pulse Rate 75 75 Respiratory Rate 16 16 Respiratory Pattern Normal Blood Pressure 137/98 H 137/98 H Blood Pressure Mean 111 Blood Pressure Source Monitor Blood Pressure Position Semi-Fowlers Blood Pressure Location Left Arm Pulse Ox 97 97 Oxygen Delivery Method Room Air Weight Weight: 245 lb 9.519 oz Body Mass Index (BMI) 33.3 Phys (more content not included)...[facility] Diagnosis Onset Date Resolution Status Preventative health care acu te Hypertension chronic NAHOMI (obstructive sleep apnea) chronic Rheumatoid arthritis chronic Obesity (BMI 30-39.9) acute Rheumatoid arthritis chronic Sleep apnea chronic Acute bronchitis acute [facility] Work Phone: Evaluation note* Diagnosis Onset Date Resolution Status Preventative health care acu te Hypertension chronic NAHOMI (obstructive sleep apnea) chronic Rheumatoid arthritis chronic Obesity (BMI 30-39.9) acute Rheumatoid arthritis chronic Sleep apnea chronic Acute bronchitis acute Hyperlipemia chronic Hypertension chronic Neuropathy chronic Rheumatoid arthritis [facility] Work Phone: Evaluation note* Diagnosis Onset Date Resolution Status Acute bronchitis acute Hyperlipemia chronic Hypertension chronic Neuropathy chronic Rheumatoid arthritis [facility] Work Phone: Evaluation note* Diagnosis Onset Date Resolution Status Hyperlipemia chronic Hypertension chronic Neuropathy chronic Rheumatoid arthritis chronic Hyperlipemia chronic Hypertension chronic Neuropathy chronic Obesity (BMI 30-39.9) chroni c Chest pain noneactive [facility] Work Phone: Evaluation note* Diagnosis Onset Date Resolution Status Hyperlipemia chronic Hypertension chronic Neuropathy chronic Obesity (BMI 30-39.9) chroni c Chest pain noneactive [facility] Work Phone: Evaluation note* Diagnosis Onset Date Resolution Status Hyperlipemia chronic Hypertension chronic Neuropathy chronic Obesity (BMI 30-39.9) chroni c Chest pain noneactive Bilateral foot pain chronic Hypertension chronic Left knee pain chronic Neuropathy chronic Rheumatoid arthritis chronic [facility] Work Phone: Evaluation note* Diagnosis Onset Date Resolution Status Bilateral foot pain chronic Hypertension chronic Left knee pain chronic Neuropathy chronic Rheumatoid arthritis chronic Left knee pain chronic Rheumatoid arthritis chronic Osteoarthritis of left knee noneactive [facility] Work Phone: Evaluation note* Diagnosis Onset Date Resolution Status Left knee pain chronic Rheumatoid arthritis chronic Osteoarthritis of left knee noneactive Hypertension chronic Left knee pain chronic Obesity (BMI 30-39.9) chroni c NAHOMI (obstructive sleep apnea) chronic COVID-19 acute Post-viral cough syndrome ac jaren [facility] Work Phone: Evaluation note* Diagnosis Onset Date Resolution Status COVID-19 acute Post-viral cough syndrome ac lucas Sore throat acute URI (upper respiratory infection) acute URI (upper respiratory infection) acute [facility] Work Phone: Evaluation note* Diagnosis Onset Date Resolution Status Sore throat acute URI (upper respiratory infection) acute URI (upper respiratory infection) acute Wound of left lower extremity acute Hyperlipemia chronic Hypertension chronic NAHOMI (obstructive sleep apnea) chronic Rheumatoid arthritis chronic Obesity (BMI 30-39.9) chroni c Rheumatoid arthritis chronic Sleep apnea chronic [facility] Work Phone: Evaluation note* Diagnosis Onset Date Resolution Status Obesity (BMI 30-39.9) chroni c Rheumatoid arthritis chronic Sleep apnea chronic Flu vaccine need acute Hyperlipemia chronic Hypertension chronic Obesity (BMI 30-39.9) chroni c [facility] Work Phone: Evaluation note* Diagnosis Onset Date Resolution Status Flu vaccine need acute Hyperlipemia chronic Hypertension chronic Obesity (BMI 30-39.9) chroni c BPH (benign prostatic hyperplasia) chronic Hypertension chronic Rheumatoid arthritis chronic Sleep apnea chronic [facility] Work Phone: Evaluation note* Diagnosis Onset Date Resolution Status BPH (benign prostatic hyperplasia) chronic Hypertension chronic Rheumatoid arthritis chronic Sleep apnea chronic Acute upper respiratory infection acute Contact with or suspected ex posure to other viral communicable disease acute Obesity (BMI 30-39.9) chroni c Sleep apnea chronic [facility]: Reason for referral (narrative)No reason for referral information availableW[facility]. 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 No January 22, 2024 10:17am Chief Complaint and Reason for Visit Chief Complaint 3 M FU 6 M FU PAIN- COPY PCP Cough Reason for Visit Preventative health care Hypertension NAHOMI (obstructive sleep apnea) Rheumatoid arthritis Obesity (BMI 30-39.9) Rheumatoid arthritis Sleep apnea Acute bronchitis Chief Complaint 3 M FU 6 M FU PAIN- COPY PCP Cough 3 M FU Reason for Visit Preventative health care Hypertension NAHOMI (obstructive sleep apnea) Rheumatoid arthritis Obesity (BMI 30-39.9) Rheumatoid arthritis Sleep apnea Acute bronchitis Hyperlipemia Hypertension Neuropathy Rheumatoid arthritis Chief Complaint PAIN- COPY PCP Cough 3 M FU PAIN- COPY PCP Reason for Visit Acute bronchitis Hyperlipemia Hypertension Neuropathy Rheumatoid arthritis Chief Complaint 3 M FU PAIN- COPY PCP 3 M FU CHEST TIGHTNESS, PER OLEGHE Reason for Visit Hyperlipemia Hypertension Neuropathy Rheumatoid arthritis Hyperlipemia Hypertension Neuropathy Obesity (BMI 30-39.9) Chest pain Chief Complaint PAIN- COPY PCP 3 M FU CHEST TIGHTNESS, PER OLEGHE PAIN- COPY PCP Reason for Visit Hyperlipemia Hypertension Neuropathy Obesity (BMI 30-39.9) Chest pain Chief Complaint 3 M FU CHEST TIGHTNESS, PER OLEGHE PAIN- COPY PCP 3 M FU EORDER- Left Knee Pain Reason for Visit Hyperlipemia Hypertension Neuropathy Obesity (BMI 30-39.9) Chest pain Bilateral foot pain Hypertension Left knee pain Neuropathy Rheumatoid arthritis Chief Complaint PAIN- COPY PCP 3 M FU EORDER- Left Knee Pain LEFT KNEE Xray room 2 PAIN- COPY PCP Reason for Visit Bilateral foot pain Hypertension Left knee pain Neuropathy Rheumatoid arthritis Left knee pain Rheumatoid arthritis Osteoarthritis of left knee Chief Complaint LEFT KNEE Xray room 2 PAIN- COPY PCP 3 M FU COUGH/FEVER/CONGESTION/SINUS COMPLAINTS COUGH, CONGESETED/POSI COVID 3 WKS AGO Reason for Visit Left knee pain Rheumatoid arthritis Osteoarthritis of left knee Hypertension Left knee pain Obesity (BMI 30-39.9) NAHOMI (obstructive sleep apnea) COVID-19 Post-viral cough syndrome Chief Complaint COUGH/FEVER/CONGESTI ON/SINUS COMPLAINTS COUGH, CONGESETED/POSI COVID 3 WKS AGO Sore throat COUGH, SORE THROAT PAIN- COPY PCP Reason for Visit COVID-19 Post-viral cough syndrome Sore throat URI (upper respiratory infection) URI (upper respiratory infection) Chief Complaint Sore throat COUGH, SORE THROAT PAIN- COPY PCP 3 M FU 1 Y FU EORDER Reason for Visit Sore throat URI (upper respiratory infection) URI (upper respiratory infection) Wound of left lower extremity Hyperlipemia Hypertension NAHOMI (obstructive sleep apnea) Rheumatoid arthritis Obesity (BMI 30-39.9) Rheumatoid arthritis Sleep apnea Chief Complaint 1 Y FU EORDER 3 M FU Reason for Visit Obesity (BMI 30-39.9 ) Rheumatoid arthritis Sleep apnea Flu vaccine need Hyperlipemia Hypertension Obesity (BMI 30-39.9) Chief Complaint EORDER 3 M FU 3 M FU Reason for Visit Flu vaccine need Hyperlipemia Hypertension Obesity (BMI 30-39.9) BPH (benign prostatic hyperplasia) Hypertension Rheumatoid arthritis Sleep apnea Chief Complaint EORDER 3 M FU 3 M FU MASK DISCOMFORT Reason for Visit Flu vaccine need Hyperlipemia Hypertension Obesity (BMI 30-39.9) BPH (benign prostatic hyperplasia) Hypertension Rheumatoid arthritis Sleep apnea Chief Complaint 3 M FU MASK DISCOMFORT FEVER, CONGESTION, COUGH 6 M FU Reason for Visit BPH (benign prostati c hyperplasia) Hypertension Rheumatoid arthritis Sleep apnea Acute upper respiratory infection Contact with or suspected exposure to other viral communicable disease Obesity (BMI 30-39.9) Sleep apnea Chief Complaint Admit Date 3 m fu March 09, 2024 8: 11am PAIN- COPY PCP March 22, 2024 3 :17pm Reason for Visit Admit Date Colon cancer screening January 25 8:06am Hyperlipemia March 09, 2024 8: 11am Hypertension March 09, 2024 8: 11am Neuropathy March 09, 2024 8: 11am NAHOMI (obstructive sleep apnea) March 8:11am Rheumatoid arthritis March 09, 2024 8 :11am Chief Complaint Admit Date 3 M FU June 08, 2024 9:40 am 1 Y FU July 26, 2024 8:38a m Reason for Visit Admit Date Hyperlipemia June 08, 2024 9:40 am Hypertension June 08, 2024 9:40 am Neuropathy June 08, 2024 9:40 am Rheumatoid arthritis June 08, 2024 9:4 0am Obesity (BMI 30-39.9) July 26, 2024 8:3 8am Sleep apnea July 26, 2024 8:38a m Chief Complaint Admit Date 3 M FU June 08, 2024 9:40 am 1 Y FU July 26, 2024 8:38a m G47.33 - Obstructive sleep apnea (adult) (pediatri August 04, 2024 9:00am Chief Complaint Admit Date 3 M FU June 08, 2024 9:40 am 1 Y FU July 26, 2024 8:38a m G47.33 - Obstructive sleep apnea (adult) (pediatri August 04, 2024 9:00am R INDEX CYST August 18, 2024 1:55 pm Additional Source Comments (unrecognized sect ion and content) No Status Records FoundNo Status Records Found INFORMATION SOURCE (unrecogn ized section and content) DATE CREATED AUTHOR 08/26/2017 [facility] DATE CREATED AUTHOR AUTHOR'S [place] ATION 08/14/2024 [facility] Goals (unrecognized section and content) Goals may be documented in a n alternate sectionGoals may be documented in an alternate sectionGoals may be documented in an alternate sectionGoals may be documented in an alternate sectionGoals may be documented in an alternate sectionGoals may be documented in an alternate sectionGoals may be documented in an alternate sectionGoals may be documented in an alternate sectionGoals may be documented in an alternate sectionGoals may be documented in an alternate sectionGoals may be documented in an alternate sectionGoals may be documented in an alternate sectionGoals may be documented in an alternate sectionGoals may be documented in an alternate sectionGoals may be documented in an alternate sectionGoals may be documented in an alternate sectionGoals may be documented in an alternate sectionGoals may be documented in an alternate sectionGoals may be documented in an alternate section Care Teams (unrecognized sec tion and content) Team Status: Active Member Role Status Dates Dr. Rohan Varela MD Family Provider Active Dr. Rohan Varela MD Primary Care Provider Active Team Status: Inactive Member Role Status Dates Dr. Rohan Varela MD Primary Care P rovider, Attending Provider, Referring Provider Active Team Status: Inactive Member Role Status Dates Dr. Rohan Varela MD Primary Care Provider, Refer ring Provider Active Dr. Sanchez Oconnor DO Attending Provider Active Team Status: Inactive Member Role Status Dates Dr. Rohan Varela MD Primary Care Provider Active Dr. Eddie Elaine MD Attending Provider Active Team Status: Inactive Member Role Status Dates Dr. Rohan Varela MD Primary Care Provider Active Dr. Shey Perez MD Attending Provider, Referring Provider Active Team Status: Inactive Member Role Status Dates Dr. Rohan Varela MD Primary Care Provider, Refer ring Provider Active Dominic Stratton PA, PA Attending Provider Active Team Status: Inactive Member Role Status Dates Dr. Rohan Varela MD Primary Care Provider, Refer ring Provider Active Lyla Bower ARCHIVIST MILITARY HISTORY, ARCHIVIST MILITARY HISTORY-C Attending Provider Active Team Status: Inactive Member Role Status Dates Dr. Rohan Varela MD Primary Care Provider Active Dr. Shey Perez MD Attending Provider Active Team Status: Inactive Member Role Status Dates Dr. Rohan Varela MD Primary Care Provider, Refer ring Provider Active Dr. Gage Adams MD Attending Provider Active Team Status: Active Member Role Status Dates Dr. Rohan Varela MD Primary Care P rovider, Attending Provider, Referring Provider Active Team Status: Inactive Member Role Status Dates Dr. Rohan Varela MD Primary Care Provider, Atten ding Provider Active Team Status: Inactive Member Role Status Dates Dr. Rohan Varela MD Primary Care Provider, Refer ring Provider Active Marianna Finn ARCHIVIST MILITARY HISTORY, ARCHIVIST MILITARY HISTORY-C Attending Provider Active Team Status: Inactive Member Role Status Dates Dr. Rohan Varela MD Primary Care Provider Active Start: January 26, 2024 End: January 26, 2024 Dr. Rohan Varela MD Referring Provider Active Start: January 26, 2024 End: January 26, 2024 Dr. Go Cortes MD Attending Provider Active Start: January 26, 2024 End: January 26, 2024 Team Status: Active Member Role Status Dates Dr. Rohan Varela MD Primary Care Provider Active Start: January 26, 2024 Dr. Rohan Varela MD Referring Provider Active Start: January 26, 2024 Dr. Go Cortes MD Attending Provider Active Start: January 26, 2024 Dr. Go Cortes MD Other Provider Active Start: January 26, 2024 Team Status: Inactive Member Role Status Dates Dr. Rohan Varela MD Primary Care Provider Active Start: March 09, 2024 End: March 09, 2024 Dr. Rohan Varela MD Attending Provider Active Start: March 09, 2024 End: March 09, 2024 Dr. Rohan Varela MD Referring Provider Active Start: March 09, 2024 End: March 09, 2024 Team Status: Inactive Member Role Status Dates Dr. Rohan Varela MD Primary Care Provider Active Start: March 22, 2024 End: March 22, 2024 Dr. Shey Perez MD Attending Provider Active Start: March 22, 2024 End: March 22, 2024 Dr. Shey Perez MD Referring Provider Active Start: March 22, 2024 End: March 22, 2024 Team Status: Inactive Member Role Status Dates Dr. Rohan Varela MD Primary Care Provider Active Start: May 09, 2024 End: May 09, 2024 Dr. Shey Perez MD Attending Provider Active Start: May 09, 2024 End: May 09, 2024 Dr. Shey Perez MD Referring Provider Active Start: May 09, 2024 End: May 09, 2024 Team Status: Active Member Role Status Dates Dr. Rohan Varela MD Primary Care Provider Active Start: May 13, 2024 Dr. Shey Perez MD Attending Provider Active Start: May 13, 2024 Dr. Shey Perez MD Referring Provider Active Start: May 13, 2024 Team Status: Inactive Member Role Status Dates Dr. Rohan Varela MD Primary Care Provider Active Start: May 13, 2024 End: May 13, 2024 Dr. Shey Perez MD Attending Provider Active Start: May 13, 2024 End: May 13, 2024 Dr. Shey Perez MD Referring Provider Active Start: May 13, 2024 End: May 13, 2024 Team Status: Inactive Member Role Status Dates Dr. Rohan Varela MD Primary Care Provider Active Start: June 08, 2024 End: June 08, 2024 Dr. Rohan Varela MD Attending Provider Active Start: June 08, 2024 End: June 08, 2024 Dr. Rohan Varela MD Referring Provider Active Start: June 08, 2024 End: June 08, 2024 Team Status: Inactive Member Role Status Dates Dr. Rohan Varela MD Referring Provider Active Start: July 26, 2024 End: July 26, 2024 MELISSA PalmerC Attending Provider Active Start: July 26, 2024 End: July 26, 2024 Team Status: Active Member Role Status Dates Dr. Rohan Varela MD Primary Care Provider Active Team Status: Inactive Member Role Status Dates Dr. Rohan Varela MD Primary Care Provider Active Start: August 01, 2024 End: August 01, 2024 Dr. Shey Perez MD Attending Provider Active Start: August 01, 2024 End: August 01, 2024 Dr. Shey Perez MD Referring Provider Active Start: August 01, 2024 End: August 01, 2024 Team Status: Active Member Role Status Dates PRICILLA Palmer Attending Provider Active Start: August 04, 2024 PRICILLA Palmer Referring Provider Active Start: August 04, 2024 Dr. Rohan Varela MD Primary Care Provider Active Start: August 04, 2024 Team Status: Inactive Member Role Status Dates PRICILLA Palmer Attending Provider Active Start: August 04, 2024 End: August 04, 2024 PRICILLA Palmer Referring Provider Active Start: August 04, 2024 End: August 04, 2024 Dr. Rohan Varela MD Primary Care Provider Active Start: August 04, 2024 End: August 04, 2024 Team Status: Inactive Member Role Status Dates No Primary Care Physician Referring Provider Active Start: August 18, 2024 End: August 18, 2024 Dr. Noah Stewart MD Attending Provider Active Start: August 18, 2024 End: August 18, 2024 Dr. Rohan Varela MD Primary Care Provider Active Start: August 18, 2024 End: August 18, 2024 FOR RECORDS PERTAINING TO PATIENTS WHO ARE [...] BE BASED ON THE PRIMARY CLINICAL RECORDS. [employer] provides no warranty or guarantee of the accuracy or completeness of information in this document.
--- NOTE | 2024-08-20 09:30 | EX.ED.DYSGE1 ---
HPI History of Present Illness Chief Complaint: Hypertension Detail of Chief Complaint: Asymptomatic elevated blood pressure past week Informant: patient and spouse/S.O. Onset/Context/Timing Onset: Weeks Context: Gradual Onset Timing: Waxes and wanes Quality: Systolic varying between 140 and 165 Location: Cardiovascular Current Severity: Mild Maximum Severity: Moderate Worsened by: Nothing Relieved by: Nothing Associated Symptoms Associated Symptoms: None Narrative Narrative: Patient is 64-year-old gentleman. He has history of hypertension, rheumatoid arthritis, hyperlipidemia, BMI greater than 30, BPH, obstructive sleep apnea who presents because of elevated blood pressure. He states he retired in April. He is been exercising for the past month. He checks his blood pressure quite frequently. He brought in a piece of paper with typed blood pressure readings over the past several days/week. At no time is he complained of headache, visual, ocular auditory symptoms. He denies problems with speech or swallowing. He denies paresthesia, anesthesia or motor weakness. He denies problems with balance or coordination. He has had no urinary symptoms and specifically no increase or decreased urine output. He reports compliance with his medications and diet. As stated he has been exercising more since he retired. He is seen by Dr. Varela for internal medicine. 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 He is present on no meds for his rheumatoid arthritis. He had colon screening January [address] Cortes. Prior similar symptoms: Yes Recent Illness/Hospitalization: No [facility] Medical History Nail abnormality Wears glasses Marijuana use History of steroid therapy Prostate disease High cholesterol History of edema CPAP (continuous positive airway pressure) dependence Former smoker Diarrhea Gastroenteritis Colon cancer screening BPH (benign prostatic hyperplasia) Flu vaccine need Wound of left lower extremity Bilateral foot pain Left knee pain Neuropathy Preventative health care Acute bronchitis Obesity (BMI 30-39.9) Sleep apnea Depression Rheumatoid arthritis Myalgia Sicca syndrome Arthritis Hypertension Hyperlipemia Home Medications ?Medication ?Instructions ?Recorded ?Last Taken ?Type chnrbtel-jfq-xtcyi acid 0.4 1 tab PO DAILY 04/19/18 08/19/24 History mg-lycopene 300 mcg-lutein 250 mcg tablet (Centrum Silver) methotrexate sodium 2.5 mg tablet 20 mg PO QWEEK 10/18/18 08/17/24 History acetaminophen 500 mg tablet 500 mg PO Q6H PRN pain 01/23/20 Unknown History (Tylenol Extra Strength) medical marijuanas OTHER 12/12/20 08/19/24 History hydroxychloroquine 200 mg tablet 200 mg PO BID 05/23/21 08/19/24 History tofacitinib 11 mg tablet,extended 11 mg PO DAILY 05/23/21 08/19/24 History release 24 hr Handicap Placard #1 ea 11/27/21 Unknown Rx foam bandage 5 X 5 (Aquacel Foam) #10 ea 09/17/22 Unknown Rx duloxetine 60 mg capsule,delayed 60 mg PO DAILY #90 caps 03/07/24 08/19/24 Rx release pregabalin 75 mg capsule 75 mg PO BID #180 caps 05/09/24 08/19/24 Rx rosuvastatin 20 mg tablet 20 mg PO DAILY #90 tabs 05/24/24 08/19/24 Rx amlodipine 10 mg tablet 10 mg PO QDAY #90 tabs 06/09/24 08/19/24 Rx benazepril 40 mg tablet See Rx Instructions .Route 06/09/24 08/19/24 Rx .COMPLEX #90 tabs fenofibric acid (choline) 135 mg See Rx Instructions .Route 06/09/24 08/19/24 Rx capsule,delayed release .COMPLEX #90 caps leucovorin calcium 25 mg tablet 25 mg PO .COMPLEX 08/20/24 08/17/24 History prednisone 5 mg tablet 5 mg PO .COMPLEX PRN flares 08/20/24 Unknown History Allergy/AdvReac Type Severity Reaction Status Date / Time No Known Allergies Allergy Verified 08/20/24 08:31 Family History Mother Fibromyalgia Brother Lymphoma Father Alzheimer disease Surgical History Hx of colonoscopy history of left shoulder surgery Social History household members: spouse current occupational status: employed current occupation: [employer] Smoking Status: Former smoker quit date: 03/02/87 Tobacco: How many years used: 10 alcohol intake: current alcohol intake frequency: holidays/special occasions only substance use type: does not use what type of physical activity do you participate in: none ROS ROS ED Eyes Eyes: Denies blurry vision, change in vision or diplopia ENT ENT ED: Denies rhinorrhea or sore throat Cardiovascular Cardiovascular: Denies chest pain, orthopnea, palpitations or paroxysmal nocturnal dyspnea Respiratory/Chest Respiratory/Chest: Denies cough, dyspnea, dyspnea on exertion, orthopnea or paroxysmal nocturnal dyspnea Gastrointestinal Gastrointestinal: Denies nausea or vomiting Musculoskeletal Musculoskeletal: Denies arthralgias, myalgias or neck pain Integumentary Denies rash Neurologic Neurologic: Denies headache(s), paresthesias or weakness Hematologic/Lymphatic Hematologic/Lymphatic: Reports systems reviewed and no addt'l complaints, except as documented EXAM Physical Exam Const Vital Signs: 08/20/24 08:30 08/20/24 08:40 08/20/24 08:40 Temperature 98 F Temperature Source Temporal Pulse Rate 91 88 Respiratory Rate 14 18 Respiratory Effort Normal Respiratory Pattern Normal Blood Pressure 154/84 H 146/70 H Blood Pressure Mean 107 95 Pulse Ox 99 100 Oxygen Delivery Method Room Air Room Air 08/20/24 08:45 08/20/24 09:00 08/20/24 09:15 Temperature Temperature Source Pulse Rate 77 79 80 Respiratory Rate 16 14 13 Respiratory Effort Respiratory Pattern Blood Pressure 145/98 H 140/88 H 143/90 H Blood Pressure Mean 113 105 107 Pulse Ox 97 96 98 Oxygen Delivery Method Room Air Room Air Room Air 08/20/24 09:30 08/20/24 09:45 Temperature Temperature Source Pulse Rate 72 73 Respiratory Rate 16 14 Respiratory Effort Respiratory Pattern Blood Pressure 143/93 H 147/94 H Blood Pressure Mean 109 111 Pulse Ox 98 96 Oxygen Delivery Method Room Air Positive well nourished and well developed Constitutional Narrative: BMI is 30.4. General Appearance ED: well developed and NAD; Negative for pallor HEENT Reports moist mucous membranes HEENT Narrative: Head is atraumatic and normocephalic. Ears normal. TMs normal. Posterior pharynx is normal. Uvula is midline. There is no deviation of the protrusion. Eyes PERRL and EOMs intact bilaterally Eyes Narrative: There is no nystagmus. General Eye ED: Negative for pale conjunctiva or scleral icterus Neck no lymphadenopathy, supple and no JVD Neck Narrative: There are no carotid bruits. Chest Wall palpation of chest normal Resp normal respiratory effort and clear to auscultation bilaterally Cardio regular rate, regular rhythm, S1 normal heart sound, S2 normal heart sound and no murmurs GI normal to inspection, nondistended, normoactive bowel sounds, non-tender and non-distended Extremity normal to inspection Extremity Narrative: Palpable distal pulses radius and PT and symmetric. There is no stigmata of peripheral arterial disease. Patient still has hair on his toes. General Extremety ED: Negative for edema or tenderness General Extremity: Negative for edema Neuro oriented x3, CN's II-XII intact bilaterally and no sensory deficits noted Neuro Narrative: There is no dysmetria. Bicep, brachialis, tricep, patellar ankle reflex are 1-2+ symmetric. There is no clonus or Babinski sign noted. Motor Exam: strength 5/5 throughout Skin no rashes or lesions noted, no wounds and skin turgor normal General Skin Exam: elasticity normal; Negative for jaundice or pallor MDM MDM MDM Narrative Medical decision making narrative: Patient presents with asymptomatic tach hypertension. He had recent blood work. This was reviewed. Patient has elevated creatinine. This is unchanged from prior. Since patient is asymptomatic has no significant endorgan dysfunction and pressures are not markedly elevated and have improved without treatment since he has arrived we will observe. In my opinion there is no indication for any emergent testing or emergent lowering of his blood pressure. Treatment and Re-Evaluation :: Prior EKG was reviewed. He had no evidence of LVH. Discharge Plan Triage Chief Complaint: Hypertension ED Provider: Alexander Holloway Dx/Rx/DC Orders Clinical Impression: Asymptomatic hypertension, Elevated serum creatinine, Facial flushing Instructions: ED High Blood Pressure Hypertension Prescriptions: No Action Centrum Silver 0.4-300-250 mg-mcg-mcg tablet 1 tab PO DAILY methotrexate sodium 2.5 mg tablet 20 mg PO QWEEK acetaminophen [Tylenol Extra Strength] 500 mg tablet 500 mg PO Q6H PRN (Reason: pain) medical marijuanas OTHER hydroxychloroquine 200 mg tablet 200 mg PO BID tofacitinib 11 mg tablet extended release 24 hr 11 mg PO DAILY (DME) Aquacel Foam 5 X 5 bandage See Rx Instructions .Route Qty: 10 0RF Rx Instructions: As directed leucovorin calcium 25 mg tablet 25 mg PO .COMPLEX Rx Instructions: 25 mg orally after mtx; prednisone 5 mg tablet 5 mg PO .COMPLEX PRN (Reason: flares) Rx Instructions: 5 mg orally every 3-5 days PRN; (DME) Handicap Placard See Rx Instructions .ROUTE .MEDSUPPLY Qty: 1 0RF Rx Instructions: As directed, length of time 3 years duloxetine 60 mg capsule,delayed release(DR/EC) 60 mg PO DAILY Qty: 90 1RF pregabalin 75 mg capsule 75 mg PO BID Qty: 180 1RF rosuvastatin 20 mg tablet 20 mg PO DAILY Qty: 90 1RF amlodipine 10 mg tablet 10 mg PO QDAY Qty: 90 1RF fenofibric acid (choline) 135 mg capsule,delayed release(DR/EC) See Rx Instructions .ROUTE .COMPLEX Qty: 90 1RF Dose Instruction: TAKE 1 CAPSULE BY MOUTH EVERY DAY Rx Instructions: TAKE 1 CAPSULE BY MOUTH EVERY DAY benazepril 40 mg tablet See Rx Instructions .ROUTE .COMPLEX Qty: 90 1RF Dose Instruction: TAKE 1 TABLET BY MOUTH EVERY DAY Rx Instructions: TAKE 1 TABLET BY MOUTH EVERY DAY Primary Care Provider: Rohan Varela Referrals: Rohan Varela MD [Primary Care Provider] - 1-2 Weeks Activity Restrictions/Additional Instructions: 1. Recommend follow-up with your doctor to have outpatient testing and possible 24-hour urine collection test Print Language: Albanian Disposition Disposition: Home, Self Care
== END 2024-08-20 10:03 | disposition home or self-care (01) ==
PROVIDERS: Emergency Provider Emergency Medicine; PCP Internal Medicine; Visit Provider Emergency Medicine
DX: I10 Essential (primary) hypertension (principal); M06.9 Rheumatoid arthritis, unspecified; R79.89 Other specified abnormal findings of blood chemistry; E78.00 Pure hypercholesterolemia, unspecified; G47.33 Obstructive sleep apnea (adult) (pediatric); N40.0 Benign prostatic hyperplasia without lower urinary tract symptoms; Z79.899 Other long term (current) drug therapy; Z87.891 Personal history of nicotine dependence
CPT/HCPCS: 99282

== ENCOUNTER → 2024-10-05 | Outpatient (CLI) | payer MEDICARE, SELFPAY ==
[2024-10-05 13:00] LABS: Cholesterol 210 mg/dL (<=200); Low Density Lipoprotein Calc. 133 mg/dL; Triglycerides 91 mg/dL; Very Low Density Lipoprotein 18 mg/dL (5-40); cholesterol:hdl ratio screen 3.54
== END | disposition home or self-care (01) ==
LOC: BIMLAB 10:58
PROVIDERS: PCP Internal Medicine; Referring Provider Internal Medicine; Visit Provider Internal Medicine
DX: E78.5 Hyperlipidemia, unspecified (principal)
CPT/HCPCS: 36415; 80061

== ENCOUNTER → 2024-11-01 | Outpatient (CLI) | payer MEDICARE, SELFPAY ==
[2024-11-01 10:38] LABS: Hematocrit 45.0 % (40-54); Hemoglobin 15.1 g/dL (13.0-16.5); Immature Granulocytes Count 0.020 X10^3/uL (0.0-0.0); Mean Corp Hgb Conc 33.6 g/dL (32-36); Mean Corpuscular Volume 99.6 fL (80-94); Mean Platelet Vol. 13.6 fl (6.2-12.0); NRBC Flagged by Analyzer 0 % (0-5); POSITIVE COUNT YES; RBC Distribution Width CV 12.2 % (11.6-14.6); RBC Distribution Width SD 44.8 fl (35.1-43.9); Red Blood Count 4.52 M/mm3 (4.6-6.2); White Blood Count 6.5 K/mm3 (4.4-11.0)
[2024-11-01 11:19] LABS: AST(SGOT) 21 U/L (<=37); Alanine Aminotransfer ALT/SGPT 9 U/L (<=46); Albumin, Serum 4.3 g/dL (3.4-4.8); Alkaline Phosphatase 46 U/L (40-129); Anion Gap 11 (5-15); BUN 19 mg/dL (4-19); BUN/Creat Ratio 19.8 RATIO (10-20); Calcium,Total 9.6 mg/dL (7.6-11.0); Carbon Dioxide 24.5 mmol/L (21.0-32.0); Chloride 104 mmol/L (98-108); Globulin 2.8 g/dL (2.2-4.2); Glucose 94 mg/dL (70-99); Potassium 3.7 mmol/L (3.3-5.1)
[2024-11-01 11:54] LABS: Differential Indicated SCAN CRITERIA MET
== END | disposition home or self-care (01) ==
LOC: MTLAB 08:22
PROVIDERS: PCP Internal Medicine; Referring Provider Internal Medicine Rheumatology; Visit Provider Internal Medicine Rheumatology
DX: M06.00 Rheumatoid arthritis without rheumatoid factor, unspecified site (principal); Z79.899 Other long term (current) drug therapy
CPT/HCPCS: 36415; 80053; 85025

== ENCOUNTER 2024-11-08 08:47 | Day surgery (SDC) | payer MEDICARE, SELFPAY ==
--- NOTE | 2024-10-27 08:47 | EKG12_ITS ---
Test Reason : PREOP Blood Pressure : */* mmHG Vent. Rate : 70 BPM Atrial Rate : 70 BPM P-R Int : 142 ms QRS Dur : 88 ms QT Int : 384 ms P-R-T Axes : 49 12 2 degrees QTcB Int : 414 ms Normal sinus rhythm Normal ECG Confirmed by DONNA FLORES ([id number]), assignment desk editor SHARON EASTMAN ([id number]) on 10/28/2024 5:45:05 AM Referred By: Go Cortes Confirmed By: DONNA FLORES
[2024-10-27 09:47] LABS: Hematocrit 42.0 % (40-54); Hemoglobin 14.1 g/dL (13.0-16.5); Immature Granulocytes Count 0.020 X10^3/uL (0.0-0.0); Mean Corp Hgb Conc 33.6 g/dL (32-36); Mean Corpuscular Volume 99.8 fL (80-94); Mean Platelet Vol. 13.2 fl (6.2-12.0); NRBC Flagged by Analyzer 0 % (0-5); Platelet Count 211 K/mm3 (150-450); RBC Distribution Width CV 12.4 % (11.6-14.6); RBC Distribution Width SD 45.9 fl (35.1-43.9); Red Blood Count 4.21 M/mm3 (4.6-6.2); White Blood Count 5.6 K/mm3 (4.4-11.0)
[2024-11-08] VITALS (9 sets, daily range): BP systolic 128–153; BP diastolic 81–87; PULSE 77–86; RESP 14–20; TEMP 36.3–36.4; O2SAT 94–100; BMI 29.6
[2024-11-08] MEDS: Lactated Ringers 1,000 ML 15 ML IV (09:12)
--- NOTE | 2024-11-08 09:56 | PCM.HP.BLA ---
History and Physical Date of Admission: 11/08/24 Intake Vital Signs 10/05/2509:10 10/17/2508:29 Height 6 ft 6 ft Weight: 224 lb 2 oz BMI 30.4 BP 126/81 H Blood Pressure Location Rt brachial Position Sitting Respiration 18 Pulse 86 Pulse Source Monitor Temp 97.6 F L Temp Source Temporal Pulse Oximetry (%) 98 Oxygen Delivery Method room air Intake Visit Reasons: Hernia Chief Complaint: umbilical hernia Is patient in pain?: No Allergies No Known Allergies Allergy (Verified 11/08/24 09:07) Medications ?Medication ?Instructions ?Recorded ?Confirmed ?Type ulcqjpof-hem-ycnxu acid 0.4 1 tab PO DAILY 04/19/18 10/25/24 History mg-lycopene 300 mcg-lutein 250 mcg tablet (Centrum Silver) acetaminophen 500 mg tablet 500 mg PO Q6H PRN pain 01/23/20 10/25/24 History (Tylenol Extra Strength) medical marijuanas 1 dose OTHER PRN 12/12/20 10/25/24 History Handicap Placard #1 ea 11/27/21 10/17/24 Rx foam bandage 5 X 5 (Aquacel Foam) #10 ea 09/17/22 10/17/24 Rx pregabalin 75 mg capsule 75 mg PO BID #180 caps 05/09/24 10/25/24 Rx amlodipine 10 mg tablet 10 mg PO QDAY #90 tabs 06/09/24 11/08/24 Rx benazepril 40 mg tablet See Rx Instructions .Route 06/09/24 10/25/24 Rx .COMPLEX #90 tabs fenofibric acid (choline) 135 mg See Rx Instructions .Route 06/09/24 10/25/24 Rx capsule,delayed release .COMPLEX #90 caps rosuvastatin 20 mg tablet 20 mg PO DAILY #90 tabs 08/29/24 10/25/24 Rx Have you fallen in the past year?: No PFSH Medical History (Updated 11/08/24 @ 09:[address] Go Cortes MD) Umbilical hernia Nail abnormality Wears glasses Marijuana use History of steroid therapy Prostate disease High cholesterol History of edema CPAP (continuous positive airway pressure) dependence Former smoker Diarrhea Gastroenteritis Colon cancer screening BPH (benign prostatic hyperplasia) Flu vaccine need Wound of left lower extremity Bilateral foot pain Left knee pain Neuropathy Preventative health care Acute bronchitis Obesity (BMI 30-39.9) Sleep apnea Depression Rheumatoid arthritis Myalgia Sicca syndrome Arthritis Hypertension Hyperlipemia Surgical History (Updated 10/25/24 @ 13:16 by Omid Ortega) Hx of colonoscopy history of left shoulder surgery Family History Mother FibromyalgiaBrother LymphomaFather Alzheimer disease Social History household members: spouse current occupational status: employed current occupation: [employer] Smoking Status: Former smoker quit date: 03/02/87 Tobacco: How many years used: 10 alcohol intake: current alcohol intake frequency: holidays/special occasions only substance use type: does not use what type of physical activity do you participate in: none HPI HPI HPI: Patient is a 64-year-old male here with a small umbilical hernia. He would like this repaired. He says it hurts when he does heavy lifting. He says been there for several years. ROS General General: Yes weight change (loss- intentional) and fatigue; No appetite, colon cancer, breast cancer or weakness HEENT HEENT: No difficulty swallowing, eye injury, eye surgery, swollen glands or hoarseness Endo Endocrine: No thyroid disease, diabetes mellitus, thyroid cancer, Hair loss, heat intolerance or cold intolerance Skin Skin: No rash or changing moles Musc Musculoskeletal: Yes arthritis and rheumatoid arthritis; No back problems, gout or joint pain Cardio Cardiovascular: Yes high blood pressure; No murmur, pacemaker, heart disease, atrial fibrillation, heart attack, heart stent, palpitations, shortness of breath with exertion or chest pain Psych Psychiatric: No depression, anxiety or hearing voices Resp Respiratory: No shortness of breath, Yes sleep apnea, No cough, No COPD, No asthma, No emphysema and No wheezing Gastro Gastrointestinal: No abdominal pain, No nausea or vomiting, No diarrhea, No constipation, No blood in stool, No acid reflux, Yes hemorrhoids, No ulcers, No gallbladder problem and No black,tarry stools Say Hematologic: No blood thinners, No blood disorders, No bleeding, No anemia and No blood clots Neuro Neurologic: No numbness, No tingling and No weakness Exam Const General: cooperative Orientation: alert and oriented x3 HENMT Head: normal to inspection Neck Neck: normal visual inspection and full ROM Chest Chest palpation & inspection: normal inspection of the chest Resp Effort & Inspection: normal respiratory effort Auscultation: clear to auscultation bilaterally Cardio Rate: regular rate Rhythm: regular rhythm GI Inspection: non-distended Palpation: soft, hernia umbilical and nontender Skin General: no rashes or lesions noted Neuro General: patient alert and patient oriented x3 Extrem General: full ROM Psych Appearance: grossly normal Mental Status: mental status grossly normal Assessment and Plan Assessment and Plan (1) Umbilical hernia: Status: Chronic Qualifiers: Obstruction and gangrene presence: without obstruction or gangrene Qualified Code(s): K42.9 - Umbilical hernia without obstruction or gangrene Plan: Patient has a small reducible umbilical hernia. I discussed repairing it with possible mesh. I discussed mesh placement in detail if the hernia defect is over 1 cm. I discussed the procedure in detail including the risks of the procedure including but not limited to bleeding, infection, injury underlying organs. Patient understands the risks and is willing to proceed. Go Cortes MD Pager: [facility] [address] [place] [address], [address] [place] [address] Office: I have examined the patient and the H&P has been reviewed. There are no clinical changes since date of exam.
--- NOTE | 2024-11-08 09:58 | PCM.PRE.AN2 ---
ASA Classification* ASA Classification ASA Classification: 2 Assessment & Plan Anesthesia* Anesthesia Assessment Anesthesia Assessment: Discussed sedation and/or anesthesia options, risks, benefits, and alternatives with patient/parents/legal guardian/POA. Questions invited. The patient/parents/legal guardian/POA seems to understand and agrees to proceed with anesthesia plan. Reviewed the physical assessment, medical history, allergy history and patient home medications list prior to surgery/procedure/anesthetic and documented any changes. Performed airway and anesthesia risk assessments. Anesthesia Type Anesthesia Type: General History Source History Obtained from:: Patient and Chart Anesthesia Focused Assessment* Temperature: 97.3 F Pulse Rate: 80 Blood Pressure: 153/87 Respiratory Rate: 18 Pulse Ox: 100 Oxygen Delivery Method: Room Air Airway Assessment Mouth opens: >3 cm Mallampati Score: I Teeth Condition: Caps/Crowns (Patient has a crown. It is tight.), Chipped/Broken (Couple chipped teeth.) and Missing (Patient has couple missing teeth. Rest are tight.) Neck Range of motion (ROM): Full ROM Comment: Full [place] Labs Anesthesia Preop lab: CBC WBC 6.5 K/mm3 (4.4-11.0) 11/01/24 08:24 11/01/24 RBC 4.52 M/mm3 (4.6-6.2) L 11/01/24 08:24 11/01/24 Hgb 15.1 g/dL (13.0-16.5) 11/01/24 08:24 11/01/24 Hct 45.0 % (40-54) 11/01/24 08:24 11/01/24 Plt Count TNP 11/01/24 08:24 11/01/24 CHEMISTRY Potassium 3.7 mmol/L (3.3-5.1) 11/01/24 08:24 11/01/24 Sodium 139 mmol/L (133-145) 11/01/24 08:24 11/01/24 BUN 19 mg/dL (4-19) 11/01/24 08:24 11/01/24 Creatinine 0.94 mg/dL (0.70-1.20) 11/01/24 08:24 11/01/24 Glucose 94 mg/dL (70-99) 11/01/24 08:24 11/01/24 TSH 1.63 uIU/mL (0.358-3.74) 08/04/19 13:12 08/04/19 COAG Pre-Assessment Diagnosis/Proposed Procedure Planned Operative Procedure(s): OPEN UMBILICAL HERNIA WITH POSSIBLE MESH Anesthesia History 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 When Was Last Pacemaker Check QUESTION #4 FULL TEXT: You/Your Family Experience fever (hyperthermia) with Anesthesia Last Oral Intake Last Oral intake: Last Oral Intake NPO since 21:00 11/08/24 09:08 Meds taken in AM with sips of Yes 11/08/24 09:08 water? Meds patient instructed to AMLODIPINE 11/08/24 09:08 take am of surgery Any additional information?: Yes Meds taken in AM with sips of water?: Yes PONV PONV - shuttle car operator: PONV - shuttle car operator Female No 10/25/24 13:09 HX of Motion Sickness No 10/25/24 13:09 HX of N/V After Surgery No 10/25/24 13:09 Non-Smoker Yes 10/25/24 13:09 Duration of Surgery greater Yes 10/25/24 13:09 than 60 minutes Number of Risk Factors 2 10/25/24 13:09 PONV Score Moderate Risk 10/25/24 13:09 Height & Weight Height & Weight: Anesthesia: Height & Weight Height 6 ft 11/08/24 09:08 Weight: 99.2 kg 11/08/24 09:08 Body Mass Index (BMI) 29.6 11/08/24 09:08 Respiratory Assessment Respiratory Assessment - shuttle car operator: Respiratory Tract Infection Hx - shuttle car operator Hx Respiratory Tract Infection No 10/25/24 13:09 STOP Sleep Apnea STOP Sleep Apnea - shuttle car operator: STOP Sleep Apnea - shuttle car operator Hx Hypertension Yes 10/25/24 13:09 Hx Sleep Apnea Yes 10/25/24 13:09 CPAP Yes: NON COMPLIANT 10/25/24 13:09 BIPAP No 10/25/24 13:09 Do you snore loudly (louder than talking or can be heard Do you often feel tired/ fatigued/ sleepy during daytime? Has anyone observed you stop breathing during sleep? STOP Results Positive 10/25/24 13:09 QUESTION #5 FULL TEXT : Do you snore loudly (louder than talking or can be heard through closed doors)? 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 Specify any problems Hx of Preganancy in last 3 N/A 10/25/24 13:09 Months Nurse Filling Out Transfusion [email or web address] 10/25/24 13:09 & Questions: Date: 10/25/24 10/25/24 13:09 Time: 13:12 10/25/24 13:09 Patient unable to answer at this time (ie. confused, unrespo /Reproduction History /Reproductive History - shuttle car operator: /Reproductive Hx- shuttle car operator Hx Now Gestational Age (in weeks): EDC: Hx Hx Para Hx Section SAB No 01/22/24 09:17 Active Medications Active Medications: Current Medications Generic Name Dose Route Start Last Admin Trade Name Freq PRN Reason Stop Dose Admin Cefazolin Sodium 2 gm/ Sodium 110 mls @ 200 mls/hr 11/08/24 10:30 Chloride IV 11/08/24 11:02 INTRAOP ONE Lactated Ringer's 1,000 mls @ 15 mls/hr 11/08/24 09:00 11/08/24 09:12 IV 15 mls/hr .Q48H SILVIA Administration PFSH Medical History Umbilical hernia Nail abnormality Wears glasses Marijuana use History of steroid therapy Prostate disease High cholesterol History of edema CPAP (continuous positive airway pressure) dependence Former smoker Diarrhea Gastroenteritis Colon cancer screening BPH (benign prostatic hyperplasia) Flu vaccine need Wound of left lower extremity Bilateral foot pain Left knee pain Neuropathy Preventative health care Acute bronchitis Obesity (BMI 30-39.9) Sleep apnea Depression Rheumatoid arthritis Myalgia Sicca syndrome Arthritis Hypertension Hyperlipemia Home Medications ?Medication ?Instructions ?Recorded ?Last Taken ?Type wmhkwfnz-stj-dwjxp acid 0.4 1 tab PO DAILY 04/19/18 08/19/24 History mg-lycopene 300 mcg-lutein 250 mcg tablet (Centrum Silver) acetaminophen 500 mg tablet 500 mg PO Q6H PRN pain 01/23/20 Unknown History (Tylenol Extra Strength) medical marijuanas 1 dose OTHER PRN 12/12/20 08/19/24 History Handicap Placard #1 ea 11/27/21 Unknown Rx foam bandage 5 X 5 (Aquacel Foam) #10 ea 09/17/22 Unknown Rx pregabalin 75 mg capsule 75 mg PO BID #180 caps 05/09/24 08/19/24 Rx amlodipine 10 mg tablet 10 mg PO QDAY #90 tabs 06/09/24 11/08/24 07:30 Rx benazepril 40 mg tablet See Rx Instructions .Route 06/09/24 08/19/24 Rx .COMPLEX #90 tabs fenofibric acid (choline) 135 mg See Rx Instructions .Route 06/09/24 08/19/24 Rx capsule,delayed release .COMPLEX #90 caps rosuvastatin 20 mg tablet 20 mg PO DAILY #90 tabs 08/29/24 Unknown Rx Allergy/AdvReac Type Severity Reaction Status Date / Time No Known Allergies Allergy Verified 11/08/24 09:07 Family History Mother Fibromyalgia Brother Lymphoma Father Alzheimer disease Surgical History Hx of colonoscopy history of left shoulder surgery Social History household members: spouse current occupational status: employed current occupation: [employer] Smoking Status: Former smoker quit date: 03/02/87 Tobacco: How many years used: 10 alcohol intake: current alcohol intake frequency: holidays/special occasions only substance use type: does not use what type of physical activity do you participate in: none Review of Systems (Anesthesia) ROS Narrative System reviewed and no additional complaints, except as documented.
[2024-11-08] MEDS: Lactated Ringers 1,000 ML 1000 ML IV (10:08)
[2024-11-08] MEDS: Midazolam 2 MG/2 ML Syringe IV (10:08)
[2024-11-08] MEDS: fentaNYL 100 MCG/2 ML Ampul IV (10:13)
[2024-11-08] MEDS: Lidocaine 1% (5 ml sdv) 5 ML Vial IV (10:13)
[2024-11-08] MEDS: Cefazolin 1 GM/5 ML Vial 2 GM IV (10:15)
[2024-11-08] MEDS: Bupiv/Epi 0.25% 30 ML Vial (10:22)
--- NOTE | 2024-11-08 10:30 | HERN_PTH ---
PATIENT: JEAN SEARS LOC: [facility] [place] U[place][id number] AGE/SX: 64/M ROOM: RE11/08/[address]: Dr. Go Cortes MD : 1960 BED: DIS: 11/08/2024 SPEC #: [id number] RECD: 11/08/24 11:11 STATUS: EVELYN REJeremy #: [id number] MAURICE: 11/08/24 10:[address]: Go Cortes DEPT: SURGICAL PATHOLOGY RECD BY: Guilherme Nichole ENTERED: 11/08/24 14:41 SP TYPE: Hernia OTHR DR: MD Dr. Rohan Mckenna MD Tissues: A - HERNIA Procedures: Surgery Specimen Level II HEADER OPERATION: Hernia, umbilical repair with poss mesh PRE-OP DIAGNOSIS: Umbilical hernia TISSUE SUBMITTED: A- Hernia sac MICROSCOPIC DIAGNOSIS A. Soft tissue, hernia sac, umbilical repair: - Fibroadipose tissue covered with an attenuated mesothelium, consistent with hernia sac. MICROSCOPIC DESCRIPTION Slides are reviewed. GROSS DESCRIPTION A. Received in formalin labeled with the patient's name and date of . Designated as hernia sac is a 3.8 x 1.3 x 0.1-0.4 cm pink-red semimembranous tissue fragment with attached adipose tissue. The specimen is serially sectioned. Senior Care Specialist sections are submitted in 1 cassette. ME 11/08/2024 CPT:65609
--- NOTE | 2024-11-08 10:45 | OP.PCM_ITS ---
Operative Report (Standard) Operative Information Date of Procedure: 11/08/24 Pre-Operative Diagnosis: Umbilical hernia Post-Operative Diagnosis: Umbilical hernia Surgery/Procedure Performed: Umbilical hernia repair less than 3 cm air deodorizer servicer: Yes Line Closer: Juan Manuel Rowan Tasks completed by critical care physician assistant: Opening & closing and Retracting Type of Anesthesia: General/Regional RN Documented Start/Stop Times: Operation Date: 11/08/24 10:30 Case Time Into Pre-Op 11/08/24 08:58 Out of Pre-Op 11/08/24 10:07 Anesthesia Start 11/08/24 10:08 Into Room 11/08/24 10:08 Procedure Start 11/08/24 10:23 Procedure End 11/08/24 10:40 Procedure Start Time: 10:23 Procedure Stop Time: 10:40 Select all DRAINS/GRAFTS/IMPLANTS that apply: None Estimated Blood Loss: 5 Specimen collected: Yes Description of specimen(s) removed: Hernia sac Description of surgery: Patient was brought back to the operating room and general anesthesia was induced. The abdomen was prepped and draped in usual sterile fashion. An umbilical incision was marked superior to the umbilicus and then incised. Local anesthetic was injected. The hernia sac was isolated from the umbilical stalk. The hernia sac was then removed and the contents were reduced. The fascial defect appeared to be approximately 1 cm. It was closed with 3 interrupted 0 Nurolon sutures. This close the defect well. The umbilical stalk was then reattached to the fascia using a 3-0 Vicryl suture. The incision was closed with interrupted 3-0 Vicryl sutures and Steri-Strips. A cottonball and dressing were applied. Patient was taken to PACU in stable condition and tolerated the procedure well. Surgical Findings: Small umbilical hernia Complications Complications: No Admit VTE Documentation VTE Mechan Device Prophylaxis: SCD's
--- NOTE | 2024-11-08 10:48 | DCINST_ITS ---
Discharge Instructions Procedure Hernia Diet Discharge Diet: Light diet - advance as tolerated Activity Discharge Activity: May Not Drive (for 2-3 days or while taking narcotic pain meds.) and May Shower (with the bandage in place 1-2 days after surgery.) Lifting Restrictions: 20 pounds for 4 weeks. Additional Activity Instructions:: Climbing stairs is fine, walking is encouraged. Sitting in bed may be uncomfortable. Sitting up using your lateral muscles (sitting up sideways) is usually more comfortable. Do not drive, work heavy equipment of sign legal documents for 24 hours. Pain medications may cause nausea, you should typically eat light foods as you take your pain medications. Pain medications may also cause constipation. If you have difficulty with this, discuss with your doctor. Alternate ibuprofen and Tylenol for pain control, oxycodone for breakthrough pain Dressing / Incision Call your doctor if your incision/area has: Continuous Slow Oozing, Sudden Increased Bleeding, Increased Pain/ Swelling, Increased Redness and Foul Smelling Discharge Call your doctor if you observe: Fever of 101 or Higher Suture Line Care: Avoid Pulling/Pushing and Avoid Pinching/Bending Remove Dressing in: 2 days (Remove clear bandages in 2 days, remove Steri-Strips in 7 to 10 days.) Follow Up Care Please Follow Up With: Go Cortes MD When: Please call to schedule 2 week follow up appointment. [phone] Test Results: Test results from this visit will be discussed in further detail at your follow- up appointment, if applicable. Discharge Plan Admission Attending Provider: Go Cortes Primary Care Provider: Rohan Varela Consulting Providers: Brian Gonzales Instructions Print Language: Lithuanian Discharge Orders/Prescriptions Prescriptions: New oxycodone 5 mg Tablet 5 - 10 mg PO Q4H PRN PRN (Reason: Pain Score 4-10) 5 Days Qty: 14 0RF No Action Centrum Silver 0.4-300-250 mg-mcg-mcg tablet 1 tab PO DAILY acetaminophen [Tylenol Extra Strength] 500 mg tablet 500 mg PO Q6H PRN (Reason: pain) medical marijuanas 1 dose OTHER PRN (DME) Aquacel Foam 5 X 5 bandage See Rx Instructions .Route Qty: 10 0RF Rx Instructions: As directed (DME) Handicap Placard See Rx Instructions .ROUTE .MEDSUPPLY Qty: 1 0RF Rx Instructions: As directed, length of time 3 years pregabalin 75 mg capsule 75 mg PO BID Qty: 180 1RF Patient Comments: PT STATES ONLY TAKING QHS amlodipine 10 mg tablet 10 mg PO QDAY Qty: 90 1RF fenofibric acid (choline) 135 mg capsule,delayed release(DR/EC) See Rx Instructions .ROUTE .COMPLEX Qty: 90 1RF Dose Instruction: TAKE 1 CAPSULE BY MOUTH EVERY DAY Rx Instructions: TAKE 1 CAPSULE BY MOUTH EVERY DAY benazepril 40 mg tablet See Rx Instructions .ROUTE .COMPLEX Qty: 90 1RF Dose Instruction: TAKE 1 TABLET BY MOUTH EVERY DAY Rx Instructions: TAKE 1 TABLET BY MOUTH EVERY DAY rosuvastatin 20 mg tablet 20 mg PO DAILY Qty: 90 1RF Referrals / Follow Up: Rohan Varela MD [Primary Care Provider] - Disposition Disposition (needs filled in before D/C Order can be placed): Home, Self Care
--- NOTE | 2024-11-08 10:51 | PCM.POST.ANE ---
Anesthesia: Postop Eval I Current Vital Signs Temperature: 97.6 F Pulse Rate: 86 Blood Pressure: 134/82 Respiratory Rate: 20 Pulse Ox: 96 Oxygen Delivery Method: Room Air Assessment Airway patent: Yes Spontaneous unlabored respirations: Yes Mental status: Awake and Calm nausea: No Vomiting: No Anesthesia Complication: No Fluid Hydration Crystalloid volume administer (ml): 600 Total IV fluid infused: 600 Progress Note Anesthesia document: Postop Eval 1 completed: Yes
--- NOTE | 2024-11-08 12:30 | POSTOPAN2_ITS ---
Anesthesia Postop Eval I Sum Postop Eval Completion status Anesthesia document: Postop Eval 1 completed: Yes Anesthesia Postop Eval I Summary Anesthesia Postop Eval I Summary: Anesthesia Postop Eval I: Assessment Summary Airway patent Yes 11/08/24 10:52 [email or web address] Spontaneous unlabored Yes 11/08/24 10:52 [email or web address] respirations Mental status Awake,Calm 11/08/24 10:52 [email or web address] nausea No 11/08/24 10:52 LAN [email or web address].[email or web address] Vomiting No 11/08/24 10:52 [email or web address] Anesthesia Postop Eval I: Fluid Summary Crystalloid volume administer 600 11/08/24 10:52 LAN [email or web address] (ml) Colloids volume administered ( ml) Blood Product volume administered (ml) Total IV fluid infused 600 11/08/24 10:52 [email or web address] Anesthesia Postop Eval I: Summary Notes Anesthesia Complication No 11/08/24 10:52 [email or web address] Anesthesia Complication Comment: Post-operative progress note Anesthesia: Postop Eval II Evaluation Mental status: Awake and Calm Pain Level: 0 nausea: No Vomiting: No Complications Anesthesia Complication: No
--- NOTE | 2024-11-08 12:30 | PCM.POSTANE2 ---
Anesthesia Postop Eval I Sum Postop Eval Completion status Anesthesia document: Postop Eval 1 completed: Yes Anesthesia Postop Eval I Summary Anesthesia Postop Eval I Summary: Anesthesia Postop Eval I: Assessment Summary Airway patent Yes 11/08/24 10:52 ENVIRONMENTAL PROPERTY [email or web address] Spontaneous unlabored Yes 11/08/24 10:52 ENVIRONMENTAL PROPERTY ASSESSOR.[email or web address] respirations Mental status Awake,Calm 11/08/24 10:52 ENVIRONMENTAL PROPERTY ASSESSOR.[email or web address] nausea No 11/08/24 10:52 ENVIRONMENTAL PROPERTY ASSESSOR.[email or web address] Vomiting No 11/08/24 10:52 ENVIRONMENTAL PROPERTY [email or web address].[email or web address] Anesthesia Postop Eval I: Fluid Summary Crystalloid volume administer 600 11/08/24 10:52 ENVIRONMENTAL PROPERTY ASSESSOR.[email or web address] (ml) Colloids volume administered ( ml) Blood Product volume administered (ml) Total IV fluid infused 600 11/08/24 10:52 ENVIRONMENTAL PROPERTY ASSESSOR.[email or web address] Anesthesia Postop Eval I: Summary Notes Anesthesia Complication No 11/08/24 10:52 ENVIRONMENTAL PROPERTY [email or web address].[email or web address] Anesthesia Complication Comment: Post-operative progress note Anesthesia: Postop Eval II Evaluation Mental status: Awake and Calm Pain Level: 0 nausea: No Vomiting: No Complications Anesthesia Complication: No
== END 2024-11-08 11:52 | disposition home or self-care (01) ==
LOC: SDC 08:52 → AC 08:53
PROVIDERS: Anesthesiology; PCP Internal Medicine; Referring Provider Surgery; Visit Provider Surgery
PROC: (CPT 49593; principal; 2024-11-08 10:15)
DX: K42.9 Umbilical hernia without obstruction or gangrene (principal); E78.00 Pure hypercholesterolemia, unspecified; Z87.891 Personal history of nicotine dependence; I10 Essential (primary) hypertension; Z79.899 Other long term (current) drug therapy
CPT/HCPCS: 49593; 00830; 36415; 85025; 88302; 93005; J2405

== ENCOUNTER → 2025-01-31 | Outpatient (CLI) | payer MEDICARE, SELFPAY ==
[2025-01-31 12:22] LABS: Hematocrit 42.6 % (40-54); Hemoglobin 14.2 g/dL (13.0-16.5); Immature Granulocytes Count 0.020 X10^3/uL (0.0-0.0); Mean Corp Hgb Conc 33.3 g/dL (32-36); Mean Corpuscular Volume 97.9 fL (80-94); Mean Platelet Vol. 12.8 fl (6.2-12.0); NRBC Flagged by Analyzer 0 % (0-5); POSITIVE COUNT YES; RBC Distribution Width CV 13.6 % (11.6-14.6); RBC Distribution Width SD 48.8 fl (35.1-43.9); Red Blood Count 4.35 M/mm3 (4.6-6.2); White Blood Count 6.5 K/mm3 (4.4-11.0)
[2025-01-31 12:53] LABS: AST(SGOT) 22 U/L (<=37); Alanine Aminotransfer ALT/SGPT 12 U/L (<=46); Albumin, Serum 4.2 g/dL (3.4-4.8); Alkaline Phosphatase 45 U/L (40-129); Anion Gap 11 (5-15); BUN 17 mg/dL (4-19); BUN/Creat Ratio 16.4 RATIO (10-20); Calcium,Total 9.6 mg/dL (7.6-11.0); Carbon Dioxide 26.1 mmol/L (21.0-32.0); Chloride 101 mmol/L (98-108); Globulin 2.7 g/dL (2.2-4.2); Glucose 85 mg/dL (70-99); Potassium 4.0 mmol/L (3.3-5.1)
[2025-01-31 13:02] LABS: Differential Indicated SCAN CRITERIA MET
== END | disposition home or self-care (01) ==
LOC: MFPLAB 10:26 → MTLAB 10:39
PROVIDERS: PCP Internal Medicine; Visit Provider Internal Medicine Rheumatology
DX: M06.00 Rheumatoid arthritis without rheumatoid factor, unspecified site (principal); Z79.899 Other long term (current) drug therapy
CPT/HCPCS: 36415; 80053; 85025